=== PATIENT | male | born 1940 | race African-American/Black ===

== ENCOUNTER 2021-05-23 18:48 | Emergency (ER) | payer MEDICARE ==
[2018-09-20 11:00] VITALS: BP 157/74
[~2021-05-23 18:48] MED LIST: AMLO-187 PO; AMOX1TAB10 PO; ASCO500T3 PO; ASPI-630 PO; BENA20TA4 PO; DOCU50CA11 PO; DULA0.75 SQ; DULA1.5P SQ; GABA300C18 PO; HYDR-2761 PO; HYDR-3164 PO; HYDR12.575 PO; HYDR12.58 PO; INSU100C4 SQ; INSU100I13 SQ; INSU100V6 SQ; LISI20TA18 PO; METF10007 PO; POLY17PO29 PO; SILV400C TP; SITA100T PO; ZINC220C7 PO
== END 2021-05-23 22:20 | disposition left against medical advice (07) ==
LOC: ER 18:48
DX: R22.42 Localized swelling, mass and lump, left lower limb (principal); Z53.21 Procedure and treatment not carried out due to patient leaving prior to being seen by health care provider

== ENCOUNTER 2021-06-29 19:53 | Inpatient (IN) | payer MEDICARE ==
[~2021-06-29] VITALS: Ht 162.6 cm; Wt 56.5 kg
--- NOTE | 2021-06-29 20:11 | NUR ---
The patient, ESPERANZA MARINELLI, 80 y/o, M admitted by KESHA TAYLOR MD, was given written information regarding hospital policies, unit procedures and contact persons. Valuables were checked and left with him.
[2021-06-29 20:43] VITALS: BP 173/74
[2021-06-29] MEDS ORDERED: IV NORMAL SALINE 1000ML BAG 1,000 ML IV SCH (20:45)
[2021-06-29] MEDS ORDERED: VANCOMYCIN 1 GM in IV NORMAL SALINE 250ML 250 ML IV SCH (20:45)
[2021-06-29] MEDS ORDERED: INSULIN GLARGINE SYRINGE. SQ SCH (21:00)
[2021-06-29] MEDS ORDERED: VANCOMYCIN 1.25 GM in IV NORMAL SALINE 250ML 250 ML IV ONE (22:00)
[2021-06-29] MEDS: silver sulfADIAZINE 1% CREAM 25GM TUBE. TP SCH (22:00)
[2021-06-29] MEDS: INSULIN LISPRO 300 UNITS/3 ML VIAL. SQ SCH (22:07)
--- NOTE | 2021-06-29 22:07 | PDOC ---
Provider Note Date of Service: DATE: 06/29/21 TIME: 22:06 Provider Note Pt seen .H&P dictated.#[id number]. Justifications for Admission Other Justification KESHA TAYLOR MD Jun 29, 2021 22:07
[2021-06-29] MEDS: HEPARIN for SUB-Q USE 5,000 UNIT/ML VIAL. SQ SCH (22:08)
[2021-06-29] MEDS: HYDROcodone/APAP 5/325MG 1 TAB TABLET PO PRN (22:08)
[2021-06-29] MEDS: GABAPENTIN 300 MG CAPSULE. PO SCH (22:08)
[2021-06-29 22:52] LABS: BASO % 0 % (0-3); EOS % 0 % (0-3); LYMPH % 17 % (24-48); MEAN CORPUSCULAR HEMOGLOBIN 26 pg (25-35); MEAN CORPUSCULAR HGB CONC 32 g/dL (31-37); MEAN CORPUSCULAR VOLUME 82 fL (79-100); MONO # 0.6 x10^3/uL (0.0-1.1); MONO % 10 % (0-9); NEUT # 4.4 x10^3/uL (1.8-7.7); NEUT % 73 % (31-73); PLATELET COUNT 210 x10^3/uL (140-400); RED BLOOD COUNT 3.44 x10^6/uL (4.30-5.70); RED CELL DISTRIBUTION WIDTH 14.9 % (11.5-14.5)
[2021-06-29 23:00] VITALS: BP 158/67
[2021-06-29 23:10] LABS: ALBUMIN 2.4 g/dL (3.4-5.0); ALBUMIN/GLOBULIN RATIO 0.4 (1.0-1.7); CREATININE 1.6 mg/dL (0.7-1.3); GFR 50.7; POTASSIUM 4.3 mmol/L (3.5-5.1); TOTAL BILIRUBIN 0.4 mg/dL (0.2-1.0); TOTAL PROTEIN 7.8 g/dL (6.4-8.2)
[2021-06-29] MEDS: PIPERACILLIN/TAZOBACTAM 2.25 GM in IV NORMAL SALINE 50ML 50 ML IV SCH (23:16)
--- NOTE | 2021-06-29 23:23 | RAD ---
Exam: Chest one view INDICATION: Shortness of breath TECHNIQUE: Frontal view of the chest Comparisons: 09/18/2018 FINDINGS: The cardiomediastinal silhouette and pulmonary vessels are within normal limits. The lung and pleural spaces are clear. IMPRESSION: No acute cardiopulmonary process. Electronically signed by: Ernie Francis MD (06/29/2021 11:20 PM) [facility]
[2021-06-30] MEDS ORDERED: PIPERACILLIN/TAZOBACTAM 3.375 GM in IV NORMAL SALINE 50ML 50 ML IV SCH
--- NOTE | 2021-06-30 00:45 | RAD ---
EXAM: LEFT TIBIA/FIBULA 2 VIEWS. HISTORY: Infection, concern for osteomyelitis. COMPARISON: None. FINDINGS: Small soft tissue ulcers are suspected along the anterior lopez. There is no cortical erosio n suggestive of acute osteomyelitis. No fractures are identified. The joint spaces and alignment of the knee and ankle are grossly maintai noelle. Atherosclerotic calcifications are noted. IMPRESSION: 1. Soft tissue ulcer along the anterior lopez. No evidence of acute osteomyelitis by radiographs. Electronically signed by: Max Aguilar MD (06/30/2021 12:43 AM) [facility]
[2021-06-30] MEDS: VANCOMYCIN PER PHARMACY MC PRN ×2 (00:47→16:25)
--- NOTE | 2021-06-30 00:48 | NUR ---
Pharmacy Vancomycin Dosing Note S:Consulted to monitor and dose vancomycin started 06/29/21. O:ESPERANZA MARINELLI is a 80 year old M with Cellulitis . Height: 5 feet, 4 inches Weight: 51.2 kg [place] Body Weight: 59.20 Adjusted Body Weight: 56.00 Dosing Weight: Actual Other Antibiotics: ZOSYN 2.25 GM Q6H LABS: Last BUN: 30 Last Creatinine: 1.6 Creatinine Clearance: 27 mL/min Last WBC: 6 Last Procalcitonin: Tmax (past 24 hours): Microbiology: I/O: Drug Levels: Last level: on at Last dose given 06/29/21 at 2200 Vancomycin Dosing: Loading Dose: 1250 mg x1 Dosing Weight: Actual Target Trough: 10-20 A: Based on: WT AND CRCL P: 1. Begin Vancomycin 750 mg IV q24h 2. Follow up Trough level on 07/01/21 at 2130 3. Pharmacy will continue to monitor, follow and adjust therapy as needed. FIONA ANDERSON RPH, 06/30/21 0048 Signed: 06/30/21 at 47 by FIONA ANDERSON RPH PHA
[2021-06-30 03:25] VITALS: BP 153/72
[2021-06-30] MEDS: PIPERACILLIN/TAZOBACTAM 2.25 GM in IV NORMAL SALINE 50ML 50 ML IV SCH ×3 (04:51→18:46)
[2021-06-30 05:35] LABS: BILIRUBIN,URINE NEGATIVE (NEG); CLARITY,URINE CLEAR; COLOR,URINE YELLOW; NITRITE,URINE NEGATIVE (NEG); PH,URINE 5.5 (<5.0-8.0); PROTEIN,URINE NEGATIVE (NEG-TRACE)
[2021-06-30 05:54] LABS: BACTERIA,URINE 0 /HPF (0-FEW); WBC,URINE OCC /HPF (0-4)
[2021-06-30 05:55] LABS: AMORPHOUS SEDIMENT,UR PRESENT /HPF
--- NOTE | 2021-06-30 06:27 | EKG ---
[facility] [address] [place] [address] Test Date: 2021-06-30 Test Time: 00:17:15 Pat Name: ESPERANZA MARINELLI Department: Room: 2 Gender: M Program Aide Group Work: CALIN : 1940 Requested By: KESHA TAYLOR Order Number: [id number] Reading MD: Measurements Intervals [place] Rate: 84 P: 52 HI: 124 QRS: -39 QRSD: 104 T: 42 QT: 370 QTc: 440 Interpretive Statements SINUS RHYTHM COMPLEX(ES) WITH ABERRANT INTRAVENTRICULAR CONDUCTION ATRIAL PREMATURE COMPLEX(ES) ABNORMAL LEFT AXIS DEVIATION LEFT ANTERIOR FASCICULAR BLOCK ABNORMAL ECG RI6.02 Compared to ECG 09/18/2018 16:11:04 T-wave abnormality no longer present
[2021-06-30 07:00] VITALS: BP 174/84
--- NOTE | 2021-06-30 07:16 | HP ---
ADMIT DATE: 06/29/2021 REASON FOR ADMISSION TO THE HOSPITAL: Left leg infected ulcer with cellulitis, peripheral vascular disease and left foot ischemia. HISTORY OF PRESENT ILLNESS: The patient is a 80-year-old male patient who has a history of brittle diabetes, insulin-dependent, noncompliant, blood sugar goes up and down. The patient was in the hospital 2 to 3 weeks ago at [facility] for diabetic ketoacidosis, was treated with insulin drip. He also has an ulcer or a scab in the left leg, which became infected and developed ulceration. The patient was seen by cardiovascular at [place]. The patient underwent angioplasty of the left leg at and the patient is being followed at the wound care center. The patient has a wound care nurse to come and see him. He has seen wound care center at on Sunday and he has dressings changed every 3 days. He saw me today in the office and there is a foul smelling drainage from the wound. Also, his foot is more dusky color with more pain as well as discoloration and with a history of vascular disease and infected ulcer, the patient was admitted to the hospital for further investigation and treatment. PAST MEDICAL HISTORY: As mentioned, the patient has history of insulin-dependent diabetes, brittle, also noncompliant, history of hypertension, hyperlipidemia, peripheral vascular disease. 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 This was in the past. SOCIAL HISTORY: Smokes 1 pack, still smokes. Denies alcohol. Denies any street drugs. FAMILY HISTORY: Positive for diabetes, heart disease. ALLERGIES: No known allergies. MEDICATIONS: From home, hydrocodone for pain, insulin 10 units, Humalog 3 times daily, Lantus 20 units at bedtime, metformin 1000 twice a day, Januvia 100 mg daily, aspirin 81 mg daily, gabapentin 300 mg 3 times daily, hydrochlorothiazide 12.5, lisinopril 20 mg twice a day. REVIEW OF SYSTEMS: The patient has been not feeling well for the last 2 days, more irritable, not as usual. PHYSICAL EXAMINATION: VITAL SIGNS: Temperature 100.3, pulse 93, respirations 20, blood pressure 173/74, 99 on room air. HEENT: Head is atraumatic. Pupils equal. Oral cavity, no congestion. NECK: Supple. Thyroid not enlarged. JVD not elevated. CHEST: Symmetrical. CARDIOVASCULAR: S1, S2. LUNGS: Clear to auscultation. ABDOMEN: Soft. No mass palpable. : No [place]. RECTUM: Deferred. EXTREMITIES: The patient has a scar of right leg bypass surgery, couple of toes removed in the right foot, no ulcerations. Left foot anterior lopez, this is a large ulcer 5 cm with some white necrotic debris at the base of the ulcer and patient has a nonpalpable dorsalis and posterior tibial and dorsal aspect of the foot is dusky and some eschar at the ankle area, which was not present last week and the patient has a second toe chronic discoloration on the left foot. The patient has significant diabetic neuropathy. LABORATORY DATA: Pending. FINAL IMPRESSION: 1. Infected left leg lower ulcer with necrosis with surrounding inflammation, acute infection, possible to have rule out underlying osteomyelitis. 2. Severe peripheral vascular disease. The patient recently underwent angioplasty of the left lower leg at [facility]. 3. Dusky left ankle and foot secondary to vascular disease. 4. Insulin-dependent diabetes. 5. Noncompliance. 6. Uncontrolled diabetes. A1c was 15. 7. Peripheral vascular disease. 8. Neuropathy. PLAN: At this time, was admitted to the hospital. Wound cultures, start on broad spectrum antibiotic, vancomycin and Zosyn. ID is consulted. Will also have a vascular consult and arterial Doppler and x-ray of the left tibia and fibular, rule out osteo. Further recommendations to follow. We will also consult wound care team and heparin for DVT prophylaxis. Prognosis is guarded secondary to multiple comorbid conditions. TIAGO/AVR/AMI DR: TIAGO/jamarcus TID: [id number] [facility]
[2021-06-30] MEDS: INSULIN LISPRO 300 UNITS/3 ML VIAL. SQ SCH ×7 (07:30→21:00)
[2021-06-30 07:40] LABS: BASO # 0.1 x10^3/uL (0.0-0.2); BASO % 1 % (0-3); EOS # 0.1 x10^3/uL (0.0-0.7); EOS % 1 % (0-3); HEMATOCRIT 28.9 % (39.0-53.0); HEMOGLOBIN 9.3 g/dL (13.0-17.5); LYMPH # 1.6 x10^3/uL (1.0-4.8); LYMPH % 23 % (24-48); MEAN CORPUSCULAR HEMOGLOBIN 26 pg (25-35); MEAN CORPUSCULAR HGB CONC 32 g/dL (31-37); MEAN CORPUSCULAR VOLUME 81 fL (79-100); MONO % 15 % (0-9); NEUT # 4.2 x10^3/uL (1.8-7.7); NEUT % 61 % (31-73); PLATELET COUNT 237 x10^3/uL (140-400); RED BLOOD COUNT 3.59 x10^6/uL (4.30-5.70); RED CELL DISTRIBUTION WIDTH 14.5 % (11.5-14.5); WHITE BLOOD COUNT 6.9 x10^3/uL (4.0-11.0)
[2021-06-30 07:49] LABS: CALCIUM 8.9 mg/dL (8.5-10.1); CREATININE 1.5 mg/dL (0.7-1.3); GFR 54.6; POTASSIUM 3.6 mmol/L (3.5-5.1)
[2021-06-30 07:50] LABS: CHOLESTEROL/HDL RATIO 2.8
--- NOTE | 2021-06-30 07:57 | PDOC ---
PROGRESS NOTES Date of Service: DATE: 06/30/21 TIME: 07:57 Subjective Subjective feels better today Objective Objective Vital Signs Date Time Temp Pulse Resp B/P (MAP) Pulse Ox O2 Delivery O2 Flow Rate FiO2 06/30/21 03:25 98.9 77 18 153/72 (99) 96 Room Air 98.9 Physical Exam Abdomen: Soft Heart: Regular rate, Normal S1, Normal S2 Extremities: No clubbing General: Alert, Cooperative HEENT: Atraumatic Lungs: Clear to auscultation MUSCULOSKELETAL: No deformity, No swelling, Abnormal exam of left, Other Neck: No JVD Neuro: Normal speech Psych/Mental Status: Mental status NL Skin: Other (left leg ulcer anterior to lopez 5 cm stage 3-4,POA) Assessment Assessment Assessment Left lower extremity abscess Left lower extremity cellulitis Left lower extremity non healing chronic wound Peripheral vascular disease with history of angioplasty Diabetes mellitus with peripheral neuropathy CKD Tobacco dependence History of noncompliance History of previous toe amputation Plan: Debridement tomorrow? Plan: arterial doppler results noted vascular consult appreciated iv antibiotics x ray -ve for osteo sedrate 120 high . cr 1.5 plastic consult ID consult appreciated. Continue Zosyn Change vancomycin to daptomycin Vascular consulted, will need I&D Continue local wound care as directed Monitor labs and cultures Continue supportive care Comment Review of Relevant I have reviewed the following items jorge (where applicable) has been applied. Labs Laboratory Tests Test 06/29/21 20:30 06/29/21 22:30 06/29/21 23:50 06/30/21 05:24 Glucose (Fingerstick) 337 mg/dL (70-99) White Blood Count 6.0 x10^3/uL (4.0-11.0) Red Blood Count 3.44 x10^6/uL (4.30-5.70) Hemoglobin 9.0 g/dL (13.0-17.5) Hematocrit 28.0 % (39.0-53.0) Mean Corpuscular Volume 82 fL (79-100) Mean Corpuscular Hemoglobin 26 pg (25-35) Mean Corpuscular Hemoglobin Concent 32 g/dL (31-37) Red Cell Distribution Width 14.9 % (11.5-14.5) Platelet Count 210 x10^3/uL (140-400) Neutrophils (%) (Auto) 73 % (31-73) Lymphocytes (%) (Auto) 17 % (24-48) Monocytes (%) (Auto) 10 % (0-9) Eosinophils (%) (Auto) 0 % (0-3) Basophils (%) (Auto) 0 % (0-3) Neutrophils # (Auto) 4.4 x10^3/uL (1.8-7.7) Lymphocytes # (Auto) 1.0 x10^3/uL (1.0-4.8) Monocytes # (Auto) 0.6 x10^3/uL (0.0-1.1) Eosinophils # (Auto) 0.0 x10^3/uL (0.0-0.7) Basophils # (Auto) 0.0 x10^3/uL (0.0-0.2) Sodium Level 135 mmol/L (136-145) Potassium Level 4.3 mmol/L (3.5-5.1) Chloride Level 99 mmol/L (98-107) Carbon Dioxide Level 26 mmol/L (21-32) Anion Gap 10 (6-14) Blood Urea Nitrogen 30 mg/dL (8-26) Creatinine 1.6 mg/dL (0.7-1.3) Estimated GFR (Cockcroft-Gault) 50.7 BUN/Creatinine Ratio 19 (6-20) Glucose Level 331 mg/dL (70-99) Calcium Level 9.0 mg/dL (8.5-10.1) Total Bilirubin 0.4 mg/dL (0.2-1.0) Aspartate Amino Transf (AST/SGOT) 14 U/L (15-37) Alanine Aminotransferase (ALT/SGPT) 14 U/L (16-63) Alkaline Phosphatase 67 U/L (46-116) Total Protein 7.8 g/dL (6.4-8.2) Albumin 2.4 g/dL (3.4-5.0) Albumin/Globulin Ratio 0.4 (1.0-1.7) SARS-CoV-2 Antigen (Rapid) Negative (NEGATIVE) Urine Collection Type U cath Urine Color Yellow Urine Clarity Clear Urine pH 5.5 (<5.0-8.0) Urine Specific [place] 1.015 (1.000-1.030) Urine Protein Negative mg/dL (NEG-TRACE) Urine Glucose (UA) 500 mg/dL (NEG) Urine Ketones (Stick) Negative mg/dL (NEG) Urine Blood Small (NEG) Urine Nitrite Negative (NEG) Urine Bilirubin Negative (NEG) Urine Urobilinogen Dipstick 1.0 mg/dL (0.2 mg/dL) Urine Leukocyte Esterase Negative (NEG) Urine RBC 3-5 /HPF (0-2) Urine WBC Occ /HPF (0-4) Urine Amorphous Sediment Present /HPF Urine Bacteria 0 /HPF (0-FEW) Test 06/30/21 06:10 06/30/21 07:28 White Blood Count 6.9 x10^3/uL (4.0-11.0) Red Blood Count 3.59 x10^6/uL (4.30-5.70) Hemoglobin 9.3 g/dL (13.0-17.5) Hematocrit 28.9 % (39.0-53.0) Mean Corpuscular Volume 81 fL (79-100) Mean Corpuscular Hemoglobin 26 pg (25-35) Mean Corpuscular Hemoglobin Concent 32 g/dL (31-37) Red Cell Distribution Width 14.5 % (11.5-14.5) Platelet Count 237 x10^3/uL (140-400) Neutrophils (%) (Auto) 61 % (31-73) Lymphocytes (%) (Auto) 23 % (24-48) Monocytes (%) (Auto) 15 % (0-9) Eosinophils (%) (Auto) 1 % (0-3) Basophils (%) (Auto) 1 % (0-3) Neutrophils # (Auto) 4.2 x10^3/uL (1.8-7.7) Lymphocytes # (Auto) 1.6 x10^3/uL (1.0-4.8) Monocytes # (Auto) 1.0 x10^3/uL (0.0-1.1) Eosinophils # (Auto) 0.1 x10^3/uL (0.0-0.7) Basophils # (Auto) 0.1 x10^3/uL (0.0-0.2) Sodium Level 141 mmol/L (136-145) Potassium Level 3.6 mmol/L (3.5-5.1) Chloride Level 104 mmol/L (98-107) Carbon Dioxide Level 30 mmol/L (21-32) Anion Gap 7 (6-14) Blood Urea Nitrogen 25 mg/dL (8-26) Creatinine 1.5 mg/dL (0.7-1.3) Estimated GFR (Cockcroft-Gault) 54.6 Glucose Level 62 mg/dL (70-99) Calcium Level 8.9 mg/dL (8.5-10.1) Triglycerides Level 49 mg/dL (0-150) Cholesterol Level 124 mg/dL (0-200) LDL Cholesterol, Calculated 70 mg/dL (0-100) VLDL Cholesterol, Calculated 10 mg/dL (0-40) Non-HDL Cholesterol Calculated 80 mg/dL (0-129) HDL Cholesterol 44 mg/dL (40-60) Cholesterol/HDL Ratio 2.8 Glucose (Fingerstick) 73 mg/dL (70-99) Medications Current Medications Acetaminophen/ Hydrocodone Bitart (Lortab 5/325) 1 tab PRN Q6HRS PRN PO MODERATE PAIN 4-6 Last administered on 06/29/21at 22:08; Start 06/29/21 at 20:45 Aspirin (Aspirin Chewable) 81 mg BID PO ; Start 06/30/21 at 09:00 Dextrose (Dextrose 50%-Water Syringe) 12.5 gm PRN Q15MIN PRN IV SEE COMMENTS; Start 06/29/21 at 20:45 Gabapentin (Neurontin) 300 mg BID PO Last administered on 06/29/21at 22:08; Start 06/29/21 at 22:00 Heparin Sodium (Porcine) (Heparin Sodium) 5,000 unit BID SQ Last administered on 06/29/21at 22:08; Start 06/29/21 at 21:00 Hydrochlorothiazide (Microzide) 12.5 mg DAILY PO ; Start 06/30/21 at 09:00 Insulin Glargine (Lantus Syringe) 10 unit QHS SQ ; Start 06/30/21 at 21:00 Insulin Glargine (Lantus Syringe) 20 unit QHS SQ Last administered on 06/29/21at 22:04; Start 06/29/21 at 21:00; Stop 06/29/21 at 22:27; Status DC Insulin Human Lispro (HumaLOG) 0-7 UNITS QIDACHS SQ Last administered on 06/29/21at 22:07; Start 06/29/21 at 21:00 Insulin Human Lispro (HumaLOG) 6 units TIDAC SQ ; Start 06/30/21 at 07:30 Lisinopril (Prinivil) 20 mg BID PO ; Start 06/30/21 at 09:00 Piperacillin Sod/ Tazobactam Sod 2.25 gm/Sodium Chloride 50 ml @ 100 mls/hr Q6HRS IV Last administered on 06/30/21at 04:51; Start 06/30/21 at 00:00 Piperacillin Sod/ Tazobactam Sod 3.375 gm/Sodium Chloride 50 ml @ 100 mls/hr Q6HRS IV ; Start 06/30/21 at 00:00; Status UNV Silver Sulfadiazine (Silvadene) 1 eugene BID TP Last administered on 06/29/21at 22:00; Start 06/29/21 at 21:00 Sodium Chloride 1,000 ml @ 75 mls/hr [id number] IV Last administered on 06/29/21at 21:59; Start 06/29/21 at 20:45 Vancomycin HCl (Vanco Per Pharmacy) 1 each PRN DAILY PRN MC SEE COMMENTS Last administered on 06/30/21at 00:47; Start 06/29/21 at 20:45 Vancomycin HCl (Vancomycin Trough Level) 1 each 1X ONCE MC ; Start 07/01/21 at 21:30; Stop 07/01/21 at 21:31 Vancomycin HCl 1.25 gm/Sodium Chloride 250 ml @ 166.667 mls/hr 1X ONCE IV Last administered on 06/29/21at 21:59; Start 06/29/21 at 22:00; Stop 06/29/21 at 23:29; Status DC Vancomycin HCl 750 mg/Sodium Chloride 250 ml @ 250 mls/hr Q24H IV ; Start 06/30/21 at 22:00 Vancomycin HCl 1 gm/Sodium Chloride 250 ml @ 250 mls/hr 1X IV ; Start 06/29/21 at 20:45; Status UNV Vitals/I & O Vital Sign - Last 24 Hours 06/29/21 06/29/21 06/29/21 06/29/21 20:12 20:43 22:08 22:38 Temp 100.3 100.3 Pulse 93 Resp 20 18 16 B/P (MAP) 173/74 (107) Pulse Ox 99 99 99 O2 Delivery Room Air Room Air Room Air Room Air 06/29/21 06/30/21 23:00 03:25 Temp 99.9 98.9 99.9 98.9 Pulse 75 77 Resp 20 18 B/P (MAP) 158/67 (97) 153/72 (99) Pulse Ox 97 96 O2 Delivery Room Air Room Air Justifications for Admission Other Justification KESHA TAYLOR MD Jun 30, 2021 07:57
[2021-06-30] MEDS: POTASSIUM CL 20MEQ D5-0.9%NACL 1,000 ML IV SCH ×2 (08:00→22:30)
--- NOTE | 2021-06-30 08:29 | RAD ---
EXAM: Left lower extremity venous Doppler sonogram. HISTORY: Cellulitis. Pain and swelling. TECHNIQUE: Metz scale and color Doppler sonographic evaluation of the left lower extremity veins with spectral waveform analysis was performed. FINDINGS: There is normal color flow, normal compressibility and there are normal spectral waveforms in the common femoral, superficial femoral, popliteal, posterior tibial and greater saphenous veins. IMPRESSION: No Doppler evidence of lower extremity deep venous thrombosis. Electronically signed by: Kristina Palmer MD (06/30/2021 8:26 AM) [facility]
[2021-06-30] MEDS: hydroCHLOROthiazide 12.5 MG CAPSULE PO SCH (08:30)
[2021-06-30] MEDS: GABAPENTIN 300 MG CAPSULE. PO SCH ×2 (08:30→22:25)
[2021-06-30] MEDS: LISINOPRIL 20 MG TABLET PO SCH ×2 (08:30→22:26)
[2021-06-30] MEDS: ASPIRIN CHEWABLE 81 MG TABLET. PO SCH ×2 (08:30→21:00)
[2021-06-30] MEDS: silver sulfADIAZINE 1% CREAM 25GM TUBE. TP SCH ×2 (08:31→21:00)
--- NOTE | 2021-06-30 08:31 | RAD ---
EXAM: Left lower extremity arterial Doppler sonogram. HISTORY: Cellulitis. Pain. Peripheral vascular disease. TECHNIQUE: Metz scale and color Doppler sonographic imaging of the lower extremity arteries with spec tral waveform analysis was performed. COMPARISON: None. FINDINGS: There are abnormal monophasic waveforms involving the proximal and distal posterior tibial artery, anterior tibial artery and dorsalis pedis artery, consistent with hemodynamically significant proximal stenosis. There is a borderline elevated peak systolic velocity within the left proximal po sterior tibial artery, measuring 150 cm/s. There is an elevated peak systolic velocity within the dis victoriano left posterior tibial artery measuring 235 cm/s. There are normal triphasic waveforms and peak systolic velocities within the left common femoral, marichuy p femoral, superficial femoral, and popliteal arteries. No arterial occlusion is seen. IMPRESSION: 1. Monophasic waveforms distal to the popliteal artery, favoring hemodynamically significant proximal stenosis. 2. Elevated peak systolic velocity within the distal posterior tibial artery and borderline elevated peak systolic velocity within the proximal posterior tibial artery, consistent with hemodynamically s ignificant stenosis. 3. Nonvisualization of the peroneal artery. There is no evidence of occlusion involving the remainder of the lower extremity arteries. Electronically signed by: Kristina Palmer MD (06/30/2021 8:28 AM) [facility]
[2021-06-30] MEDS: HEPARIN for SUB-Q USE 5,000 UNIT/ML VIAL. SQ SCH ×2 (09:00→21:00)
[2021-06-30 10:51] VITALS: BP 150/71
--- NOTE | 2021-06-30 11:09 | PDOC2 ---
IM Consult Reason for consult LLE infected Ulcer, antibiotic management Referring physician DR TAYLOR Date of Admission DATE: 06/30/21 TIME: 10:57 Chief Complaint Chief Complaint This 80-year-old gentleman with history of insulin-dependent diabetes mellitus poorly controlled, hypertension, hyperlipidemia , Peripheral vascular disease, previous toe amputations was following up with wound care for Nonhealing left lower extremity wound. Patient had developed swelling, foul- smelling drainage. Patient was started on IV Vanco and Zosyn ID consultation has been requested for antibiotic management Patient denies any history of trauma. Has undergone angioplasty at [facility] Says has been following up regularly with wound care team. Here CBC is pending. Imaging as below. Past Medical History Cardiovascular: HTN, Hyperlipidemia, Other Pulmonary: No pertinent hx CENTRAL NERVOUS SYSTEM: Other GI: GI bleed, Peptic Ulcer disease Heme/Onc: Other Hepatobiliary: No pertinent hx Psych: No pertinent hx Musculoskeletal: Osteoarthritis, Other Rheumatologic: No pertinent hx Infectious disease: No pertinent hx Renal/: No pertinent hx Endocrine: Diabetes Past Surgical History Past Surgical History: Other Past Family History Family History: Diabetes Review of Symptoms Review of Symptoms General ROS: positive for nonhealing ulcer over the left lower extremity with drainage Patient is a poor historian but denies any other complaints Medications Current Medications Acetaminophen/ Hydrocodone Bitart (Lortab 5/325) 1 tab PRN Q6HRS PRN PO MODERATE PAIN 4-6 Last administered on 06/29/21at 22:08; Start 06/29/21 at 20:45 Aspirin (Aspirin Chewable) 81 mg BID PO Last administered on 06/30/21at 08:30; Start 06/30/21 at 09:00 Dextrose (Dextrose 50%-Water Syringe) 12.5 gm PRN Q15MIN PRN IV SEE COMMENTS; Start 06/29/21 at 20:45 Gabapentin (Neurontin) 300 mg BID PO Last administered on 06/30/21at 08:30; Start 06/29/21 at 22:00 Heparin Sodium (Porcine) (Heparin Sodium) 5,000 unit BID SQ Last administered on 06/29/21at 22:08; Start 06/29/21 at 21:00 Hydrochlorothiazide (Microzide) 12.5 mg DAILY PO Last administered on 06/30/21at 08:30; Start 06/30/21 at 09:00 Insulin Glargine (Lantus Syringe) 10 unit QHS SQ ; Start 06/30/21 at 21:00 Insulin Glargine (Lantus Syringe) 20 unit QHS SQ Last administered on 06/29/21at 22:04; Start 06/29/21 at 21:00; Stop 06/29/21 at 22:27; Status DC Insulin Human Lispro (HumaLOG) 0-7 UNITS QIDACHS SQ Last administered on 06/29/21at 22:07; Start 06/29/21 at 21:00 Insulin Human Lispro (HumaLOG) 6 units TIDAC SQ ; Start 06/30/21 at 07:30 Lisinopril (Prinivil) 20 mg BID PO Last administered on 06/30/21at 08:30; Start 06/30/21 at 09:00 Piperacillin Sod/ Tazobactam Sod 2.25 gm/Sodium Chloride 50 ml @ 100 mls/hr Q6HRS IV Last administered on 06/30/21at 04:51; Start 06/30/21 at 00:00 Piperacillin Sod/ Tazobactam Sod 3.375 gm/Sodium Chloride 50 ml @ 100 mls/hr Q6HRS IV ; Start 06/30/21 at 00:00; Status UNV Potassium Chloride/Dextrose/ Sod Cl 1,000 ml @ 75 mls/hr [id number] IV Last administered on 06/30/21at 08:00; Start 06/30/21 at 08:00 Silver Sulfadiazine (Silvadene) 1 eugene BID TP Last administered on 06/30/21at 08:31; Start 06/29/21 at 21:00 Sodium Chloride 1,000 ml @ 75 mls/hr [id number] IV Last administered on 06/29/21at 21:59; Start 06/29/21 at 20:45; Stop 06/30/21 at 07:57; Status DC Vancomycin HCl (Vanco Per Pharmacy) 1 each PRN DAILY PRN MC SEE COMMENTS Last administered on 06/30/21at 00:47; Start 06/29/21 at 20:45 Vancomycin HCl (Vancomycin Trough Level) 1 each 1X ONCE MC ; Start 07/01/21 at 21:30; Stop 07/01/21 at 21:31 Vancomycin HCl 1.25 gm/Sodium Chloride 250 ml @ 166.667 mls/hr 1X ONCE IV Last administered on 06/29/21at 21:59; Start 06/29/21 at 22:00; Stop 06/29/21 at 23:29; Status DC Vancomycin HCl 750 mg/Sodium Chloride 250 ml @ 250 mls/hr Q24H IV ; Start 06/30/21 at 22:00 Vancomycin HCl 1 gm/Sodium Chloride 250 ml @ 250 mls/hr 1X IV ; Start 06/29/21 at 20:45; Status UNV Allergy Allergies Coded Allergies Type Severity Reaction Last Updated Verified No Known Drug Allergies 05/31/16 No Physical Exam Physical Exam GENERAL: Reviewed but arousable male, lying in bed comfortably, in no acute distress. HEENT: Normocephalic, atraumatic. Anicteric. NECK: Supple. No JVD. LUNGS: Clear bilaterally. No wheezing. HEART: S1, S2. No gallops or murmurs. ABDOMEN: Soft, nontender, nondistended. No rebound or guarding. EXTREMITIES: Left lower extremity large wound with purulence surrounding erythema, warmth Has had toe amputations in the past MUSCULOSKELETAL: No joint swelling. No decrease in range of motion. CENTRAL NERVOUS SYSTEM: Alert, oriented x 3, grossly nonfocal. PSYCHIATRIC: Cooperative, calm. Labs Laboratory Tests Test 06/29/21 20:30 06/29/21 22:30 06/29/21 23:50 06/30/21 05:24 Glucose (Fingerstick) 337 mg/dL (70-99) White Blood Count 6.0 x10^3/uL (4.0-11.0) Red Blood Count 3.44 x10^6/uL (4.30-5.70) Hemoglobin 9.0 g/dL (13.0-17.5) Hematocrit 28.0 % (39.0-53.0) Mean Corpuscular Volume 82 fL (79-100) Mean Corpuscular Hemoglobin 26 pg (25-35) Mean Corpuscular Hemoglobin Concent 32 g/dL (31-37) Red Cell Distribution Width 14.9 % (11.5-14.5) Platelet Count 210 x10^3/uL (140-400) Neutrophils (%) (Auto) 73 % (31-73) Lymphocytes (%) (Auto) 17 % (24-48) Monocytes (%) (Auto) 10 % (0-9) Eosinophils (%) (Auto) 0 % (0-3) Basophils (%) (Auto) 0 % (0-3) Neutrophils # (Auto) 4.4 x10^3/uL (1.8-7.7) Lymphocytes # (Auto) 1.0 x10^3/uL (1.0-4.8) Monocytes # (Auto) 0.6 x10^3/uL (0.0-1.1) Eosinophils # (Auto) 0.0 x10^3/uL (0.0-0.7) Basophils # (Auto) 0.0 x10^3/uL (0.0-0.2) Sodium Level 135 mmol/L (136-145) Potassium Level 4.3 mmol/L (3.5-5.1) Chloride Level 99 mmol/L (98-107) Carbon Dioxide Level 26 mmol/L (21-32) Anion Gap 10 (6-14) Blood Urea Nitrogen 30 mg/dL (8-26) Creatinine 1.6 mg/dL (0.7-1.3) Estimated GFR (Cockcroft-Gault) 50.7 BUN/Creatinine Ratio 19 (6-20) Glucose Level 331 mg/dL (70-99) Calcium Level 9.0 mg/dL (8.5-10.1) Total Bilirubin 0.4 mg/dL (0.2-1.0) Aspartate Amino Transf (AST/SGOT) 14 U/L (15-37) Alanine Aminotransferase (ALT/SGPT) 14 U/L (16-63) Alkaline Phosphatase 67 U/L (46-116) Total Protein 7.8 g/dL (6.4-8.2) Albumin 2.4 g/dL (3.4-5.0) Albumin/Globulin Ratio 0.4 (1.0-1.7) SARS-CoV-2 RNA (ERIC) Negative (Negative) SARS-CoV-2 Antigen (Rapid) Negative (NEGATIVE) Urine Collection Type U cath Urine Color Yellow Urine Clarity Clear Urine pH 5.5 (<5.0-8.0) Urine Specific [place] 1.015 (1.000-1.030) Urine Protein Negative mg/dL (NEG-TRACE) Urine Glucose (UA) 500 mg/dL (NEG) Urine Ketones (Stick) Negative mg/dL (NEG) Urine Blood Small (NEG) Urine Nitrite Negative (NEG) Urine Bilirubin Negative (NEG) Urine Urobilinogen Dipstick 1.0 mg/dL (0.2 mg/dL) Urine Leukocyte Esterase Negative (NEG) Urine RBC 3-5 /HPF (0-2) Urine WBC Occ /HPF (0-4) Urine Amorphous Sediment Present /HPF Urine Bacteria 0 /HPF (0-FEW) Test 06/30/21 06:10 06/30/21 07:28 White Blood Count 6.9 x10^3/uL (4.0-11.0) Red Blood Count 3.59 x10^6/uL (4.30-5.70) Hemoglobin 9.3 g/dL (13.0-17.5) Hematocrit 28.9 % (39.0-53.0) Mean Corpuscular Volume 81 fL (79-100) Mean Corpuscular Hemoglobin 26 pg (25-35) Mean Corpuscular Hemoglobin Concent 32 g/dL (31-37) Red Cell Distribution Width 14.5 % (11.5-14.5) Platelet Count 237 x10^3/uL (140-400) Neutrophils (%) (Auto) 61 % (31-73) Lymphocytes (%) (Auto) 23 % (24-48) Monocytes (%) (Auto) 15 % (0-9) Eosinophils (%) (Auto) 1 % (0-3) Basophils (%) (Auto) 1 % (0-3) Neutrophils # (Auto) 4.2 x10^3/uL (1.8-7.7) Lymphocytes # (Auto) 1.6 x10^3/uL (1.0-4.8) Monocytes # (Auto) 1.0 x10^3/uL (0.0-1.1) Eosinophils # (Auto) 0.1 x10^3/uL (0.0-0.7) Basophils # (Auto) 0.1 x10^3/uL (0.0-0.2) Erythrocyte Sedimentation Rate 127 (0-15) Sodium Level 141 mmol/L (136-145) Potassium Level 3.6 mmol/L (3.5-5.1) Chloride Level 104 mmol/L (98-107) Carbon Dioxide Level 30 mmol/L (21-32) Anion Gap 7 (6-14) Blood Urea Nitrogen 25 mg/dL (8-26) Creatinine 1.5 mg/dL (0.7-1.3) Estimated GFR (Cockcroft-Gault) 54.6 Glucose Level 62 mg/dL (70-99) Calcium Level 8.9 mg/dL (8.5-10.1) Triglycerides Level 49 mg/dL (0-150) Cholesterol Level 124 mg/dL (0-200) LDL Cholesterol, Calculated 70 mg/dL (0-100) VLDL Cholesterol, Calculated 10 mg/dL (0-40) Non-HDL Cholesterol Calculated 80 mg/dL (0-129) HDL Cholesterol 44 mg/dL (40-60) Cholesterol/HDL Ratio 2.8 Thyroid Stimulating Hormone (TSH) 0.677 uIU/mL (0.358-3.74) Glucose (Fingerstick) 73 mg/dL (70-99) Laboratory Tests Test 06/29/21 20:30 06/29/21 22:30 06/29/21 23:50 06/30/21 05:24 Glucose (Fingerstick) 337 mg/dL (70-99) White Blood Count 6.0 x10^3/uL (4.0-11.0) Red Blood Count 3.44 x10^6/uL (4.30-5.70) Hemoglobin 9.0 g/dL (13.0-17.5) Hematocrit 28.0 % (39.0-53.0) Mean Corpuscular Volume 82 fL (79-100) Mean Corpuscular Hemoglobin 26 pg (25-35) Mean Corpuscular Hemoglobin Concent 32 g/dL (31-37) Red Cell Distribution Width 14.9 % (11.5-14.5) Platelet Count 210 x10^3/uL (140-400) Neutrophils (%) (Auto) 73 % (31-73) Lymphocytes (%) (Auto) 17 % (24-48) Monocytes (%) (Auto) 10 % (0-9) Eosinophils (%) (Auto) 0 % (0-3) Basophils (%) (Auto) 0 % (0-3) Neutrophils # (Auto) 4.4 x10^3/uL (1.8-7.7) Lymphocytes # (Auto) 1.0 x10^3/uL (1.0-4.8) Monocytes # (Auto) 0.6 x10^3/uL (0.0-1.1) Eosinophils # (Auto) 0.0 x10^3/uL (0.0-0.7) Basophils # (Auto) 0.0 x10^3/uL (0.0-0.2) Sodium Level 135 mmol/L (136-145) Potassium Level 4.3 mmol/L (3.5-5.1) Chloride Level 99 mmol/L (98-107) Carbon Dioxide Level 26 mmol/L (21-32) Anion Gap 10 (6-14) Blood Urea Nitrogen 30 mg/dL (8-26) Creatinine 1.6 mg/dL (0.7-1.3) Estimated GFR (Cockcroft-Gault) 50.7 BUN/Creatinine Ratio 19 (6-20) Glucose Level 331 mg/dL (70-99) Calcium Level 9.0 mg/dL (8.5-10.1) Total Bilirubin 0.4 mg/dL (0.2-1.0) Aspartate Amino Transf (AST/SGOT) 14 U/L (15-37) Alanine Aminotransferase (ALT/SGPT) 14 U/L (16-63) Alkaline Phosphatase 67 U/L (46-116) Total Protein 7.8 g/dL (6.4-8.2) Albumin 2.4 g/dL (3.4-5.0) Albumin/Globulin Ratio 0.4 (1.0-1.7) SARS-CoV-2 RNA (ERIC) Negative (Negative) SARS-CoV-2 Antigen (Rapid) Negative (NEGATIVE) Urine Collection Type U cath Urine Color Yellow Urine Clarity Clear Urine pH 5.5 (<5.0-8.0) Urine Specific [place] 1.015 (1.000-1.030) Urine Protein Negative mg/dL (NEG-TRACE) Urine Glucose (UA) 500 mg/dL (NEG) Urine Ketones (Stick) Negative mg/dL (NEG) Urine Blood Small (NEG) Urine Nitrite Negative (NEG) Urine Bilirubin Negative (NEG) Urine Urobilinogen Dipstick 1.0 mg/dL (0.2 mg/dL) Urine Leukocyte Esterase Negative (NEG) Urine RBC 3-5 /HPF (0-2) Urine WBC Occ /HPF (0-4) Urine Amorphous Sediment Present /HPF Urine Bacteria 0 /HPF (0-FEW) Test 06/30/21 06:10 06/30/21 07:28 White Blood Count 6.9 x10^3/uL (4.0-11.0) Red Blood Count 3.59 x10^6/uL (4.30-5.70) Hemoglobin 9.3 g/dL (13.0-17.5) Hematocrit 28.9 % (39.0-53.0) Mean Corpuscular Volume 81 fL (79-100) Mean Corpuscular Hemoglobin 26 pg (25-35) Mean Corpuscular Hemoglobin Concent 32 g/dL (31-37) Red Cell Distribution Width 14.5 % (11.5-14.5) Platelet Count 237 x10^3/uL (140-400) Neutrophils (%) (Auto) 61 % (31-73) Lymphocytes (%) (Auto) 23 % (24-48) Monocytes (%) (Auto) 15 % (0-9) Eosinophils (%) (Auto) 1 % (0-3) Basophils (%) (Auto) 1 % (0-3) Neutrophils # (Auto) 4.2 x10^3/uL (1.8-7.7) Lymphocytes # (Auto) 1.6 x10^3/uL (1.0-4.8) Monocytes # (Auto) 1.0 x10^3/uL (0.0-1.1) Eosinophils # (Auto) 0.1 x10^3/uL (0.0-0.7) Basophils # (Auto) 0.1 x10^3/uL (0.0-0.2) Erythrocyte Sedimentation Rate 127 (0-15) Sodium Level 141 mmol/L (136-145) Potassium Level 3.6 mmol/L (3.5-5.1) Chloride Level 104 mmol/L (98-107) Carbon Dioxide Level 30 mmol/L (21-32) Anion Gap 7 (6-14) Blood Urea Nitrogen 25 mg/dL (8-26) Creatinine 1.5 mg/dL (0.7-1.3) Estimated GFR (Cockcroft-Gault) 54.6 Glucose Level 62 mg/dL (70-99) Calcium Level 8.9 mg/dL (8.5-10.1) Triglycerides Level 49 mg/dL (0-150) Cholesterol Level 124 mg/dL (0-200) LDL Cholesterol, Calculated 70 mg/dL (0-100) VLDL Cholesterol, Calculated 10 mg/dL (0-40) Non-HDL Cholesterol Calculated 80 mg/dL (0-129) HDL Cholesterol 44 mg/dL (40-60) Cholesterol/HDL Ratio 2.8 Thyroid Stimulating Hormone (TSH) 0.677 uIU/mL (0.358-3.74) Glucose (Fingerstick) 73 mg/dL (70-99) PATIENT: ESPERANZA MARINELLI WACCOUNT: [id number] : 1940 LOCATION: [facility] AGE: 80 SEX: M EXAM STATUS: ADM IN ORD. PHYSICIAN: KESHA TAYLOR MD REASON: New admit, possible surgery not ready 10:05 RN will call when ready PROCEDURE: CHEST AP ONLY Exam: Chest one view INDICATION: Shortness of breath TECHNIQUE: Frontal view of the chest Comparisons: 09/18/2018 FINDINGS: The cardiomediastinal silhouette and pulmonary vessels are within normal limits. The lung and pleural spaces are clear. IMPRESSION: No acute cardiopulmonary process. REASON: r/o Osteomylitis 2 view x-ray PROCEDURE: TIBIA FIBULA LEFT EXAM: LEFT TIBIA/FIBULA 2 VIEWS. HISTORY: Infection, concern for osteomyelitis. COMPARISON: None. FINDINGS: Small soft tissue ulcers are suspected along the anterior lopez. There is no cortical erosion suggestive of acute osteomyelitis. No fractures are identified. The joint spaces and alignment of the knee and ankle are grossly maintained. Atherosclerotic calcifications are noted. IMPRESSION: 1. Soft tissue ulcer along the anterior lopez. No evidence of acute osteomyelitis by radiographs. REASON: LLE Celluitis/lower leg wound PROCEDURE: DUPLEX LOWER EXT ARTERIAL LEFT EXAM: Left lower extremity arterial Doppler sonogram. HISTORY: Cellulitis. Pain. Peripheral vascular disease. TECHNIQUE: Metz scale and color Doppler sonographic imaging of the lower extremity arteries with spectral waveform analysis was performed. COMPARISON: None. FINDINGS: There are abnormal monophasic waveforms involving the proximal and distal posterior tibial artery, anterior tibial artery and dorsalis pedis artery, consistent with hemodynamically significant proximal stenosis. There is a borderline elevated peak systolic velocity within the left proximal posterior tibial artery, measuring 150 cm/s. There is an elevated peak systolic velocity within the distal left posterior tibial artery measuring 235 cm/s. There are normal triphasic waveforms and peak systolic velocities within the left common femoral, deep femoral, superficial femoral, and popliteal arteries. No arterial occlusion is seen. IMPRESSION: 1. Monophasic waveforms distal to the popliteal artery, favoring hemodynamically significant proximal stenosis. 2. Elevated peak systolic velocity within the distal posterior tibial artery and borderline elevated peak systolic velocity within the proximal posterior tibial artery, consistent with hemodynamically significant stenosis. 3. Nonvisualization of the peroneal artery. There is no evidence of occlusion involving the remainder of the lower extremity arteries. REASON: LT LEG CELLULITIS PROCEDURE: VENOUS LOWER EXTREMITY LEFT EXAM: Left lower extremity venous Doppler sonogram. HISTORY: Cellulitis. Pain and swelling. TECHNIQUE: Metz scale and color Doppler sonographic evaluation of the left lower extremity veins with spectral waveform analysis was performed. FINDINGS: There is normal color flow, normal compressibility and there are normal spectral waveforms in the common femoral, superficial femoral, popliteal, posterior tibial and greater saphenous veins. IMPRESSION: No Doppler evidence of lower extremity deep venous thrombosis. Electronically signed by: Kristina Palmer MD (06/30/2021 8:26 AM) [facility] Vitals Vital Signs Date Time Temp Pulse Resp B/P (MAP) Pulse Ox O2 Delivery O2 Flow Rate FiO2 06/30/21 10:51 98.2 67 16 150/71 (97) 98 Room Air 98.2 Assessment Assessment Left lower extremity abscess Left lower extremity cellulitis Left lower extremity non healing chronic wound Peripheral vascular disease with history of angioplasty Diabetes mellitus with peripheral neuropathy CKD Tobacco dependence History of noncompliance History of previous toe amputation Plan Plan Continue Zosyn Change vancomycin to daptomycin Vascular consulted, will need I&D Continue local wound care as directed Monitor labs and cultures Continue supportive care Thank you Dr. Taylor for consulting infectious disease participate in this patient's care. We will follow along with you. Discussed with nursing staff OMAR CRUZ MD Jun 30, 2021 11:09
--- NOTE | 2021-06-30 11:18 | NUR ---
SW following. Discussed with RN, pt from home, room air, NPO, rapid COVID-19 negative. ID, wound care following. IV abx. RN advised no SW needs at this time. SW will continue to follow.
[2021-06-30] MEDS: LACTOBACILLUS RHAMNOSUS GG 1 CAPSULE. PO SCH ×2 (12:00→22:25)
--- NOTE | 2021-06-30 12:38 | NUR ---
Nursing: Held Heparin per Dr. Gallardo and Dr. Henson in case Vascular wants to do any procedures.
--- NOTE | 2021-06-30 14:07 | PDOC2 ---
CONSULT Date of Service Date of Service DATE: 06/30/21 TIME: 13:54 Reason for Consult Reason for Consult: Peripheral arterial disease, nonhealing left leg wound Referring Physician Referring Physician: Dr. John Identification/Chief Complaint Chief Complaint Nonhealing wound left leg Source Source: Chart review, Patient History of Present Illness Reason for Visit: This is a pleasant 80-year-old male with history of uncontrolled diabetes was seen by Dr. John yesterday for nonhealing wound left lower extremity. He was subsequently admitted to the hospital The patient while hospitalized at [facility] about a month ago for diabetes ketoacidosis and was noted to have a scab on his left lopez. On 06/02/2021 an angiogram with posterior tibial atherectomy was performed. Patient was then followed in the wound care center. Last appointment on 06/23/2021 images reviewed and wound had some fatty tissue present but minimal necrotic tissue. The wound now has fatty necrosis throughout and undermines medial the length of the wound. He has dry scaly skin. He presented with fever. The patient reports that he is able to ambulate. He states that he has history of recent right lower extremity bypass as well as right fifth toe amputation. 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) Family History Family History: Diabetes Social History ALCOHOL: none Drugs: None Lives: with Family Current Medications Current Medications Current Medications Insulin Glargine (Lantus Syringe) 20 unit QHS SQ Last administered on 06/29/21at 22:04; Start 06/29/21 at 21:00; Stop 06/29/21 at 22:27; Status DC Insulin Human Lispro (HumaLOG) 0-7 UNITS QIDACHS SQ Last administered on 06/29/21at 22:07; Start 06/29/21 at 21:00 Dextrose (Dextrose 50%-Water Syringe) 12.5 gm PRN Q15MIN PRN IV SEE COMMENTS; Start 06/29/21 at 20:45 Vancomycin HCl (Vanco Per Pharmacy) 1 each PRN DAILY PRN MC SEE COMMENTS Last administered on 06/30/21at 00:47; Start 06/29/21 at 20:45 Vancomycin HCl 1 gm/Sodium Chloride 250 ml @ 250 mls/hr 1X IV ; Start 06/29/21 at 20:45; Status UNV Sodium Chloride 1,000 ml @ 75 mls/hr [id number] IV Last administered on 06/29/21at 21:59; Start 06/29/21 at 20:45; Stop 06/30/21 at 07:57; Status DC Acetaminophen/ Hydrocodone Bitart (Lortab 5/325) 1 tab PRN Q6HRS PRN PO MODERATE PAIN 4-6 Last administered on 06/29/21at 22:08; Start 06/29/21 at 20:45 Silver Sulfadiazine (Silvadene) 1 eugene BID TP Last administered on 06/30/21at 08:31; Start 06/29/21 at 21:00 Insulin Human Lispro (HumaLOG) 6 units TIDAC SQ ; Start 06/30/21 at 07:30 Heparin Sodium (Porcine) (Heparin Sodium) 5,000 unit BID SQ Last administered on 06/29/21at 22:08; Start 06/29/21 at 21:00 Piperacillin Sod/ Tazobactam Sod 3.375 gm/Sodium Chloride 50 ml @ 100 mls/hr Q6HRS IV ; Start 06/30/21 at 00:00; Status UNV Aspirin (Aspirin Chewable) 81 mg BID PO Last administered on 06/30/21at 08:30; Start 06/30/21 at 09:00 Gabapentin (Neurontin) 300 mg BID PO Last administered on 06/30/21at 08:30; S tart 06/29/21 at 22:00 Lisinopril (Prinivil) 20 mg BID PO Last administered on 06/30/21at 08:30; Start 06/30/21 at 09:00 Hydrochlorothiazide (Microzide) 12.5 mg DAILY PO Last administered on 06/30/21at 08:30; Start 06/30/21 at 09:00 Vancomycin HCl 1.25 gm/Sodium Chloride 250 ml @ 166.667 mls/hr 1X ONCE IV Last administered on 06/29/21at 21:59; Start 06/29/21 at 22:00; Stop 06/29/21 at 23:29; Status DC Piperacillin Sod/ Tazobactam Sod 2.25 gm/Sodium Chloride 50 ml @ 100 mls/hr Q6HRS IV Last administered on 06/30/21at 12:25; Start 06/30/21 at 00:00 Insulin Glargine (Lantus Syringe) 10 unit QHS SQ ; Start 06/30/21 at 21:00 Vancomycin HCl 750 mg/Sodium Chloride 250 ml @ 250 mls/hr Q24H IV ; Start 06/30/21 at 22:00 Vancomycin HCl (Vancomycin Trough Level) 1 each 1X ONCE MC ; Start 07/01/21 at 21:30; Stop 07/01/21 at 21:31 Potassium Chloride/Dextrose/ Sod Cl 1,000 ml @ 75 mls/hr [id number] IV Last administered on 06/30/21at 08:00; Start 06/30/21 at 08:00 Lactobacillus Rhamnosus (Culturelle) 1 cap BID PO ; Start 06/30/21 at 12:00 Active Scripts Active Humalog (Insulin Lispro) 100 Unit/1 Ml Vial 10 Unit SQ TIDAC 30 Days Lisinopril 20 Mg Tablet 1 Tab PO BID Hydrocodone-Apap 5-325 (Hydrocodone Bit/Acetaminophen) 1 Each Tablet 1 Tab PO PRN Q4HRS PRN Reported Lantus Solostar (Insulin Glargine,Hum.rec.anlog) 100 Unit/1 Ml Insuln.pen 20 Unit SQ QHS Hydrochlorothiazide Tablet (Hydrochlorothiazide) 12.5 Mg Tablet 1 Tab PO TID Trulicity (Dulaglutide) 1.5 Mg/0.5 Ml Pen.injctr 1.5 Mg SQ Januvia (Sitagliptin Phosphate) 100 Mg Tablet 1 Tab PO TID Gabapentin (Gabapentin) 300 Mg Capsule 300 Mg PO TID Metformin Hcl 1,000 Mg Tablet 1 Tab PO BIDAC Trulicity (Dulaglutide) 0.75 Mg/0.5 Ml Pen.injctr 0.75 Mg SQ WEEKLY Aspirin 81 Mg Tab.chew 81 Mg PO BID Allergies Allergies: Coded Allergies: No Known Drug Allergies (Unverified , 05/31/16) ROS Review of System Constitutional: Positive for fevers Eyes: Denies any visual disturbances HENT: Denies nasal congestion or sore throat Respiratory: Denies cough or shortness of breath Cardiovascular: Denies any palpitations or chest pain GI: Denies abdominal pain, nausea, vomiting, bloody stools or diarrhea : Denies dysuria or hematuria Musculoskeletal: As per HPI Integument: As per HPI Neurologic: No gross deficits Endocrine: Diabetes Physical Exam Physical Exam General: Alert and oriented X3 HEENT: Atraumatic, Pupils equal, round. Mucous membranes moist. Cardiac: Heart rate regular. Lungs: CTA, non-labored respirations. Abdomen: Soft, nontender, nondistended, no palpable masses. Extremities: 2+ palpable femoral pulses. Palpable right lower extremity graft pulse. 2+ palpable left popliteal pulse. Biphasic dorsalis pedis and posterior tibial artery by handheld Doppler. Musculoskeletal: Gait steady. Moving all extremities. Skin: Left lopez with dry scaly skin, wound with necrotic base and undermining. Patient's leg is very thin and minimal coverage of tissue over bone. Mild erythema. No swelling. Neurological: Motor and sensation intact. Psychiatry: No depression or anxiety Vitals VITALS Vital Signs Date Time Temp Pulse Resp B/P (MAP) Pulse Ox O2 Delivery O2 Flow Rate FiO2 06/30/21 10:51 98.2 67 16 150/71 (97) 98 Room Air 98.2 Labs Labs Laboratory Tests Test 06/29/21 20:30 06/29/21 22:30 06/29/21 23:50 06/30/21 05:24 Glucose (Fingerstick) 337 mg/dL (70-99) White Blood Count 6.0 x10^3/uL (4.0-11.0) Red Blood Count 3.44 x10^6/uL (4.30-5.70) Hemoglobin 9.0 g/dL (13.0-17.5) Hematocrit 28.0 % (39.0-53.0) Mean Corpuscular Volume 82 fL (79-100) Mean Corpuscular Hemoglobin 26 pg (25-35) Mean Corpuscular Hemoglobin Concent 32 g/dL (31-37) Red Cell Distribution Width 14.9 % (11.5-14.5) Platelet Count 210 x10^3/uL (140-400) Neutrophils (%) (Auto) 73 % (31-73) Lymphocytes (%) (Auto) 17 % (24-48) Monocytes (%) (Auto) 10 % (0-9) Eosinophils (%) (Auto) 0 % (0-3) Basophils (%) (Auto) 0 % (0-3) Neutrophils # (Auto) 4.4 x10^3/uL (1.8-7.7) Lymphocytes # (Auto) 1.0 x10^3/uL (1.0-4.8) Monocytes # (Auto) 0.6 x10^3/uL (0.0-1.1) Eosinophils # (Auto) 0.0 x10^3/uL (0.0-0.7) Basophils # (Auto) 0.0 x10^3/uL (0.0-0.2) Sodium Level 135 mmol/L (136-145) Potassium Level 4.3 mmol/L (3.5-5.1) Chloride Level 99 mmol/L (98-107) Carbon Dioxide Level 26 mmol/L (21-32) Anion Gap 10 (6-14) Blood Urea Nitrogen 30 mg/dL (8-26) Creatinine 1.6 mg/dL (0.7-1.3) Estimated GFR (Cockcroft-Gault) 50.7 BUN/Creatinine Ratio 19 (6-20) Glucose Level 331 mg/dL (70-99) Calcium Level 9.0 mg/dL (8.5-10.1) Total Bilirubin 0.4 mg/dL (0.2-1.0) Aspartate Amino Transf (AST/SGOT) 14 U/L (15-37) Alanine Aminotransferase (ALT/SGPT) 14 U/L (16-63) Alkaline Phosphatase 67 U/L (46-116) Total Protein 7.8 g/dL (6.4-8.2) Albumin 2.4 g/dL (3.4-5.0) Albumin/Globulin Ratio 0.4 (1.0-1.7) SARS-CoV-2 RNA (ERIC) Negative (Negative) SARS-CoV-2 Antigen (Rapid) Negative (NEGATIVE) Urine Collection Type U cath Urine Color Yellow Urine Clarity Clear Urine pH 5.5 (<5.0-8.0) Urine Specific Anderson 1.015 (1.000-1.030) Urine Protein Negative mg/dL (NEG-TRACE) Urine Glucose (UA) 500 mg/dL (NEG) Urine Ketones (Stick) Negative mg/dL (NEG) Urine Blood Small (NEG) Urine Nitrite Negative (NEG) Urine Bilirubin Negative (NEG) Urine Urobilinogen Dipstick 1.0 mg/dL (0.2 mg/dL) Urine Leukocyte Esterase Negative (NEG) Urine RBC 3-5 /HPF (0-2) Urine WBC Occ /HPF (0-4) Urine Amorphous Sediment Present /HPF Urine Bacteria 0 /HPF (0-FEW) Test 06/30/21 06:10 06/30/21 07:28 06/30/21 11:33 White Blood Count 6.9 x10^3/uL (4.0-11.0) Red Blood Count 3.59 x10^6/uL (4.30-5.70) Hemoglobin 9.3 g/dL (13.0-17.5) Hematocrit 28.9 % (39.0-53.0) Mean Corpuscular Volume 81 fL (79-100) Mean Corpuscular Hemoglobin 26 pg (25-35) Mean Corpuscular Hemoglobin Concent 32 g/dL (31-37) Red Cell Distribution Width 14.5 % (11.5-14.5) Platelet Count 237 x10^3/uL (140-400) Neutrophils (%) (Auto) 61 % (31-73) Lymphocytes (%) (Auto) 23 % (24-48) Monocytes (%) (Auto) 15 % (0-9) Eosinophils (%) (Auto) 1 % (0-3) Basophils (%) (Auto) 1 % (0-3) Neutrophils # (Auto) 4.2 x10^3/uL (1.8-7.7) Lymphocytes # (Auto) 1.6 x10^3/uL (1.0-4.8) Monocytes # (Auto) 1.0 x10^3/uL (0.0-1.1) Eosinophils # (Auto) 0.1 x10^3/uL (0.0-0.7) Basophils # (Auto) 0.1 x10^3/uL (0.0-0.2) Erythrocyte Sedimentation Rate 127 (0-15) Sodium Level 141 mmol/L (136-145) Potassium Level 3.6 mmol/L (3.5-5.1) Chloride Level 104 mmol/L (98-107) Carbon Dioxide Level 30 mmol/L (21-32) Anion Gap 7 (6-14) Blood Urea Nitrogen 25 mg/dL (8-26) Creatinine 1.5 mg/dL (0.7-1.3) Estimated GFR (Cockcroft-Gault) 54.6 Glucose Level 62 mg/dL (70-99) Calcium Level 8.9 mg/dL (8.5-10.1) Triglycerides Level 49 mg/dL (0-150) Cholesterol Level 124 mg/dL (0-200) LDL Cholesterol, Calculated 70 mg/dL (0-100) VLDL Cholesterol, Calculated 10 mg/dL (0-40) Non-HDL Cholesterol Calculated 80 mg/dL (0-129) HDL Cholesterol 44 mg/dL (40-60) Cholesterol/HDL Ratio 2.8 Thyroid Stimulating Hormone (TSH) 0.677 uIU/mL (0.358-3.74) Glucose (Fingerstick) 73 mg/dL (70-99) 105 mg/dL (70-99) Laboratory Tests Test 06/29/21 20:30 06/29/21 22:30 06/29/21 23:50 06/30/21 05:24 Glucose (Fingerstick) 337 mg/dL (70-99) White Blood Count 6.0 x10^3/uL (4.0-11.0) Red Blood Count 3.44 x10^6/uL (4.30-5.70) Hemoglobin 9.0 g/dL (13.0-17.5) Hematocrit 28.0 % (39.0-53.0) Mean Corpuscular Volume 82 fL (79-100) Mean Corpuscular Hemoglobin 26 pg (25-35) Mean Corpuscular Hemoglobin Concent 32 g/dL (31-37) Red Cell Distribution Width 14.9 % (11.5-14.5) Platelet Count 210 x10^3/uL (140-400) Neutrophils (%) (Auto) 73 % (31-73) Lymphocytes (%) (Auto) 17 % (24-48) Monocytes (%) (Auto) 10 % (0-9) Eosinophils (%) (Auto) 0 % (0-3) Basophils (%) (Auto) 0 % (0-3) Neutrophils # (Auto) 4.4 x10^3/uL (1.8-7.7) Lymphocytes # (Auto) 1.0 x10^3/uL (1.0-4.8) Monocytes # (Auto) 0.6 x10^3/uL (0.0-1.1) Eosinophils # (Auto) 0.0 x10^3/uL (0.0-0.7) Basophils # (Auto) 0.0 x10^3/uL (0.0-0.2) Sodium Level 135 mmol/L (136-145) Potassium Level 4.3 mmol/L (3.5-5.1) Chloride Level 99 mmol/L (98-107) Carbon Dioxide Level 26 mmol/L (21-32) Anion Gap 10 (6-14) Blood Urea Nitrogen 30 mg/dL (8-26) Creatinine 1.6 mg/dL (0.7-1.3) Estimated GFR (Cockcroft-Gault) 50.7 BUN/Creatinine Ratio 19 (6-20) Glucose Level 331 mg/dL (70-99) Calcium Level 9.0 mg/dL (8.5-10.1) Total Bilirubin 0.4 mg/dL (0.2-1.0) Aspartate Amino Transf (AST/SGOT) 14 U/L (15-37) Alanine Aminotransferase (ALT/SGPT) 14 U/L (16-63) Alkaline Phosphatase 67 U/L (46-116) Total Protein 7.8 g/dL (6.4-8.2) Albumin 2.4 g/dL (3.4-5.0) Albumin/Globulin Ratio 0.4 (1.0-1.7) SARS-CoV-2 RNA (ERIC) Negative (Negative) SARS-CoV-2 Antigen (Rapid) Negative (NEGATIVE) Urine Collection Type U cath Urine Color Yellow Urine Clarity Clear Urine pH 5.5 (<5.0-8.0) Urine Specific Anderson 1.015 (1.000-1.030) Urine Protein Negative mg/dL (NEG-TRACE) Urine Glucose (UA) 500 mg/dL (NEG) Urine Ketones (Stick) Negative mg/dL (NEG) Urine Blood Small (NEG) Urine Nitrite Negative (NEG) Urine Bilirubin Negative (NEG) Urine Urobilinogen Dipstick 1.0 mg/dL (0.2 mg/dL) Urine Leukocyte Esterase Negative (NEG) Urine RBC 3-5 /HPF (0-2) Urine WBC Occ /HPF (0-4) Urine Amorphous Sediment Present /HPF Urine Bacteria 0 /HPF (0-FEW) Test 06/30/21 06:10 06/30/21 07:28 06/30/21 11:33 White Blood Count 6.9 x10^3/uL (4.0-11.0) Red Blood Count 3.59 x10^6/uL (4.30-5.70) Hemoglobin 9.3 g/dL (13.0-17.5) Hematocrit 28.9 % (39.0-53.0) Mean Corpuscular Volume 81 fL (79-100) Mean Corpuscular Hemoglobin 26 pg (25-35) Mean Corpuscular Hemoglobin Concent 32 g/dL (31-37) Red Cell Distribution Width 14.5 % (11.5-14.5) Platelet Count 237 x10^3/uL (140-400) Neutrophils (%) (Auto) 61 % (31-73) Lymphocytes (%) (Auto) 23 % (24-48) Monocytes (%) (Auto) 15 % (0-9) Eosinophils (%) (Auto) 1 % (0-3) Basophils (%) (Auto) 1 % (0-3) Neutrophils # (Auto) 4.2 x10^3/uL (1.8-7.7) Lymphocytes # (Auto) 1.6 x10^3/uL (1.0-4.8) Monocytes # (Auto) 1.0 x10^3/uL (0.0-1.1) Eosinophils # (Auto) 0.1 x10^3/uL (0.0-0.7) Basophils # (Auto) 0.1 x10^3/uL (0.0-0.2) Erythrocyte Sedimentation Rate 127 (0-15) Sodium Level 141 mmol/L (136-145) Potassium Level 3.6 mmol/L (3.5-5.1) Chloride Level 104 mmol/L (98-107) Carbon Dioxide Level 30 mmol/L (21-32) Anion Gap 7 (6-14) Blood Urea Nitrogen 25 mg/dL (8-26) Creatinine 1.5 mg/dL (0.7-1.3) Estimated GFR (Cockcroft-Gault) 54.6 Glucose Level 62 mg/dL (70-99) Calcium Level 8.9 mg/dL (8.5-10.1) Triglycerides Level 49 mg/dL (0-150) Cholesterol Level 124 mg/dL (0-200) LDL Cholesterol, Calculated 70 mg/dL (0-100) VLDL Cholesterol, Calculated 10 mg/dL (0-40) Non-HDL Cholesterol Calculated 80 mg/dL (0-129) HDL Cholesterol 44 mg/dL (40-60) Cholesterol/HDL Ratio 2.8 Thyroid Stimulating Hormone (TSH) 0.677 uIU/mL (0.358-3.74) Glucose (Fingerstick) 73 mg/dL (70-99) 105 mg/dL (70-99) Assessment/Plan Assessment/Plan This is a 80-year-old male with a history of diabetes and peripheral arterial disease who presented with nonhealing wound left lopez. Patient was seen and examined with Dr. Rosas's. Evaluation of patient's lower extremity arterial circulation by handheld Doppler patient has biphasic flow and adequate circulation to heal his lopez wound. We recommend debridement of the wound, in addition he may need skin grafting due to minimal tissue overlying the bone. Recommend consultation with plastics, Dr. Parker to evaluate the patient. Patient may benefit from debridement with skin grafting at that time due to the lack of tissue that overlies his bone. Would appreciate the input of Plastic Surgery as this is their area of expertise. Recommend the patient continue his aspirin and Plavix due to recent atherectomy. Continue local wound care. Attestation: 06/30/2021 Seen and examined with [employer]. Agree with above documentation. Patient has excellent blood flow with biphasic and triphasic doppler signals. Recommond Dr Bauer team perform debridement with possible future skin graft to address wound. No further vascular intervention currently required. Should have adequate blood flow to heel. Discussed with patient and all questions answered. Marlo Watts DO, ALISON REESE APRN Jun 30, 2021 14:07 MARLO WATTS DO Jun 30, 2021 15:27
[2021-06-30] MEDS: HYDROcodone/APAP 5/325MG 1 TAB TABLET PO PRN ×2 (14:16→22:28)
[2021-06-30 15:00] VITALS: BP 145/82
--- NOTE | 2021-06-30 15:00 | NUR ---
Late Entry: This note was from recollections of the wound care assessment done on 06/30/21 by this RN and CARMELA Thompson whom saw this patient for wound consult. The nursing note was not entered on the day it was performed. Patient was seen by wound care for venous ulcer/cellulitis to the left lower leg and left proximal lower leg and a DFU to the left ankle. The left lower leg wound is sloughy, necrotic, and has a significant amount of undermining during this assessment and patient was not sensitive to much feeling when cleansing and measuring this wound. This is an unusual finding for this type and location of wound. With the amount of undermining it is possible that this wound is necrotic in places not visualized and patient may benefit from a surgical debridement. Wound care redressed the wound upon this assessment on 06/30/21 with medi-honey and xeroform, ABD pads, and kerlilx. wound care knew vascular had been consulted and would continue the recommendations following their consultation, which took place the following day, as wound care discussed POC again further with vascular.
[2021-06-30 19:00] VITALS: BP 101/57
[2021-06-30] MEDS: INSULIN GLARGINE SYRINGE. SQ SCH (21:00)
[2021-06-30] MEDS ORDERED: VANCOMYCIN 750 MG in IV NORMAL SALINE 250ML 250 ML IV SCH (22:00)
[2021-06-30 22:42] VITALS: BP 123/72
[2021-07-01] MEDS: PIPERACILLIN/TAZOBACTAM 2.25 GM in IV NORMAL SALINE 50ML 50 ML IV SCH ×4 (00:38→17:31)
--- NOTE | 2021-07-01 03:48 | NUR ---
Kate Schuster rn from previous shift, called to notify me that Dr Parker wanted patient's vascular and wound images and notes from [facility] faxed here, to evaluate their notes, at this point and time, will have to have today's nurse obtain the info,
[2021-07-01 07:00] VITALS: BP 106/57
[2021-07-01] MEDS: INSULIN LISPRO 300 UNITS/3 ML VIAL. SQ SCH ×7 (07:30→21:00)
[2021-07-01 07:37] LABS: BASO % 1 % (0-3); EOS % 1 % (0-3); HEMATOCRIT 26.3 % (39.0-53.0); HEMOGLOBIN 8.6 g/dL (13.0-17.5); LYMPH # 1.1 x10^3/uL (1.0-4.8); LYMPH % 21 % (24-48); MEAN CORPUSCULAR HEMOGLOBIN 27 pg (25-35); MEAN CORPUSCULAR HGB CONC 33 g/dL (31-37); MEAN CORPUSCULAR VOLUME 81 fL (79-100); MONO # 0.6 x10^3/uL (0.0-1.1); MONO % 12 % (0-9); NEUT # 3.2 x10^3/uL (1.8-7.7); NEUT % 65 % (31-73); PLATELET COUNT 194 x10^3/uL (140-400); RED BLOOD COUNT 3.25 x10^6/uL (4.30-5.70); RED CELL DISTRIBUTION WIDTH 14.6 % (11.5-14.5); WHITE BLOOD COUNT 4.9 x10^3/uL (4.0-11.0)
[2021-07-01 07:57] LABS: CALCIUM 8.3 mg/dL (8.5-10.1); CREATININE 1.3 mg/dL (0.7-1.3); GFR 64.4
--- NOTE | 2021-07-01 08:57 | PDOC ---
Infectious Disease Note Subjective: Subjective Patient without complaints Denies fever, chills, nausea, vomiting, diarrhea Says is "thirsty" Vital Signs: Vital Signs Vital Signs Date Time Temp Pulse Resp B/P (MAP) Pulse Ox O2 Delivery O2 Flow Rate FiO2 07/01/21 07:00 99.5 80 17 106/57 (73) 98 Room Air 99.5 Physical Exam: PHYSICAL EXAM General: Alert and oriented X3 HEENT: Atraumatic, Pupils equal, round. Mucous membranes moist. Cardiac: Heart rate regular. Lungs: CTA, non-labored respirations. Abdomen: Soft, nontender, nondistended, no palpable masses. Extremities: 2+ palpable femoral pulses. Palpable right lower extremity graft pulse. 2+ palpable left popliteal pulse. Biphasic dorsalis pedis and posterior tibial artery by handheld Doppler. Musculoskeletal: Gait steady. Moving all extremities. Skin: Left lopez with dry scaly skin, wound with necrotic base and undermining. Patient's leg is very thin and minimal coverage of tissue over bone. Mild erythema. No swelling. Neurological: Motor and sensation intact. Psychiatry: No depression or anxiety Medications: Inpatient Meds: Medications reviewed. Labs: Lab Laboratory Tests Test 06/30/21 11:33 06/30/21 16:28 07/01/21 05:55 07/01/21 07:43 Glucose (Fingerstick) 105 mg/dL (70-99) 151 mg/dL (70-99) 257 mg/dL (70-99) White Blood Count 4.9 x10^3/uL (4.0-11.0) Red Blood Count 3.25 x10^6/uL (4.30-5.70) Hemoglobin 8.6 g/dL (13.0-17.5) Hematocrit 26.3 % (39.0-53.0) Mean Corpuscular Volume 81 fL (79-100) Mean Corpuscular Hemoglobin 27 pg (25-35) Mean Corpuscular Hemoglobin Concent 33 g/dL (31-37) Red Cell Distribution Width 14.6 % (11.5-14.5) Platelet Count 194 x10^3/uL (140-400) Neutrophils (%) (Auto) 65 % (31-73) Lymphocytes (%) (Auto) 21 % (24-48) Monocytes (%) (Auto) 12 % (0-9) Eosinophils (%) (Auto) 1 % (0-3) Basophils (%) (Auto) 1 % (0-3) Neutrophils # (Auto) 3.2 x10^3/uL (1.8-7.7) Lymphocytes # (Auto) 1.1 x10^3/uL (1.0-4.8) Monocytes # (Auto) 0.6 x10^3/uL (0.0-1.1) Eosinophils # (Auto) 0.0 x10^3/uL (0.0-0.7) Basophils # (Auto) 0.0 x10^3/uL (0.0-0.2) Sodium Level 137 mmol/L (136-145) Potassium Level 4.0 mmol/L (3.5-5.1) Chloride Level 103 mmol/L (98-107) Carbon Dioxide Level 28 mmol/L (21-32) Anion Gap 6 (6-14) Blood Urea Nitrogen 14 mg/dL (8-26) Creatinine 1.3 mg/dL (0.7-1.3) Estimated GFR (Cockcroft-Gault) 64.4 Glucose Level 261 mg/dL (70-99) Calcium Level 8.3 mg/dL (8.5-10.1) Objective: Assessment: Left lower extremity abscess Left lower extremity cellulitis Left lower extremity non healing chronic wound Peripheral vascular disease with history of angioplasty Diabetes mellitus with peripheral neuropathy CKD Tobacco dependence History of noncompliance History of previous toe amputation Plan: Plan of Care Continue Zosyn, daptomycin Vascular input noted Plastic surgery consulted for possible I&D and flap in future Continue local wound care as directed Monitor labs and cultures Continue supportive care Discussed with nursing staff OMAR CRUZ MD Jul 01, 2021 08:57
[2021-07-01] MEDS: silver sulfADIAZINE 1% CREAM 25GM TUBE. TP SCH ×2 (09:00→21:00)
[2021-07-01] MEDS: HEPARIN for SUB-Q USE 5,000 UNIT/ML VIAL. SQ SCH ×2 (09:00→21:00)
--- NOTE | 2021-07-01 09:47 | NUR ---
Non administered patients Heparin and Silver sulfadiazine TP due to patient having possible debridement today, per Dr. Parker.
[2021-07-01] MEDS: LACTOBACILLUS RHAMNOSUS GG 1 CAPSULE. PO SCH ×2 (10:28→22:47)
[2021-07-01] MEDS: HYDROcodone/APAP 5/325MG 1 TAB TABLET PO PRN ×2 (10:28→22:47)
[2021-07-01] MEDS: ASPIRIN CHEWABLE 81 MG TABLET. PO SCH ×2 (10:29→21:00)
[2021-07-01] MEDS: GABAPENTIN 300 MG CAPSULE. PO SCH ×2 (10:29→22:47)
[2021-07-01] MEDS: hydroCHLOROthiazide 12.5 MG CAPSULE PO SCH (10:29)
[2021-07-01] MEDS: LISINOPRIL 20 MG TABLET PO SCH ×2 (10:29→22:47)
[2021-07-01] MEDS: CLOPIDOGREL BISULFATE 75 MG TABLET PO SCH (10:29)
[2021-07-01] MEDS: POTASSIUM CL 20MEQ D5-0.9%NACL 1,000 ML IV SCH (10:40)
[2021-07-01 11:00] VITALS: BP 127/68
--- NOTE | 2021-07-01 11:08 | NUR ---
SW following. Discussed with RN, pt from home, room air, NPO, COVID-19 negative. Plastics consulted. RN advised no SW needs at this time. SW will continue to follow.
--- NOTE | 2021-07-01 11:59 | PDOC ---
PROGRESS NOTES Date of Service: DATE: 07/01/21 TIME: 11:57 Subjective Subjective feels stronger today Objective Objective Vital Signs Date Time Temp Pulse Resp B/P (MAP) Pulse Ox O2 Delivery O2 Flow Rate FiO2 07/01/21 11:00 97.7 64 18 127/68 (87) 98 Room Air 97.7 Intake and Output 07/01/21 07:00 Intake Total 1300 ml Output Total 1000 ml Balance 300 ml Intake Oral 0 ml IV Total 1300 ml Output Urine Total 1000 ml Physical Exam Abdomen: Soft Heart: Regular rate, Normal S1, Normal S2 Extremities: No clubbing General: Alert, Cooperative HEENT: Atraumatic Lungs: Clear to auscultation MUSCULOSKELETAL: No deformity, No swelling, Abnormal exam of left, Other Neck: No JVD Neuro: Normal speech Psych/Mental Status: Mental status NL Skin: Other (left leg ulcer anterior to lopez 5 cm stage 3-4,POA) Assessment Assessment Assessment Left lower extremity abscess Left lower extremity cellulitis Left lower extremity non healing chronic wound Peripheral vascular disease with history of angioplasty Diabetes mellitus with peripheral neuropathy CKD Tobacco dependence History of noncompliance History of previous toe amputation Plan: Debridement today by Plastic? Plan: arterial doppler results adequate blood flow asper vascular vascular consult appreciated iv antibiotics x ray -ve for osteo sedrate 120 high . cr 1.3 ,improved with fluids plastic consult ID consult appreciated.c/s pending Comment Review of Relevant I have reviewed the following items jorge (where applicable) has been applied. Labs Laboratory Tests Test 06/30/21 16:28 07/01/21 05:55 07/01/21 07:43 Glucose (Fingerstick) 151 mg/dL (70-99) 257 mg/dL (70-99) White Blood Count 4.9 x10^3/uL (4.0-11.0) Red Blood Count 3.25 x10^6/uL (4.30-5.70) Hemoglobin 8.6 g/dL (13.0-17.5) Hematocrit 26.3 % (39.0-53.0) Mean Corpuscular Volume 81 fL (79-100) Mean Corpuscular Hemoglobin 27 pg (25-35) Mean Corpuscular Hemoglobin Concent 33 g/dL (31-37) Red Cell Distribution Width 14.6 % (11.5-14.5) Platelet Count 194 x10^3/uL (140-400) Neutrophils (%) (Auto) 65 % (31-73) Lymphocytes (%) (Auto) 21 % (24-48) Monocytes (%) (Auto) 12 % (0-9) Eosinophils (%) (Auto) 1 % (0-3) Basophils (%) (Auto) 1 % (0-3) Neutrophils # (Auto) 3.2 x10^3/uL (1.8-7.7) Lymphocytes # (Auto) 1.1 x10^3/uL (1.0-4.8) Monocytes # (Auto) 0.6 x10^3/uL (0.0-1.1) Eosinophils # (Auto) 0.0 x10^3/uL (0.0-0.7) Basophils # (Auto) 0.0 x10^3/uL (0.0-0.2) Sodium Level 137 mmol/L (136-145) Potassium Level 4.0 mmol/L (3.5-5.1) Chloride Level 103 mmol/L (98-107) Carbon Dioxide Level 28 mmol/L (21-32) Anion Gap 6 (6-14) Blood Urea Nitrogen 14 mg/dL (8-26) Creatinine 1.3 mg/dL (0.7-1.3) Estimated GFR (Cockcroft-Gault) 64.4 Glucose Level 261 mg/dL (70-99) Calcium Level 8.3 mg/dL (8.5-10.1) Microbiology 06/30/21 Gram Stain - Final, Resulted 06/30/21 Aerobic Culture - Preliminary, Resulted 06/29/21 Blood Culture - Preliminary, Resulted NO GROWTH AFTER 1 DAY Medications Current Medications Clopidogrel Bisulfate (Plavix) 75 mg DAILYWBKFT PO Last administered on 07/01/21at 10:29; Start 07/01/21 at 08:00 Insulin Glargine (Lantus Syringe) 10 unit QHS SQ Last administered on 06/30/21at 21:00; Start 06/30/21 at 21:00 Lactobacillus Rhamnosus (Culturelle) 1 cap BID PO Last administered on 07/01/21at 10:28; Start 06/30/21 at 12:00 Vancomycin HCl (Vancomycin Trough Level) 1 each 1X ONCE MC ; Start 07/01/21 at 21:30; Stop 07/01/21 at 21:31 Vancomycin HCl 750 mg/Sodium Chloride 250 ml @ 250 mls/hr Q24H IV Last administered on 06/30/21at 22:25; Start 06/30/21 at 22:00 Vitals/I & O Vital Sign - Last 24 Hours 06/30/21 06/30/21 06/30/21 06/30/21 15:00 19:00 21:00 22:26 Temp 98.3 99.7 98.3 99.7 Pulse 69 67 67 Resp 17 18 B/P (MAP) 145/82 (103) 101/57 (72) 101/57 Pulse Ox 98 96 O2 Delivery Room Air Room Air Room Air 06/30/21 06/30/21 07/01/21 07/01/21 22:28 22:42 03:00 07:00 Temp 99.7 99.5 99.7 99.5 Pulse 68 80 Resp 18 17 B/P (MAP) 123/72 (89) 106/57 (73) Pulse Ox 98 98 O2 Delivery Room Air Room Air Room Air Room Air 07/01/21 07/01/21 07/01/21 10:28 10:29 11:00 Temp 97.7 97.7 Pulse 80 64 Resp 18 B/P (MAP) 106/57 127/68 (87) Pulse Ox 98 O2 Delivery Room Air Room Air Intake and Output 06/30/21 06/30/21 07/01/21 15:00 23:00 07:00 Intake Total 1250 ml 50 ml Output Total 550 ml 450 ml Balance -550 ml 1250 ml -400 ml Justifications for Admission Other Justification Nutrition Consultation Dietary Evaluation: Recommendations by RD: Dietary education by RD, Increase Calorie Intake, P rotein supplementation Comments: mech soft, ADA/Cardiac DBL meats , no jones strawberry Glucerna tid debora bid REC mvi and vit c per wound protocal Expected Outcomes/Goals: to meet >75% est val needs Malnutrition Findings: Body Fat Depletion (Non Severe: Mod to Severe Weight Status: Underweight KESHA TAYLOR MD Jul 01, 2021 11:59
[2021-07-01] MEDS: VANCOMYCIN PER PHARMACY MC PRN (13:55)
--- NOTE | 2021-07-01 14:45 | NUR ---
Wound Care: Pt seen by wound care for initial consult yesterday, 06/30/21. Original plan to await further orders from vascular. Vascular placed consult to plastics for input, although there are currently no existing notes, assessments, or orders from plastics to that effect. Court KOHLER communicated that she had received a verbal order from Dr. Parker to place veraflo NPWT to L lower leg wound, which has since been added to orders. Sophy Todd with vascular requesting for Dr. Chow to assess the wound after he is done in surgery today. Veraflo will not be placed today. Will reassess treatment plan on Sunday07/04/21.
[2021-07-01 15:00] VITALS: BP 141/57
--- NOTE | 2021-07-01 15:47 | PDOC2 ---
CONSULT Date of Consult Date of Consult DATE: 07/01/21 TIME: 10:30 AM Reason for Consult Reason for Consult: Left lower extremity wound Referring Physician Referring Physician: Dr. Rosas Identification/Chief Complaint Chief Complaint left lower extremity wound, peripheral vascular disease, poorly controlled diabetes Source Source: Chart review History of Present Illness Reason for Visit: The patient is a pleasant 80-year-old male with bilateral lower extremity peripheral vascular disease, uncontrolled DM 2 with peripheral neuropathy, hypertension, and a left lower extremity wound. Per chart review patient was noted to have an eschar over the site of the current wound last week while admitted at for diabetic ketoacidosis. There is also recent history of left lower extremity angioplasty at on June 02, 2021 and he is being followed at the wound care center of . His dressings are reportedly changed every 3 days there. His history also includes a recent right lower extremity bypass with right fifth toe amputation as well. He is reportedly ambulatory. The patient presented to the hospital on the evening of June 29, 2021 with worsening of his left lower extremity wound from its previous eschar covering to a wound with necrotic tissue. When the patient visited Dr. Stafford in his office on June 29, 2021 the patient's left lower extremity was noted to have increased pain and there was more dusky discoloration of his foot. Vascular surgery evaluated the patient and stated that the wound had thin covering and therefore placed a consult for debridement and potential wound coverage to plastics. The patient was started on vancomycin and Zosyn for antibiotic coverage. This has been changed to daptomycin and Zosyn. The patient is an active smoker. The patient was febrile, 100.3 F, at Dr. Stafford office on the day of admission and has been afebrile since admission and antibiotics. His wound care is documented as silver sulfadiazine. I requested the patient's records from since they have been primarily managing the patient's vascular disease as well as his left lower extremity wound. As of this morning those records were not available at [facility] for review. 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) Family History Family History: Diabetes Social History ALCOHOL: none Drugs: None Lives: with Family Current Medications Current Medications Current Medications Insulin Glargine (Lantus Syringe) 20 unit QHS SQ Last administered on 06/29/21at 22:04; Start 06/29/21 at 21:00; Stop 06/29/21 at 22:27; Status DC Insulin Human Lispro (HumaLOG) 0-7 UNITS QIDACHS SQ Last administered on 07/01/21at 09:46; Start 06/29/21 at 21:00 Dextrose (Dextrose 50%-Water Syringe) 12.5 gm PRN Q15MIN PRN IV SEE COMMENTS; Start 06/29/21 at 20:45 Vancomycin HCl (Vanco Per Pharmacy) 1 each PRN DAILY PRN MC SEE COMMENTS Last administered on 07/01/21at 13:55; Start 06/29/21 at 20:45 Vancomycin HCl 1 gm/Sodium Chloride 250 ml @ 250 mls/hr 1X IV ; Start 06/29/21 at 20:45; Status UNV Sodium Chloride 1,000 ml @ 75 mls/hr [id number] IV Last administered on 06/29/21at 21:59; Start 06/29/21 at 20:45; Stop 06/30/21 at 07:57; Status DC Acetaminophen/ Hydrocodone Bitart (Lortab 5/325) 1 tab PRN Q6HRS PRN PO MODERATE PAIN 4-6 Last administered on 07/01/21at 10:28; Start 06/29/21 at 20:45 Silver Sulfadiazine (Silvadene) 1 eugene BID TP Last administered on 06/30/21at 08:31; Start 06/29/21 at 21:00 Insulin Human Lispro (HumaLOG) 6 units TIDAC SQ Last administered on 07/01/21at 12:36; Start 06/30/21 at 07:30 Heparin Sodium (Porcine) (Heparin Sodium) 5,000 unit BID SQ Last administered on 06/29/21at 22:08; Start 06/29/21 at 21:00 Piperacillin Sod/ Tazobactam Sod 3.375 gm/Sodium Chloride 50 ml @ 100 mls/hr Q6HRS IV ; Start 06/30/21 at 00:00; Status UNV Aspirin (Aspirin Chewable) 81 mg BID PO Last administered on 07/01/21 10:29; Start 06/30/21 at 09:00 Gabapentin (Neurontin) 300 mg BID PO Last administered on 07/01/21 10:29; Start 06/29/21 at 22:00 Lisinopril (Prinivil) 20 mg BID PO Last administered on 07/01/21at 10:29; Start 06/30/21 at 09:00 Hydrochlorothiazide (Microzide) 12.5 mg DAILY PO Last administered on 07/01/21at 10:29; Start 06/30/21 at 09:00 Vancomycin HCl 1.25 gm/Sodium Chloride 250 ml @ 166.667 mls/hr 1X ONCE IV Last administered on 06/29/21at 21:59; Start 06/29/21 at 22:00; Stop 06/29/21 at 23:29; Status DC Piperacillin Sod/ Tazobactam Sod 2.25 gm/Sodium Chloride 50 ml @ 100 mls/hr Q6HRS IV Last administered on 07/01/21at 12:31; Start 06/30/21 at 00:00 Insulin Glargine (Lantus Syringe) 10 unit QHS SQ Last administered on 06/30/21at 21:00; Start 06/30/21 at 21:00 Vancomycin HCl 750 mg/Sodium Chloride 250 ml @ 250 mls/hr Q24H IV Last administered on 06/30/21at 22:25; Start 06/30/21 at 22:00 Vancomycin HCl (Vancomycin Trough Level) 1 each 1X ONCE MC ; Start 07/01/21 at 21:30; Stop 07/01/21 at 21:31 Potassium Chloride/Dextrose/ Sod Cl 1,000 ml @ 75 mls/hr [id number] IV Last administered on 06/30/21at 22:30; Start 06/30/21 at 08:00; Stop 07/01/21 at 12:38; Status DC Lactobacillus Rhamnosus (Culturelle) 1 cap BID PO Last administered on 07/01/21at 10:28; Start 06/30/21 at 12:00 Clopidogrel Bisulfate (Plavix) 75 mg [id number] PO Last administered on 07/01/21at 10:29; Start 07/01/21 at 08:00 Active Scripts Active Humalog (Insulin Lispro) 100 Unit/1 Ml Vial 10 Unit SQ TIDAC 30 Days Lisinopril 20 Mg Tablet 1 Tab PO BID Hydrocodone-Apap 5-325 (Hydrocodone Bit/Acetaminophen) 1 Each Tablet 1 Tab PO PRN Q4HRS PRN Reported Lantus Solostar (Insulin Glargine,Hum.rec.anlog) 100 Unit/1 Ml Insuln.pen 20 Unit SQ QHS Hydrochlorothiazide Tablet (Hydrochlorothiazide) 12.5 Mg Tablet 1 Tab PO TID Trulicity (Dulaglutide) 1.5 Mg/0.5 Ml Pen.injctr 1.5 Mg SQ Januvia (Sitagliptin Phosphate) 100 Mg Tablet 1 Tab PO TID Gabapentin (Gabapentin) 300 Mg Capsule 300 Mg PO TID Metformin Hcl 1,000 Mg Tablet 1 Tab PO BIDAC Trulicity (Dulaglutide) 0.75 Mg/0.5 Ml Pen.injctr 0.75 Mg SQ WEEKLY Aspirin 81 Mg Tab.chew 81 Mg PO BID Allergies Allergies: Coded Allergies: No Known Drug Allergies (Unverified , 05/31/16) Physical Exam General: Alert, Cooperative Lungs: Normal air movement Extremities: Other (eft lower leg, superior distal third anteriorly has an approximately 3.5cm x 4.5 cm wound with a necrotic base and 1.5 cm of undermining medially. There is red granulation tissue along the 12:00 to 9:00 periphery of the wound. At the central base of the wound there is an approximately 7 mm tenting of the tissues. This was unroofed with scissors and forceps revealing anterior tibialis tendon and 2 cc of purulence. The wound was irrigated with saline. The remainder of the fascia is intact and there is no exposed bone.) Skin: Other (Above and below the central wound are subcentimeter wounds extending into the subcutaneous tissue. Dry, scaly skin. Hyperpigmentation. Warm foot.) Vitals VITALS Vital Signs Date Time Temp Pulse Resp B/P (MAP) Pulse Ox O2 Delivery O2 Flow Rate FiO2 07/01/21 12:30 Room Air 07/01/21 11:00 97.7 64 18 127/68 (87) 98 97.7 Labs Labs Laboratory Tests Test 06/29/21 20:30 06/29/21 22:30 06/29/21 23:50 06/30/21 05:24 Glucose (Fingerstick) 337 mg/dL (70-99) White Blood Count 6.0 x10^3/uL (4.0-11.0) Red Blood Count 3.44 x10^6/uL (4.30-5.70) Hemoglobin 9.0 g/dL (13.0-17.5) Hematocrit 28.0 % (39.0-53.0) Mean Corpuscular Volume 82 fL (79-100) Mean Corpuscular Hemoglobin 26 pg (25-35) Mean Corpuscular Hemoglobin Concent 32 g/dL (31-37) Red Cell Distribution Width 14.9 % (11.5-14.5) Platelet Count 210 x10^3/uL (140-400) Neutrophils (%) (Auto) 73 % (31-73) Lymphocytes (%) (Auto) 17 % (24-48) Monocytes (%) (Auto) 10 % (0-9) Eosinophils (%) (Auto) 0 % (0-3) Basophils (%) (Auto) 0 % (0-3) Neutrophils # (Auto) 4.4 x10^3/uL (1.8-7.7) Lymphocytes # (Auto) 1.0 x10^3/uL (1.0-4.8) Monocytes # (Auto) 0.6 x10^3/uL (0.0-1.1) Eosinophils # (Auto) 0.0 x10^3/uL (0.0-0.7) Basophils # (Auto) 0.0 x10^3/uL (0.0-0.2) Sodium Level 135 mmol/L (136-145) Potassium Level 4.3 mmol/L (3.5-5.1) Chloride Level 99 mmol/L (98-107) Carbon Dioxide Level 26 mmol/L (21-32) Anion Gap 10 (6-14) Blood Urea Nitrogen 30 mg/dL (8-26) Creatinine 1.6 mg/dL (0.7-1.3) Estimated GFR (Cockcroft-Gault) 50.7 BUN/Creatinine Ratio 19 (6-20) Glucose Level 331 mg/dL (70-99) Calcium Level 9.0 mg/dL (8.5-10.1) Total Bilirubin 0.4 mg/dL (0.2-1.0) Aspartate Amino Transf (AST/SGOT) 14 U/L (15-37) Alanine Aminotransferase (ALT/SGPT) 14 U/L (16-63) Alkaline Phosphatase 67 U/L (46-116) Total Protein 7.8 g/dL (6.4-8.2) Albumin 2.4 g/dL (3.4-5.0) Albumin/Globulin Ratio 0.4 (1.0-1.7) SARS-CoV-2 RNA (ERIC) Negative (Negative) SARS-CoV-2 Antigen (Rapid) Negative (NEGATIVE) Urine Collection Type U cath Urine Color Yellow Urine Clarity Clear Urine pH 5.5 (<5.0-8.0) Urine Specific [place]oven 1.015 (1.000-1.030) Urine Protein Negative mg/dL (NEG-TRACE) Urine Glucose (UA) 500 mg/dL (NEG) Urine Ketones (Stick) Negative mg/dL (NEG) Urine Blood Small (NEG) Urine Nitrite Negative (NEG) Urine Bilirubin Negative (NEG) Urine Urobilinogen Dipstick 1.0 mg/dL (0.2 mg/dL) Urine Leukocyte Esterase Negative (NEG) Urine RBC 3-5 /HPF (0-2) Urine WBC Occ /HPF (0-4) Urine Amorphous Sediment Present /HPF Urine Bacteria 0 /HPF (0-FEW) Test 06/30/21 06:10 06/30/21 07:28 06/30/21 11:33 06/30/21 16:28 White Blood Count 6.9 x10^3/uL (4.0-11.0) Red Blood Count 3.59 x10^6/uL (4.30-5.70) Hemoglobin 9.3 g/dL (13.0-17.5) Hematocrit 28.9 % (39.0-53.0) Mean Corpuscular Volume 81 fL (79-100) Mean Corpuscular Hemoglobin 26 pg (25-35) Mean Corpuscular Hemoglobin Concent 32 g/dL (31-37) Red Cell Distribution Width 14.5 % (11.5-14.5) Platelet Count 237 x10^3/uL (140-400) Neutrophils (%) (Auto) 61 % (31-73) Lymphocytes (%) (Auto) 23 % (24-48) Monocytes (%) (Auto) 15 % (0-9) Eosinophils (%) (Auto) 1 % (0-3) Basophils (%) (Auto) 1 % (0-3) Neutrophils # (Auto) 4.2 x10^3/uL (1.8-7.7) Lymphocytes # (Auto) 1.6 x10^3/uL (1.0-4.8) Monocytes # (Auto) 1.0 x10^3/uL (0.0-1.1) Eosinophils # (Auto) 0.1 x10^3/uL (0.0-0.7) Basophils # (Auto) 0.1 x10^3/uL (0.0-0.2) Erythrocyte Sedimentation Rate 127 (0-15) Sodium Level 141 mmol/L (136-145) Potassium Level 3.6 mmol/L (3.5-5.1) Chloride Level 104 mmol/L (98-107) Carbon Dioxide Level 30 mmol/L (21-32) Anion Gap 7 (6-14) Blood Urea Nitrogen 25 mg/dL (8-26) Creatinine 1.5 mg/dL (0.7-1.3) Estimated GFR (Cockcroft-Gault) 54.6 Glucose Level 62 mg/dL (70-99) Hemoglobin A1c 12.0 % (4.8-5.6) Calcium Level 8.9 mg/dL (8.5-10.1) Triglycerides Level 49 mg/dL (0-150) Cholesterol Level 124 mg/dL (0-200) LDL Cholesterol, Calculated 70 mg/dL (0-100) VLDL Cholesterol, Calculated 10 mg/dL (0-40) Non-HDL Cholesterol Calculated 80 mg/dL (0-129) HDL Cholesterol 44 mg/dL (40-60) Cholesterol/HDL Ratio 2.8 Thyroid Stimulating Hormone (TSH) 0.677 uIU/mL (0.358-3.74) Glucose (Fingerstick) 73 mg/dL (70-99) 105 mg/dL (70-99) 151 mg/dL (70-99) Test 07/01/21 05:55 07/01/21 07:43 07/01/21 12:07 White Blood Count 4.9 x10^3/uL (4.0-11.0) Red Blood Count 3.25 x10^6/uL (4.30-5.70) Hemoglobin 8.6 g/dL (13.0-17.5) Hematocrit 26.3 % (39.0-53.0) Mean Corpuscular Volume 81 fL (79-100) Mean Corpuscular Hemoglobin 27 pg (25-35) Mean Corpuscular Hemoglobin Concent 33 g/dL (31-37) Red Cell Distribution Width 14.6 % (11.5-14.5) Platelet Count 194 x10^3/uL (140-400) Neutrophils (%) (Auto) 65 % (31-73) Lymphocytes (%) (Auto) 21 % (24-48) Monocytes (%) (Auto) 12 % (0-9) Eosinophils (%) (Auto) 1 % (0-3) Basophils (%) (Auto) 1 % (0-3) Neutrophils # (Auto) 3.2 x10^3/uL (1.8-7.7) Lymphocytes # (Auto) 1.1 x10^3/uL (1.0-4.8) Monocytes # (Auto) 0.6 x10^3/uL (0.0-1.1) Eosinophils # (Auto) 0.0 x10^3/uL (0.0-0.7) Basophils # (Auto) 0.0 x10^3/uL (0.0-0.2) Sodium Level 137 mmol/L (136-145) Potassium Level 4.0 mmol/L (3.5-5.1) Chloride Level 103 mmol/L (98-107) Carbon Dioxide Level 28 mmol/L (21-32) Anion Gap 6 (6-14) Blood Urea Nitrogen 14 mg/dL (8-26) Creatinine 1.3 mg/dL (0.7-1.3) Estimated GFR (Cockcroft-Gault) 64.4 Glucose Level 261 mg/dL (70-99) Calcium Level 8.3 mg/dL (8.5-10.1) Glucose (Fingerstick) 257 mg/dL (70-99) 135 mg/dL (70-99) Laboratory Tests Test 06/30/21 16:28 07/01/21 05:55 07/01/21 07:43 07/01/21 12:07 Glucose (Fingerstick) 151 mg/dL (70-99) 257 mg/dL (70-99) 135 mg/dL (70-99) White Blood Count 4.9 x10^3/uL (4.0-11.0) Red Blood Count 3.25 x10^6/uL (4.30-5.70) Hemoglobin 8.6 g/dL (13.0-17.5) Hematocrit 26.3 % (39.0-53.0) Mean Corpuscular Volume 81 fL (79-100) Mean Corpuscular Hemoglobin 27 pg (25-35) Mean Corpuscular Hemoglobin Concent 33 g/dL (31-37) Red Cell Distribution Width 14.6 % (11.5-14.5) Platelet Count 194 x10^3/uL (140-400) Neutrophils (%) (Auto) 65 % (31-73) Lymphocytes (%) (Auto) 21 % (24-48) Monocytes (%) (Auto) 12 % (0-9) Eosinophils (%) (Auto) 1 % (0-3) Basophils (%) (Auto) 1 % (0-3) Neutrophils # (Auto) 3.2 x10^3/uL (1.8-7.7) Lymphocytes # (Auto) 1.1 x10^3/uL (1.0-4.8) Monocytes # (Auto) 0.6 x10^3/uL (0.0-1.1) Eosinophils # (Auto) 0.0 x10^3/uL (0.0-0.7) Basophils # (Auto) 0.0 x10^3/uL (0.0-0.2) Sodium Level 137 mmol/L (136-145) Potassium Level 4.0 mmol/L (3.5-5.1) Chloride Level 103 mmol/L (98-107) Carbon Dioxide Level 28 mmol/L (21-32) Anion Gap 6 (6-14) Blood Urea Nitrogen 14 mg/dL (8-26) Creatinine 1.3 mg/dL (0.7-1.3) Estimated GFR (Cockcroft-Gault) 64.4 Glucose Level 261 mg/dL (70-99) Calcium Level 8.3 mg/dL (8.5-10.1) 06/30/21 Wound cultures : GRAM STAIN Final Final GRAM POSITIVE COCCI:MANY SQUAMOUS EPI CELL:NONE SEEN PMN (WBCs):FEW Unless otherwise specified, Testing Performed by: [address] [id number] For Inquires, the Physician may contact the Microbiology department at [phone] AEROBIC CULTURE Preliminary Preliminary MIXED AEROBIC BRE INCLUDING: MODERATE [ENTEROCOCCUS FAECALIS] on 07/01/21 at 1126 MODERATE [BETA STREP GROUP B] on 07/01/21 at 1126 MODERATE [STAPHYLOCOCCUS AUREUS] on 07/01/21 at 1126 Testing Performed by: [address] [id number] For Inquires, the Physician may contact the Microbiology department at [phone] BETA STREP GROUP B ENTEROCOCCUS FAECALIS STAPHYLOCOCCUS AUREUS Unless otherwise specified, Testing Performed by: [address] [address] For Inquires, the Physician may contact the Microbiology department at [phone] Images Images Left lower extremity venous ultrasound, arterial Doppler, and x-ray were reviewed. REASON: r/o Osteomylitis 2 view x-ray PROCEDURE: TIBIA FIBULA LEFT EXAM: LEFT TIBIA/FIBULA 2 VIEWS. HISTORY: Infection, concern for osteomyelitis. COMPARISON: None. FINDINGS: Small soft tissue ulcers are suspected along the anterior lopez. There is no cortical erosion suggestive of acute osteomyelitis. No fractures are identified. The joint spaces and alignment of the knee and ankle are grossly maintained. Atherosclerotic calcifications are noted. IMPRESSION: 1. Soft tissue ulcer along the anterior lopez. No evidence of acute osteomyelitis by radiographs. REASON: LLE Celluitis/lower leg wound PROCEDURE: DUPLEX LOWER EXT ARTERIAL LEFT EXAM: Left lower extremity arterial Doppler sonogram. HISTORY: Cellulitis. Pain. Peripheral vascular disease. TECHNIQUE: Metz scale and color Doppler sonographic imaging of the lower extremity arteries with spectral waveform analysis was performed. COMPARISON: None. FINDINGS: There are abnormal monophasic waveforms involving the proximal and distal posterior tibial artery, anterior tibial artery and dorsalis pedis artery, consistent with hemodynamically significant proximal stenosis. There is a borderline elevated peak systolic velocity within the left proximal posterior tibial artery, measuring 150 cm/s. There is an elevated peak systolic velocity within the distal left posterior tibial artery measuring 235 cm/s. There are normal triphasic waveforms and peak systolic velocities within the left common femoral, deep femoral, superficial femoral, and popliteal arteries. No arterial occlusion is seen. IMPRESSION: 1. Monophasic waveforms distal to the popliteal artery, favoring hemodynamically significant proximal stenosis. 2. Elevated peak systolic velocity within the distal posterior tibial artery and borderline elevated peak systolic velocity within the proximal posterior tibial artery, consistent with hemodynamically significant stenosis. 3. Nonvisualization of the peroneal artery. There is no evidence of occlusion involving the remainder of the lower extremity arteries. REASON: LT LEG CELLULITIS PROCEDURE: VENOUS LOWER EXTREMITY LEFT EXAM: Left lower extremity venous Doppler sonogram. HISTORY: Cellulitis. Pain and swelling. TECHNIQUE: Metz scale and color Doppler sonographic evaluation of the left lower extremity veins with spectral waveform analysis was performed. FINDINGS: There is normal color flow, normal compressibility and there are n ormal spectral waveforms in the common femoral, superficial femoral, popliteal, posterior tibial and greater saphenous veins. IMPRESSION: No Doppler evidence of lower extremity deep venous thrombosis. Electronically signed by: Kristina Palmer MD (06/30/2021 8:26 AM) [facility] Assessment/Plan Assessment/Plan The patient's physician has documented rapid progression of the patient's severe peripheral vascular disease over a period of 1 week, noting progression of the wound from an eschar to a necrotic ulcer as well as new dusky discoloration of the ankle and foot with significant changes in his vascular exam despite angioplasty one month ago. A subsequent arterial Doppler during this admission further supports worsening of his peripheral vascular disease, showing significant proximal stenosis of the popliteal artery, posterior tibial artery, and peroneal artery. These findings unaddressed greatly decrease the likelihood of wound healing. In the presence of his rapid wound progression these findings also indicate that he does not have good wound healing ability and is actually in a catabolic phase. Indeed, he does have exposure of the tendon at the base of the wound and the wound could use further debridement. However, until his peripheral vascular disease is addressed he is not a candidate for reconstruction. I placed a verbal order this morning requesting a veraflo VAC with Vashe be placed on the wound at this time. Wound care refused to place the VAC and requested vascular surgery follow-up. Vascular surgery will be taking the patient to the operating room for debridement. I will sign off at this time. I am happy to provide soft tissue coverage of the wound should there be improvement of the patient's vascular status and evidence of wound healing. Please reconsult if necessary or the patient may continue his follow-up at . Thank you for involving me in the care of this patient. MD YISEL Puentes RAVEN C MD Jul 01, 2021 15:47
--- NOTE | 2021-07-01 15:56 | PDOC ---
PROGRESS NOTES Date of Service DATE: 07/01/21 TIME: 15:53 Subjective Subjective Patient seen and examined in room with Dr. Chow. Patient is resting comfortably. Patient denies any pain in left leg Objective Objective Vital Signs Date Time Temp Pulse Resp B/P (MAP) Pulse Ox O2 Delivery O2 Flow Rate FiO2 07/01/21 12:30 Room Air 07/01/21 11:00 97.7 64 18 127/68 (87) 98 97.7 Intake and Output 07/01/21 07:00 Intake Total 1300 ml Output Total 1000 ml Balance 300 ml Intake Oral 0 ml IV Total 1300 ml Output Urine Total 1000 ml Physical Exam Physical Exam Awake and alert Vital signs stable, afebrile Left lower leg wound inspected, upon manipulation purulent drainage was expressed from the wound bed. Wound bed with exposed tendon and fatty necrosis. Wound undermines medially. Plan Plan of Care 80-year-old male with peripheral arterial disease and left lower leg wound now with purulent drainage. Recommend surgical debridement. Discussed with the patient, he is in agreement and will proceed tomorrow morning. Continue local wound care and antibiotics per ID. Comment Review of Relevant I have reviewed the following items jorge (where applicable) has been applied. Labs Laboratory Tests Test 06/29/21 20:30 06/29/21 22:30 06/29/21 23:50 06/30/21 05:24 Glucose (Fingerstick) 337 mg/dL (70-99) White Blood Count 6.0 x10^3/uL (4.0-11.0) Red Blood Count 3.44 x10^6/uL (4.30-5.70) Hemoglobin 9.0 g/dL (13.0-17.5) Hematocrit 28.0 % (39.0-53.0) Mean Corpuscular Volume 82 fL (79-100) Mean Corpuscular Hemoglobin 26 pg (25-35) Mean Corpuscular Hemoglobin Concent 32 g/dL (31-37) Red Cell Distribution Width 14.9 % (11.5-14.5) Platelet Count 210 x10^3/uL (140-400) Neutrophils (%) (Auto) 73 % (31-73) Lymphocytes (%) (Auto) 17 % (24-48) Monocytes (%) (Auto) 10 % (0-9) Eosinophils (%) (Auto) 0 % (0-3) Basophils (%) (Auto) 0 % (0-3) Neutrophils # (Auto) 4.4 x10^3/uL (1.8-7.7) Lymphocytes # (Auto) 1.0 x10^3/uL (1.0-4.8) Monocytes # (Auto) 0.6 x10^3/uL (0.0-1.1) Eosinophils # (Auto) 0.0 x10^3/uL (0.0-0.7) Basophils # (Auto) 0.0 x10^3/uL (0.0-0.2) Sodium Level 135 mmol/L (136-145) Potassium Level 4.3 mmol/L (3.5-5.1) Chloride Level 99 mmol/L (98-107) Carbon Dioxide Level 26 mmol/L (21-32) Anion Gap 10 (6-14) Blood Urea Nitrogen 30 mg/dL (8-26) Creatinine 1.6 mg/dL (0.7-1.3) Estimated GFR (Cockcroft-Gault) 50.7 BUN/Creatinine Ratio 19 (6-20) Glucose Level 331 mg/dL (70-99) Calcium Level 9.0 mg/dL (8.5-10.1) Total Bilirubin 0.4 mg/dL (0.2-1.0) Aspartate Amino Transf (AST/SGOT) 14 U/L (15-37) Alanine Aminotransferase (ALT/SGPT) 14 U/L (16-63) Alkaline Phosphatase 67 U/L (46-116) Total Protein 7.8 g/dL (6.4-8.2) Albumin 2.4 g/dL (3.4-5.0) Albumin/Globulin Ratio 0.4 (1.0-1.7) SARS-CoV-2 RNA (ERIC) Negative (Negative) SARS-CoV-2 Antigen (Rapid) Negative (NEGATIVE) Urine Collection Type U cath Urine Color Yellow Urine Clarity Clear Urine pH 5.5 (<5.0-8.0) Urine Specific [place] 1.015 (1.000-1.030) Urine Protein Negative mg/dL (NEG-TRACE) Urine Glucose (UA) 500 mg/dL (NEG) Urine Ketones (Stick) Negative mg/dL (NEG) Urine Blood Small (NEG) Urine Nitrite Negative (NEG) Urine Bilirubin Negative (NEG) Urine Urobilinogen Dipstick 1.0 mg/dL (0.2 mg/dL) Urine Leukocyte Esterase Negative (NEG) Urine RBC 3-5 /HPF (0-2) Urine WBC Occ /HPF (0-4) Urine Amorphous Sediment Present /HPF Urine Bacteria 0 /HPF (0-FEW) Test 06/30/21 06:10 06/30/21 07:28 06/30/21 11:33 06/30/21 16:28 White Blood Count 6.9 x10^3/uL (4.0-11.0) Red Blood Count 3.59 x10^6/uL (4.30-5.70) Hemoglobin 9.3 g/dL (13.0-17.5) Hematocrit 28.9 % (39.0-53.0) Mean Corpuscular Volume 81 fL (79-100) Mean Corpuscular Hemoglobin 26 pg (25-35) Mean Corpuscular Hemoglobin Concent 32 g/dL (31-37) Red Cell Distribution Width 14.5 % (11.5-14.5) Platelet Count 237 x10^3/uL (140-400) Neutrophils (%) (Auto) 61 % (31-73) Lymphocytes (%) (Auto) 23 % (24-48) Monocytes (%) (Auto) 15 % (0-9) Eosinophils (%) (Auto) 1 % (0-3) Basophils (%) (Auto) 1 % (0-3) Neutrophils # (Auto) 4.2 x10^3/uL (1.8-7.7) Lymphocytes # (Auto) 1.6 x10^3/uL (1.0-4.8) Monocytes # (Auto) 1.0 x10^3/uL (0.0-1.1) Eosinophils # (Auto) 0.1 x10^3/uL (0.0-0.7) Basophils # (Auto) 0.1 x10^3/uL (0.0-0.2) Erythrocyte Sedimentation Rate 127 (0-15) Sodium Level 141 mmol/L (136-145) Potassium Level 3.6 mmol/L (3.5-5.1) Chloride Level 104 mmol/L (98-107) Carbon Dioxide Level 30 mmol/L (21-32) Anion Gap 7 (6-14) Blood Urea Nitrogen 25 mg/dL (8-26) Creatinine 1.5 mg/dL (0.7-1.3) Estimated GFR (Cockcroft-Gault) 54.6 Glucose Level 62 mg/dL (70-99) Hemoglobin A1c 12.0 % (4.8-5.6) Calcium Level 8.9 mg/dL (8.5-10.1) Triglycerides Level 49 mg/dL (0-150) Cholesterol Level 124 mg/dL (0-200) LDL Cholesterol, Calculated 70 mg/dL (0-100) VLDL Cholesterol, Calculated 10 mg/dL (0-40) Non-HDL Cholesterol Calculated 80 mg/dL (0-129) HDL Cholesterol 44 mg/dL (40-60) Cholesterol/HDL Ratio 2.8 Thyroid Stimulating Hormone (TSH) 0.677 uIU/mL (0.358-3.74) Glucose (Fingerstick) 73 mg/dL (70-99) 105 mg/dL (70-99) 151 mg/dL (70-99) Test 07/01/21 05:55 07/01/21 07:43 07/01/21 12:07 White Blood Count 4.9 x10^3/uL (4.0-11.0) Red Blood Count 3.25 x10^6/uL (4.30-5.70) Hemoglobin 8.6 g/dL (13.0-17.5) Hematocrit 26.3 % (39.0-53.0) Mean Corpuscular Volume 81 fL (79-100) Mean Corpuscular Hemoglobin 27 pg (25-35) Mean Corpuscular Hemoglobin Concent 33 g/dL (31-37) Red Cell Distribution Width 14.6 % (11.5-14.5) Platelet Count 194 x10^3/uL (140-400) Neutrophils (%) (Auto) 65 % (31-73) Lymphocytes (%) (Auto) 21 % (24-48) Monocytes (%) (Auto) 12 % (0-9) Eosinophils (%) (Auto) 1 % (0-3) Basophils (%) (Auto) 1 % (0-3) Neutrophils # (Auto) 3.2 x10^3/uL (1.8-7.7) Lymphocytes # (Auto) 1.1 x10^3/uL (1.0-4.8) Monocytes # (Auto) 0.6 x10^3/uL (0.0-1.1) Eosinophils # (Auto) 0.0 x10^3/uL (0.0-0.7) Basophils # (Auto) 0.0 x10^3/uL (0.0-0.2) Sodium Level 137 mmol/L (136-145) Potassium Level 4.0 mmol/L (3.5-5.1) Chloride Level 103 mmol/L (98-107) Carbon Dioxide Level 28 mmol/L (21-32) Anion Gap 6 (6-14) Blood Urea Nitrogen 14 mg/dL (8-26) Creatinine 1.3 mg/dL (0.7-1.3) Estimated GFR (Cockcroft-Gault) 64.4 Glucose Level 261 mg/dL (70-99) Calcium Level 8.3 mg/dL (8.5-10.1) Glucose (Fingerstick) 257 mg/dL (70-99) 135 mg/dL (70-99) Laboratory Tests Test 06/30/21 16:28 07/01/21 05:55 07/01/21 07:43 07/01/21 12:07 Glucose (Fingerstick) 151 mg/dL (70-99) 257 mg/dL (70-99) 135 mg/dL (70-99) White Blood Count 4.9 x10^3/uL (4.0-11.0) Red Blood Count 3.25 x10^6/uL (4.30-5.70) Hemoglobin 8.6 g/dL (13.0-17.5) Hematocrit 26.3 % (39.0-53.0) Mean Corpuscular Volume 81 fL (79-100) Mean Corpuscular Hemoglobin 27 pg (25-35) Mean Corpuscular Hemoglobin Concent 33 g/dL (31-37) Red Cell Distribution Width 14.6 % (11.5-14.5) Platelet Count 194 x10^3/uL (140-400) Neutrophils (%) (Auto) 65 % (31-73) Lymphocytes (%) (Auto) 21 % (24-48) Monocytes (%) (Auto) 12 % (0-9) Eosinophils (%) (Auto) 1 % (0-3) Basophils (%) (Auto) 1 % (0-3) Neutrophils # (Auto) 3.2 x10^3/uL (1.8-7.7) Lymphocytes # (Auto) 1.1 x10^3/uL (1.0-4.8) Monocytes # (Auto) 0.6 x10^3/uL (0.0-1.1) Eosinophils # (Auto) 0.0 x10^3/uL (0.0-0.7) Basophils # (Auto) 0.0 x10^3/uL (0.0-0.2) Sodium Level 137 mmol/L (136-145) Potassium Level 4.0 mmol/L (3.5-5.1) Chloride Level 103 mmol/L (98-107) Carbon Dioxide Level 28 mmol/L (21-32) Anion Gap 6 (6-14) Blood Urea Nitrogen 14 mg/dL (8-26) Creatinine 1.3 mg/dL (0.7-1.3) Estimated GFR (Cockcroft-Gault) 64.4 Glucose Level 261 mg/dL (70-99) Calcium Level 8.3 mg/dL (8.5-10.1) Microbiology 06/30/21 Gram Stain - Final, Resulted 06/30/21 Aerobic Culture - Preliminary, Resulted 06/29/21 Blood Culture - Preliminary, Resulted NO GROWTH AFTER 1 DAY Medications Current Medications Insulin Glargine (Lantus Syringe) 20 unit QHS SQ Last administered on 06/29/21at 22:04; Start 06/29/21 at 21:00; Stop 06/29/21 at 22:27; Status DC Insulin Human Lispro (HumaLOG) 0-7 UNITS QIDACHS SQ Last administered on 07/01/21at 09:46; Start 06/29/21 at 21:00 Dextrose (Dextrose 50%-Water Syringe) 12.5 gm PRN Q15MIN PRN IV SEE COMMENTS; Start 06/29/21 at 20:45 Vancomycin HCl (Vanco Per Pharmacy) 1 each PRN DAILY PRN MC SEE COMMENTS Last administered on 07/01/21at 13:55; Start 06/29/21 at 20:45 Vancomycin HCl 1 gm/Sodium Chloride 250 ml @ 250 mls/hr 1X IV ; Start 06/29/21 at 20:45; Status UNV Sodium Chloride 1,000 ml @ 75 mls/hr [id number] IV Last administered on 06/29/21at 21:59; Start 06/29/21 at 20:45; Stop 06/30/21 at 07:57; Status DC Acetaminophen/ Hydrocodone Bitart (Lortab 5/325) 1 tab PRN Q6HRS PRN PO MODERATE PAIN 4-6 Last administered on 07/01/21at 10:28; Start 06/29/21 at 20:45 Silver Sulfadiazine (Silvadene) 1 eugene BID TP Last administered on 06/30/21at 08:31; Start 06/29/21 at 21:00 Insulin Human Lispro (HumaLOG) 6 units TIDAC SQ Last administered on 07/01/21at 12:36; Start 06/30/21 at 07:30 Heparin Sodium (Porcine) (Heparin Sodium) 5,000 unit BID SQ Last administered on 06/29/21at 22:08; Start 06/29/21 at 21:00 Piperacillin Sod/ Tazobactam Sod 3.375 gm/Sodium Chloride 50 ml @ 100 mls/hr Q6HRS IV ; Start 06/30/21 at 00:00; Status UNV Aspirin (Aspirin Chewable) 81 mg BID PO Last administered on 07/01/21at 10:29; Start 06/30/21 at 09:00 Gabapentin (Neurontin) 300 mg BID PO Last administered on 07/01/21at 10:29; Start 06/29/21 at 22:00 Lisinopril (Prinivil) 20 mg BID PO Last administered on 07/01/21at 10:29; Start 06/30/21 at 09:00 Hydrochlorothiazide (Microzide) 12.5 mg DAILY PO Last administered on 07/01/21at 10:29; Start 06/30/21 at 09:00 Vancomycin HCl 1.25 gm/Sodium Chloride 250 ml @ 166.667 mls/hr 1X ONCE IV Last administered on 06/29/21at 21:59; Start 06/29/21 at 22:00; Stop 06/29/21 at 23:29; Status DC Piperacillin Sod/ Tazobactam Sod 2.25 gm/Sodium Chloride 50 ml @ 100 mls/hr Q6HRS IV Last administered on 07/01/21at 12:31; Start 06/30/21 at 00:00 Insulin Glargine (Lantus Syringe) 10 unit QHS SQ Last administered on 06/30/21at 21:00; Start 06/30/21 at 21:00 Vancomycin HCl 750 mg/Sodium Chloride 250 ml @ 250 mls/hr Q24H IV Last administered on 06/30/21at 22:25; Start 06/30/21 at 22:00 Vancomycin HCl (Vancomycin Trough Level) 1 each 1X ONCE MC ; Start 07/01/21 at 21:30; Stop 07/01/21 at 21:31 Potassium Chloride/Dextrose/ Sod Cl 1,000 ml @ 75 mls/hr [id number] IV Last administered on 06/30/21at 22:30; Start 06/30/21 at 08:00; Stop 07/01/21 at 12:38; Status DC Lactobacillus Rhamnosus (Culturelle) 1 cap BID PO Last administered on 07/01/21at 10:28; Start 06/30/21 at 12:00 Clopidogrel Bisulfate (Plavix) 75 mg [id number] PO Last administered on 07/01/21at 10:29; Start 07/01/21 at 08:00 Active Scripts Active Humalog (Insulin Lispro) 100 Unit/1 Ml Vial 10 Unit SQ TIDAC 30 Days Lisinopril 20 Mg Tablet 1 Tab PO BID Hydrocodone-Apap 5-325 (Hydrocodone Bit/Acetaminophen) 1 Each Tablet 1 Tab PO PRN Q4HRS PRN Reported Lantus Solostar (Insulin Glargine,Hum.rec.anlog) 100 Unit/1 Ml Insuln.pen 20 Unit SQ QHS Hydrochlorothiazide Tablet (Hydrochlorothiazide) 12.5 Mg Tablet 1 Tab PO TID Trulicity (Dulaglutide) 1.5 Mg/0.5 Ml Pen.injctr 1.5 Mg SQ Januvia (Sitagliptin Phosphate) 100 Mg Tablet 1 Tab PO TID Gabapentin (Gabapentin) 300 Mg Capsule 300 Mg PO TID Metformin Hcl 1,000 Mg Tablet 1 Tab PO BIDAC Trulicity (Dulaglutide) 0.75 Mg/0.5 Ml Pen.injctr 0.75 Mg SQ WEEKLY Aspirin 81 Mg Tab.chew 81 Mg PO BID Vitals/I & O Vital Sign - Last 24 Hours 9/23/21 9/23/21 9/23/21 9/23/21 19:00 21:00 22:26 22:28 Temp 99.7 99.7 Pulse 67 67 Resp 18 B/P (MAP) 101/57 (72) 101/57 Pulse Ox 96 O2 Delivery Room Air Room Air Room Air 06/30/21 07/01/21 07/01/21 07/01/21 22:42 03:00 07:00 10:28 Temp 99.7 99.5 99.7 99.5 Pulse 68 80 Resp 18 17 B/P (MAP) 123/72 (89) 106/57 (73) Pulse Ox 98 98 O2 Delivery Room Air Room Air Room Air Room Air 07/01/21 07/01/21 07/01/21 10:29 11:00 12:30 Temp 97.7 97.7 Pulse 80 64 Resp 18 B/P (MAP) 106/57 127/68 (87) Pulse Ox 98 O2 Delivery Room Air Room Air Intake and Output 06/30/21 06/30/21 07/01/21 15:00 23:00 07:00 Intake Total 1250 ml 50 ml Output Total 550 ml 450 ml Balance -550 ml 1250 ml -400 ml Justifications for Admission Other Justification ALISON STODDARD APRN Jul 01, 2021 15:56
[2021-07-01 19:00] VITALS: BP 120/63
[2021-07-01 22:45] LABS: VANC TR 7.6 mcg/mL (10.0-20.0)
[2021-07-01] MEDS: INSULIN GLARGINE SYRINGE. SQ SCH (22:51)
[2021-07-01 23:01] VITALS: BP 132/77
[2021-07-02] VITALS (7 sets, daily range): BP systolic 91–158; BP diastolic 55–76
[2021-07-02] MEDS: PIPERACILLIN/TAZOBACTAM 2.25 GM in IV NORMAL SALINE 50ML 50 ML IV SCH ×3 (00:20→12:36)
[2021-07-02] MEDS ORDERED: VANCOMYCIN 750 MG in IV NORMAL SALINE 250ML 250 ML IV SCH (01:00)
[2021-07-02] MEDS: VANCOMYCIN PER PHARMACY MC PRN (02:55)
--- NOTE | 2021-07-02 02:55 | NUR ---
Pharmacy Vancomycin Dosing Note S:Consulted to monitor and dose vancomycin started 06/29/21. O:ESPERANZA MARINELLI is a 80 year old M with Cellulitis . Height: 5 feet, 4 inches Weight: 52.0 kg [place] Body Weight: 59.20 Adjusted Body Weight: 56.32 Dosing Weight: Actual Other Antibiotics: ZOSYN 2.25 GM Q6H LABS: Last BUN: 25 Last Creatinine: 1.3 Creatinine Clearance: 34 mL/min Last WBC: 4.9 Last Procalcitonin: Tmax (past 24 hours): 99.7 Microbiology: WOUND: MIXED AEROBIC BRE INCLUDING: MODERATE on 07/01/21 at 1126 MODERATE on 07/01/21 at 1126 MODERATE I/O: 1300/1000 Drug Levels: Last Trough level: 7.6 on 07/01/21 at 2130 Last dose given 06/29/21 at 2200 Vancomycin Dosing: Loading Dose: 1250 mg x1 Dosing Weight: Actual Target Trough: 10-20 A: Based on: TROUGH P: 1. Begin Vancomycin 750 mg IV q18h 2. Follow up Trough level on 07/03/21 at 1330 3. Pharmacy will continue to monitor, follow and adjust therapy as needed. FIONA ANDERSON RPH, [id number]/02/[id number] Signed: 07/02/21 at 255 by FIONA ANDERSON RPH PHA
[2021-07-02] MEDS ORDERED: PROCHLORPERAZINE 10 MG/2 ML VIAL. IVP PRN (06:00)
[2021-07-02] MEDS ORDERED: IV RINGERS,LACTATED 1000ML 1,000 ML IV SCH (06:00)
[2021-07-02] MEDS ORDERED: MORPHINE SULFATE 2 MG/ML INJ. IVP PRN (06:00)
[2021-07-02] MEDS ORDERED: HYDROmorphone 2 MG/ML VIAL IVP PRN (06:00)
[2021-07-02] MEDS ORDERED: fentaNYL PF VIAL 100 MCG/2 ML VIAL IVP PRN ×2 (06:00)
[2021-07-02] MEDS ORDERED: LIDOCAINE 2% PF 5 ML VIAL. ONE (07:24)
[2021-07-02] MEDS ORDERED: PROPOFOL 10 MG/ML (20ML) VIAL. IV ONE (07:24)
[2021-07-02] MEDS: INSULIN LISPRO 300 UNITS/3 ML VIAL. SQ SCH ×7 (07:30→21:00)
[2021-07-02] MEDS: DEXTROSE 50% 25 GM / 50ML DISP.SYRIN. IV PRN (07:37)
--- NOTE | 2021-07-02 08:00 | PDOC ---
Provider Note Date of Service: DATE: 07/02/21 TIME: 07:59 Provider Note He was awake and alert this morning. He had severe hypoglycemia with a blood sugar of 37 this morning for which she was given D50. He is awake and alert now. He had low-grade fever at 101 overnight. Plan left leg debridement for purulent drainage from proximal area of undermining and left pretibial wound. I discussed risks and benefits with him. He acknowledged and requested to proceed. We will possibly place wound VAC after debridement today. Justifications for Admission Other Justification CLEMENT BAUTISTA MD Jul 02, 2021 08:00
[2021-07-02] MEDS ORDERED: ePHEDrine PF IN SALINE 50 MG/10 ML SYRINGE. IV ONE (08:09)
[2021-07-02] MEDS ORDERED: SEVOFLURANE 31 TO 60 MINUTES. IH ONE (08:09)
--- NOTE | 2021-07-02 08:49 | PDOC ---
BRIEF OPERATIVE NOTE Date: Jul 02, 2021 Pre-Op Diagnosis Left lower leg ulcer with undermining and abscess Peripheral arterial disease Diabetes Hypertension Peripheral neuropathy Post-Op Diagnosis Same Procedure Performed Excisional debridement of left lower leg wound including skin and subcutaneous tissue (10 cm x 3.5 cm x 0.5 cm depth) Wound VAC placement on left lower leg wound Surgeon Claudine Anesthesia Type: General Blood Loss 2 mL Specimens Obtained Culture of purulent drainage from left lower leg wound Findings He had a left lower leg pretibial wound that had significant proximal undermining. This was opened along the course of the undermining measuring 10 cm x 3.5 cm x 0.5 cm depth following excisional debridement. Wound VAC placed over this wound due to failure of other local wound care treatment. Complications None CLEMENT BAUTISTA MD Jul 02, 2021 08:49
[2021-07-02] MEDS: HEPARIN for SUB-Q USE 5,000 UNIT/ML VIAL. SQ SCH ×2 (09:00→21:00)
[2021-07-02] MEDS: silver sulfADIAZINE 1% CREAM 25GM TUBE. TP SCH ×2 (09:00→20:58)
[2021-07-02] MEDS ORDERED: fentaNYL PF VIAL 100 MCG/2 ML VIAL ONE (09:10)
[2021-07-02] MEDS: IV NORMAL SALINE 1000ML BAG 1,000 ML IV SCH (09:15)
--- NOTE | 2021-07-02 10:27 | OP ---
DATE OF SURGERY: 07/02/2021 PREOPERATIVE DIAGNOSES: 1. Left lower leg wound with undermining and abscess. 2. Diabetes. 3. Peripheral arterial disease, status post percutaneous intervention. 4. Hypertension. 5. Malnutrition. POSTOPERATIVE DIAGNOSES: 1. Left lower leg wound with undermining and abscess. 2. Diabetes. 3. Peripheral arterial disease, status post percutaneous intervention. 4. Hypertension. 5. Malnutrition. PROCEDURES: 1. Excisional debridement of left leg wound including skin and subcutaneous tissue. 2. Wound VAC placement to the left leg. SURGEON: Beau Chow MD. ANESTHESIA: General. INDICATIONS: The patient is a 80-year-old male with diabetes and peripheral neuropathy, who presents with nonhealing left pretibial lower leg wound. He has had previous percutaneous intervention. He has some undermining proximally with purulent drainage. He was taken to the operating room for elective debridement and drainage of abscess. FINDINGS: There was severe undermining proximal to the area of ulceration. This was opened along its course. There was necrotic subcutaneous tissue that was excised. Following excision, the wound measured 10 cm x 3.5 cm x 0.5 cm depth. There was good bleeding at the skin edges. Wound VAC was placed due to failure of other local dressing changes. He had a smaller 1 cm superficial ulcer proximal as well as some areas of skin breakdown distal to the area of deep ulceration. These were covered with Aquacel Ag at the completion of the case. DESCRIPTION OF OPERATION: The patient was taken to the operating room and placed supine on the operating table. He underwent general anesthetic. His left lower extremity was prepped and draped in normal sterile fashion. There was purulent drainage from the proximal area of undermining to the ulcer. This area of undermining was completely opened. The surrounding necrotic skin edges were excised with a scalpel and forceps. There was nonviable subcutaneous tissue that was sharply excised with forceps and scissors. All nonviable tissue was excised down to reasonable tissue. This wound was then copiously irrigated with 3 liters of saline irrigation. All undermining was opened. Electrocautery was used for hemostasis. The wound extended down to exposed flexor tendon next to the tibia. There was a smaller 1 cm superficial ulcer just lateral to the area of proximal skin opening. There was also skin breakdown distal and over the dorsal ankle. This area was not debrided. Wound VAC was placed using Silver GranuFoam in the base of the wound over the large wound. Please note that protective clear drape was placed over the adjacent skin to prevent skin injury and Aquacel Ag was placed over the superficial, proximal and distal lesions. The wound VAC was placed to 125 mmHg continuous suction. The patient tolerated the procedure well and there were no complications. ESTIMATED BLOOD LOSS: 5 mL. SPECIMEN: Culture of purulent drainage. LYNNE/TASIA/MARTY DR: Dexter TID: [id number] CC: KESHA TAYLOR MD
[2021-07-02] MEDS: ASPIRIN CHEWABLE 81 MG TABLET. PO SCH ×2 (10:37→20:57)
[2021-07-02] MEDS: hydroCHLOROthiazide 12.5 MG CAPSULE PO SCH (10:37)
[2021-07-02] MEDS: LACTOBACILLUS RHAMNOSUS GG 1 CAPSULE. PO SCH ×2 (10:37→20:57)
[2021-07-02] MEDS: GABAPENTIN 300 MG CAPSULE. PO SCH ×2 (10:37→20:57)
[2021-07-02] MEDS: CLOPIDOGREL BISULFATE 75 MG TABLET PO SCH (10:37)
[2021-07-02] MEDS: LISINOPRIL 20 MG TABLET PO SCH ×2 (10:38→20:57)
--- NOTE | 2021-07-02 10:39 | PDOC ---
PROGRESS NOTES Date of Service: DATE: 07/02/21 TIME: 10:37 Subjective Subjective fever yesterday,pt had surgery today Objective Objective Vital Signs Date Time Temp Pulse Resp B/P (MAP) Pulse Ox O2 Delivery O2 Flow Rate FiO2 07/02/21 09:21 68 11 156/71 100 Room Air 07/02/21 09:06 13 07/02/21 08:49 97.6 97.6 Intake and Output 07/02/21 07:00 Intake Total 640 ml Output Total 0 ml Balance 640 ml Intake Oral 540 ml IV Total 100 ml Output Urine Total 0 ml # Voids 1 Physical Exam Abdomen: Soft Heart: Regular rate, Normal S1, Normal S2 Extremities: Other (eft lower leg, superior distal third anteriorly has an approximately 3.5cm x 4.5 cm wound with a necrotic base and 1.5 cm of undermining medially. There is red granulation tissue along the 12:00 to 9:00 periphery of the wound. At the central base of the wound there is an approximately 7 mm tenting of the tissues. This was unroofed with scissors and forceps revealing anterior tibialis tendon and 2 cc of purulence. The wound was irrigated with saline. The remainder of the fascia is intact and there is no exposed bone.) General: Alert, Cooperative HEENT: Atraumatic Lungs: Normal air movement MUSCULOSKELETAL: No deformity, No swelling, Abnormal exam of left, Other Neck: No JVD Neuro: Normal speech Psych/Mental Status: Mental status NL Skin: Other (s/p debridement ,wound vac present now) Assessment Assessment Assessment Left lower extremity abscess Left lower extremity cellulitis Left lower extremity non healing chronic wound Peripheral vascular disease with history of angioplasty Diabetes mellitus with peripheral neuropathy CKD Tobacco dependence History of noncompliance History of previous toe amputation Plan: Debridement done today by Vascular Plan: arterial doppler results adequate blood flow as per vascular vascular consult appreciated iv antibiotics x ray -ve for osteo sedrate 120 high . cr 1.3 ,improved with fluids plastic consult ID consult appreciated.c/s pending vanco+zosyn, labs stable low blood sugars last night Comment Review of Relevant I have reviewed the following items jorge (where applicable) has been applied. Labs Laboratory Tests Test 07/01/21 12:07 07/01/21 17:05 07/01/21 21:00 07/01/21 21:50 Glucose (Fingerstick) 135 mg/dL (70-99) 104 mg/dL (70-99) 87 mg/dL (70-99) Vancomycin Level Trough 7.6 mcg/mL (10.0-20.0) Vancomycin Last Dose Date Vancomycin Last Dose Time 2199 Test 07/02/21 07:26 07/02/21 08:59 Glucose (Fingerstick) 37 mg/dL (70-99) 142 mg/dL (70-99) Microbiology 06/30/21 Gram Stain - Final, Resulted 06/30/21 Aerobic Culture - Preliminary, Resulted 06/29/21 Blood Culture - Preliminary, Resulted NO GROWTH AFTER 2 DAYS Medications Current Medications Ephedrine Sulfate (ePHEDrine PF IN SALINE SYRINGE) 50 mg STK-MED ONCE IV ; Start 07/02/21 at 08:09; Stop 07/02/21 at 08:09; Status DC Fentanyl Citrate (Fentanyl 2ml Vial) 25 mcg PRN Q5MIN PRN IVP MILD PAIN 1-3; Start 07/02/21 at 06:00; Stop 07/03/21 at 05:59 Fentanyl Citrate (Fentanyl 2ml Vial) 50 mcg PRN Q5MIN PRN IVP MODERATE PAIN 4-6 Last administered on 07/02/21at 09:15; Start 07/02/21 at 06:00; Stop 07/03/21 at 05:59 Fentanyl Citrate (Fentanyl 2ml Vial) 100 mcg STK-MED ONCE .ROUTE ; Start 07/02/21 at 09:10; Stop 07/02/21 at 09:10; Status DC Hydromorphone HCl (Dilaudid) 0.5 mg PRN Q10MIN PRN IVP SEVERE PAIN 7-10, 2nd CHOICE; Start 07/02/21 at 06:00; Stop 07/03/21 at 05:59 Lidocaine HCl (Lidocaine Pf 2% Vial) 5 ml STK-MED ONCE .ROUTE ; Start 07/02/21 at 07:24; Stop 07/02/21 at 07:25; Status DC Morphine Sulfate (Morphine Sulfate) 1 mg PRN Q10MIN PRN IVP SEVERE PAIN 7-10; Start 07/02/21 at 06:00; Stop 07/03/21 at 05:59 Prochlorperazine Edisylate (Compazine) 5 mg PACU PRN PRN IVP NAUSEA, MRX1; Start 07/02/21 at 06:00; Stop 07/03/21 at 05:59 Propofol (Diprivan) 200 mg STK-MED ONCE IV ; Start 07/02/21 at 07:24; Stop 07/02/21 at 07:25; Status DC Ringer's Solution 1,000 ml @ 30 mls/hr Q24H IV ; Start 07/02/21 at 06:00; Stop 07/02/21 at 17:59 Sevoflurane (Ultane) 30 ml STK-MED ONCE IH ; Start 07/02/21 at 08:09; Stop 07/02/21 at 08:09; Status DC Sodium Chloride 1,000 ml @ 30 mls/hr Q24H IV Last administered on 07/02/21at 09:15; Start 07/02/21 at 09:15 Vancomycin HCl (Vancomycin Trough Level) 1 each 1X ONCE MC Last administered on 07/01/21at 21:30; Start 07/01/21 at 21:30; Stop 07/01/21 at 21:31; Status DC Vancomycin HCl (Vancomycin Trough Level) 1 each 1X ONCE MC ; Start 07/03/21 at 13:30; Stop 07/03/21 at 13:31 Vancomycin HCl 750 mg/Sodium Chloride 250 ml @ 250 mls/hr Q18H IV Last administered on 07/02/21at 01:51; Start 07/02/21 at 01:00 Vitals/I & O Vital Sign - Last 24 Hours 07/01/21 07/01/21 07/01/21 07/01/21 11:00 12:30 15:00 19:00 Temp 97.7 97.3 98.6 97.7 97.3 98.6 Pulse 64 63 66 Resp 18 18 18 B/P (MAP) 127/68 (87) 141/57 (85) 120/63 (82) Pulse Ox 98 95 98 O2 Delivery Room Air Room Air Room Air Room Air 07/01/21 07/01/21 07/01/21 07/02/21 20:00 22:47 23:01 03:20 Temp 101.1 100.1 101.1 100.1 Pulse 66 69 63 Resp 18 18 B/P (MAP) 120/63 132/77 (95) 124/55 (78) Pulse Ox 97 97 O2 Delivery Room Air Room Air Room Air 07/02/21 07/02/21 07/02/21 07/02/21 07:00 08:49 08:49 09:06 Temp 97.3 97.6 97.3 97.6 Pulse 64 82 76 Resp 16 B/P (MAP) 158/59 (92) 171/80 151/72 Pulse Ox 100 100 100 O2 Delivery Room Air Mask Room Air Simple Mask O2 Flow Rate 13 13 13 07/02/21 09:21 Pulse 68 Resp 11 B/P (MAP) 156/71 Pulse Ox 100 O2 Delivery Room Air Intake and Output 07/01/21 07/01/21 07/02/21 15:00 23:00 07:00 Intake Total 350 ml 240 ml 50 ml Output Total 0 ml Balance 350 ml 240 ml 50 ml Justifications for Admission Other Justification Nutrition Consultation Dietary Evaluation: Recommendations by RD: Dietary education by RD, Increase Calorie Intake, Protein supplementation Comments: mech soft, ADA/Cardiac DBL meats , no jones strawberry Glucerna tid debora bid REC mvi and vit c per wound protocal Expected Outcomes/Goals: to meet >75% est val needs Malnutrition Findings: Body Fat Depletion (Non Severe: Mod to Severe Weight Status: Underweight KESHA TAYLOR MD Jul 02, 2021 10:39
--- NOTE | 2021-07-02 11:24 | PDOC ---
Infectious Disease Note Subjective: Subjective Patient without complaints Denies fever, chills, nausea, vomiting, diarrhea Postop pain is under control Vital Signs: Vital Signs Vital Signs Date Time Temp Pulse Resp B/P (MAP) Pulse Ox O2 Delivery O2 Flow Rate FiO2 07/02/21 10:39 Room Air 07/02/21 10:38 70 146/74 07/02/21 09:21 11 100 07/02/21 09:06 13 07/02/21 08:49 97.6 97.6 Physical Exam: PHYSICAL EXAM GENERAL: AXOX3 male lying in bed comfortably, in no acute distress. HEENT: Normocephalic, atraumatic. Anicteric. NECK: Supple. No JVD. LUNGS: Clear bilaterally. No wheezing. HEART: S1, S2. No gallops or murmurs. ABDOMEN: Soft, nontender, nondistended. No rebound or guarding. EXTREMITIES: Left lower extremity large wound with purulence surrounding erythema, warmth Has had toe amputations in the past MUSCULOSKELETAL: No joint swelling. No decrease in range of motion. CENTRAL NERVOUS SYSTEM: Alert, oriented x 3, grossly nonfocal. PSYCHIATRIC: Cooperative, calm. Medications: Inpatient Meds: Medications reviewed. Labs: Lab Laboratory Tests Test 07/01/21 12:07 07/01/21 17:05 07/01/21 21:00 07/01/21 21:50 Glucose (Fingerstick) 135 mg/dL (70-99) 104 mg/dL (70-99) 87 mg/dL (70-99) Vancomycin Level Trough 7.6 mcg/mL (10.0-20.0) Vancomycin Last Dose Date Vancomycin Last Dose Time 2199 Test 07/02/21 07:26 07/02/21 08:59 07/02/21 10:48 Glucose (Fingerstick) 37 mg/dL (70-99) 142 mg/dL (70-99) 124 mg/dL (70-99) Objective: Assessment: Left lower extremity abscess Sept 24 S/P Excisional debridement of left leg wound including skin and subcutaneous tissue and Wound VAC placement to the left leg. Left lower extremity cellulitis Left lower extremity non healing chronic wound Peripheral vascular disease with history of angioplasty Diabetes mellitus with peripheral neuropathy CHERYLE on CKD Tobacco dependence History of noncompliance History of previous toe amputation Plan: Plan of Care Continue Zosyn, daptomycin Continue local wound care as directed Monitor labs and cultures Continue supportive care OMAR CRUZ MD Jul 02, 2021 11:24
[2021-07-02] MEDS: HYDROcodone/APAP 5/325MG 1 TAB TABLET PO PRN (13:11)
[2021-07-02] MEDS: DAPTOmycin (GENERIC) IVPB 330 MG in IV NORMAL SALINE 50ML 50 ML IV SCH (13:11)
[2021-07-02] MEDS: PIPERACILLIN/TAZOBACTAM 3.375 GM in IV NORMAL SALINE 50ML 50 ML IV SCH ×2 (17:52→23:58)
[2021-07-02] MEDS: INSULIN GLARGINE SYRINGE. SQ SCH (21:08)
[2021-07-03 03:01] VITALS: BP 165/75
[2021-07-03] MEDS: PIPERACILLIN/TAZOBACTAM 3.375 GM in IV NORMAL SALINE 50ML 50 ML IV SCH ×3 (06:12→17:25)
[2021-07-03 07:00] VITALS: BP 183/84
[2021-07-03] MEDS: DEXTROSE 50% 25 GM / 50ML DISP.SYRIN. IV PRN ×2 (07:20→07:25)
[2021-07-03] MEDS: INSULIN LISPRO 300 UNITS/3 ML VIAL. SQ SCH ×5 (07:30→16:30)
[2021-07-03] MEDS: silver sulfADIAZINE 1% CREAM 25GM TUBE. TP SCH ×2 (07:53→19:53)
[2021-07-03] MEDS: ASPIRIN CHEWABLE 81 MG TABLET. PO SCH ×2 (09:22→20:46)
--- NOTE | 2021-07-03 09:22 | PDOC ---
IM PROGRESS NOTES- Subjective Subjective No complaints of pain or dyspnea. Objective Vitals/I&O Vital Signs Date Time Temp Pulse Resp B/P (MAP) Pulse Ox O2 Delivery O2 Flow Rate FiO2 07/03/21 07:00 97.7 67 18 183/84 (117) 98 Room Air 97.7 07/02/21 09:06 13 I & O 07/02/21 07/02/21 07/03/21 15:00 23:00 07:00 Intake Total 1100 ml 200 ml 100 ml Output Total 405 ml 200 ml Balance 695 ml 200 ml -100 ml Physical Exam Physical Exam General Appearance - alert and in no distress Chest - decreased breath sounds at bases Heart - S1 and S2 normal Abdomen - soft, non tender Neurological - alert and oriented Musculoskeletal - generalized weakness Extremities -left leg wound with dressing and wound VAC. Labs Laboratory Tests Test 07/02/21 10:48 07/02/21 15:35 07/02/21 21:03 07/03/21 05:25 Glucose (Fingerstick) 124 mg/dL (70-99) H 148 mg/dL (70-99) H 138 mg/dL (70-99) H Creatine Kinase 95 U/L (39-308) Test 07/03/21 07:16 07/03/21 07:41 07/03/21 08:05 07/03/21 09:08 Glucose (Fingerstick) 43 mg/dL (70-99) *L 83 mg/dL (70-99) 138 mg/dL (70-99) H 218 mg/dL (70-99) H Meds Current Medications Medications (Trade) Dose Ordered Sig/Jennifer Route PRN Reason Start Time Stop Time Status Last Admin Dose Admin Daptomycin 330 mg/ Sodium Chloride 50 ml @ 100 mls/hr Q24H IV 07/02/21 13:00 07/02/21 13:11 Piperacillin Sod/ Tazobactam Sod 3.375 gm/Sodium Chloride 50 ml @ 100 mls/hr Q6HRS IV 07/02/21 18:00 07/03/21 06:12 Assessment Assessment Assessment Left lower extremity abscess Left lower extremity cellulitis Left lower extremity non healing chronic wound Peripheral vascular disease with history of angioplasty Diabetes mellitus with peripheral neuropathy CKD Tobacco dependence History of noncompliance History of previous toe amputation Plan: Debridement done today by Vascular Plan: arterial doppler results adequate blood flow . vascular consult appreciated Left leg wound and abscess status post debridement. Continue wound care and wound VAC. Continue IV daptomycin and Zosyn. ID consult. Hypoglycemia. Blood sugar was 138 last night 43 this morning and after he had IV D50 half amp blood sugar went up to 83. Discontinue Lantus and decrease sliding scale insulin to twice daily. Accelerated hypertension. Add amlodipine and IV hydralazine as needed. Plan Plan Continue Zosyn Change vancomycin to daptomycin Vascular consulted, will need I&D Continue local wound care as directed Monitor labs and cultures Continue supportive care Thank you Dr. John for consulting infectious disease participate in this patient's care. We will follow along with you. Discussed with nursing staff Justifications for Admission Other Justification Nutrition Consultation Dietary Evaluation: Recommendations by RD: Dietary education by RD, Increase Calorie Intake, Protein supplementation Comments: mech soft, ADA/Cardiac DBL meats , no jones strawberry Glucerna tid debora bid REC mvi and vit c per wound protocal Expected Outcomes/Goals: to meet >75% est val needs Malnutrition Findings: Body Fat Depletion (Non Severe: Mod to Severe Weight Status: Underweight BAN SHEIKH MD Jul 03, 2021 09:22
[2021-07-03] MEDS: LACTOBACILLUS RHAMNOSUS GG 1 CAPSULE. PO SCH ×2 (09:23→20:46)
[2021-07-03] MEDS: hydroCHLOROthiazide 12.5 MG CAPSULE PO SCH (09:23)
[2021-07-03] MEDS: CLOPIDOGREL BISULFATE 75 MG TABLET PO SCH (09:23)
[2021-07-03] MEDS: GABAPENTIN 300 MG CAPSULE. PO SCH ×2 (09:23→20:48)
[2021-07-03] MEDS: LISINOPRIL 20 MG TABLET PO SCH ×2 (09:23→20:49)
--- NOTE | 2021-07-03 09:26 | PDOC ---
PROGRESS NOTES Date of Service DATE: 07/03/21 TIME: 09:24 Subjective Subjective He is without new complaints. Denies any significant leg pain at this time. Anxious to get out of the hospital. Objective Objective Vital Signs Date Time Temp Pulse Resp B/P (MAP) Pulse Ox O2 Delivery O2 Flow Rate FiO2 07/03/21 07:00 97.7 67 18 183/84 (117) 98 Room Air 97.7 07/02/21 09:06 13 Intake and Output 07/03/21 07:00 Intake Total 1400 ml Output Total 605 ml Balance 795 ml Intake Oral 300 ml IV Total 1100 ml Output Urine Total 600 ml Estimated Blood Loss 5 ml # Voids 2 Physical Exam Abdomen: Soft, No tenderness Heart: Regular rate Extremities: Other (Wound VAC in place on the left lower leg with Aquacel Ag to the more superficial wounds proximal and distal to the deep wound.) General: Alert, Oriented X3 Assessment Assessment 1. Left lower leg wound with adjacent abscess status post incision and drainage with debridement and wound VAC placement 2. Peripheral arterial disease status post previous percutaneous intervention 3. Hypertension Plan Plan of Care He has multiple organs growing from the left leg abscess wound. Would continue broad-spectrum IV antibiotics. Continue local wound care with wound VAC. Next wound VAC changes tomorrow. Comment Review of Relevant I have reviewed the following items jorge (where applicable) has been applied. Labs Laboratory Tests Test 07/01/21 12:07 07/01/21 17:05 07/01/21 21:00 07/01/21 21:50 Glucose (Fingerstick) 135 mg/dL (70-99) 104 mg/dL (70-99) 87 mg/dL (70-99) Vancomycin Level Trough 7.6 mcg/mL (10.0-20.0) Vancomycin Last Dose Date Vancomycin Last Dose Time 2199 Test 07/02/21 07:26 07/02/21 08:59 07/02/21 10:48 07/02/21 15:35 Glucose (Fingerstick) 37 mg/dL (70-99) 142 mg/dL (70-99) 124 mg/dL (70-99) 148 mg/dL (70-99) Test 07/02/21 21:03 07/03/21 05:25 07/03/21 07:16 07/03/21 07:41 Glucose (Fingerstick) 138 mg/dL (70-99) 43 mg/dL (70-99) 83 mg/dL (70-99) Creatine Kinase 95 U/L (39-308) Test 07/03/21 08:05 07/03/21 09:08 Glucose (Fingerstick) 138 mg/dL (70-99) 218 mg/dL (70-99) Laboratory Tests Test 07/02/21 10:48 07/02/21 15:35 07/02/21 21:03 07/03/21 05:25 Glucose (Fingerstick) 124 mg/dL (70-99) 148 mg/dL (70-99) 138 mg/dL (70-99) Creatine Kinase 95 U/L (39-308) Test 07/03/21 07:16 07/03/21 07:41 07/03/21 08:05 07/03/21 09:08 Glucose (Fingerstick) 43 mg/dL (70-99) 83 mg/dL (70-99) 138 mg/dL (70-99) 218 mg/dL (70-99) Microbiology 06/30/21 Gram Stain - Final, Complete 06/30/21 Aerobic Culture - Final, Complete 06/30/21 Antimicrobic Susceptibility - Final, Complete 06/29/21 Blood Culture - Preliminary, Resulted NO GROWTH AFTER 3 DAYS Medications Current Medications Insulin Glargine (Lantus Syringe) 20 unit QHS SQ Last administered on 06/29/21at 22:04; Start 06/29/21 at 21:00; Stop 06/29/21 at 22:27; Status DC Insulin Human Lispro (HumaLOG) 0-7 UNITS QIDACHS SQ Last administered on 06/09 01/26at 09:46; Start 06/29/21 at 21:00 Dextrose (Dextrose 50%-Water Syringe) 12.5 gm PRN Q15MIN PRN IV SEE COMMENTS Last administered on 07/03/21at 07:25; Start 06/29/21 at 20:45 Vancomycin HCl (Vanco Per Pharmacy) 1 each PRN DAILY PRN MC SEE COMMENTS Last administered on 07/02/21at 02:55; Start 06/29/21 at 20:45; Stop 07/02/21 at 10:59; Status DC Vancomycin HCl 1 gm/Sodium Chloride 250 ml @ 250 mls/hr 1X IV ; Start 06/29/21 at 20:45; Status UNV Sodium Chloride 1,000 ml @ 75 mls/hr [id number] IV Last administered on 06/29/21at 21:59; Start 06/29/21 at 20:45; Stop 06/30/21 at 07:57; Status DC Acetaminophen/ Hydrocodone Bitart (Lortab 5/325) 1 tab PRN Q6HRS PRN PO MODERATE PAIN 4-6 Last administered on 07/02/21at 13:11; Start 06/29/21 at 20:45 Silver Sulfadiazine (Silvadene) 1 eugene BID TP Last administered on 06/30/21 08:31; Start 06/29/21 at 21:00 Insulin Human Lispro (HumaLOG) 6 units TIDAC SQ Last administered on 07/02/21 17:57; Start 06/30/21 at 07:30 Heparin Sodium (Porcine) (Heparin Sodium) 5,000 unit BID SQ Last administered on 07/02/21at 21:00; Start 06/29/21 at 21:00 Piperacillin Sod/ Tazobactam Sod 3.375 gm/Sodium Chloride 50 ml @ 100 mls/hr Q6HRS IV ; Start 06/30/21 at 00:00; Status UNV Aspirin (Aspirin Chewable) 81 mg BID PO Last administered on 07/02/21at 20:57; Start 06/30/21 at 09:00 Gabapentin (Neurontin) 300 mg BID PO Last administered on 07/02/21at 20:57; Start 06/29/21 at 22:00 Lisinopril (Prinivil) 20 mg BID PO Last administered on 07/02/21at 10:38; Start 06/30/21 at 09:00 Hydrochlorothiazide (Microzide) 12.5 mg DAILY PO Last administered on 07/02/21 10:37; Start 06/30/21 at 09:00 Vancomycin HCl 1.25 gm/Sodium Chloride 250 ml @ 166.667 mls/hr 1X ONCE IV Last administered on 06/29/21at 21:59; Start 06/29/21 at 22:00; Stop 06/29/21 at 23:29; Status DC Piperacillin Sod/ Tazobactam Sod 2.25 gm/Sodium Chloride 50 ml @ 100 mls/hr Q6HRS IV Last administered on 07/02/21at 12:36; Start 06/30/21 at 00:00; Stop 07/02/21 at 16:27; Status DC Insulin Glargine (Lantus Syringe) 10 unit QHS SQ Last administered on 07/02/21at 21:08; Start 06/30/21 at 21:00 Vancomycin HCl 750 mg/Sodium Chloride 250 ml @ 250 mls/hr Q24H IV Last administered on 06/30/21at 22:25; Start 06/30/21 at 22:00; Stop 07/02/21 at 00:17; Status DC Vancomycin HCl (Vancomycin Trough Level) 1 each 1X ONCE MC Last administered on 07/01/21at 21:30; Start 07/01/21 at 21:30; Stop 07/01/21 at 21:31; Status DC Potassium Chloride/Dextrose/ Sod Cl 1,000 ml @ 75 mls/hr [id number] IV Last administered on 06/30/21at 22:30; Start 06/30/21 at 08:00; Stop 07/01/21 at 12:38; Status DC Lactobacillus Rhamnosus (Culturelle) 1 cap BID PO Last administered on 07/02/21at 20:57; Start 06/30/21 at 12:00 Clopidogrel Bisulfate (Plavix) 75 mg [id number] PO Last administered on 07/02/21at 10:37; Start 07/01/21 at 08:00 Fentanyl Citrate (Fentanyl 2ml Vial) 25 mcg PRN Q5MIN PRN IVP MILD PAIN 1-3; Start 07/02/21 at 06:00; Stop 07/03/21 at 05:59; Status DC Fentanyl Citrate (Fentanyl 2ml Vial) 50 mcg PRN Q5MIN PRN IVP MODERATE PAIN 4-6 Last administered on 07/02/21at 09:15; Start 07/02/21 at 06:00; Stop 07/03/21 at 05:59; Status DC Morphine Sulfate (Morphine Sulfate) 1 mg PRN Q10MIN PRN IVP SEVERE PAIN 7-10; Start 07/02/21 at 06:00; Stop 07/03/21 at 05:59; Status DC Ringer's Solution 1,000 ml @ 30 mls/hr Q24H IV ; Start 07/02/21 at 06:00; Stop 07/02/21 at 17:59; Status DC Hydromorphone HCl (Dilaudid) 0.5 mg PRN Q10MIN PRN IVP SEVERE PAIN 7-10, 2nd CHOICE; Start 07/02/21 at 06:00; Stop 07/03/21 at 05:59; Status DC Prochlorperazine Edisylate (Compazine) 5 mg PACU PRN PRN IVP NAUSEA, MRX1; Start 07/02/21 at 06:00; Stop 07/03/21 at 05:59; Status DC Vancomycin HCl 750 mg/Sodium Chloride 250 ml @ 250 mls/hr Q18H IV Last administered on 07/02/21at 01:51; Start 07/02/21 at 01:00; Stop 07/02/21 at 10:59; Status DC Vancomycin HCl (Vancomycin Trough Level) 1 each 1X ONCE MC ; Start 07/03/21 at 13:30; Stop 07/03/21 at 13:31; Status Cancel Propofol (Diprivan) 200 mg STK-MED ONCE IV ; Start 07/02/21 at 07:24; Stop 07/02/21 at 07:25; Status DC Lidocaine HCl (Lidocaine Pf 2% Vial) 5 ml STK-MED ONCE .ROUTE ; Start 07/02/21 at 07:24; Stop 07/02/21 at 07:25; Status DC Sevoflurane (Ultane) 30 ml STK-MED ONCE IH ; Start 07/02/21 at 08:09; Stop 07/02/21 at 08:09; Status DC Ephedrine Sulfate (ePHEDrine PF IN SALINE SYRINGE) 50 mg STK-MED ONCE IV ; Start 07/02/21 at 08:09; Stop 07/02/21 at 08:09; Status DC Fentanyl Citrate (Fentanyl 2ml Vial) 100 mcg STK-MED ONCE .ROUTE ; Start 07/02/21 at 09:10; Stop 07/02/21 at 09:10; Status DC Sodium Chloride 1,000 ml @ 30 mls/hr Q24H IV Last administered on 07/02/21at 09:15; Start 07/02/21 at 09:15 Daptomycin 330 mg/ Sodium Chloride 50 ml @ 100 mls/hr Q24H IV Last administered on 07/02/21at 13:11; Start 07/02/21 at 13:00 Piperacillin Sod/ Tazobactam Sod 3.375 gm/Sodium Chloride 50 ml @ 100 mls/hr Q6HRS IV Last administered on 07/03/21at 06:12; Start 07/02/21 at 18:00 Amlodipine Besylate (Norvasc) 5 mg DAILY PO ; Start 07/03/21 at 09:30; Status UNV Hydralazine HCl (Apresoline Inj) 10 mg PRN Q4HRS PRN IVP ELEVATED BP, SEE COMMENTS; Start 07/03/21 at 09:30; Status UNV Active Scripts Active Humalog (Insulin Lispro) 100 Unit/1 Ml Vial 10 Unit SQ TIDAC 30 Days Lisinopril 20 Mg Tablet 1 Tab PO BID Hydrocodone-Apap 5-325 (Hydrocodone Bit/Acetaminophen) 1 Each Tablet 1 Tab PO PRN Q4HRS PRN Reported Lantus Solostar (Insulin Glargine,Hum.rec.anlog) 100 Unit/1 Ml Insuln.pen 20 Unit SQ QHS Hydrochlorothiazide Tablet (Hydrochlorothiazide) 12.5 Mg Tablet 1 Tab PO TID Trulicity (Dulaglutide) 1.5 Mg/0.5 Ml Pen.injctr 1.5 Mg SQ Januvia (Sitagliptin Phosphate) 100 Mg Tablet 1 Tab PO TID Gabapentin (Gabapentin) 300 Mg Capsule 300 Mg PO TID Metformin Hcl 1,000 Mg Tablet 1 Tab PO BIDAC Trulicity (Dulaglutide) 0.75 Mg/0.5 Ml Pen.injctr 0.75 Mg SQ WEEKLY Aspirin 81 Mg Tab.chew 81 Mg PO BID Vitals/I & O Vital Sign - Last 24 Hours 07/02/21 07/02/21 07/02/21 07/02/21 10:38 10:39 11:00 13:11 Temp 97.7 97.7 Pulse 70 70 Resp 20 B/P (MAP) 146/74 146/74 (98) Pulse Ox 94 O2 Delivery Room Air Room Air Room Air 07/02/21 07/02/21 07/02/21 07/02/21 14:09 15:00 15:50 19:00 Temp 97.7 99.4 98.6 97.7 99.4 98.6 Pulse 78 65 57 Resp 20 16 20 B/P (MAP) 146/76 (99) 100/67 (78) 91/61 (71) Pulse Ox 95 97 O2 Delivery Room Air Room Air Room Air 07/02/21 07/02/21 07/02/21 07/03/21 20:20 20:57 23:01 03:01 Temp 98.6 98.8 98.6 98.8 Pulse 57 64 63 Resp 18 18 B/P (MAP) 91/61 154/67 (96) 165/75 (105) Pulse Ox 97 96 O2 Delivery Room Air Room Air Room Air 07/03/21 07:00 Temp 97.7 97.7 Pulse 67 Resp 18 B/P (MAP) 183/84 (117) Pulse Ox 98 O2 Delivery Room Air Intake and Output 07/02/21 07/02/21 07/03/21 15:00 23:00 07:00 Intake Total 1100 ml 200 ml 100 ml Output Total 405 ml 200 ml Balance 695 ml 200 ml -100 ml Justifications for Admission Other Justification CLEMENT BAUTISTA MD Jul 03, 2021 09:26
[2021-07-03] MEDS: HEPARIN for SUB-Q USE 5,000 UNIT/ML VIAL. SQ SCH ×2 (09:28→20:48)
[2021-07-03] MEDS: IV NORMAL SALINE 1000ML BAG 1,000 ML IV SCH (09:29)
[2021-07-03] MEDS ORDERED: hydrALAZINE 20 MG/ML VIAL. IVP PRN (09:30)
--- NOTE | 2021-07-03 10:14 | PDOC ---
Infectious Disease Note Subjective: Subjective Patient without complaints Denies fever, chills, nausea, vomiting, diarrhea Postop pain is under control Vital Signs: Vital Signs Vital Signs Date Time Temp Pulse Resp B/P (MAP) Pulse Ox O2 Delivery O2 Flow Rate FiO2 07/03/21 09:23 67 183/84 07/03/21 07:00 97.7 18 98 Room Air 97.7 07/02/21 09:06 13 Physical Exam: PHYSICAL EXAM GENERAL: AXOX3 male lying in bed comfortably, in no acute distress. HEENT: Normocephalic, atraumatic. Anicteric. NECK: Supple. No JVD. LUNGS: Clear bilaterally. No wheezing. HEART: S1, S2. No gallops or murmurs. ABDOMEN: Soft, nontender, nondistended. No rebound or guarding. EXTREMITIES: Left leg wound in place, dry MUSCULOSKELETAL: No joint swelling. No decrease in range of motion. CENTRAL NERVOUS SYSTEM: Alert, oriented x 3, grossly nonfocal. PSYCHIATRIC: Cooperative, calm. Medications: Inpatient Meds: Medications reviewed. Labs: Lab Laboratory Tests Test 07/02/21 10:48 07/02/21 15:35 07/02/21 21:03 07/03/21 05:25 Glucose (Fingerstick) 124 mg/dL (70-99) 148 mg/dL (70-99) 138 mg/dL (70-99) Creatine Kinase 95 U/L (39-308) Test 07/03/21 07:16 07/03/21 07:41 07/03/21 08:05 07/03/21 09:08 Glucose (Fingerstick) 43 mg/dL (70-99) 83 mg/dL (70-99) 138 mg/dL (70-99) 218 mg/dL (70-99) Micro RUN DATE: 07/03/21 [facility] *LIVE* PAGE 1 RUN TIME: 844 Specimen Inquiry PATIENT: ESPERANZA MARINELLI ACCT: [id number] LOC: [address] [place] [address] U: [id number] AGE/SX: 80/M ROOM: [facility] RE06/29/[address]: KESHA TAYLOR MD : 1940 BED: 1 DIS: STATUS: ADM IN TLOC: ---- -------- SPEC #: [id number] CONNIE: 06/30/21 STATUS: COMP REQ #: [id number] RECD: 06/30/[address]: KESHA TAYLOR MD SOURCE: LEG ENTR: 06/30/[address]: CHARLIE LEVI MD SPDESC: KYLER SMITH MD ORDERED: AEROBIC CULT ASHOK COMMENTS: Has specimen been collected/obtained? Y Procedure Result GRAM STAIN Final Final GRAM POSITIVE COCCI:MANY SQUAMOUS EPI CELL:NONE SEEN PMN (WBCs):FEW Unless otherwise specified, Testing Performed by: [address] [id number] For Inquires, the Physician may contact the Microbiology department at [phone] AEROBIC CULTURE Final Final MIXED AEROBIC BRE INCLUDING: MODERATE [ENTEROCOCCUS FAECALIS] on 07/01/21 at 1126 MODERATE [STREPTOCOCCUS AGALACTIAE GRP B] on 06/11/21 at 1126 MODERATE [STAPHYLOCOCCUS AUREUS] on 07/01/21 at 1126 Testing Performed by: [address] [id number] For Inquires, the Physician may contact the Microbiology department at [phone] ENTEROCOCCUS FAECALIS STREPTOCOCCUS AGALACTIAE GRP B STAPHYLOCOCCUS AUREUS ANTIMICROBIAL SUSCEPTIBILITY Final Comment POS LYNN TYPE 38 STAPHYLOCOCCUS AUREUS ANTIBIOTIC RESULT INTERPRETATION AZITHROMYCIN >4 R CLINDAMYCIN <=0.25 R* CEFOXITIN SCREEN <=4 NEG CIPROFLOXACIN >2 R CEFTAROLINE <=0.5 S DAPTOMYCIN 1 S -- RUN DATE: 07/03/21 [facility] *LIVE* PAGE 2 RUN TIME: 8991 Specimen Inquiry SPEC: [id number] PATIENT: ESPERANZA MARINELLI [id number] (Continued) Procedure Result CONTINUED ON NEXT PAGE RUN DATE: 07/03/21 [facility] *LIVE* PAGE 3 RUN TIME: 0845 Specimen Inquiry --- --------- SPEC: [id number] PATIENT: ESPERANZA MARINELLI [id number] (Continued) Procedure Result ANTIMICROBIAL SUSCEPTIBILITY Final (continued) ERYTHROMYCIN >4 R GENTAMICIN <=4 S INDUCIBLE CLINDAMYCIN >4/0.5 POS LINEZOLID 2 S LEVOFLOXACIN <=1 S OXACILLIN 0.5 S PENICILLIN >2 Girma RIFAMPIN <=1 S TRIMETHOPRIM/SULFAMETHOXAZOLE <=0.5/9.5 S TETRACYCLINE <=4 S VANCOMYCIN 1 S Unless otherwise specified, Testing Performed by: [address] [address] For Inquires, the Physician may contact the Microbiology department at [phone] Objective: Assessment: Left lower extremity abscess Sept 24 S/P Excisional debridement of left leg wound including skin and subcutaneous tissue and Wound VAC placement to the left leg. Left lower extremity cellulitis Left lower extremity non healing chronic wound Peripheral vascular disease with history of angioplasty Diabetes mellitus with peripheral neuropathy CHERYLE on CKD Tobacco dependence History of noncompliance History of previous toe amputation Plan: Plan of Care Continue Zosyn, daptomycin Continue local wound care as directed Monitor labs and cultures Continue supportive care OMAR CRUZ MD Jul 03, 2021 10:14
[2021-07-03 11:00] VITALS: BP 172/74
[2021-07-03] MEDS: DAPTOmycin (GENERIC) IVPB 330 MG in IV NORMAL SALINE 50ML 50 ML IV SCH (14:44)
[2021-07-03 15:00] VITALS: BP 171/64
--- NOTE | 2021-07-03 15:17 | NUR ---
PT screen complete After reviewing medical chart and speaking with JOSE F Maldonado, pt. would benefit from PT/OT services to improve functional mobility. Please issue PT/OT evaluation and Rx orders if you agree. Thank you
[2021-07-03] MEDS: HYDROcodone/APAP 5/325MG 1 TAB TABLET PO PRN (17:29)
[2021-07-03 19:00] VITALS: BP 149/81
[2021-07-03 23:01] VITALS: BP 147/82
[2021-07-04] MEDS: PIPERACILLIN/TAZOBACTAM 3.375 GM in IV NORMAL SALINE 50ML 50 ML IV SCH ×4 (00:09→18:21)
[2021-07-04] MEDS: HYDROcodone/APAP 5/325MG 1 TAB TABLET PO PRN ×3 (00:12→15:54)
[2021-07-04 03:01] VITALS: BP 176/79
[2021-07-04 07:00] VITALS: BP 134/68
[2021-07-04 07:20] LABS: BASO % 1 % (0-3); EOS # 0.1 x10^3/uL (0.0-0.7); EOS % 1 % (0-3); HEMATOCRIT 27.8 % (39.0-53.0); LYMPH % 24 % (24-48); MEAN CORPUSCULAR HEMOGLOBIN 26 pg (25-35); MEAN CORPUSCULAR HGB CONC 33 g/dL (31-37); MEAN CORPUSCULAR VOLUME 79 fL (79-100); MONO # 0.5 x10^3/uL (0.0-1.1); MONO % 11 % (0-9); NEUT # 2.7 x10^3/uL (1.8-7.7); NEUT % 63 % (31-73); PLATELET COUNT 273 x10^3/uL (140-400); RED CELL DISTRIBUTION WIDTH 14.6 % (11.5-14.5); WHITE BLOOD COUNT 4.4 x10^3/uL (4.0-11.0)
[2021-07-04 07:24] LABS: CALCIUM 8.6 mg/dL (8.5-10.1); CREATININE 1.2 mg/dL (0.7-1.3); GFR 70.7; POTASSIUM 4.6 mmol/L (3.5-5.1)
[2021-07-04] MEDS: silver sulfADIAZINE 1% CREAM 25GM TUBE. TP SCH ×2 (07:28→21:00)
--- NOTE | 2021-07-04 08:07 | PDOC ---
Infectious Disease Note Subjective: Subjective Patient without complaints Denies fever, chills, nausea, vomiting, diarrhea Postop pain is under control Vital Signs: Vital Signs Vital Signs Date Time Temp Pulse Resp B/P (MAP) Pulse Ox O2 Delivery O2 Flow Rate FiO2 07/04/21 03:01 97.6 78 18 176/79 (111) 98 Room Air 97.6 Physical Exam: PHYSICAL EXAM GENERAL: AXOX3 male lying in bed comfortably, in no acute distress. HEENT: Normocephalic, atraumatic. Anicteric. NECK: Supple. No JVD. LUNGS: Clear bilaterally. No wheezing. HEART: S1, S2. No gallops or murmurs. ABDOMEN: Soft, nontender, nondistended. No rebound or guarding. EXTREMITIES: Left leg wound in place, dry taken down, wounds have clean base with tendon exposure No gross purulence or surrounding erythema noted MUSCULOSKELETAL: No joint swelling. No decrease in range of motion. CENTRAL NERVOUS SYSTEM: Alert, oriented x 3, grossly nonfocal. PSYCHIATRIC: Cooperative, calm. Medications: Inpatient Meds: Medications reviewed. Labs: Lab Laboratory Tests Test 07/03/21 09:08 07/03/21 11:39 07/03/21 16:48 07/03/21 20:37 Glucose (Fingerstick) 218 mg/dL (70-99) 274 mg/dL (70-99) 108 mg/dL (70-99) 232 mg/dL (70-99) Test 07/04/21 06:20 White Blood Count 4.4 x10^3/uL (4.0-11.0) Red Blood Count 3.50 x10^6/uL (4.30-5.70) Hemoglobin 9.0 g/dL (13.0-17.5) Hematocrit 27.8 % (39.0-53.0) Mean Corpuscular Volume 79 fL (79-100) Mean Corpuscular Hemoglobin 26 pg (25-35) Mean Corpuscular Hemoglobin Concent 33 g/dL (31-37) Red Cell Distribution Width 14.6 % (11.5-14.5) Platelet Count 273 x10^3/uL (140-400) Neutrophils (%) (Auto) 63 % (31-73) Lymphocytes (%) (Auto) 24 % (24-48) Monocytes (%) (Auto) 11 % (0-9) Eosinophils (%) (Auto) 1 % (0-3) Basophils (%) (Auto) 1 % (0-3) Neutrophils # (Auto) 2.7 x10^3/uL (1.8-7.7) Lymphocytes # (Auto) 1.0 x10^3/uL (1.0-4.8) Monocytes # (Auto) 0.5 x10^3/uL (0.0-1.1) Eosinophils # (Auto) 0.1 x10^3/uL (0.0-0.7) Basophils # (Auto) 0.0 x10^3/uL (0.0-0.2) Sodium Level 134 mmol/L (136-145) Potassium Level 4.6 mmol/L (3.5-5.1) Chloride Level 100 mmol/L (98-107) Carbon Dioxide Level 28 mmol/L (21-32) Anion Gap 6 (6-14) Blood Urea Nitrogen 11 mg/dL (8-26) Creatinine 1.2 mg/dL (0.7-1.3) Estimated GFR (Cockcroft-Gault) 70.7 Glucose Level 252 mg/dL (70-99) Calcium Level 8.6 mg/dL (8.5-10.1) Micro RUN DATE: 07/03/21 [facility] LAB *LIVE* PAGE 1 RUN TIME: 0845 Specimen Inquiry ----- ------- PATIENT: ESPERANZA MARINELLI ACCT: [id number] LOC: [address] [place] [address] U: [id number] AGE/SX: 80/M ROOM: 552 RE06/29/[address]: KESHA TAYLOR MD : 1940 BED: 1 DIS: STATUS: ADM IN TLOC: SPEC #: [id number] CONNIE: 06/30/21 STATUS: COMP REQ #: [id number] RECD: 06/30/[address]: KESHA TAYLOR MD SOURCE: LEG ENTR: 06/30/[address]: CHARLIE LEVI MD SPDESC: WOUND KYLER CRUZ MD ORDERED: AEROBIC CULT GS COMMENTS: Has specimen been collected/obtained? Y Procedure Result GRAM STAIN Final Final GRAM POSITIVE COCCI:MANY SQUAMOUS EPI CELL:NONE SEEN PMN (WBCs):FEW Unless otherwise specified, Testing Performed by: [address] [address] For Inquires, the Physician may contact the Microbiology department at [phone] AEROBIC CULTURE Final Final MIXED AEROBIC BRE INCLUDING: MODERATE [ENTEROCOCCUS FAECALIS] on 07/01/21 at 1126 MODERATE [STREPTOCOCCUS AGALACTIAE GRP B] on 06/11/21 at 1126 MODERATE [STAPHYLOCOCCUS AUREUS] on 07/01/21 at 1126 Testing Performed by: [address] [address] For Inquires, the Physician may contact the Microbiology department at [phone] ENTEROCOCCUS FAECALIS STREPTOCOCCUS AGALACTIAE GRP B STAPHYLOCOCCUS AUREUS ANTIMICROBIAL SUSCEPTIBILITY Final Comment POS LYNN TYPE 38 STAPHYLOCOCCUS AUREUS ANTIBIOTIC RESULT INTERPRETATION AZITHROMYCIN >4 R CLINDAMYCIN <=0.25 R* CEFOXITIN SCREEN <=4 NEG CIPROFLOXACIN >2 R CEFTAROLINE <=0.5 S DAPTOMYCIN 1 S RUN DATE: 07/03/21 [facility] *LIVE* PAGE 2 RUN TIME: 0845 Specimen Inquiry SPEC: [id number] PATIENT: ESPERANZA MARINELLI [id number] (Continued) ---- -------- Procedure Result CONTINUED ON NEXT PAGE RUN DATE: 07/03/21 [facility] *LIVE* PAGE 3 RUN TIME: 0845 Specimen Inquiry SPEC: [id number] PATIENT: ESPERANZA MARINELLI Landen [id number] (Continued) Procedure Result ANTIMICROBIAL SUSCEPTIBILITY Final (continued) ERYTHROMYCIN >4 R GENTAMICIN <=4 S INDUCIBLE CLINDAMYCIN >4/0.5 POS LINEZOLID 2 S LEVOFLOXACIN <=1 S OXACILLIN 0.5 S PENICILLIN >2 Girma RIFAMPIN <=1 S TRIMETHOPRIM/SULFAMETHOXAZOLE <=0.5/9.5 S TETRACYCLINE <=4 S VANCOMYCIN 1 S Unless otherwise specified, Testing Performed by: [address] [address] For Inquires, the Physician may contact the Microbiology department at [phone] Objective: Assessment: Left lower extremity abscess Sept 24 S/P Excisional debridement of left leg wound including skin and subcutaneous tissue and Wound VAC placement to the left leg. Left lower extremity cellulitis improving Peripheral vascular disease with history of angioplasty Diabetes mellitus with peripheral neuropathy CHERYLE on CKD Tobacco dependence History of noncompliance History of previous toe amputation Plan: Plan of Care Intraoperative cultures pending Continue Zosyn, daptomycin PICC line Continue local wound care as directed Monitor labs and cultures Continue supportive care Hopefully will get intraoperative results for discharge plan tomorrow Discussed with RN, discussed with OMAR Dickey MD Jul 04, 2021 08:07
--- NOTE | 2021-07-04 09:01 | PDOC ---
Provider Note Date of Service: DATE: 07/04/21 TIME: 08:56 Provider Note Provider Note Vascular S: Patient resting in bed, seen with Dr. Chow. Complains of mild pain with vac removal. O: Awake and alert VSS, afebrile Left leg vac removed, wound bed clean, exposed tendon, area of eschar distal and proximal to larger wound, no periwound erythema and swelling. A/P: PAD, left leg necrotic wound POD #2 Left leg wound debridement with wound vac Start veraflo wound vac today. May bear weight to use bathroom or sit in chair Abx per ID SS for discharge planning Justicifation of Admission Dx: Justifications for Admission: Justification of Admission Dx: Yes ALISON STODDARD BACKWINDER Jul 04, 2021 09:01
--- NOTE | 2021-07-04 09:05 | PDOC ---
PROGRESS NOTES Date of Service: DATE: 07/04/21 TIME: 09:01 Subjective Subjective feeling better , sugars fluctating Objective Objective Vital Signs Date Time Temp Pulse Resp B/P (MAP) Pulse Ox O2 Delivery O2 Flow Rate FiO2 07/04/21 07:00 97.4 63 20 134/68 (90) 98 Room Air 97.4 Intake and Output 07/04/21 07:00 Intake Total 1230 ml Output Total 802 ml Balance 428 ml Intake Oral 780 ml IV Total 450 ml Output Urine Total 802 ml # Voids 3 Physical Exam Abdomen: Soft, No tenderness Heart: Regular rate Extremities: Other (Wound VAC in place on the left lower leg with Aquacel Ag to the more superficial wounds proximal and distal to the deep wound.) General: Alert, Oriented X3 HEENT: Atraumatic Lungs: Normal air movement MUSCULOSKELETAL: No deformity, No swelling, Abnormal exam of left, Other Neck: No JVD Neuro: Normal speech Psych/Mental Status: Mental status NL Skin: Other (s/p debridement ,wound vac present now) Assessment Assessment Assessment Left lower extremity abscess Left lower extremity cellulitis Left lower extremity non healing chronic wound Peripheral vascular disease with history of angioplasty Diabetes mellitus with peripheral neuropathy CKD Tobacco dependence History of noncompliance History of previous toe amputation Plan: s/p Debridement . looked at wound with vascular discussed with vascular and ID Needs PICC line+2 weeks of iv antibiotics blood sugars brittle, high A1C. Needs SNU later this week. labs noted good c/s pending Comment Review of Relevant I have reviewed the following items jorge (where applicable) has been applied. Labs Laboratory Tests Test 07/03/21 09:08 07/03/21 11:39 07/03/21 16:48 07/03/21 20:37 Glucose (Fingerstick) 218 mg/dL (70-99) 274 mg/dL (70-99) 108 mg/dL (70-99) 232 mg/dL (70-99) Test 07/04/21 06:20 07/04/21 07:09 White Blood Count 4.4 x10^3/uL (4.0-11.0) Red Blood Count 3.50 x10^6/uL (4.30-5.70) Hemoglobin 9.0 g/dL (13.0-17.5) Hematocrit 27.8 % (39.0-53.0) Mean Corpuscular Volume 79 fL (79-100) Mean Corpuscular Hemoglobin 26 pg (25-35) Mean Corpuscular Hemoglobin Concent 33 g/dL (31-37) Red Cell Distribution Width 14.6 % (11.5-14.5) Platelet Count 273 x10^3/uL (140-400) Neutrophils (%) (Auto) 63 % (31-73) Lymphocytes (%) (Auto) 24 % (24-48) Monocytes (%) (Auto) 11 % (0-9) Eosinophils (%) (Auto) 1 % (0-3) Basophils (%) (Auto) 1 % (0-3) Neutrophils # (Auto) 2.7 x10^3/uL (1.8-7.7) Lymphocytes # (Auto) 1.0 x10^3/uL (1.0-4.8) Monocytes # (Auto) 0.5 x10^3/uL (0.0-1.1) Eosinophils # (Auto) 0.1 x10^3/uL (0.0-0.7) Basophils # (Auto) 0.0 x10^3/uL (0.0-0.2) Sodium Level 134 mmol/L (136-145) Potassium Level 4.6 mmol/L (3.5-5.1) Chloride Level 100 mmol/L (98-107) Carbon Dioxide Level 28 mmol/L (21-32) Anion Gap 6 (6-14) Blood Urea Nitrogen 11 mg/dL (8-26) Creatinine 1.2 mg/dL (0.7-1.3) Estimated GFR (Cockcroft-Gault) 70.7 Glucose Level 252 mg/dL (70-99) Calcium Level 8.6 mg/dL (8.5-10.1) Glucose (Fingerstick) 238 mg/dL (70-99) Microbiology 07/02/21 Gram Stain - Final, Resulted 07/02/21 Aerobic and Anaerobic Culture, Resulted Pending 06/29/21 Blood Culture - Preliminary, Resulted NO GROWTH AFTER 4 DAYS Medications Current Medications Amlodipine Besylate (Norvasc) 5 mg DAILY PO Last administered on 07/03/21at 12:24; Start 07/03/21 at 09:30 Hydralazine HCl (Apresoline Inj) 10 mg PRN Q4HRS PRN IVP ELEVATED BP, SEE COMMENTS; Start 07/03/21 at 09:30 Insulin Human Lispro (HumaLOG) 0-7 UNITS BIDAC SQ Last administered on 07/03/21at 13:30; Start 07/03/21 at 16:30 Vancomycin HCl (Vancomycin Trough Level) 1 each 1X ONCE MC ; Start 07/03/21 at 13:30; Stop 07/03/21 at 13:31; Status Cancel Vitals/I & O Vital Sign - Last 24 Hours 07/03/21 07/03/21 07/03/21 07/03/21 09:23 11:00 12:24 15:00 Temp 98.1 98.5 98.1 98.5 Pulse 67 73 73 70 Resp 17 17 B/P (MAP) 183/84 172/74 (106) 172/74 171/64 (99) Pulse Ox 98 100 O2 Delivery Room Air Room Air 07/03/21 07/03/21 07/03/21 07/03/21 17:29 18:30 19:00 20:04 Temp 98.3 98.3 Pulse 75 Resp 18 B/P (MAP) 149/81 (103) Pulse Ox 100 O2 Delivery Room Air Room Air Room Air Room Air 07/03/21 07/03/21 07/04/21 07/04/21 20:49 23:01 00:12 03:01 Temp 99.2 97.6 99.2 97.6 Pulse 75 69 78 Resp 20 16 18 B/P (MAP) 149/81 147/82 (103) 176/79 (111) Pulse Ox 98 98 O2 Delivery Room Air Room Air Room Air 07/04/21 07:00 Temp 97.4 97.4 Pulse 63 Resp 20 B/P (MAP) 134/68 (90) Pulse Ox 98 O2 Delivery Room Air Intake and Output 07/03/21 07/03/21 07/04/21 15:00 23:00 07:00 Intake Total 890 ml 240 ml 100 ml Output Total 350 ml 452 ml Balance 540 ml 240 ml -352 ml Justifications for Admission Other Justification Nutrition Consultation Dietary Evaluation: Recommendations by RD: Dietary education by RD, Increase Calorie Intake, Protein supplementation Comments: mech soft, ADA/Cardiac DBL meats , no jones strawberry Glucerna tid debora bid REC mvi and vit c per wound protocal Expected Outcomes/Goals: to meet >75% est val needs Malnutrition Findings: Body Fat Depletion (Non Severe: Mod to Severe Weight Status: Underweight KESHA TAYLOR MD Jul 04, 2021 09:05
[2021-07-04] MEDS: LISINOPRIL 20 MG TABLET PO SCH ×2 (09:18→21:14)
[2021-07-04] MEDS: LACTOBACILLUS RHAMNOSUS GG 1 CAPSULE. PO SCH ×2 (09:18→21:14)
[2021-07-04] MEDS: ASPIRIN CHEWABLE 81 MG TABLET. PO SCH ×2 (09:18→21:14)
[2021-07-04] MEDS: GABAPENTIN 300 MG CAPSULE. PO SCH ×2 (09:18→21:14)
[2021-07-04] MEDS: hydroCHLOROthiazide 12.5 MG CAPSULE PO SCH (09:18)
[2021-07-04] MEDS: CLOPIDOGREL BISULFATE 75 MG TABLET PO SCH (09:19)
[2021-07-04] MEDS: HEPARIN for SUB-Q USE 5,000 UNIT/ML VIAL. SQ SCH ×2 (09:30→21:21)
[2021-07-04] MEDS: INSULIN LISPRO 300 UNITS/3 ML VIAL. SQ SCH ×5 (09:34→18:24)
[2021-07-04 11:00] VITALS: BP 118/54
--- NOTE | 2021-07-04 11:02 | NUR ---
SW following. Discussed with RN, pt from home, room air, ada diet, COVID-19 negative. Pt getting PICC line tomorrow and possible debridement on Sunday. No SW needs at this time. SW will continue to follow.
[2021-07-04] MEDS: DAPTOmycin (GENERIC) IVPB 330 MG in IV NORMAL SALINE 50ML 50 ML IV SCH (13:20)
[2021-07-04 15:00] VITALS: BP 112/61
[2021-07-04] MEDS: IV NORMAL SALINE 1000ML BAG 1,000 ML IV SCH (15:54)
--- NOTE | 2021-07-04 17:32 | NUR ---
Wound/Ostomy Care Wound Type/Assessment: Wound care follow up for vac dressing change. Cleansed, pictured and measured wound, and reapplied veraflo wound vac. Treatment Recommendations/Plan: Veraflo black foam, 125 mmHg, 10 ml NS for 5 min every 3 hours. Education provided: WC POC, PU prevention Offloading surface/device: float legs on pillow Recommended Referrals/Tests: na Discharge Recommendations for dressings: recommend to leave with [facility]
[2021-07-04 19:00] VITALS: BP 101/55
[2021-07-04] MEDS: INSULIN GLARGINE SYRINGE. SQ SCH (21:20)
[2021-07-04 23:00] VITALS: BP 112/58
[2021-07-05] MEDS: PIPERACILLIN/TAZOBACTAM 3.375 GM in IV NORMAL SALINE 50ML 50 ML IV SCH ×4 (00:02→17:44)
[2021-07-05 02:44] VITALS: BP 120/76
[2021-07-05 07:00] VITALS: BP 144/72
[2021-07-05] MEDS: INSULIN LISPRO 300 UNITS/3 ML VIAL. SQ SCH ×5 (08:17→17:47)
[2021-07-05] MEDS: silver sulfADIAZINE 1% CREAM 25GM TUBE. TP SCH ×2 (09:00→20:49)
--- NOTE | 2021-07-05 09:03 | PDOC ---
PROGRESS NOTES Date of Service: DATE: 07/05/21 TIME: 09:00 Subjective Subjective denies any problems Objective Objective Vital Signs Date Time Temp Pulse Resp B/P (MAP) Pulse Ox O2 Delivery O2 Flow Rate FiO2 07/05/21 07:00 98.1 78 19 144/72 (96) 98 Room Air 98.1 07/05/21 02:44 13.0 Intake and Output 07/05/21 07:00 Intake Total 1100 ml Output Total 1050 ml Balance 50 ml Intake Oral 1100 ml Output Urine Total 1050 ml # Voids 1 Physical Exam Abdomen: Soft, No tenderness Heart: Regular rate Extremities: Other (Wound VAC in place on the left lower leg with Aquacel Ag to the more superficial wounds proximal and distal to the deep wound.) General: Alert, Oriented X3 HEENT: Atraumatic Lungs: Normal air movement MUSCULOSKELETAL: No deformity, No swelling, Abnormal exam of left, Other Neck: No JVD Neuro: Normal speech Psych/Mental Status: Mental status NL Skin: Other (s/p debridement ,wound vac present now) Assessment Assessment Assessment Left lower extremity abscess Left lower extremity cellulitis Left lower extremity non healing chronic wound Peripheral vascular disease with history of angioplasty Diabetes mellitus with peripheral neuropathy CKD Tobacco dependence History of noncompliance History of previous toe amputation Plan: Picc line today s/p Debridement 07/02 . looked at wound with vascular discussed with vascular and ID Needs PICC line+2 weeks of iv antibiotics blood sugars brittle, high A1C. Needs SNU later this week. labs noted good intra operative c/s pending dapto+zosyn Comment Review of Relevant I have reviewed the following items jorge (where applicable) has been applied. Labs Laboratory Tests Test 07/04/21 12:03 07/04/21 17:40 07/04/21 19:48 07/05/21 07:52 Glucose (Fingerstick) 122 mg/dL (70-99) 175 mg/dL (70-99) 290 mg/dL (70-99) 263 mg/dL (70-99) Microbiology 07/02/21 Gram Stain - Final, Resulted 07/02/21 Aerobic and Anaerobic Culture - Preliminary, Resulted 06/29/21 Blood Culture - Final, Complete NO GROWTH AFTER 5 DAYS Medications Current Medications Insulin Glargine (Lantus Syringe) 6 unit QHS SQ Last administered on 9/27/21at 21:20; Start 07/04/21 at 21:00 Vitals/I & O Vital Sign - Last 24 Hours 07/04/21 07/04/21 07/04/21 07/04/21 09:11 09:18 09:35 10:30 Pulse 63 63 B/P (MAP) 134/68 134/68 O2 Delivery Room Air Room Air 07/04/21 07/04/21 07/04/21 07/04/21 11:00 15:00 15:54 17:00 Temp 98.7 97.9 98.7 97.9 Pulse 69 67 Resp 16 18 B/P (MAP) 118/54 (75) 112/61 (78) Pulse Ox 100 98 O2 Delivery Room Air Room Air Room Air Room Air 07/04/21 07/04/21 07/04/21 07/04/21 19:00 20:00 21:14 23:00 Temp 98.1 98.1 98.1 98.1 Pulse 75 80 80 Resp 18 18 B/P (MAP) 101/55 (70) 122/56 112/58 (76) Pulse Ox 97 97 O2 Delivery Room Air Room Air Room Air O2 Flow Rate 13.0 07/05/21 07/05/21 02:44 07:00 Temp 98.8 98.1 98.8 98.1 Pulse 77 78 Resp 18 19 B/P (MAP) 120/76 (91) 144/72 (96) Pulse Ox 97 98 O2 Delivery Room Air Room Air O2 Flow Rate 13.0 Intake and Output 07/04/21 07/04/21 07/05/21 15:00 23:00 07:00 Intake Total 560 ml 420 ml 120 ml Output Total 300 ml 750 ml Balance 260 ml 420 ml -630 ml Justifications for Admission Other Justification Nutrition Consultation Dietary Evaluation: Recommendations by RD: Dietary education by RD, Increase Calorie Intake, Protein supplementation Comments: mech soft, ADA/Cardiac DBL meats , no jones strawberry Glucerna tid debora bid REC mvi and vit c per wound protocal Expected Outcomes/Goals: to meet >75% est val needs Malnutrition Findings: Body Fat Depletion (Non Severe: Mod to Severe Weight Status: Underweight KESHA TAYLOR MD Jul 05, 2021 09:02
--- NOTE | 2021-07-05 09:47 | PDOC ---
Infectious Disease Note Subjective: Subjective Patient without complaints Denies fever, chills, nausea, vomiting, diarrhea Postop pain is under control Vital Signs: Vital Signs Vital Signs Date Time Temp Pulse Resp B/P (MAP) Pulse Ox O2 Delivery O2 Flow Rate FiO2 07/05/21 07:00 98.1 78 19 144/72 (96) 98 Room Air 98.1 07/05/21 02:44 13.0 Physical Exam: PHYSICAL EXAM GENERAL: AXOX3 male lying in bed comfortably, in no acute distress. HEENT: Normocephalic, atraumatic. Anicteric. NECK: Supple. No JVD. LUNGS: Clear bilaterally. No wheezing. HEART: S1, S2. No gallops or murmurs. ABDOMEN: Soft, nontender, nondistended. No rebound or guarding. EXTREMITIES: Left leg wound in place, dry taken down, wounds have clean base with tendon exposure No gross purulence or surrounding erythema noted MUSCULOSKELETAL: No joint swelling. No decrease in range of motion. CENTRAL NERVOUS SYSTEM: Alert, oriented x 3, grossly nonfocal. PSYCHIATRIC: Cooperative, calm. Medications: Inpatient Meds: Medications reviewed. Labs: Lab Laboratory Tests Test 07/04/21 12:03 07/04/21 17:40 07/04/21 19:48 07/05/21 07:52 Glucose (Fingerstick) 122 mg/dL (70-99) 175 mg/dL (70-99) 290 mg/dL (70-99) 263 mg/dL (70-99) Micro RUN DATE: 07/03/21 [facility] *LIVE* PAGE 1 RUN TIME: 844 Specimen Inquiry PATIENT: ESPERANZA MARINELLI ACCT: [id number] LOC: [address] [place] [address] U : [id number] AGE/SX: 80/M ROOM: [facility] RE06/29/[address]: KESHA TAYLOR MD : 1940 BED: 1 DIS: STATUS: ADM IN TLOC: SPEC #: [id number] CONNIE: 06/30/21 STATUS: COMP REQ #: [id number] RECD: 06/30/[address]: KESHA TAYLOR MD SOURCE: LEG ENTR: 06/30/[address]: CHARLIE LEVI MD SPDESC: WOUND KYLER CRUZ MD ORDERED: AEROBIC CULT GS COMMENTS: Has specimen been collected/obtained? Y Procedure Result GRAM STAIN Final Final GRAM POSITIVE COCCI:MANY SQUAMOUS EPI CELL:NONE SEEN PMN (WBCs):FEW Unless otherwise specified, Testing Performed by: [address] [address] For Inquires, the Physician may contact the Microbiology department at [phone] AEROBIC CULTURE Final Final MIXED AEROBIC BRE INCLUDING: MODERATE [ENTEROCOCCUS FAECALIS] on 07/01/21 at 1126 MODERATE [STREPTOCOCCUS AGALACTIAE GRP B] on 06/11/21 at 1126 MODERATE [STAPHYLOCOCCUS AUREUS] on 07/01/21 at 1126 Testing Performed by: [address] [address] For Inquires, the Physician may contact the Microbiology department at [phone] ENTEROCOCCUS FAECALIS STREPTOCOCCUS AGALACTIAE GRP B STAPHYLOCOCCUS AUREUS ANTIMICROBIAL SUSCEPTIBILITY Final Comment POS LYNN TYPE 38 STAPHYLOCOCCUS AUREUS ANTIBIOTIC RESULT INTERPRETATION AZITHROMYCIN >4 R CLINDAMYCIN <=0.25 R* CEFOXITIN SCREEN <=4 NEG CIPROFLOXACIN >2 R CEFTAROLINE <=0.5 S DAPTOMYCIN 1 S RUN DATE: 07/03/21 [facility] *LIVE* PAGE 2 RUN TIME: 0845 Specimen Inquiry SPEC: [id number] PATIENT: ESPERANZA MARINELLI [id number] (Continued) Procedure Result CONTINUED ON NEXT PAGE RUN DATE: 07/03/21 [facility] *LIVE* PAGE 3 RUN TIME: 0845 Specimen Inquiry SPEC: [id number] PATIENT: ESPERANZA MARINELLI Landen [id number] (Continued) Procedure Result ANTIMICROBIAL SUSCEPTIBILITY Final (continued) ERYTHROMYCIN >4 R GENTAMICIN <=4 S INDUCIBLE CLINDAMYCIN >4/0.5 POS LINEZOLID 2 S LEVOFLOXACIN <=1 S OXACILLIN 0.5 S PENICILLIN >2 Girma RIFAMPIN <=1 S TRIMETHOPRIM/SULFAMETHOXAZOLE <=0.5/9.5 S TETRACYCLINE <=4 S VANCOMYCIN 1 S Unless otherwise specified, Testing Performed by: [address] [address] For Inquires, the Physician may contact the Microbiology department at [phone] Objective: Assessment: Left lower extremity abscess Sept 24 S/P Excisional debridement of left leg wound including skin and subcutaneous tissue and Wound VAC placement to the left leg. 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 Sunday labs CBC/BUN/creatinine/CPK/ESR/CRP. Fax results to [phone] Follow-up ID clinic July 21 at 2 PM phone [phone] Wound/VAC care per vascular Continue local wound care as directed Continue supportive care Discussed with RN, OMAR CRUZ MD Jul 05, 2021 09:47
--- NOTE | 2021-07-05 09:57 | NUR ---
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
--- NOTE | 2021-07-05 10:02 | NUR ---
Procedure: Following complete explanation of the PICC procedure including the indications, risks, and potential complications, informed consent was obtained. The possibility for infection was discussed along with signs, symptoms, and prevention. All the questions were answered.yes Written and verbal patient education was provided. yes Hand hygiene performed. yes Standardized central line checklist was utilized. yes The patient was placed in the supine position, the arm was prepped with chlorhexidine and patient draped with maximum sterile barrier. 1.5 mL 1% lidocaine was infiltrated into the skin to provide local anesthesia. A thorough assessment of left upper extremity completed. Using real-time ultrasound guidance and standardized micro puncture set, the Brachial vein was punctured and a peel away sheath was placed using the modified Seldinger technique. A tip location device was used to ensure adequate catheter placement. The catheter was secured using a securement device and an antimicrobial patch was applied directly on the insertion site followed by a transparent dressing. All ports withdraw blood and flush without resistance. Patient tolerated the procedure without apparent complication(s). single Lumen Power PICC placement successful and uncomplicated. Placement verified by EKG tip confirmation system and/or chest x-ray. Tip located in the CAJ Complications:none Addendum: 07/05/21 at 1004 by LOLA JOHNSON RN Amended: Links added.
[2021-07-05 11:00] VITALS: BP 131/76
[2021-07-05] MEDS: LACTOBACILLUS RHAMNOSUS GG 1 CAPSULE. PO SCH ×2 (11:31→20:39)
[2021-07-05] MEDS: LISINOPRIL 20 MG TABLET PO SCH ×2 (11:31→20:39)
[2021-07-05] MEDS: CLOPIDOGREL BISULFATE 75 MG TABLET PO SCH (11:31)
[2021-07-05] MEDS: ASPIRIN CHEWABLE 81 MG TABLET. PO SCH ×2 (11:31→20:39)
[2021-07-05] MEDS: hydroCHLOROthiazide 12.5 MG CAPSULE PO SCH (11:31)
[2021-07-05] MEDS: GABAPENTIN 300 MG CAPSULE. PO SCH ×2 (11:31→20:39)
[2021-07-05] MEDS: IV NORMAL SALINE 1000ML BAG 1,000 ML IV SCH (11:34)
[2021-07-05] MEDS: HEPARIN for SUB-Q USE 5,000 UNIT/ML VIAL. SQ SCH ×2 (11:37→20:47)
--- NOTE | 2021-07-05 13:17 | PDOC ---
Provider Note Date of Service: DATE: 07/05/21 TIME: 13:12 Provider Note Provider Note Vascular S: Patient resting in bed, no complaints, states he is discharging tomorrow. O: Awake and alert VSS, afebrile Left leg veraflo wound vac in place. Foot warm, pink. Palpable popliteal pulse. Biphasic flow PT by handheld doppler. A/P: PAD, left leg necrotic wound Patient has excellent blood flow with biphasic doppler via PT artery. Should have adequate blood flow to heal. POD #3 Left leg wound debridement with wound vac Continue veraflo wound vac. Transition to traditional wound vac upon discharge. May bear weight to use bathroom or sit in chair Abx per ID SS for discharge planning Follow up in our [facility] office in 2 weeks. Justicifation of Admission Dx: Justifications for Admission: Justification of Admission Dx: Yes ALISON STODDARD SCRAP BALLER Jul 05, 2021 13:17
[2021-07-05] MEDS: DAPTOmycin (GENERIC) IVPB 330 MG in IV NORMAL SALINE 50ML 50 ML IV SCH (13:40)
[2021-07-05 15:00] VITALS: BP 122/75
[2021-07-05 19:18] VITALS: BP 108/66
[2021-07-05] MEDS: INSULIN GLARGINE SYRINGE. SQ SCH (20:46)
[2021-07-06] MEDS: PIPERACILLIN/TAZOBACTAM 3.375 GM in IV NORMAL SALINE 50ML 50 ML IV SCH ×5 (00:21→23:31)
[2021-07-06 06:44] LABS: CREATININE 1.2 mg/dL (0.7-1.3); GFR 70.7
[2021-07-06 06:47] LABS: BASO % 1 % (0-3); EOS % 1 % (0-3); HEMATOCRIT 26.5 % (39.0-53.0); HEMOGLOBIN 8.6 g/dL (13.0-17.5); LYMPH # 1.3 x10^3/uL (1.0-4.8); LYMPH % 25 % (24-48); MEAN CORPUSCULAR HEMOGLOBIN 26 pg (25-35); MEAN CORPUSCULAR HGB CONC 33 g/dL (31-37); MEAN CORPUSCULAR VOLUME 79 fL (79-100); MONO # 0.8 x10^3/uL (0.0-1.1); MONO % 15 % (0-9); NEUT # 3.1 x10^3/uL (1.8-7.7); NEUT % 60 % (31-73); PLATELET COUNT 308 x10^3/uL (140-400); RED BLOOD COUNT 3.34 x10^6/uL (4.30-5.70); WHITE BLOOD COUNT 5.2 x10^3/uL (4.0-11.0)
[2021-07-06 07:00] VITALS: BP 156/63
--- NOTE | 2021-07-06 07:06 | PDOC ---
Infectious Disease Note Subjective: Subjective Patient without complaints Denies fever, chills, nausea, vomiting, diarrhea Postop pain is under control Vital Signs: Vital Signs Vital Signs Date Time Temp Pulse Resp B/P (MAP) Pulse Ox O2 Delivery O2 Flow Rate FiO2 07/06/21 03:00 76 Room Air 07/05/21 20:39 108/66 07/05/21 19:18 98.3 18 96 98.3 Physical Exam: PHYSICAL EXAM GENERAL: AXOX3 male lying in bed comfortably, in no acute distress. HEENT: Normocephalic, atraumatic. Anicteric. NECK: Supple. No JVD. LUNGS: Clear bilaterally. No wheezing. HEART: S1, S2. No gallops or murmurs. ABDOMEN: Soft, nontender, nondistended. No rebound or guarding. EXTREMITIES: Left leg wound in place, dry taken down, deep wounds have clean base with tendon exposure No gross purulence or surrounding erythema noted,mild necrotic dorsal wound no purulent drainage MUSCULOSKELETAL: No joint swelling. No decrease in range of motion. CENTRAL NERVOUS SYSTEM: Alert, oriented x 3, grossly nonfocal. PSYCHIATRIC: Cooperative, calm. Medications: Inpatient Meds: Medications reviewed. Labs: Lab Laboratory Tests Test 07/05/21 07:52 07/05/21 11:53 07/05/21 17:35 07/05/21 20:38 Glucose (Fingerstick) 263 mg/dL (70-99) 153 mg/dL (70-99) 272 mg/dL (70-99) 313 mg/dL (70-99) Test 07/06/21 06:15 White Blood Count 5.2 x10^3/uL (4.0-11.0) Red Blood Count 3.34 x10^6/uL (4.30-5.70) Hemoglobin 8.6 g/dL (13.0-17.5) Hematocrit 26.5 % (39.0-53.0) Mean Corpuscular Volume 79 fL (79-100) Mean Corpuscular Hemoglobin 26 pg (25-35) Mean Corpuscular Hemoglobin Concent 33 g/dL (31-37) Red Cell Distribution Width 15.0 % (11.5-14.5) Platelet Count 308 x10^3/uL (140-400) Neutrophils (%) (Auto) 60 % (31-73) Lymphocytes (%) (Auto) 25 % (24-48) Monocytes (%) (Auto) 15 % (0-9) Eosinophils (%) (Auto) 1 % (0-3) Basophils (%) (Auto) 1 % (0-3) Neutrophils # (Auto) 3.1 x10^3/uL (1.8-7.7) Lymphocytes # (Auto) 1.3 x10^3/uL (1.0-4.8) Monocytes # (Auto) 0.8 x10^3/uL (0.0-1.1) Eosinophils # (Auto) 0.0 x10^3/uL (0.0-0.7) Basophils # (Auto) 0.0 x10^3/uL (0.0-0.2) Sodium Level 133 mmol/L (136-145) Potassium Level 4.0 mmol/L (3.5-5.1) Chloride Level 100 mmol/L (98-107) Carbon Dioxide Level 27 mmol/L (21-32) Anion Gap 6 (6-14) Blood Urea Nitrogen 14 mg/dL (8-26) Creatinine 1.2 mg/dL (0.7-1.3) Estimated GFR (Cockcroft-Gault) 70.7 Glucose Level 268 mg/dL (70-99) Calcium Level 9.0 mg/dL (8.5-10.1) Micro RUN DATE: 07/06/21 [facility] *LIVE* PAGE 1 RUN TIME: 0850 Specimen Inquiry PATIENT: ESPERANZA MARINELLI ACCT: [id number] LOC: [address] [place] [address] U: [id number] AGE/SX: 80/M ROOM: 552 RE06/29/[address]: KESHA TAYLOR MD : 1940 BED: 1 DIS: STATUS: ADM IN TLOC: SPEC #: [id number] CONNIE: 07/02/21 STATUS: RES REQ #: [id number] RECD: 07/03/[address]: KESHA TAYLOR MD SOURCE: ABSCESS ENTR: 07/03/21 [facility] DR: CHARLIE LEVI MD SPDESC: KYLER CRUZ MD, RAVEN C MD ORDERED: ZI/JOBY/ASHOK COMMENTS: LEFT LEG ULCER/ABSCESS SWAB Procedure Result GRAM STAIN Final Final GRAM POSITIVE COCCI:RARE SQUAMOUS EPI CELL:RARE PMN (WBCs):FEW Unless otherwise specified, Testing Performed by: [facility] [address] [place] [address] For Inquires, the Physician may contact the Microbiology department at [phone] ANAEROBIC-AEROBIC CULTURE Preliminary Preliminary MIXED AEROBIC BRE INCLUDING; FEW [STAPHYLOCOCCUS AUREUS] on 07/04/21 at 0901 FEW [ENTEROCOCCUS FAECALIS] on 07/04/21 at 1038 FEW [BETA STREP GROUP B] on 07/04/21 at 1038 RARE [EFE TROPICALIS] on 07/05/21 at 1000 STAPHYLOCOCCUS AUREUS ENTEROCOCCUS FAECALIS EFE TROPICALIS BETA STREP GROUP B ANTIMICROBIAL SUSCEPTIBILITY Preliminary Comment Comment POS LYNN TYPE 38 STAPHYLOCOCCUS AUREUS ANTIBIOTIC RESULT INTERPRETATION AZITHROMYCIN >4 R CLINDAMYCIN <=0.25 R* CEFOXITIN SCREEN <=4 NEG CIPROFLOXACIN >2 R CEFTAROLINE <=0.5 S DAPTOMYCIN 1 S ERYTHROMYCIN >4 R GENTAMICIN <=4 S RUN DATE: 07/06/21 [facility] *LIVE* PAGE 2 RUN TIME: 0850 Specimen Inquiry SPEC: [id number] PATIENT: ESPERANZA MARINELLI [id number] (Continued) Procedure Result CONTINUED ON NEXT PAGE -- RUN DATE: 07/06/21 [facility] *LIVE* PAGE 3 RUN TIME: 0850 Specimen Inquiry SPEC: [id number] PATIENT: ESPERANZA MARINELLI Landen [id number] (Continued) Procedure Result ANTIMICROBIAL SUSCEPTIBILITY Preliminary (continued) INDUCIBLE CLINDAMYCIN >4/0.5 POS LINEZOLID 2 S LEVOFLOXACIN <=1 S OXACILLIN 0.5 S PENICILLIN >2 Girma RIFAMPIN <=1 S TRIMETHOPRIM/SULFAMETHOXAZOLE <=0.5/9.5 S TETRACYCLINE <=4 S VANCOMYCIN 1 S Streptomycin Synergy Screen S Gentamicin Synergy Screen S POS LYNN TYPE 38 ENTEROCOCCUS FAECALIS ANTIBIOTIC RESULT INTERPRETATION AMPICILLIN <=2 S DAPTOMYCIN 1 S LINEZOLID 2 S PENICILLIN 2 S VANCOMYCIN 1 S Unless otherwise specified, Testing Performed by: [address] [address] For Inquires, the Physician may contact the Microbiology department at [phone] Objective: Assessment: Left lower extremity abscess Sept 24 S/P Excisional debridement of left leg wound including skin and subcutaneous tissue and Wound VAC placement to the left leg. Polymicrobial Left lower extremity cellulitis improved Peripheral vascular disease with history of angioplasty Diabetes mellitus with peripheral neuropathy CHERYLE on CKD Tobacco dependence History of noncompliance History of previous toe amputation Plan: Plan of Care Continue daptomycin and Zosyn Start micafungin Cannot use fluconazole due to ddI with clopidogrel per discussion with pharmacy PICC online services manager f/u ID Clinic as scheduled Discussed with RNNANCY ARUNDHATI S MD Jul 06, 2021 07:06
[2021-07-06] MEDS: INSULIN LISPRO 300 UNITS/3 ML VIAL. SQ SCH ×5 (08:36→17:52)
[2021-07-06] MEDS: silver sulfADIAZINE 1% CREAM 25GM TUBE. TP SCH ×2 (09:00→21:48)
[2021-07-06] MEDS: HEPARIN for SUB-Q USE 5,000 UNIT/ML VIAL. SQ SCH ×2 (09:00→21:47)
[2021-07-06] MEDS ORDERED: MICAFUNGIN 100 MG in IV DEXTROSE 5% 100ML 100 ML IV SCH (09:00)
[2021-07-06] MEDS: IV NORMAL SALINE 1000ML BAG 1,000 ML IV SCH (09:15)
[2021-07-06] MEDS ORDERED: PIPE3.377 IV (09:34)
[2021-07-06] MEDS ORDERED: INSU100V35 SQ (09:34)
[2021-07-06] MEDS ORDERED: INSU100V8 SQ (09:34)
[2021-07-06] MEDS ORDERED: AMLO-186 PO (09:34)
[2021-07-06] MEDS ORDERED: DAPT350V IV (09:34)
[2021-07-06] MEDS ORDERED: MICA100V3 IV (09:34)
[2021-07-06] MEDS ORDERED: CLOP75TA PO (09:34)
[2021-07-06] MEDS ORDERED: HYDR-2761 PO (09:34)
--- NOTE | 2021-07-06 09:37 | SNU/HH DC ---
DISCHARGE ORDERS DISCHARGE INFORMATION: DISCHARGE DATE: Jul 06, 2021 CONDITION ON DISCHARGE: Stable CODE STATUS: Code Status: Full [facility]: SNF STAY <30 DAYS: Yes HOSPICE: HOSPICE: No HOSPICE EVAL & TREAT: No LTAC: ADMIT TO LTAC: No POST DISCHARGE ORDERS: ACTIVITY ORDERS: Activity as tolerated WEIGHT BEARING STATUS: Full weight bearing DIET AFTER DISCHARGE: ADA WOUND/INCISION CARE: Other, see below CHECKS AFTER DISCHARGE: CHECKS AFTER DISCHARGE: Check blood press - daily, Check blood sugar, ac/hs, Check your Temp as needed FOLLOW-UP: PHYSICIAN FOLLOW-UP: vascular in 2 weeks ,ID in 2 weeks LAB ORDERS FOR FOLLOW-UP: cbc, cmp ,cpk weekly Additional Instructions: wound vac TREATMENT/EQUIPMENT ORDERS: INFUSION EQUIPMENT NEEDED: PICC Line Physical Therapy For: Evalulation/Treatment DISCHARGE MEDICATIONS: Home Meds Active Scripts Amlodipine Besylate (AMLODIPINE BESYLATE) 5 Mg Tablet, 5 MG PO DAILY for htn for 90 Days, #90 TAB Prov:KESHA TAYLOR MD 07/06/21 Clopidogrel Bisulfate (CLOPIDOGREL) 75 Mg Tablet, 75 MG PO DAILYWBKFT for pvd for 90 Days, #90 TAB Prov:KESHA TAYLOR MD 07/06/21 Hydrocodone Bit/Acetaminophen (HYDROCODONE-APAP 5-325 ) 1 Tab Tablet, 1 TAB PO PRN Q6HRS PRN for MODERATE PAIN 4-6 for 7 Days, TAB Prov:KESHA TAYLOR MD 07/06/21 Insulin Glargine,Hum.rec.anlog (LANTUS) 100 Unit/1 Ml Vial, 6 UNIT SQ QHS for dm for 30 Days, EACH Prov:KESHA TAYLOR MD 07/06/21 Insulin Lispro (Admelog) 100 Unit/1 Ml Vial, 6 UNITS SQ TIDAC for dm for 30 Days, EACH Prov:KESHA TAYLOR MD 07/06/21 Micafungin Sodium (MYCAMINE) 100 Mg Vial, 100 MG IV DAILY for infection for 14 Days, #14 EACH Prov:KESHA TAYLOR MD 07/06/21 Daptomycin (Daptomycin) 350 Mg Vial, 350 MG IV DAILY for abscess for 14 Days, #14 EACH Prov:KESHA TAYLOR MD 07/06/21 Mvrqmplwzzkx-Jcmy-Fnfnbxjn,Iso (ZOSYN 3.375 GM PRE MIX-BAG) 3.375 Gm/50 Ml Froz.piggy, 3.375 GM IV Q6HRS for abscess for 14 Days, EACH Prov:KESHA TAYLOR MD 07/06/21 Lisinopril (LISINOPRIL) 20 Mg Tablet, 1 TAB PO BID, #60 TAB 5 Refills Prov:TUNDE CAMARA MD 04/17/16 Hydrocodone Bit/Acetaminophen (HYDROCODONE-APAP 5-325 ) 1 Each Tablet, 1 TAB PO PRN Q4HRS PRN for MODERATE - SEVERE PAIN, #30 TAB 0 Refills Prov:TUNDE CAMARA MD 04/17/16 Reported Medications Hydrochlorothiazide (HYDROCHLOROTHIAZIDE TABLET) 12.5 Mg Tablet, 1 TAB PO TID, # 90 TAB 3 Refills 06/01/16 Dulaglutide (Trulicity) 1.5 Mg/0.5 Ml Pen.injctr, 1.5 MG SQ 06/01/16 Sitagliptin Phosphate (JANUVIA) 100 Mg Tablet, 1 TAB PO TID, #90 TAB 3 Refills 06/01/16 Gabapentin (GABAPENTIN ) 300 Mg Capsule, 300 MG PO TID, CAP 04/12/16 Metformin Hcl (METFORMIN HCL) 1,000 Mg Tablet, 1 TAB PO BIDAC, #60 TAB 5 Refills 04/12/16 Aspirin (ASPIRIN) 81 Mg Tab.chew, 81 MG PO BID, TAB.CHEW 03/20/16 Discontinued Reported Medications Insulin Glargine,Hum.rec.anlog (LANTUS SOLOSTAR) 100 Unit/1 Ml Insuln.pen, 20 UNIT SQ QHS for blood sugar, #15 ML 5 Refills 09/18/18 Dulaglutide (Trulicity) 0.75 Mg/0.5 Ml Pen.injctr, 0.75 MG SQ WEEKLY 04/12/16 Discontinued Scripts Insulin Lispro (HUMALOG) 100 Unit/1 Ml Vial, 10 UNIT SQ TIDAC for diabetes for 30 Days, VIAL Prov:KESHA TAYLOR MD 09/19/18 KESHA TAYLOR MD Jul 06, 2021 09:37
--- NOTE | 2021-07-06 09:38 | PDOC ---
Provider Note Date of Service: DATE: 07/06/21 TIME: 09:35 Provider Note Provider Note Vascular S: Patient resting in bed, no complaints. O: Awake and alert VSS, afebrile Left leg with small amount of granulation tissue and fibrin slough, minimal coverage over bone, slight improvement from Sunday. Small eschar with some fatty necrosis distal to wound, without purulence. Foot warm, pink. Palpable popliteal pulse. Biphasic flow PT by handheld doppler. A/P: PAD, left leg necrotic wound Patient has excellent blood flow with biphasic doppler via PT artery. Should have adequate blood flow to heal. POD #4 Left leg wound debridement with wound vac Can transition to traditional wound vac upon discharge. May bear weight to use bathroom or sit in chair Abx per ID SS for discharge planning Follow up in our [facility] office in 2 weeks. Justicifation of Admission Dx: Justifications for Admission: Justification of Admission Dx: Yes ALISON STODDARD APRN Jul 06, 2021 09:38
--- NOTE | 2021-07-06 09:39 | PDOC ---
PROGRESS NOTES Date of Service: DATE: 07/06/21 TIME: 09:37 Subjective Subjective ready to go to SNU Objective Objective Vital Signs Date Time Temp Pulse Resp B/P (MAP) Pulse Ox O2 Delivery O2 Flow Rate FiO2 07/06/21 07:00 97.9 70 16 156/63 (94) 97 Room Air 97.9 Intake and Output 07/06/21 07:00 Intake Total 360 ml Output Total 600 ml Balance -240 ml Intake Oral 360 ml Output Urine Total 600 ml # Voids 2 Physical Exam Abdomen: Soft, No tenderness Heart: Regular rate Extremities: Other (Wound VAC in place on the left lower leg with Aquacel Ag to the more superficial wounds proximal and distal to the deep wound.) General: Alert, Oriented X3 HEENT: Atraumatic Lungs: Normal air movement MUSCULOSKELETAL: No deformity, No swelling, Abnormal exam of left, Other Neck: No JVD Neuro: Normal speech Psych/Mental Status: Mental status NL Skin: Other (s/p debridement ,wound vac present now) Assessment Assessment Assessment Left lower extremity abscess Left lower extremity cellulitis Left lower extremity non healing chronic wound Peripheral vascular disease with history of angioplasty Diabetes mellitus with peripheral neuropathy CKD Tobacco dependence History of noncompliance History of previous toe amputation Plan: d/c to SNU Picc line 07/05/21 s/p Debridement 07/02 . looked at wound with vascular discussed with vascular and ID Needs PICC line+2 weeks of iv antibiotics blood sugars brittle, high A1C. Needs SNU later this week. labs noted good intra operative c/s noted dapto+zosyn+micafungin for 2 weeks Comment Review of Relevant I have reviewed the following items jorge (where applicable) has been applied. Labs Laboratory Tests Test 07/05/21 11:53 07/05/21 17:35 07/05/21 20:38 07/06/21 06:15 Glucose (Fingerstick) 153 mg/dL (70-99) 272 mg/dL (70-99) 313 mg/dL (70-99) White Blood Count 5.2 x10^3/uL (4.0-11.0) Red Blood Count 3.34 x10^6/uL (4.30-5.70) Hemoglobin 8.6 g/dL (13.0-17.5) Hematocrit 26.5 % (39.0-53.0) Mean Corpuscular Volume 79 fL (79-100) Mean Corpuscular Hemoglobin 26 pg (25-35) Mean Corpuscular Hemoglobin Concent 33 g/dL (31-37) Red Cell Distribution Width 15.0 % (11.5-14.5) Platelet Count 308 x10^3/uL (140-400) Neutrophils (%) (Auto) 60 % (31-73) Lymphocytes (%) (Auto) 25 % (24-48) Monocytes (%) (Auto) 15 % (0-9) Eosinophils (%) (Auto) 1 % (0-3) Basophils (%) (Auto) 1 % (0-3) Neutrophils # (Auto) 3.1 x10^3/uL (1.8-7.7) Lymphocytes # (Auto) 1.3 x10^3/uL (1.0-4.8) Monocytes # (Auto) 0.8 x10^3/uL (0.0-1.1) Eosinophils # (Auto) 0.0 x10^3/uL (0.0-0.7) Basophils # (Auto) 0.0 x10^3/uL (0.0-0.2) Sodium Level 133 mmol/L (136-145) Potassium Level 4.0 mmol/L (3.5-5.1) Chloride Level 100 mmol/L (98-107) Carbon Dioxide Level 27 mmol/L (21-32) Anion Gap 6 (6-14) Blood Urea Nitrogen 14 mg/dL (8-26) Creatinine 1.2 mg/dL (0.7-1.3) Estimated GFR (Cockcroft-Gault) 70.7 Glucose Level 268 mg/dL (70-99) Calcium Level 9.0 mg/dL (8.5-10.1) Microbiology 07/02/21 Gram Stain - Final, Resulted 07/02/21 Aerobic and Anaerobic Culture - Preliminary, Resulted 07/02/21 Antimicrobic Susceptibility - Preliminary, Resulted 06/29/21 Blood Culture - Final, Complete NO GROWTH AFTER 5 DAYS Medications Current Medications Micafungin Sodium 100 mg/Dextrose 100 ml @ 100 mls/hr Q24H IV ; Start 07/06/21 at 09:00; Stop 07/06/21 at 08:57; Status DC Micafungin Sodium 100 mg/Dextrose 100 ml @ 100 mls/hr Q24H IV ; Start 07/06/21 at 09:00 Vitals/I & O Vital Sign - Last 24 Hours 07/05/21 07/05/21 07/05/21 07/05/21 11:00 11:31 11:32 15:00 Temp 98.6 98.2 98.6 98.2 Pulse 69 78 78 71 Resp 18 19 B/P (MAP) 131/76 (94) 144/72 144/72 122/75 (91) Pulse Ox 99 99 O2 Delivery Room Air Room Air 07/05/21 07/05/21 07/05/21 07/05/21 19:18 20:00 20:39 23:00 Temp 98.3 98.3 Pulse 72 72 Resp 18 B/P (MAP) 108/66 (80) 108/66 Pulse Ox 96 O2 Delivery Room Air Room Air Room Air 07/06/21 07/06/21 03:00 07:00 Temp 97.9 97.9 Pulse 76 70 Resp 16 B/P (MAP) 156/63 (94) Pulse Ox 97 O2 Delivery Room Air Room Air Intake and Output 07/05/21 07/05/21 07/06/21 15:00 23:00 07:00 Intake Total 240 ml 120 ml Output Total 300 ml 300 ml Balance -60 ml 120 ml -300 ml Justifications for Admission Other Justification Nutrition Consultation Dietary Evaluation: Recommendations by RD: Dietary education by RD, Increase Calorie Intake, Protein supplementation Comments: mech soft, ADA/Cardiac DBL meats , no jones strawberry Glucerna tid debora bid REC mvi and vit c per wound protocal Expected Outcomes/Goals: to meet >75% est val needs Malnutrition Findings: Body Fat Depletion (Non Severe: Mod to Severe Weight Status: Underweight KESHA TAYLOR MD Jul 06, 2021 09:38
[2021-07-06] MEDS: LACTOBACILLUS RHAMNOSUS GG 1 CAPSULE. PO SCH ×2 (10:23→21:32)
[2021-07-06] MEDS: CLOPIDOGREL BISULFATE 75 MG TABLET PO SCH (10:23)
[2021-07-06] MEDS: ASPIRIN CHEWABLE 81 MG TABLET. PO SCH ×2 (10:24→21:32)
[2021-07-06] MEDS: hydroCHLOROthiazide 12.5 MG CAPSULE PO SCH (10:24)
[2021-07-06] MEDS: LISINOPRIL 20 MG TABLET PO SCH ×2 (10:24→21:33)
[2021-07-06] MEDS: GABAPENTIN 300 MG CAPSULE. PO SCH ×2 (10:24→21:32)
[2021-07-06] MEDS: MICAFUNGIN 100 MG in IV DEXTROSE 5% 100ML 100 ML IV SCH (10:25)
[2021-07-06 11:00] VITALS: BP 118/55
--- NOTE | 2021-07-06 12:22 | NUR ---
SW following. Discussed with RN, FROYLAN met with pt to discuss SNF. Pt agreeable and would like to go where he went before but couldn't remember the name. SW looked in previous admissions, pt was at [facility] in 2016. FROYLAN phoned and faxed referral. [facility] needs to henderson out the abx. Awaiting acceptance decision and insurance auth. Discharge orders faxed. FROYLAN will continue to follow. Addendum: 07/06/21 at 1403 by DESTINY GALEANO [facility] cannot afford pt's IV abx with all pt has going on. FROYLAN spoke with Dr. Henson - she is going to review pt's chart and determine if there is another abx pt can be switched to. [facility] and RN notified.
[2021-07-06] MEDS: DAPTOmycin (GENERIC) IVPB 330 MG in IV NORMAL SALINE 50ML 50 ML IV SCH (14:05)
[2021-07-06 15:00] VITALS: BP 119/62
--- NOTE | 2021-07-06 15:04 | NUR ---
Wound/Ostomy Care Wound Type/Assessment: Wound care follow up for vac dressing change. Pt declined pain meds prior to procedure d/t side effects, pt okay with proceeding. Cleansed, pictured and measured wound, and reapplied veraflo wound vac. Left lower leg wound appears much improved over the last 2 days with Veraflo. Wound bed has a significant amount of red granulation tissue along the edges and wound base, bone still palpable, tendon and muscle exposed, overall, the wound is improved since debridement. Treatment Recommendations/Plan: Veraflo black foam, -125 mmHg, 10 ml NS for 5 min every 2 hours. Hydrocolloid to slough and eschar covered satelite wounds. Education provided: WC POC, PU prevention Offloading surface/device: float legs on pillow Recommended Referrals/Tests: na Discharge Recommendations for dressings: recommend to leave with [facility], preferrably Veraflo for a few more days, if possible. Will talk with DINO Ray re: transferring pt to [facility] with Veraflo in place until Sunday.
[2021-07-06 19:00] VITALS: BP 146/57
[2021-07-06] MEDS: INSULIN GLARGINE SYRINGE. SQ SCH (21:47)
[2021-07-07 03:00] VITALS: BP 147/82
[2021-07-07] MEDS: PIPERACILLIN/TAZOBACTAM 3.375 GM in IV NORMAL SALINE 50ML 50 ML IV SCH ×3 (05:17→17:36)
[2021-07-07 07:00] VITALS: BP 165/87
[2021-07-07] MEDS: LISINOPRIL 20 MG TABLET PO SCH ×2 (08:46→22:23)
[2021-07-07] MEDS: GABAPENTIN 300 MG CAPSULE. PO SCH ×2 (08:47→22:22)
[2021-07-07] MEDS: CLOPIDOGREL BISULFATE 75 MG TABLET PO SCH (08:47)
[2021-07-07] MEDS: ASPIRIN CHEWABLE 81 MG TABLET. PO SCH ×2 (08:47→22:22)
[2021-07-07] MEDS: LACTOBACILLUS RHAMNOSUS GG 1 CAPSULE. PO SCH ×2 (08:47→22:22)
[2021-07-07] MEDS: hydroCHLOROthiazide 12.5 MG CAPSULE PO SCH (08:47)
[2021-07-07] MEDS: HEPARIN for SUB-Q USE 5,000 UNIT/ML VIAL. SQ SCH ×2 (08:54→22:30)
[2021-07-07] MEDS: INSULIN LISPRO 300 UNITS/3 ML VIAL. SQ SCH ×6 (08:57→22:29)
[2021-07-07] MEDS: IV NORMAL SALINE 1000ML BAG 1,000 ML IV SCH (08:59)
[2021-07-07] MEDS: silver sulfADIAZINE 1% CREAM 25GM TUBE. TP SCH (09:00)
--- NOTE | 2021-07-07 09:27 | PDOC ---
PROGRESS NOTES Date of Service: DATE: 07/07/21 TIME: 09:27 Subjective Subjective doing well Objective Objective Vital Signs Date Time Temp Pulse Resp B/P (MAP) Pulse Ox O2 Delivery O2 Flow Rate FiO2 07/07/21 08:47 72 165/87 07/07/21 07:00 98.0 18 99 Room Air 98.0 07/06/21 19:00 13.0 Intake and Output 07/07/21 07:00 Output Total 500 ml Balance -500 ml Output Urine Total 500 ml # Voids 5 Physical Exam Abdomen: Soft, No tenderness Heart: Regular rate Extremities: Other (Wound VAC in place on the left lower leg with Aquacel Ag to the more superficial wounds proximal and distal to the deep wound.) General: Alert, Oriented X3 HEENT: Atraumatic Lungs: Normal air movement MUSCULOSKELETAL: No deformity, No swelling, Abnormal exam of left, Other Neck: No JVD Neuro: Normal speech Psych/Mental Status: Mental status NL Skin: Other (s/p debridement ,wound vac present now) Assessment Assessment Assessment Left lower extremity abscess Left lower extremity cellulitis Left lower extremity non healing chronic wound Peripheral vascular disease with history of angioplasty Diabetes mellitus with peripheral neuropathy CKD Tobacco dependence History of noncompliance History of previous toe amputation Plan: due to cardiac interaction with medications will place account assistant d/c to LTAC due to needing account assistant Picc line 07/05/21 s/p Debridement 07/02 . looked at wound with vascular discussed with vascular and ID Needs PICC line+2 weeks of iv antibiotics blood sugars brittle, high A1C. Needs SNU later this week. labs noted good intra operative c/s noted dapto+zosyn+micafungin for 2 weeks Comment Review of Relevant I have reviewed the following items jorge (where applicable) has been applied. Labs Laboratory Tests Test 07/06/21 11:21 07/06/21 16:39 07/06/21 20:34 07/07/21 06:57 Glucose (Fingerstick) 191 mg/dL (70-99) 190 mg/dL (70-99) 276 mg/dL (70-99) 317 mg/dL (70-99) Microbiology 07/02/21 Gram Stain - Final, Resulted 07/02/21 Aerobic and Anaerobic Culture - Preliminary, Resulted 07/02/21 Antimicrobic Susceptibility - Preliminary, Resulted 06/29/21 Blood Culture - Final, Complete NO GROWTH AFTER 5 DAYS Vitals/I & O Vital Sign - Last 24 Hours 07/06/21 07/06/21 07/06/21 07/06/21 10:23 10:24 11:00 15:00 Temp 97.5 97.8 97.5 97.8 Pulse 70 70 62 74 Resp 18 18 B/P (MAP) 156/63 156/63 118/55 (76) 119/62 (81) Pulse Ox 98 100 O2 Delivery Room Air Room Air 07/06/21 07/06/21 07/06/21 07/06/21 19:00 21:30 21:33 23:00 Temp 99.1 99.1 Pulse 76 76 Resp 18 B/P (MAP) 146/57 (86) 146/57 Pulse Ox 96 O2 Delivery Room Air Room Air Room Air O2 Flow Rate 13.0 07/07/21 07/07/21 07/07/21 07/07/21 03:00 07:00 08:46 08:47 Temp 99.1 98.0 99.1 98.0 Pulse 85 72 72 72 Resp 18 18 B/P (MAP) 147/82 (103) 165/87 (113) 165/87 165/87 Pulse Ox 96 99 O2 Delivery Room Air Room Air Intake and Output 07/06/21 07/06/21 07/07/21 15:00 23:00 07:00 Output Total 250 ml 250 ml Balance -250 ml -250 ml Justifications for Admission Other Justification Nutrition Consultation Dietary Evaluation: Recommendations by RD: Dietary education by RD, Increase Calorie Intake, Protein supplementation Comments: mech soft, ADA/Cardiac DBL meats , no jones strawberry Glucerna tid debora bid REC mvi and vit c per wound protocal Expected Outcomes/Goals: to meet >75% est val needs Malnutrition Findings: Body Fat Depletion (Non Severe: Mod to Severe Weight Status: Underweight KESHA TAYLOR MD Jul 07, 2021 09:27
[2021-07-07] MEDS: MICAFUNGIN 100 MG in IV DEXTROSE 5% 100ML 100 ML IV SCH (09:53)
[2021-07-07 10:32] VITALS: BP 121/66
--- NOTE | 2021-07-07 11:26 | PDOC ---
Infectious Disease Note Subjective: Subjective Patient without complaints Vital Signs: Vital Signs Vital Signs Date Time Temp Pulse Resp B/P (MAP) Pulse Ox O2 Delivery O2 Flow Rate FiO2 07/07/21 10:32 97.5 61 18 121/66 (84) 100 Room Air 97.5 07/06/21 19:00 13.0 Physical Exam: PHYSICAL EXAM GENERAL: AXOX3 male lying in bed comfortably, in no acute distress. HEENT: Normocephalic, atraumatic. Anicteric. NECK: Supple. No JVD. LUNGS: Clear bilaterally. No wheezing. HEART: S1, S2. No gallops or murmurs. ABDOMEN: Soft, nontender, nondistended. No rebound or guarding. EXTREMITIES: Left leg wound in place, dry taken down, deep wounds have clean base with tendon exposure No gross purulence or surrounding erythema noted,mild necrotic dorsal wound no purulent drainage MUSCULOSKELETAL: No joint swelling. No decrease in range of motion. CENTRAL NERVOUS SYSTEM: Alert, oriented x 3, grossly nonfocal. PSYCHIATRIC: Cooperative, calm. Medications: Inpatient Meds: Medications reviewed. Labs: Lab Laboratory Tests Test 07/06/21 16:39 07/06/21 20:34 07/07/21 06:57 07/07/21 11:06 Glucose (Fingerstick) 190 mg/dL (70-99) 276 mg/dL (70-99) 317 mg/dL (70-99) 155 mg/dL (70-99) Micro RUN DATE: 07/06/21 [facility] *LIVE* PAGE 1 RUN TIME: 0850 Specimen Inquiry PATIENT: ESPERANZA MARINELLI ACCT: [id number] LOC: [address] [place] [address] U: [id number] AGE/SX: 80/M ROOM: [facility] RE06/29/[address]: KESHA TAYLOR MD : 1940 BED: 1 DIS: STATUS: ADM IN TLOC: ------- ----- SPEC #: [id number] CONNIE: 07/02/21 STATUS: RES REQ #: [id number] RECD: 07/03/[address]: KESHA TAYLOR MD SOURCE: ABSCESS ENTR: 07/03/[address]: CHARLIE LEVI MD SPDESC: KYLER CRUZ MD, RAVEN C MD ORDERED: ANAER/AEROB/GS COMMENTS: LEFT LEG ULCER/ABSCESS SWAB Procedure Result --------- --- GRAM STAIN Final Final GRAM POSITIVE COCCI:RARE SQUAMOUS EPI CELL:RARE PMN (WBCs):FEW Unless otherwise specified, Testing Performed by: [facility] [address] [place] [address] For Inquires, the Physician may contact the Microbiology department at [phone] ANAEROBIC-AEROBIC CULTURE Preliminary Preliminary MIXED AEROBIC BRE INCLUDING; FEW [STAPHYLOCOCCUS AUREUS] on 07/04/21 at 0901 FEW [ENTEROCOCCUS FAECALIS] on 07/04/21 at 1038 FEW [BETA STREP GROUP B] on 07/04/21 at 1038 RARE [EFE TROPICALIS] on 07/05/21 at 1000 STAPHYLOCOCCUS AUREUS ENTEROCOCCUS FAECALIS EFE TROPICALIS BETA STREP GROUP B ANTIMICROBIAL SUSCEPTIBILITY Preliminary Comment Comment POS LYNN TYPE 38 STAPHYLOCOCCUS AUREUS ANTIBIOTIC RESULT INTERPRETATION AZITHROMYCIN >4 R CLINDAMYCIN <=0.25 R* CEFOXITIN SCREEN <=4 NEG CIPROFLOXACIN >2 R CEFTAROLINE <=0.5 S DAPTOMYCIN 1 S ERYTHROMYCIN >4 R GENTAMICIN <=4 S RUN DATE: 07/06/21 [facility] *LIVE* PAGE 2 RUN TIME: 0850 Specimen Inquiry SPEC: [id number] PATIENT: ESPERANZA MARINELLI Landen [id number] (Continued) Procedure Result CONTINUED ON NEXT PAGE RUN DATE: 07/06/21 [facility] *LIVE* PAGE 3 RUN TIME: 0850 Specimen Inquiry SPEC: [id number] PATIENT: ESPERANZA MARINELLI [id number] (Continued) --- --------- Procedure Result ANTIMICROBIAL SUSCEPTIBILITY Preliminary (continued) INDUCIBLE CLINDAMYCIN >4/0.5 POS LINEZOLID 2 S LEVOFLOXACIN <=1 S OXACILLIN 0.5 S PENICILLIN >2 Girma RIFAMPIN <=1 S TRIMETHOPRIM/SULFAMETHOXAZOLE <=0.5/9.5 S TETRACYCLINE <=4 S VANCOMYCIN 1 S Streptomycin Synergy Screen S Gentamicin Synergy Screen S POS LYNN TYPE 38 ENTEROCOCCUS FAECALIS ANTIBIOTIC RESULT INTERPRETATION AMPICILLIN <=2 S DAPTOMYCIN 1 S LINEZOLID 2 S PENICILLIN 2 S VANCOMYCIN 1 S Unless otherwise specified, Testing Performed by: [address] [address] For Inquires, the Physician may contact the Microbiology department at [phone] Objective: Assessment: Left lower extremity abscess Sept 24 S/P Excisional debridement of left leg wound including skin and subcutaneous tissue and Wound VAC placement to the left leg. 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 Taylor Discussed with RN, OMAR CRUZ MD Jul 07, 2021 11:26
--- NOTE | 2021-07-07 13:13 | NUR ---
SW following. Discussed with RN, pt now has a third IV abx added. Dr. John requested SW fax referral to [facility]. SW phoned and faxed. It will be difficult to find a SNF for pt due to pt's expensive medical needs. SW will continue to follow.
--- NOTE | 2021-07-07 14:27 | PDOC ---
Provider Note Date of Service: DATE: 07/07/21 TIME: 14:27 Provider Note Provider Note Vascular S: Patient sitting in chair, no complaints, awaiting discharge. O: Awake and alert VSS, afebrile Left leg veraflo wound vac in place. Foot warm, pink. Palpable popliteal pulse. Biphasic flow PT by handheld doppler. A/P: PAD, left leg necrotic wound Patient has excellent blood flow with biphasic doppler via PT artery. Should have adequate blood flow to heal. POD #6 Left leg wound debridement with wound vac Continue veraflo wound vac. Transition to traditional wound vac upon discharge. May bear weight to use bathroom or sit in chair Abx per ID SS for discharge planning Follow up in our [facility] office in 2 weeks. Justicifation of Admission Dx: Justifications for Admission: Justification of Admission Dx: Yes ALISON STODDARD APRN Jul 07, 2021 14:27
[2021-07-07 15:00] VITALS: BP 120/65
[2021-07-07] MEDS: DAPTOmycin (GENERIC) IVPB 330 MG in IV NORMAL SALINE 50ML 50 ML IV SCH (15:10)
[2021-07-07 19:00] VITALS: BP 129/71
[2021-07-07] MEDS: INSULIN GLARGINE SYRINGE. SQ SCH (22:30)
[2021-07-07 23:00] VITALS: BP 133/71
[2021-07-08] MEDS: PIPERACILLIN/TAZOBACTAM 3.375 GM in IV NORMAL SALINE 50ML 50 ML IV SCH ×5 (00:17→23:23)
[2021-07-08] MEDS: silver sulfADIAZINE 1% CREAM 25GM TUBE. TP SCH ×3 (00:18→21:00)
[2021-07-08 03:00] VITALS: BP 144/83
[2021-07-08 07:00] VITALS: BP 137/83
--- NOTE | 2021-07-08 08:13 | PDOC ---
Infectious Disease Note Subjective: Subjective Patient without complaints Vital Signs: Vital Signs Vital Signs Date Time Temp Pulse Resp B/P (MAP) Pulse Ox O2 Delivery O2 Flow Rate FiO2 07/08/21 07:00 97.8 18 137/83 (101) 99 97.8 07/08/21 03:00 76 07/07/21 20:30 Room Air 07/07/21 08:09 13.0 Physical Exam: PHYSICAL EXAM GENERAL: AXOX3 male lying in bed comfortably, in no acute distress. HEENT: Normocephalic, atraumatic. Anicteric. NECK: Supple. No JVD. LUNGS: Clear bilaterally. No wheezing. HEART: S1, S2. No gallops or murmurs. ABDOMEN: Soft, nontender, nondistended. No rebound or guarding. EXTREMITIES: Left leg wound in place, dry taken down, deep wounds have clean base with tendon exposure No gross purulence or surrounding erythema noted,mild necrotic dorsal wound no purulent drainage MUSCULOSKELETAL: No joint swelling. No decrease in range of motion. CENTRAL NERVOUS SYSTEM: Alert, oriented x 3, grossly nonfocal. PSYCHIATRIC: Cooperative, calm. Medications: Inpatient Meds: Medications reviewed. Labs: Lab Laboratory Tests Test 07/07/21 11:06 07/07/21 16:11 07/07/21 21:29 07/08/21 07:42 Glucose (Fingerstick) 155 mg/dL (70-99) 169 mg/dL (70-99) 331 mg/dL (70-99) 225 mg/dL (70-99) Micro RUN DATE: 07/06/21 [facility] *LIVE* PAGE 1 RUN TIME: 0850 Specimen Inquiry PATIENT: ESPERANZA MARINELLI ACCT: [id number] LOC: [address] [place] [address] U: [id number] AGE/SX: 80/M ROOM: [facility] RE06/29/[address]: KESHA TAYLOR MD : 1940 BED: 1 DIS: STATUS: ADM IN TLOC: SPEC #: [id number] CONNIE: 07/02/21 STATUS: RES REQ #: [id number] RECD: 07/03/[address]: KESHA TAYLOR MD SOURCE: ABSCESS ENTR: 07/03/[address]: CHARLIE LEVI MD SPDESC: KYLER CRUZ MD, RAVEN C MD ORDERED: ANAER/AEROB/GS COMMENTS: LEFT LEG ULCER/ABSCESS SWAB Procedure Result GRAM STAIN Final Final GRAM POSITIVE COCCI:RARE SQUAMOUS EPI CELL:RARE PMN (WBCs):FEW Unless otherwise specified, Testing Performed by: [facility] [address] [place] [address] For Inquires, the Physician may contact the Microbiology department at [phone] ANAEROBIC-AEROBIC CULTURE Preliminary Preliminary MIXED AEROBIC BRE INCLUDING; FEW [STAPHYLOCOCCUS AUREUS] on 07/04/21 at 0901 FEW [ENTEROCOCCUS FAECALIS] on 07/04/21 at 1038 FEW [BETA STREP GROUP B] on 07/04/21 at 1038 RARE [EFE TROPICALIS] on 07/05/21 at 1000 STAPHYLOCOCCUS AUREUS ENTEROCOCCUS FAECALIS EFE TROPICALIS BETA STREP GROUP B ANTIMICROBIAL SUSCEPTIBILITY Preliminary Comment Comment POS LYNN TYPE 38 STAPHYLOCOCCUS AUREUS ANTIBIOTIC RESULT INTERPRETATION AZITHROMYCIN >4 R CLINDAMYCIN <=0.25 R* CEFOXITIN SCREEN <=4 NEG CIPROFLOXACIN >2 R CEFTAROLINE <=0.5 S DAPTOMYCIN 1 S ERYTHROMYCIN >4 R GENTAMICIN <=4 S RUN DATE: 07/06/21 [facility] *LIVE* PAGE 2 RUN TIME: 0850 Specimen Inquiry SPEC: [id number] PATIENT: ESPERANZA MARINELLI Landen [id number] (Continued) Procedure Result CONTINUED ON NEXT PAGE RUN DATE: 07/06/21 [facility] *LIVE* PAGE 3 RUN TIME: 0850 Specimen Inquiry SPEC: [id number] PATIENT: ESPERANZA MARINELLI Landen [id number] (Continued) Procedure Result ANTIMICROBIAL SUSCEPTIBILITY Preliminary (continued) INDUCIBLE CLINDAMYCIN >4/0.5 POS LINEZOLID 2 S LEVOFLOXACIN <=1 S OXACILLIN 0.5 S PENICILLIN >2 Girma RIFAMPIN <=1 S TRIMETHOPRIM/SULFAMETHOXAZOLE <=0.5/9.5 S TETRACYCLINE <=4 S VANCOMYCIN 1 S Streptomycin Synergy Screen S Gentamicin Synergy Screen S POS LYNN TYPE 38 ENTEROCOCCUS FAECALIS ANTIBIOTIC RESULT INTERPRETATION AMPICILLIN <=2 S DAPTOMYCIN 1 S LINEZOLID 2 S PENICILLIN 2 S VANCOMYCIN 1 S Unless otherwise specified, Testing Performed by: [address] [address] For Inquires, the Physician may contact the Microbiology department at [phone] Objective: Assessment: Left lower extremity abscess Sept 24 S/P Excisional debridement of left leg wound including skin and subcutaneous tissue and Wound VAC placement to the left leg. Polymicrobial organisms Left lower extremity cellulitis improved Peripheral vascular disease with history of angioplasty Diabetes mellitus with peripheral neuropathy CHERYLE on CKD Tobacco dependence History of noncompliance History of previous toe amputation Plan: Plan of Care Continue daptomycin andMicafungin and Zosyn Transition to invanz, dapto and micafungin for discharge, first dose of Invanz here before discharge Cannot use fluconazole due to ddI with clopidogrel per discussion with pharmacy Prescription in chart PICC pot reliner Wound care as directed Case management assisting with discharge antibiotics Discussed with Dr. Taylor as placement is an issue per case management Discussed with RN, OMAR CRUZ MD Jul 08, 2021 08:13
[2021-07-08] MEDS: IV NORMAL SALINE 1000ML BAG 1,000 ML IV SCH (09:15)
--- NOTE | 2021-07-08 09:19 | PDOC ---
PROGRESS NOTES Date of Service: DATE: 07/08/21 TIME: 09:17 Subjective Subjective feels ok Objective Objective Vital Signs Date Time Temp Pulse Resp B/P (MAP) Pulse Ox O2 Delivery O2 Flow Rate FiO2 07/08/21 07:00 97.8 18 137/83 (101) 99 97.8 07/08/21 03:00 76 07/07/21 20:30 Room Air 07/07/21 08:09 13.0 Intake and Output 07/08/21 07:00 Intake Total 960 ml Output Total 200 ml Balance 760 ml Intake Oral 960 ml Output Urine Total 200 ml # Voids 6 Physical Exam Abdomen: Soft, No tenderness Heart: Regular rate Extremities: Other (Wound VAC in place on the left lower leg with Aquacel Ag to the more superficial wounds proximal and distal to the deep wound.) General: Alert, Oriented X3 HEENT: Atraumatic Lungs: Normal air movement MUSCULOSKELETAL: No deformity, No swelling, Abnormal exam of left, Other Neck: No JVD Neuro: Normal speech Psych/Mental Status: Mental status NL Skin: Other (s/p debridement ,wound vac present now) COMMENT wound vac Assessment Assessment Assessment Left lower extremity abscess Left lower extremity cellulitis Left lower extremity non healing chronic wound Peripheral vascular disease with history of angioplasty Diabetes mellitus with peripheral neuropathy CKD Tobacco dependence History of noncompliance History of previous toe amputation Plan: No new problems waiting for bed to open up at LTAC. due to cardiac interaction with medications will place youth nutritional monitor d/c to LTAC due to needing youth nutritional monitor Picc line 07/05/21 s/p Debridement 07/02 . looked at wound with vascular discussed with vascular and ID Needs PICC line+2 weeks of iv antibiotics blood sugars brittle, high A1C. Needs SNU later this week. labs noted good intra operative c/s noted dapto+zosyn+micafungin for 2 weeks Comment Review of Relevant I have reviewed the following items jorge (where applicable) has been applied. Labs Laboratory Tests Test 07/07/21 11:06 07/07/21 16:11 07/07/21 21:29 07/08/21 07:42 Glucose (Fingerstick) 155 mg/dL (70-99) 169 mg/dL (70-99) 331 mg/dL (70-99) 225 mg/dL (70-99) Microbiology 07/02/21 Gram Stain - Final, Resulted 07/02/21 Aerobic and Anaerobic Culture - Preliminary, Resulted 07/02/21 Antimicrobic Susceptibility - Preliminary, Resulted 06/29/21 Blood Culture - Final, Complete NO GROWTH AFTER 5 DAYS Medications Current Medications Insulin Human Lispro (HumaLOG) 0-7 UNITS QHS SQ Last administered on 07/07/21at 22:29; Start 07/07/21 at 22:15 Vitals/I & O Vital Sign - Last 24 Hours 07/07/21 07/07/21 07/07/21 07/07/21 10:32 15:00 19:00 20:30 Temp 97.5 98.1 98.2 97.5 98.1 98.2 Pulse 61 74 75 Resp 18 24 18 B/P (MAP) 121/66 (84) 120/65 (83) 129/71 (90) Pulse Ox 100 100 98 O2 Delivery Room Air Room Air Room Air 07/07/21 07/07/21 07/08/21 07/08/21 22:23 23:00 03:00 07:00 Temp 98.6 98.2 97.8 98.6 98.2 97.8 Pulse 74 75 76 Resp 18 18 18 B/P (MAP) 120/65 133/71 (91) 144/83 (103) 137/83 (101) Pulse Ox 98 99 99 Intake and Output 07/07/21 07/07/21 07/08/21 15:00 23:00 07:00 Intake Total 720 ml 240 ml Output Total 200 ml Balance 720 ml 240 ml -200 ml Justifications for Admission Other Justification Nutrition Consultation Dietary Evaluation: Recommendations by RD: Dietary education by RD, Increase Calorie Intake, Protein supplementation Comments: mech soft, ADA/Cardiac DBL meats , no jones strawberry Glucerna tid debora bid REC mvi and vit c per wound protocal Expected Outcomes/Goals: to meet >75% est val needs Malnutrition Findings: Body Fat Depletion (Non Severe: Mod to Severe Weight Status: Underweight KESHA TAYLOR MD Jul 08, 2021 09:19
[2021-07-08] MEDS: ASPIRIN CHEWABLE 81 MG TABLET. PO SCH ×2 (09:34→22:24)
[2021-07-08] MEDS: GABAPENTIN 300 MG CAPSULE. PO SCH ×2 (09:34→22:24)
[2021-07-08] MEDS: hydroCHLOROthiazide 12.5 MG CAPSULE PO SCH (09:34)
[2021-07-08] MEDS: LACTOBACILLUS RHAMNOSUS GG 1 CAPSULE. PO SCH ×2 (09:35→22:24)
[2021-07-08] MEDS: LISINOPRIL 20 MG TABLET PO SCH ×2 (09:35→22:25)
[2021-07-08] MEDS: CLOPIDOGREL BISULFATE 75 MG TABLET PO SCH (09:35)
[2021-07-08] MEDS: INSULIN LISPRO 300 UNITS/3 ML VIAL. SQ SCH ×6 (09:46→22:30)
[2021-07-08] MEDS: HEPARIN for SUB-Q USE 5,000 UNIT/ML VIAL. SQ SCH ×2 (09:48→22:29)
[2021-07-08] MEDS: MICAFUNGIN 100 MG in IV DEXTROSE 5% 100ML 100 ML IV SCH (10:32)
[2021-07-08 11:00] VITALS: BP 123/70
[2021-07-08] MEDS: DAPTOmycin (GENERIC) IVPB 330 MG in IV NORMAL SALINE 50ML 50 ML IV SCH (13:11)
--- NOTE | 2021-07-08 13:15 | NUR ---
SW following. Discussed with RN, [facility] awaiting REV codes to determine if pt qualifies for LTAC. SW will continue to follow.
[2021-07-08 15:00] VITALS: BP 136/78
--- NOTE | 2021-07-08 15:36 | NUR ---
ound/Ostomy Care Wound Type/Assessment: Wound care follow up for vac dressing change. Cleansed, pictured and measured wound, and reapplied veraflo wound vac. Left lower leg wound appears much improved over the last 2 days with Veraflo. Wound bed has some amount of red granulation tissue along the edges and wound base, bone still palpable, tendon and muscle exposed, overall, the wound is improved since debridement. Treatment Recommendations/Plan: Veraflo black foam, -125 mmHg, 10 ml NS for 5 min every 2 hours. Hydrocolloid to slough and eschar covered satellite wounds. Wound vac applied. Education provided: WC POC, PU prevention Offloading surface/device: float legs on pillow Recommended Referrals/Tests: na Discharge Recommendations for dressings: recommend to leave with [facility], preferrably Veraflo for a few more days, if possible. Patient is still waiting for the next available bed an PP, Wound care will follow up on Sunday07/11/21. bed lowered and call light in reach.
[2021-07-08 19:00] VITALS: BP 162/69
[2021-07-08] MEDS: INSULIN GLARGINE SYRINGE. SQ SCH (22:30)
--- NOTE | 2021-07-08 22:36 | NUR ---
Non administered 2100 Silvadene d/t wound is covered with wound vac, no order as to where else to apply cream.
[2021-07-09 01:15] VITALS: BP 138/72
[2021-07-09] MEDS: PIPERACILLIN/TAZOBACTAM 3.375 GM in IV NORMAL SALINE 50ML 50 ML IV SCH ×3 (05:16→17:23)
[2021-07-09 07:00] VITALS: BP 139/54
--- NOTE | 2021-07-09 08:55 | PDOC ---
Infectious Disease Note Subjective: Subjective Patient without complaints Vital Signs: Vital Signs Vital Signs Date Time Temp Pulse Resp B/P (MAP) Pulse Ox O2 Delivery O2 Flow Rate FiO2 07/09/21 03:00 07/09/21 01:15 98.5 64 18 96 Room Air 98.5 Physical Exam: PHYSICAL EXAM GENERAL: AXOX3 male lying in bed comfortably, in no acute distress. HEENT: Normocephalic, atraumatic. Anicteric. NECK: Supple. No JVD. LUNGS: Clear bilaterally. No wheezing. HEART: S1, S2. No gallops or murmurs. ABDOMEN: Soft, nontender, nondistended. No rebound or guarding. EXTREMITIES: Left leg wound in place, dry taken down, deep wounds have clean base with tendon exposure No gross purulence or surrounding erythema noted,mild necrotic dorsal wound no purulent drainage MUSCULOSKELETAL: No joint swelling. No decrease in range of motion. CENTRAL NERVOUS SYSTEM: Alert, oriented x 3, grossly nonfocal. PSYCHIATRIC: Cooperative, calm. PICC line clean Medications: Inpatient Meds: Medications reviewed. Labs: Lab Laboratory Tests Test 07/08/21 11:46 07/08/21 16:46 07/08/21 21:45 07/09/21 07:34 Glucose (Fingerstick) 89 mg/dL (70-99) 208 mg/dL (70-99) 295 mg/dL (70-99) 263 mg/dL (70-99) Micro RUN DATE: 07/06/21 [facility] *LIVE* PAGE 1 RUN TIME: 0850 Specimen Inquiry PATIENT: ESPERANZA MARINELLI ACCT: [id number] LOC: [address] [place] [address] U: [id number] AGE/SX: 80/M ROOM: 2 RE06/29/[address]: KESHA TAYLOR MD : 1940 BED: 1 DIS: STATUS: ADM IN TLOC: -------- ---- SPEC #: [id number] CONNIE: 07/02/21 STATUS: RES REQ #: [id number] RECD: 07/03/[address]: KESHA TAYLOR MD SOURCE: ABSCESS ENTR: 07/03/[address]: CHARLIE LEVI MD SPDESC: KYLER CRUZ MD, RAVEN C MD ORDERED: ANAER/AEROB/ASHOK COMMENTS: LEFT LEG ULCER/ABSCESS SWAB Procedure Result -- GRAM STAIN Final Final GRAM POSITIVE COCCI:RARE SQUAMOUS EPI CELL:RARE PMN (WBCs):FEW Unless otherwise specified, Testing Performed by: [facility] [address] [place] [address] For Inquires, the Physician may contact the Microbiology department at [phone] ANAEROBIC-AEROBIC CULTURE Preliminary Preliminary MIXED AEROBIC BRE INCLUDING; FEW [STAPHYLOCOCCUS AUREUS] on 07/04/21 at 0901 FEW [ENTEROCOCCUS FAECALIS] on 07/04/21 at 1038 FEW [BETA STREP GROUP B] on 07/04/21 at 1038 RARE [EFE TROPICALIS] on 07/05/21 at 1000 STAPHYLOCOCCUS AUREUS ENTEROCOCCUS FAECALIS EFE TROPICALIS BETA STREP GROUP B ANTIMICROBIAL SUSCEPTIBILITY Preliminary Comment Comment POS LYNN TYPE 38 STAPHYLOCOCCUS AUREUS ANTIBIOTIC RESULT INTERPRETATION AZITHROMYCIN >4 R CLINDAMYCIN <=0.25 R* CEFOXITIN SCREEN <=4 NEG CIPROFLOXACIN >2 R CEFTAROLINE <=0.5 S DAPTOMYCIN 1 S ERYTHROMYCIN >4 R GENTAMICIN <=4 S RUN DATE: 07/06/21 [facility] *LIVE* PAGE 2 RUN TIME: 0850 Specimen Inquiry SPEC: [id number] PATIENT: MARINELLI,ESPERANZA Landen [id number] (Continued) Procedure Result CONTINUED ON NEXT PAGE RUN DATE: 07/06/21 [facility] *LIVE* PAGE 3 RUN TIME: 0850 Specimen Inquiry SPEC: [id number] PATIENT: ESPERANZA MARINELLI Landen [id number] (Continued) ---- -------- Procedure Result ANTIMICROBIAL SUSCEPTIBILITY Preliminary (continued) INDUCIBLE CLINDAMYCIN >4/0.5 POS LINEZOLID 2 S LEVOFLOXACIN <=1 S OXACILLIN 0.5 S PENICILLIN >2 Girma RIFAMPIN <=1 S TRIMETHOPRIM/SULFAMETHOXAZOLE <=0.5/9.5 S TETRACYCLINE <=4 S VANCOMYCIN 1 S Streptomycin Synergy Screen S Gentamicin Synergy Screen S POS LYNN TYPE 38 ENTEROCOCCUS FAECALIS ANTIBIOTIC RESULT INTERPRETATION AMPICILLIN <=2 S DAPTOMYCIN 1 S LINEZOLID 2 S PENICILLIN 2 S VANCOMYCIN 1 S Unless otherwise specified, Testing Performed by: [address] [address] For Inquires, the Physician may contact the Microbiology department at [phone] Objective: Assessment: Left lower extremity abscess Sept 24 S/P Excisional debridement of left leg wound including skin and subcutaneous tissue and Wound VAC placement to the left leg. Polymicrobial organisms Left lower extremity cellulitis improved Peripheral vascular disease with history of angioplasty Diabetes mellitus with peripheral neuropathy CHERYLE on CKD Tobacco dependence History of noncompliance History of previous toe amputation Plan: Plan of Care Continue daptomycin andMicafungin and Zosyn Transition to IV antibiotics on discharge invanz, dapto and micafungin for discharge, first dose of Invanz here before discharge OR Ceftaroline and micafungin Cannot use fluconazole due to ddI with clopidogrel per discussion with pharmacy Prescription in chart PICC online content coordinator Wound care as directed Case management assisting with discharge antibiotics Discussed with Dr. Taylor about antibiotic management as placement is an issue per case management Discussed with RN, OMAR CRUZ MD Jul 09, 2021 08:55
[2021-07-09] MEDS: GABAPENTIN 300 MG CAPSULE. PO SCH ×2 (09:15→21:54)
[2021-07-09] MEDS: ASPIRIN CHEWABLE 81 MG TABLET. PO SCH ×2 (09:15→21:54)
[2021-07-09] MEDS: LACTOBACILLUS RHAMNOSUS GG 1 CAPSULE. PO SCH ×2 (09:15→21:54)
[2021-07-09] MEDS: hydroCHLOROthiazide 12.5 MG CAPSULE PO SCH (09:16)
[2021-07-09] MEDS: CLOPIDOGREL BISULFATE 75 MG TABLET PO SCH (09:16)
[2021-07-09] MEDS: LISINOPRIL 20 MG TABLET PO SCH ×2 (09:17→21:00)
[2021-07-09] MEDS: MICAFUNGIN 100 MG in IV DEXTROSE 5% 100ML 100 ML IV SCH (09:18)
[2021-07-09] MEDS: silver sulfADIAZINE 1% CREAM 25GM TUBE. TP SCH ×2 (09:19→21:00)
[2021-07-09] MEDS: IV NORMAL SALINE 1000ML BAG 1,000 ML IV SCH (09:24)
[2021-07-09] MEDS: HEPARIN for SUB-Q USE 5,000 UNIT/ML VIAL. SQ SCH ×2 (09:36→21:57)
[2021-07-09] MEDS: INSULIN LISPRO 300 UNITS/3 ML VIAL. SQ SCH ×6 (09:38→21:00)
--- NOTE | 2021-07-09 10:14 | PDOC ---
IM PROGRESS NOTES- Subjective Subjective No complaints of pain or dyspnea. Has increased frequency of urination and some incontinence. Objective Vitals/I&O Vital Signs Date Time Temp Pulse Resp B/P (MAP) Pulse Ox O2 Delivery O2 Flow Rate FiO2 07/09/21 09:17 71 139/51 07/09/21 07:00 98.4 18 99 98.4 07/09/21 01:15 Room Air I & O 07/08/21 07/08/21 07/09/21 15:00 23:00 07:00 Intake Total 800 ml 300 ml Output Total 600 ml Balance 800 ml 300 ml -600 ml Physical Exam Physical Exam General Appearance - alert and in no distress Chest - decreased breath sounds at bases Heart - S1 and S2 normal Abdomen - soft, non tender Neurological - alert and oriented Musculoskeletal - generalized weakness Extremities - no edema, left leg wound, wound VAC in place Labs Laboratory Tests Test 07/08/21 11:46 07/08/21 16:46 07/08/21 21:45 07/09/21 07:34 Glucose (Fingerstick) 89 mg/dL (70-99) 208 mg/dL (70-99) H 295 mg/dL (70-99) H 263 mg/dL (70-99) H Assessment Assessment Assessment Left lower extremity abscess Left lower extremity cellulitis Left lower extremity non healing chronic wound Peripheral vascular disease with history of angioplasty Diabetes mellitus with peripheral neuropathy CKD Tobacco dependence History of noncompliance History of previous toe amputation Plan: Needs cardiac monitoring. Picc line 07/05/21 s/p Debridement 07/02 . Continue wound VAC Needs PICC line+2 weeks of iv antibiotics Diabetes not controlled. Increase Lantus and Humalog. High blood sugar may be also causing increased frequency of micturition. Order Flomax. Continue daptomycin and Micafungin and Zosyn for 2 weeks. Transition to invanz, dapto and micafungin for discharge, first dose of Invanz here before discharge Plan Plan Continue Zosyn Change vancomycin to daptomycin Vascular consulted, will need I&D Continue local wound care as directed Monitor labs and cultures Continue supportive care Thank you Dr. John for consulting infectious disease participate in this patient's care. We will follow along with you. Discussed with nursing staff Justifications for Admission Other Justification Nutrition Consultation Dietary Evaluation: Recommendations by RD: Dietary education by RD, Increase Calorie Intake, Protein supplementation Comments: mech soft, ADA/Cardiac DBL meats , no jones strawberry Glucerna tid debora bid REC mvi and vit c per wound protocal Expected Outcomes/Goals: to meet >75% est nutrition needs- goal ongoing Malnutrition Findings: Body Fat Depletion (Non Severe: Mod to Severe Weight Status: Underweight BAN SHEIKH MD Jul 09, 2021 10:14
[2021-07-09 10:50] VITALS: BP 182/81
[2021-07-09] MEDS: TAMSULOSIN 0.4 MG CAP.ER.24H. PO SCH (12:57)
[2021-07-09] MEDS: DAPTOmycin (GENERIC) IVPB 330 MG in IV NORMAL SALINE 50ML 50 ML IV SCH (13:40)
[2021-07-09] MEDS: FLUTICASONE 50MCG/NASAL SPRAY 16GM BOTTLE. NS SCH (13:40)
[2021-07-09 15:00] VITALS: BP 123/55
[2021-07-09 19:00] VITALS: BP 101/59
[2021-07-09] MEDS: INSULIN GLARGINE SYRINGE. SQ SCH (21:58)
[2021-07-09 23:34] VITALS: BP 160/62
[2021-07-10] MEDS: PIPERACILLIN/TAZOBACTAM 3.375 GM in IV NORMAL SALINE 50ML 50 ML IV SCH ×4 (00:26→17:38)
[2021-07-10 03:45] VITALS: BP 150/65
[2021-07-10 06:06] LABS: BASO % 1 % (0-3); EOS # 0.1 x10^3/uL (0.0-0.7); EOS % 1 % (0-3); HEMOGLOBIN 8.7 g/dL (13.0-17.5); LYMPH # 1.5 x10^3/uL (1.0-4.8); LYMPH % 39 % (24-48); MEAN CORPUSCULAR HEMOGLOBIN 26 pg (25-35); MEAN CORPUSCULAR HGB CONC 32 g/dL (31-37); MEAN CORPUSCULAR VOLUME 79 fL (79-100); MONO # 0.4 x10^3/uL (0.0-1.1); MONO % 10 % (0-9); NEUT # 1.8 x10^3/uL (1.8-7.7); NEUT % 49 % (31-73); PLATELET COUNT 335 x10^3/uL (140-400); RED BLOOD COUNT 3.41 x10^6/uL (4.30-5.70); WHITE BLOOD COUNT 3.8 x10^3/uL (4.0-11.0)
[2021-07-10 06:22] LABS: ALBUMIN/GLOBULIN RATIO 0.4 (1.0-1.7); CALCIUM 9.3 mg/dL (8.5-10.1); CREATININE 1.4 mg/dL (0.7-1.3); GFR 59.2; TOTAL BILIRUBIN 0.1 mg/dL (0.2-1.0); TOTAL PROTEIN 7.6 g/dL (6.4-8.2)
[2021-07-10 07:00] VITALS: BP 153/76
[2021-07-10] MEDS: silver sulfADIAZINE 1% CREAM 25GM TUBE. TP SCH ×2 (09:00→21:00)
[2021-07-10] MEDS: IV NORMAL SALINE 1000ML BAG 1,000 ML IV SCH (09:15)
--- NOTE | 2021-07-10 09:27 | PDOC ---
Infectious Disease Note Subjective: Subjective Patient resting quietly Vital Signs: Vital Signs Vital Signs Date Time Temp Pulse Resp B/P (MAP) Pulse Ox O2 Delivery O2 Flow Rate FiO2 07/10/21 07:00 97.9 75 16 153/76 (101) 100 97.9 07/10/21 03:45 Room Air Physical Exam: PHYSICAL EXAM GENERAL: AXOX3 male lying in bed comfortably, in no acute distress. HEENT: Normocephalic, atraumatic. Anicteric. NECK: Supple. No JVD. LUNGS: Clear bilaterally. No wheezing. HEART: S1, S2. No gallops or murmurs. ABDOMEN: Soft, nontender, nondistended. No rebound or guarding. EXTREMITIES: Left leg wound in place, dry taken down, deep wounds have clean base with tendon exposure No gross purulence or surrounding erythema noted,mild necrotic dorsal wound no purulent drainage MUSCULOSKELETAL: No joint swelling. No decrease in range of motion. CENTRAL NERVOUS SYSTEM: Alert, oriented x 3, grossly nonfocal. PSYCHIATRIC: Cooperative, calm. PICC line clean Medications: Inpatient Meds: Medications reviewed. Labs: Lab Laboratory Tests Test 07/09/21 11:25 07/09/21 16:43 07/09/21 19:25 07/10/21 05:45 Glucose (Fingerstick) 188 mg/dL (70-99) 185 mg/dL (70-99) 166 mg/dL (70-99) White Blood Count 3.8 x10^3/uL (4.0-11.0) Red Blood Count 3.41 x10^6/uL (4.30-5.70) Hemoglobin 8.7 g/dL (13.0-17.5) Hematocrit 27.0 % (39.0-53.0) Mean Corpuscular Volume 79 fL (79-100) Mean Corpuscular Hemoglobin 26 pg (25-35) Mean Corpuscular Hemoglobin Concent 32 g/dL (31-37) Red Cell Distribution Width 15.0 % (11.5-14.5) Platelet Count 335 x10^3/uL (140-400) Neutrophils (%) (Auto) 49 % (31-73) Lymphocytes (%) (Auto) 39 % (24-48) Monocytes (%) (Auto) 10 % (0-9) Eosinophils (%) (Auto) 1 % (0-3) Basophils (%) (Auto) 1 % (0-3) Neutrophils # (Auto) 1.8 x10^3/uL (1.8-7.7) Lymphocytes # (Auto) 1.5 x10^3/uL (1.0-4.8) Monocytes # (Auto) 0.4 x10^3/uL (0.0-1.1) Eosinophils # (Auto) 0.1 x10^3/uL (0.0-0.7) Basophils # (Auto) 0.0 x10^3/uL (0.0-0.2) Sodium Level 136 mmol/L (136-145) Potassium Level 4.0 mmol/L (3.5-5.1) Chloride Level 102 mmol/L (98-107) Carbon Dioxide Level 25 mmol/L (21-32) Anion Gap 9 (6-14) Blood Urea Nitrogen 16 mg/dL (8-26) Creatinine 1.4 mg/dL (0.7-1.3) Estimated GFR (Cockcroft-Gault) 59.2 BUN/Creatinine Ratio 11 (6-20) Glucose Level 154 mg/dL (70-99) Calcium Level 9.3 mg/dL (8.5-10.1) Total Bilirubin 0.1 mg/dL (0.2-1.0) Aspartate Amino Transf (AST/SGOT) 17 U/L (15-37) Alanine Aminotransferase (ALT/SGPT) 16 U/L (16-63) Alkaline Phosphatase 59 U/L (46-116) Total Protein 7.6 g/dL (6.4-8.2) Albumin 2.0 g/dL (3.4-5.0) Albumin/Globulin Ratio 0.4 (1.0-1.7) Micro RUN DATE: 07/06/21 [facility] LAB *LIVE* PAGE 1 RUN TIME: 0850 Specimen Inquiry PATIENT: ESPERANZA MARINELLI ACCT: [id number] LOC: [address] [place] [address] U: [id number] AGE/SX: 80/M ROOM: [facility] RE06/29/[address]: KESHA TAYLOR MD : 1940 BED: 1 DIS: STATUS: ADM IN TLOC: SPEC #: [id number] CONNIE: 07/02/21 STATUS: RES REQ #: [id number] RECD: 07/03/[address]: KESHA TAYLOR MD SOURCE: ABSCESS ENTR: 07/03/[address]: CHARLIE LEVI MD SPDESC: KYLER CRUZ MD, RAVEN C MD ORDERED: ANAER/JOBY/ASHOK COMMENTS: LEFT LEG ULCER/ABSCESS SWAB Procedure Result GRAM STAIN Final Final GRAM POSITIVE COCCI:RARE SQUAMOUS EPI CELL:RARE PMN (WBCs):FEW Unless otherwise specified, Testing Performed by: [facility] [address] [place] [address] For Inquires, the Physician may contact the Microbiology department at [phone] ANAEROBIC-AEROBIC CULTURE Preliminary Preliminary MIXED AEROBIC BRE INCLUDING; FEW [STAPHYLOCOCCUS AUREUS] on 07/04/21 at 0901 FEW [ENTEROCOCCUS FAECALIS] on 07/04/21 at 1038 FEW [BETA STREP GROUP B] on 07/04/21 at 1038 RARE [EFE TROPICALIS] on 07/05/21 at 1000 STAPHYLOCOCCUS AUREUS ENTEROCOCCUS FAECALIS EFE TROPICALIS BETA STREP GROUP B ANTIMICROBIAL SUSCEPTIBILITY Preliminary Comment Comment POS LYNN TYPE 38 STAPHYLOCOCCUS AUREUS ANTIBIOTIC RESULT INTERPRETATION AZITHROMYCIN >4 R CLINDAMYCIN <=0.25 R* CEFOXITIN SCREEN <=4 NEG CIPROFLOXACIN >2 R CEFTAROLINE <=0.5 S DAPTOMYCIN 1 S ERYTHROMYCIN >4 R GENTAMICIN <=4 S ----- ------- RUN DATE: 07/06/21 [facility] *LIVE* PAGE 2 RUN TIME: 0850 Specimen Inquiry SPEC: [id number] PATIENT: MARINELLIESPERANZA Schuster [id number] (Continued) Procedure Result CONTINUED ON NEXT PAGE RUN DATE: 07/06/21 [facility] *LIVE* PAGE 3 RUN TIME: 0850 Specimen Inquiry ------ ------ SPEC: [id number] PATIENT: ESPERANZA MARINELLI [id number] (Continued) Procedure Result ANTIMICROBIAL SUSCEPTIBILITY Preliminary (continued) INDUCIBLE CLINDAMYCIN >4/0.5 POS LINEZOLID 2 S LEVOFLOXACIN <=1 S OXACILLIN 0.5 S PENICILLIN >2 Girma RIFAMPIN <=1 S TRIMETHOPRIM/SULFAMETHOXAZOLE <=0.5/9.5 S TETRACYCLINE <=4 S VANCOMYCIN 1 S Streptomycin Synergy Screen S Gentamicin Synergy Screen S POS LYNN TYPE 38 ENTEROCOCCUS FAECALIS ANTIBIOTIC RESULT INTERPRETATION AMPICILLIN <=2 S DAPTOMYCIN 1 S LINEZOLID 2 S PENICILLIN 2 S VANCOMYCIN 1 S Unless otherwise specified, Testing Performed by: [address] [address] For Inquires, the Physician may contact the Microbiology department at [phone] Objective: Assessment: Left lower extremity abscess Sept 24 S/P Excisional debridement of left leg wound including skin and subcutaneous tissue and Wound VAC placement to the left leg. Polymicrobial organisms Left lower extremity cellulitis improved Peripheral vascular disease with history of angioplasty Diabetes mellitus with peripheral neuropathy CHERYLE on CKD Tobacco dependence History of noncompliance History of previous toe amputation Plan: Plan of Care Continue daptomycin andMicafungin and Zosyn Transition to IV antibiotics on discharge invanz, dapto and micafungin for discharge, first dose of Invanz here before d ischarge OR Ceftaroline and micafungin Cannot use fluconazole due to ddI with clopidogrel per discussion with pharmacy Prescription in chart PICC online marketing coordinator Wound care as directed Case management assisting with discharge antibiotics Discussed with Dr. Taylor about antibiotic management as placement is an issue per case management Discussed with RN, OMAR CRUZ MD Jul 10, 2021 09:27
[2021-07-10] MEDS: GABAPENTIN 300 MG CAPSULE. PO SCH ×2 (09:40→21:44)
[2021-07-10] MEDS: CLOPIDOGREL BISULFATE 75 MG TABLET PO SCH (09:40)
[2021-07-10] MEDS: TAMSULOSIN 0.4 MG CAP.ER.24H. PO SCH (09:40)
[2021-07-10] MEDS: LACTOBACILLUS RHAMNOSUS GG 1 CAPSULE. PO SCH ×2 (09:40→21:44)
[2021-07-10] MEDS: LISINOPRIL 20 MG TABLET PO SCH ×2 (09:41→21:44)
[2021-07-10] MEDS: hydroCHLOROthiazide 12.5 MG CAPSULE PO SCH (09:41)
[2021-07-10] MEDS: ASPIRIN CHEWABLE 81 MG TABLET. PO SCH ×2 (09:41→21:44)
[2021-07-10] MEDS: FLUTICASONE 50MCG/NASAL SPRAY 16GM BOTTLE. NS SCH (09:42)
[2021-07-10] MEDS: MICAFUNGIN 100 MG in IV DEXTROSE 5% 100ML 100 ML IV SCH (09:50)
[2021-07-10] MEDS: HEPARIN for SUB-Q USE 5,000 UNIT/ML VIAL. SQ SCH ×2 (09:51→21:40)
[2021-07-10] MEDS: INSULIN LISPRO 300 UNITS/3 ML VIAL. SQ SCH ×6 (09:52→21:00)
[2021-07-10 11:00] VITALS: BP 114/65
--- NOTE | 2021-07-10 11:46 | PDOC ---
PROGRESS NOTES Date of Service: DATE: 07/10/21 TIME: 11:44 Subjective Subjective feels good ,no problems Objective Objective Vital Signs Date Time Temp Pulse Resp B/P (MAP) Pulse Ox O2 Delivery O2 Flow Rate FiO2 07/10/21 09:41 75 153/76 07/10/21 07:00 97.9 16 100 97.9 07/10/21 03:45 Room Air Intake and Output 07/10/21 07:00 Intake Total 310 ml Output Total 300 ml Balance 10 ml Intake Oral 210 ml IV Total 100 ml Output Urine Total 300 ml # Voids 1 Physical Exam Abdomen: Soft, No tenderness Heart: Regular rate Extremities: Other (Wound VAC in place on the left lower leg with Aquacel Ag to the more superficial wounds proximal and distal to the deep wound.) General: Alert, Oriented X3 HEENT: Atraumatic Lungs: Normal air movement MUSCULOSKELETAL: No deformity, No swelling, Abnormal exam of left, Other Neck: No JVD Neuro: Normal speech Psych/Mental Status: Mental status NL Skin: Other (s/p debridement ,wound vac present now) COMMENT wound vac Assessment Assessment Assessment Left lower extremity abscess Left lower extremity cellulitis Left lower extremity non healing chronic wound Peripheral vascular disease with history of angioplasty Diabetes mellitus with peripheral neuropathy CKD Tobacco dependence History of noncompliance History of previous toe amputation Plan: LTAC screen. labs noted cr 1.4 Needs cardiac monitoring. Picc line 07/05/21 s/p Debridement 07/02 . Continue wound VAC Needs PICC line+2 weeks of iv antibiotics Diabetes not controlled. Increase Lantus and Humalog. High blood sugar may be also causing increased frequency of micturition. Order Flomax. Transition to invanz, dapto and micafungin for discharge, Comment Review of Relevant I have reviewed the following items jorge (where applicable) has been applied. Labs Laboratory Tests Test 07/09/21 16:43 07/09/21 19:25 07/10/21 05:45 Glucose (Fingerstick) 185 mg/dL (70-99) 166 mg/dL (70-99) White Blood Count 3.8 x10^3/uL (4.0-11.0) Red Blood Count 3.41 x10^6/uL (4.30-5.70) Hemoglobin 8.7 g/dL (13.0-17.5) Hematocrit 27.0 % (39.0-53.0) Mean Corpuscular Volume 79 fL (79-100) Mean Corpuscular Hemoglobin 26 pg (25-35) Mean Corpuscular Hemoglobin Concent 32 g/dL (31-37) Red Cell Distribution Width 15.0 % (11.5-14.5) Platelet Count 335 x10^3/uL (140-400) Neutrophils (%) (Auto) 49 % (31-73) Lymphocytes (%) (Auto) 39 % (24-48) Monocytes (%) (Auto) 10 % (0-9) Eosinophils (%) (Auto) 1 % (0-3) Basophils (%) (Auto) 1 % (0-3) Neutrophils # (Auto) 1.8 x10^3/uL (1.8-7.7) Lymphocytes # (Auto) 1.5 x10^3/uL (1.0-4.8) Monocytes # (Auto) 0.4 x10^3/uL (0.0-1.1) Eosinophils # (Auto) 0.1 x10^3/uL (0.0-0.7) Basophils # (Auto) 0.0 x10^3/uL (0.0-0.2) Sodium Level 136 mmol/L (136-145) Potassium Level 4.0 mmol/L (3.5-5.1) Chloride Level 102 mmol/L (98-107) Carbon Dioxide Level 25 mmol/L (21-32) Anion Gap 9 (6-14) Blood Urea Nitrogen 16 mg/dL (8-26) Creatinine 1.4 mg/dL (0.7-1.3) Estimated GFR (Cockcroft-Gault) 59.2 BUN/Creatinine Ratio 11 (6-20) Glucose Level 154 mg/dL (70-99) Calcium Level 9.3 mg/dL (8.5-10.1) Total Bilirubin 0.1 mg/dL (0.2-1.0) Aspartate Amino Transf (AST/SGOT) 17 U/L (15-37) Alanine Aminotransferase (ALT/SGPT) 16 U/L (16-63) Alkaline Phosphatase 59 U/L (46-116) Total Protein 7.6 g/dL (6.4-8.2) Albumin 2.0 g/dL (3.4-5.0) Albumin/Globulin Ratio 0.4 (1.0-1.7) Microbiology 07/02/21 Gram Stain - Final, Complete 07/02/21 Aerobic and Anaerobic Culture - Final, Complete 07/02/21 Antimicrobic Susceptibility - Final, Complete 06/29/21 Blood Culture - Final, Complete NO GROWTH AFTER 5 DAYS Medications Current Medications Fluticasone Propionate (Flonase) 2 spray DAILY NS Last administered on 07/10/21at 09:42; Start 07/09/21 at 14:00 Insulin Glargine (Lantus Syringe) 10 unit QHS SQ Last administered on 07/09/21at 21:58; Start 07/09/21 at 21:00 Tamsulosin HCl (Flomax) 0.4 mg DAILY PO Last administered on 07/10/21at 09:40; Start 07/09/21 at 12:00 Vitals/I & O Vital Sign - Last 24 Hours 07/09/21 07/09/21 07/09/21 07/09/21 15:00 19:00 20:22 23:34 Temp 98.1 98.5 97.7 98.1 98.5 97.7 Pulse 66 70 78 Resp 16 18 16 B/P (MAP) 123/55 (77) 101/59 (73) 160/62 (94) Pulse Ox 99 100 98 O2 Delivery Room Air Room Air Room Air 07/10/21 07/10/21 07/10/21 07/10/21 03:45 07:00 09:40 09:41 Temp 97.9 97.9 97.9 97.9 Pulse 64 75 75 75 Resp 16 16 B/P (MAP) 150/65 (93) 153/76 (101) 153/76 153/76 Pulse Ox 96 100 O2 Delivery Room Air Intake and Output0 07/09/21 07/09/21 07/10/21 15:00 23:00 07:00 Intake Total 60 ml 250 ml Output Total 300 ml Balance -240 ml 250 ml Justifications for Admission Other Justification Nutrition Consultation Dietary Evaluation: Recommendations by RD: Dietary education by RD, Increase Calorie Intake, Protein supplementation Comments: mech soft, ADA/Cardiac DBL meats , no jones strawberry Glucerna tid debora bid REC mvi and vit c per wound protocal Expected Outcomes/Goals: to meet >75% est nutrition needs- goal ongoing Malnutrition Findings: Body Fat Depletion (Non Severe: Mod to Severe Weight Status: Underweight KESHA TAYLOR MD Jul 10, 2021 11:46
[2021-07-10] MEDS: DAPTOmycin (GENERIC) IVPB 330 MG in IV NORMAL SALINE 50ML 50 ML IV SCH (13:53)
[2021-07-10 15:00] VITALS: BP 103/67
[2021-07-10 19:00] VITALS: BP 141/57
[2021-07-10] MEDS: INSULIN GLARGINE SYRINGE. SQ SCH (21:41)
[2021-07-10 22:48] VITALS: BP 138/59
[2021-07-11] MEDS: PIPERACILLIN/TAZOBACTAM 3.375 GM in IV NORMAL SALINE 50ML 50 ML IV SCH ×4 (00:07→17:28)
[2021-07-11 02:48] VITALS: BP 114/77
[2021-07-11 07:00] VITALS: BP 131/65
--- NOTE | 2021-07-11 09:16 | PDOC ---
PROGRESS NOTES Date of Service: DATE: 07/11/21 TIME: 09:13 Subjective Subjective c/o lt shoulder pain ,old clavicular injury. Objective Objective Vital Signs Date Time Temp Pulse Resp B/P (MAP) Pulse Ox O2 Delivery O2 Flow Rate FiO2 07/11/21 07:00 99.0 71 18 131/65 (87) 100 Room Air 99.0 Intake and Output 07/11/21 07:00 Intake Total 100 ml Output Total 300 ml Balance -200 ml IV Total 100 ml Output Urine Total 300 ml Physical Exam Abdomen: Soft, No tenderness Heart: Regular rate Extremities: Other (Wound VAC in place on the left lower leg with Aquacel Ag to the more superficial wounds proximal and distal to the deep wound.) General: Alert, Oriented X3 HEENT: Atraumatic Lungs: Normal air movement MUSCULOSKELETAL: No deformity, No swelling, Abnormal exam of left, Other (lt shoulder joint tenderness AC joint) Neck: No JVD Neuro: Normal speech Psych/Mental Status: Mental status NL Skin: Other (s/p debridement ,wound vac present now) COMMENT wound vac Assessment Assessment Assessment Left lower extremity abscess Left lower extremity cellulitis Left lower extremity non healing chronic wound Peripheral vascular disease with history of angioplasty Diabetes mellitus with peripheral neuropathy CKD Tobacco dependence History of noncompliance History of previous toe amputation Plan: Xray left shoulder. spoke with piter boss. LTAC screen,needing heart monitored . labs noted cr 1.4 Needs cardiac monitoring. Picc line 07/05/21 s/p Debridement 07/02 . Continue wound VAC Needs PICC line+2 weeks of iv antibiotics Diabetes not controlled. Increase Lantus and Humalog. High blood sugar may be also causing increased frequency of micturition. Order Flomax. On zosyn, dapto and micafungin for discharge, Comment Review of Relevant I have reviewed the following items jorge (where applicable) has been applied. Labs Laboratory Tests Test 07/10/21 12:26 07/10/21 17:05 07/10/21 19:05 Glucose (Fingerstick) 190 mg/dL (70-99) 177 mg/dL (70-99) 165 mg/dL (70-99) Microbiology 07/02/21 Gram Stain - Final, Complete 07/02/21 Aerobic and Anaerobic Culture - Final, Complete 07/02/21 Antimicrobic Susceptibility - Final, Complete 06/29/21 Blood Culture - Final, Complete NO GROWTH AFTER 5 DAYS Vitals/I & O Vital Sign - Last 24 Hours 07/10/21 07/10/21 07/10/21 07/10/21 09:40 09:41 11:00 15:00 Temp 98.4 98.6 98.4 98.6 Pulse 75 75 73 69 Resp 18 18 B/P (MAP) 153/76 153/76 114/65 (81) 103/67 (79) Pulse Ox 94 97 07/10/21 07/10/21 07/10/21 07/10/21 19:00 20:05 21:44 22:48 Temp 97.9 97.8 97.9 97.8 Pulse 76 76 77 Resp 18 18 B/P (MAP) 141/57 (85) 141/57 138/59 (85) Pulse Ox 100 100 O2 Delivery Room Air Room Air Room Air 07/11/21 07/11/21 02:48 07:00 Temp 97.8 99.0 97.8 99.0 Pulse 83 71 Resp 17 18 B/P (MAP) 114/77 (89) 131/65 (87) Pulse Ox 99 100 O2 Delivery Room Air Room Air Intake and Output 07/10/21 07/10/21 07/11/21 15:00 23:00 07:00 Intake Total 100 ml Output Total 300 ml Balance -200 ml Justifications for Admission Other Justification Nutrition Consultation Dietary Evaluation: Recommendations by RD: Dietary education by RD, Increase Calorie Intake, Protein supplementation Comments: mech soft, ADA/Cardiac DBL meats , no jones strawberry Glucerna tid debora bid REC mvi and vit c per wound protocal Expected Outcomes/Goals: to meet >75% est nutrition needs- goal ongoing Malnutrition Findings: Body Fat Depletion (Non Severe: Mod to Severe Weight Status: Underweight KESHA TAYLOR MD Jul 11, 2021 09:16
[2021-07-11] MEDS: hydroCHLOROthiazide 12.5 MG CAPSULE PO SCH (10:07)
[2021-07-11] MEDS: CLOPIDOGREL BISULFATE 75 MG TABLET PO SCH (10:07)
[2021-07-11] MEDS: LISINOPRIL 20 MG TABLET PO SCH ×2 (10:07→22:12)
[2021-07-11] MEDS: GABAPENTIN 300 MG CAPSULE. PO SCH ×2 (10:07→22:12)
[2021-07-11] MEDS: LACTOBACILLUS RHAMNOSUS GG 1 CAPSULE. PO SCH ×2 (10:07→22:11)
[2021-07-11] MEDS: ASPIRIN CHEWABLE 81 MG TABLET. PO SCH ×2 (10:08→22:11)
[2021-07-11] MEDS: FLUTICASONE 50MCG/NASAL SPRAY 16GM BOTTLE. NS SCH (10:08)
[2021-07-11] MEDS: silver sulfADIAZINE 1% CREAM 25GM TUBE. TP SCH ×3 (10:11→22:11)
[2021-07-11] MEDS: MICAFUNGIN 100 MG in IV DEXTROSE 5% 100ML 100 ML IV SCH (10:14)
[2021-07-11] MEDS: INSULIN LISPRO 300 UNITS/3 ML VIAL. SQ SCH ×6 (10:17→21:00)
[2021-07-11] MEDS: HEPARIN for SUB-Q USE 5,000 UNIT/ML VIAL. SQ SCH ×2 (10:17→22:15)
[2021-07-11] MEDS: TAMSULOSIN 0.4 MG CAP.ER.24H. PO SCH (10:23)
[2021-07-11] MEDS: IV NORMAL SALINE 1000ML BAG 1,000 ML IV SCH (10:23)
--- NOTE | 2021-07-11 10:32 | PDOC ---
Infectious Disease Note Subjective: Subjective Patient without complaints Anxious for discharge today Vital Signs: Vital Signs Vital Signs Date Time Temp Pulse Resp B/P (MAP) Pulse Ox O2 Delivery O2 Flow Rate FiO2 07/11/21 10:07 71 131/65 07/11/21 07:00 99.0 18 100 Room Air 99.0 Physical Exam: PHYSICAL EXAM GENERAL: AXOX3 male lying in bed comfortably, in no acute distress. HEENT: Normocephalic, atraumatic. Anicteric. NECK: Supple. No JVD. LUNGS: Clear bilaterally. No wheezing. HEART: S1, S2. No gallops or murmurs. ABDOMEN: Soft, nontender, nondistended. No rebound or guarding. EXTREMITIES: Left leg wound /VAC in place MUSCULOSKELETAL: No joint swelling. No decrease in range of motion. CENTRAL NERVOUS SYSTEM: Alert, oriented x 3, grossly nonfocal. PSYCHIATRIC: Cooperative, calm. PICC line clean Medications: Inpatient Meds: Medications reviewed. Labs: Lab Laboratory Tests Test 07/10/21 12:26 07/10/21 17:05 07/10/21 19:05 Glucose (Fingerstick) 190 mg/dL (70-99) 177 mg/dL (70-99) 165 mg/dL (70-99) Micro RUN DATE: 07/06/21 [facility] *LIVE* PAGE 1 RUN TIME: 0850 Specimen Inquiry PATIENT: MARINELLI,ESPERANZA W ACCT: [id number] LOC: [address] [place] [address] U: [id number] AGE/SX: 80/M ROOM: 2 RE06/29/[address]: KESHA TAYLOR MD : 1940 BED: 1 DIS: STATUS: ADM IN TLOC: SPEC #: [id number] CONNIE: 07/02/21 STATUS: RES REQ #: [id number] RECD: 07/03/[address]: KESHA TAYLOR MD SOURCE: ABSCESS ENTR: 07/03/[address]: CHARLIE LEVI MD SPDESC: KYLER CRUZ MD, RAVEN C MD ORDERED: ANAER/AEROB/GS COMMENTS: LEFT LEG ULCER/ABSCESS SWAB Procedure Result GRAM STAIN Final Final GRAM POSITIVE COCCI:RARE SQUAMOUS EPI CELL:RARE PMN (WBCs):FEW Unless otherwise specified, Testing Performed by: [address] [address] For Inquires, the Physician may contact the Microbiology department at [phone] ANAEROBIC-AEROBIC CULTURE Preliminary Preliminary MIXED AEROBIC BRE INCLUDING; FEW [STAPHYLOCOCCUS AUREUS] on 07/04/21 at 0901 FEW [ENTEROCOCCUS FAECALIS] on 07/04/21 at 1038 FEW [BETA STREP GROUP B] on 07/04/21 at 1038 RARE [EFE TROPICALIS] on 07/05/21 at 1000 STAPHYLOCOCCUS AUREUS ENTEROCOCCUS FAECALIS EFE TROPICALIS BETA STREP GROUP B ANTIMICROBIAL SUSCEPTIBILITY Preliminary Comment Comment POS LYNN TYPE 38 STAPHYLOCOCCUS AUREUS ANTIBIOTIC RESULT INTERPRETATION AZITHROMYCIN >4 R CLINDAMYCIN <=0.25 R* CEFOXITIN SCREEN <=4 NEG CIPROFLOXACIN >2 R CEFTAROLINE <=0.5 S DAPTOMYCIN 1 S ERYTHROMYCIN >4 R GENTAMICIN <=4 S RUN DATE: 07/06/21 [facility] *LIVE* PAGE 2 RUN TIME: 0850 Specimen Inquiry SPEC: [id number] PATIENT: MARINELLIESPERANZA RAO Landen [id number] (Continued) Procedure Result CONTINUED ON NEXT PAGE RUN DATE: 07/06/21 [facility] *LIVE* PAGE 3 RUN TIME: 0850 Specimen Inquiry SPEC: [id number] PATIENT: ESPERANZA MARINELLI Landen [id number] (Continued) Procedure Result ANTIMICROBIAL SUSCEPTIBILITY Preliminary (continued) INDUCIBLE CLINDAMYCIN >4/0.5 POS LINEZOLID 2 S LEVOFLOXACIN <=1 S OXACILLIN 0.5 S PENICILLIN >2 Girma RIFAMPIN <=1 S TRIMETHOPRIM/SULFAMETHOXAZOLE <=0.5/9.5 S TETRACYCLINE <=4 S VANCOMYCIN 1 S Streptomycin Synergy Screen S Gentamicin Synergy Screen S POS LYNN TYPE 38 ENTEROCOCCUS FAECALIS ANTIBIOTIC RESULT INTERPRETATION AMPICILLIN <=2 S DAPTOMYCIN 1 S LINEZOLID 2 S PENICILLIN 2 S VANCOMYCIN 1 S Unless otherwise specified, Testing Performed by: [address] [address] For Inquires, the Physician may contact the Microbiology department at [phone] Objective: Assessment: Left lower extremity abscess Sept 24 S/P Excisional debridement of left leg wound including skin and subcutaneous tissue and Wound VAC placement to the left leg. Polymicrobial organisms Left lower extremity cellulitis improved Peripheral vascular disease with history of angioplasty Diabetes mellitus with peripheral neuropathy CHERYLE on CKD Tobacco dependence History of noncompliance History of previous toe amputation Plan: Plan of Care Continue daptomycin andMicafungin and Zosyn Transition to IV antibiotics on discharge invanz, dapto and micafungin for discharge, first dose of Invanz here before discharge OR Ceftaroline and micafungin Cannot use fluconazole due to ddI with clopidogrel per discussion with pharmacy Prescription in chart PICC line installer trolley Wound care as directed Case management assisting with discharge antibiotics Discussed with Dr. Taylor about antibiotic management as placement is an issue per case management Discussed with RN, OMAR CRUZ MD Jul 11, 2021 10:32
--- NOTE | 2021-07-11 10:35 | RAD ---
EXAM: Left shoulder, 3 views. HISTORY: Pain. COMPARISON: 09/18/2018 FINDINGS: 3 views of the left shoulder obtained. There is chronic deformity of the left humeral head and neck due to a healed fracture. There is mild glenohumeral and acromioclavicular joint spurring. T here is no acute fracture, dislocation or subluxation. There is a left PICC terminating within the ivey perior vena cava. There is a healed second rib fracture. There are degenerative changes involving the cervical spine. IMPRESSION: 1. Healed proximal humeral fracture and suspected healed second rib fracture. 2. Mild glenohumeral and acromioclavicular joint osteoarthritis. Electronically signed by: Kristina Palmer MD (07/11/2021 10:33 AM) [id number]
[2021-07-11 11:00] VITALS: BP 132/69
--- NOTE | 2021-07-11 12:04 | PDOC ---
Provider Note Date of Service: DATE: 07/11/21 TIME: 11:59 Provider Note Provider Note Vascular S: Patient sitting in chair, no complaints. O: Awake and alert VSS, afebrile Left leg veraflo wound vac removed. wound base borders with good granulation tissue, tendon exposed with slough and slough covering majority of central wound bed. There is purulent drainage extracted from distal tendon sheath. He has a few smaller wounds anterior lopez, anterior ankle with slough. Foot warm, pink. Palpable PT and DP pulses. A/P: s/p Left leg wound debridement with wound vac Pt will need to have further debridement, purulent drainage coming from distal tendon sheath. Will work on scheduling. No activity restrictions, discussed with PT. Cont Abx per ID SS for discharge planning Justicifation of Admission Dx: Justifications for Admission: Justification of Admission Dx: Yes ALEKSEY NORTH Jul 11, 2021 12:04
[2021-07-11] MEDS: DAPTOmycin (GENERIC) IVPB 330 MG in IV NORMAL SALINE 50ML 50 ML IV SCH (13:56)
[2021-07-11 15:00] VITALS: BP 103/53
--- NOTE | 2021-07-11 16:08 | NUR ---
Wound Care: I spoke with Radha from [facility] whom stated not to place the wound vac on this patient today, as he would be going to the OR again due to purulent drainage that has formed along the tendon sheath. There is a wet to dry dressing that is clean and dry.This dressing should be change daily if patient does not go to the OR tomorrow as planned. Wound care will follow up on 07/13/21.
[2021-07-11 19:41] VITALS: BP 118/61
[2021-07-11] MEDS: INSULIN GLARGINE SYRINGE. SQ SCH (22:16)
[2021-07-11 23:18] VITALS: BP 130/75
[2021-07-12] VITALS (11 sets, daily range): BP systolic 58–138; BP diastolic 36–71
[2021-07-12] MEDS: PIPERACILLIN/TAZOBACTAM 3.375 GM in IV NORMAL SALINE 50ML 50 ML IV SCH ×5 (00:14→22:58)
[2021-07-12] MEDS ORDERED: PROCHLORPERAZINE 10 MG/2 ML VIAL. IVP PRN (06:00)
[2021-07-12] MEDS ORDERED: HYDROmorphone 2 MG/ML VIAL IVP PRN (06:00)
[2021-07-12] MEDS ORDERED: fentaNYL PF VIAL 100 MCG/2 ML VIAL IVP PRN ×2 (06:00)
[2021-07-12] MEDS ORDERED: IV RINGERS,LACTATED 1000ML 1,000 ML IV SCH (06:00)
[2021-07-12 06:33] LABS: BASO # 0.1 x10^3/uL (0.0-0.2); BASO % 1 % (0-3); EOS % 1 % (0-3); HEMATOCRIT 25.2 % (39.0-53.0); HEMOGLOBIN 8.1 g/dL (13.0-17.5); LYMPH # 1.4 x10^3/uL (1.0-4.8); LYMPH % 37 % (24-48); MEAN CORPUSCULAR HEMOGLOBIN 26 pg (25-35); MEAN CORPUSCULAR HGB CONC 32 g/dL (31-37); MEAN CORPUSCULAR VOLUME 80 fL (79-100); MONO # 0.4 x10^3/uL (0.0-1.1); MONO % 11 % (0-9); NEUT # 1.8 x10^3/uL (1.8-7.7); NEUT % 49 % (31-73); PLATELET COUNT 296 x10^3/uL (140-400); RED BLOOD COUNT 3.17 x10^6/uL (4.30-5.70); RED CELL DISTRIBUTION WIDTH 15.5 % (11.5-14.5); WHITE BLOOD COUNT 3.7 x10^3/uL (4.0-11.0)
[2021-07-12] MEDS ORDERED: PROPOFOL 10 MG/ML (20ML) VIAL. IV ONE (06:56)
[2021-07-12] MEDS ORDERED: LIDOCAINE 2% PF 5 ML VIAL. ONE (06:56)
[2021-07-12] MEDS ORDERED: ONDANSETRON PF 4 MG/2 ML VIAL. ONE (06:56)
[2021-07-12] MEDS ORDERED: fentaNYL PF VIAL 100 MCG/2 ML VIAL ONE (06:57)
[2021-07-12 06:58] LABS: ALBUMIN/GLOBULIN RATIO 0.4 (1.0-1.7); CALCIUM 8.8 mg/dL (8.5-10.1); CREATININE 1.4 mg/dL (0.7-1.3); GFR 59.2; POTASSIUM 4.1 mmol/L (3.5-5.1); TOTAL BILIRUBIN 0.2 mg/dL (0.2-1.0); TOTAL PROTEIN 7.1 g/dL (6.4-8.2)
[2021-07-12] MEDS ORDERED: LIDOCAINE 1% Multi-Dose 20 ML VIAL. ONE (07:00)
[2021-07-12] MEDS: INSULIN LISPRO 100 UNIT/ML 3ML VIAL for OP,RR ONLY. SQ PRN ×2 (07:11→08:38)
[2021-07-12] MEDS: INSULIN LISPRO 300 UNITS/3 ML VIAL. SQ SCH ×6 (07:30→22:50)
--- NOTE | 2021-07-12 08:05 | PDOC ---
BRIEF OPERATIVE NOTE Date: Jul 12, 2021 Pre-Op Diagnosis Left leg necrotic wound Post-Op Diagnosis Same Procedure Performed Debridment left leg to tendon 16x3x0.5cm Vac placement Surgeon Rahul Watts DO, FACS Anesthesia Type: General Blood Loss 30mL Specimens Obtained Wound culture Complications None RAHUL WATTS DO Jul 12, 2021 08:05
[2021-07-12] MEDS ORDERED: MORPHINE SULFATE 2 MG/ML INJ. ONE (08:22)
[2021-07-12] MEDS: MORPHINE SULFATE 2 MG/ML INJ. IVP PRN ×2 (08:24→08:37)
--- NOTE | 2021-07-12 08:27 | PDOC ---
Infectious Disease Note Subjective: Subjective Patient without complaints Underwent surgery this morning Postop pain is under control Denies any fever, chills, nausea, vomiting, diarrhea, abdominal pain Vital Signs: Vital Signs Vital Signs Date Time Temp Pulse Resp B/P (MAP) Pulse Ox O2 Delivery O2 Flow Rate FiO2 07/12/21 08:18 70 16 135/73 100 Simple Mask 8 07/12/21 08:02 97.3 97.3 Physical Exam: PHYSICAL EXAM GENERAL: AXOX3 male lying in bed comfortably, in no acute distress. HEENT: Normocephalic, atraumatic. Anicteric. NECK: Supple. No JVD. LUNGS: Clear bilaterally. No wheezing. HEART: S1, S2. No gallops or murmurs. ABDOMEN: Soft, nontender, nondistended. No rebound or guarding. EXTREMITIES: Left leg wound /VAC in place MUSCULOSKELETAL: No joint swelling. No decrease in range of motion. CENTRAL NERVOUS SYSTEM: Alert, oriented x 3, grossly nonfocal. PSYCHIATRIC: Cooperative, calm. PICC line clean Medications: Inpatient Meds: Medications reviewed. Labs: Lab Laboratory Tests Test 07/11/21 11:23 07/11/21 16:47 07/11/21 20:26 07/12/21 06:15 Glucose (Fingerstick) 230 mg/dL (70-99) 180 mg/dL (70-99) 249 mg/dL (70-99) White Blood Count 3.7 x10^3/uL (4.0-11.0) Red Blood Count 3.17 x10^6/uL (4.30-5.70) Hemoglobin 8.1 g/dL (13.0-17.5) Hematocrit 25.2 % (39.0-53.0) Mean Corpuscular Volume 80 fL (79-100) Mean Corpuscular Hemoglobin 26 pg (25-35) Mean Corpuscular Hemoglobin Concent 32 g/dL (31-37) Red Cell Distribution Width 15.5 % (11.5-14.5) Platelet Count 296 x10^3/uL (140-400) Neutrophils (%) (Auto) 49 % (31-73) Lymphocytes (%) (Auto) 37 % (24-48) Monocytes (%) (Auto) 11 % (0-9) Eosinophils (%) (Auto) 1 % (0-3) Basophils (%) (Auto) 1 % (0-3) Neutrophils # (Auto) 1.8 x10^3/uL (1.8-7.7) Lymphocytes # (Auto) 1.4 x10^3/uL (1.0-4.8) Monocytes # (Auto) 0.4 x10^3/uL (0.0-1.1) Eosinophils # (Auto) 0.0 x10^3/uL (0.0-0.7) Basophils # (Auto) 0.1 x10^3/uL (0.0-0.2) Sodium Level 134 mmol/L (136-145) Potassium Level 4.1 mmol/L (3.5-5.1) Chloride Level 102 mmol/L (98-107) Carbon Dioxide Level 26 mmol/L (21-32) Anion Gap 6 (6-14) Blood Urea Nitrogen 19 mg/dL (8-26) Creatinine 1.4 mg/dL (0.7-1.3) Estimated GFR (Cockcroft-Gault) 59.2 BUN/Creatinine Ratio 14 (6-20) Glucose Level 271 mg/dL (70-99) Calcium Level 8.8 mg/dL (8.5-10.1) Total Bilirubin 0.2 mg/dL (0.2-1.0) Aspartate Amino Transf (AST/SGOT) 13 U/L (15-37) Alanine Aminotransferase (ALT/SGPT) 13 U/L (16-63) Alkaline Phosphatase 55 U/L (46-116) Creatine Kinase 39 U/L (39-308) Total Protein 7.1 g/dL (6.4-8.2) Albumin 2.0 g/dL (3.4-5.0) Albumin/Globulin Ratio 0.4 (1.0-1.7) Test 07/12/21 06:51 07/12/21 08:14 Glucose (Fingerstick) 266 mg/dL (70-99) 225 mg/dL (70-99) Micro RUN DATE: 07/06/21 [facility] *LIVE* PAGE 1 RUN TIME: 0850 Specimen Inquiry PATIENT: ESPERANZA MARINELLI ACCT: [id number] LOC: [address] [place] [address] U: [id number] AGE/SX: 80/M ROOM: [facility] RE06/29/[address]: KESHA TAYLOR MD : 1940 BED: 1 DIS: STATUS: ADM IN TLOC: SPEC #: [id number] CONNIE: 07/02/21 STATUS: RES REQ #: [id number] RECD: 07/03/[address]: KESHA TAYLOR MD SOURCE: ABSCESS ENTR: 07/03/[address] [facility] DR: CHARLIE LEVI MD SPDESC: KYLER CRUZ MD, RAVEN C MD ORDERED: ANAER/AEROB/ASHOK COMMENTS: LEFT LEG ULCER/ABSCESS SWAB Procedure Result GRAM STAIN Final Final GRAM POSITIVE COCCI:RARE SQUAMOUS EPI CELL:RARE PMN (WBCs):FEW Unless otherwise specified, Testing Performed by: [facility] [address] [place] [address] For Inquires, the Physician may contact the Microbiology department at [phone] ANAEROBIC-AEROBIC CULTURE Preliminary Preliminary MIXED AEROBIC BRE INCLUDING; FEW [STAPHYLOCOCCUS AUREUS] on 07/04/21 at 0901 FEW [ENTEROCOCCUS FAECALIS] on 07/04/21 at 1038 FEW [BETA STREP GROUP B] on 07/04/21 at 1038 RARE [EFE TROPICALIS] on 07/05/21 at 1000 STAPHYLOCOCCUS AUREUS ENTEROCOCCUS FAECALIS EFE TROPICALIS BETA STREP GROUP B ANTIMICROBIAL SUSCEPTIBILITY Preliminary Comment Comment POS LYNN TYPE 38 STAPHYLOCOCCUS AUREUS ANTIBIOTIC RESULT INTERPRETATION AZITHROMYCIN >4 R CLINDAMYCIN <=0.25 R* CEFOXITIN SCREEN <=4 NEG CIPROFLOXACIN >2 R CEFTAROLINE <=0.5 S DAPTOMYCIN 1 S ERYTHROMYCIN >4 R GENTAMICIN <=4 S RUN DATE: 07/06/21 [facility] *LIVE* PAGE 2 RUN TIME: 0850 Specimen Inquiry ----- ------- SPEC: [id number] PATIENT: ESPERANZA MARINELLI [id number] (Continued) Procedure Result CONTINUED ON NEXT PAGE RUN DATE: 07/06/21 [facility] *LIVE* PAGE 3 RUN TIME: 0850 Specimen Inquiry SPEC: [id number] PATIENT: ESPERANZA MARINELLI [id number] (Continued) Procedure Result ANTIMICROBIAL SUSCEPTIBILITY Preliminary (continued) INDUCIBLE CLINDAMYCIN >4/0.5 POS LINEZOLID 2 S LEVOFLOXACIN <=1 S OXACILLIN 0.5 S PENICILLIN >2 Girma RIFAMPIN <=1 S TRIMETHOPRIM/SULFAMETHOXAZOLE <=0.5/9.5 S TETRACYCLINE <=4 S VANCOMYCIN 1 S Streptomycin Synergy Screen S Gentamicin Synergy Screen S POS LYNN TYPE 38 ENTEROCOCCUS FAECALIS ANTIBIOTIC RESULT INTERPRETATION AMPICILLIN <=2 S DAPTOMYCIN 1 S LINEZOLID 2 S PENICILLIN 2 S VANCOMYCIN 1 S Unless otherwise specified, Testing Performed by: [address] [address] For Inquires, the Physician may contact the Microbiology department at [phone] Objective: Assessment: Left lower extremity abscess Sept 24 S/P Excisional debridement of left leg wound including skin and subcutaneous tissue and Wound VAC placement to the left leg. Polymicrobial organisms Left lower extremity cellulitis improved Peripheral vascular disease with history of angioplasty Diabetes mellitus with peripheral neuropathy CHERYLE on CKD Tobacco dependence History of noncompliance History of previous toe amputation 07/12 Debridment left leg to tendon for necrotic wound Vac placement Operative cultures STAPHYLOCOCCUS AUREUS ENTEROCOCCUS FAECALIS EFE TROPICALIS BETA STREP GROUP B Plan: Plan of Care Continue daptomycin Micafungin and Zosyn Per wound care as directed Monitor labs and cultures Trend WBC Discussed with RN, OMAR CRUZ MD Jul 12, 2021 08:27
--- NOTE | 2021-07-12 08:32 | OP ---
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 PROCEDURES: 1. Sharp excisional debridement to the level of the tendon for a wound area of 16 x 3 x 0.5 cm. 2. Placement of negative pressure VAC for the same wound dimensions. ANESTHESIA: General. SPECIMENS: None. WOUND CULTURE: Sent for culture from the wound area. ESTIMATED BLOOD LOSS: Minimal. COMPLICATIONS: None. PREOPERATIVE INDICATIONS: The patient is a pleasant 80-year-old male who has nonhealing of his left dorsal foot wound at the level of the ankle with exposed tendon. The patient had continued purulent drainage from this wound and we elected to take him back to the operating room for debridement. He was agreeable with this plan and understood all risks, benefits, and alternatives. OPERATIVE PROCEDURE: The patient was brought to the operating suite, placed in supine position. After establishing appropriate anesthesia, the patient's left leg was prepped and draped in sterile fashion. Next, a time-out procedure was performed. It was confirmed that the patient is on appropriate perioperative antibiotics. We confirmed that the correct operative site was marked and draped. Following this, using a #10 blade scalpel, I incised all nonviable tissue down to healthy bleeding tissue. There was tracking and undermining from the dorsal foot wound, which had a necrotic eschar up to the level of the exposed tendon at the ankle. All of this was undermined and there was no incorporated tissue at this location. I decided to excise the skin bridge between these 2 wounds and make it 1 wound. There was purulent material located in this area and I sent this for a wound culture. The wound was cleaned using a #10 blade scalpel down to healthy tissue and he had excellent bleeding through the peripheral skin and tissue. This did create more tendon exposure from the dorsal foot up to the level of the ankle. Next, hemostasis was confirmed using Bovie electrocautery. Following this, the wound was copiously irrigated. The wound dimensions, after I had completely debrided the wound, measured 16 x 3 x 0.5 cm. Next, a negative pressure VAC was placed. The patient tolerated the procedure well and was transferred to the postanesthesia care unit in stable condition. AT/OCT DR: Layla TID: [id number]
[2021-07-12] MEDS: silver sulfADIAZINE 1% CREAM 25GM TUBE. TP SCH ×2 (09:00→22:51)
[2021-07-12] MEDS: FLUTICASONE 50MCG/NASAL SPRAY 16GM BOTTLE. NS SCH (09:00)
--- NOTE | 2021-07-12 09:20 | PDOC ---
PROGRESS NOTES Date of Service: DATE: 07/12/21 TIME: 09:18 Subjective Subjective return from surgery Objective Objective Vital Signs Date Time Temp Pulse Resp B/P (MAP) Pulse Ox O2 Delivery O2 Flow Rate FiO2 07/12/21 08:49 97.3 70 122/63 100 Room Air 97.3 07/12/21 08:37 8.0 07/12/21 08:24 16 Intake and Output 07/12/21 07:00 Intake Total 990 ml Output Total 1000 ml Balance -10 ml Intake Oral 440 ml IV Total 550 ml Output Urine Total 1000 ml Physical Exam Abdomen: Soft, No tenderness Heart: Regular rate Extremities: Other (Wound VAC in place on the left lower leg with Aquacel Ag to the more superficial wounds proximal and distal to the deep wound.) General: Alert, Oriented X3 HEENT: Atraumatic Lungs: Normal air movement MUSCULOSKELETAL: No deformity, No swelling, Abnormal exam of left, Other (lt shoulder joint tenderness AC joint) Neck: No JVD Neuro: Normal speech Psych/Mental Status: Mental status NL Skin: Other (s/p debridement ,wound vac present now) COMMENT wound vac Assessment Assessment Assessment Left lower extremity abscess Left lower extremity cellulitis Left lower extremity non healing chronic wound Peripheral vascular disease with history of angioplasty Diabetes mellitus with peripheral neuropathy CKD Tobacco dependence History of noncompliance History of previous toe amputation Plan:Debridment of wound today Xray left shoulder old healed fracture. spoke with piter boss. LTAC screen,needing heart monitored . labs noted cr 1.4 Needs cardiac monitoring. Picc line 07/05/21 s/p Debridement 07/02 . Continue wound VAC Needs PICC line+2 weeks of iv antibiotics Diabetes not controlled. Increase Lantus and Humalog. High blood sugar may be also causing increased frequency of micturition. Order Flomax. On zosyn, dapto and micafungin for discharge, Comment Review of Relevant I have reviewed the following items jorge (where applicable) has been applied. Labs Laboratory Tests Test 07/11/21 11:23 07/11/21 16:47 07/11/21 20:26 07/12/21 06:15 Glucose (Fingerstick) 230 mg/dL (70-99) 180 mg/dL (70-99) 249 mg/dL (70-99) White Blood Count 3.7 x10^3/uL (4.0-11.0) Red Blood Count 3.17 x10^6/uL (4.30-5.70) Hemoglobin 8.1 g/dL (13.0-17.5) Hematocrit 25.2 % (39.0-53.0) Mean Corpuscular Volume 80 fL (79-100) Mean Corpuscular Hemoglobin 26 pg (25-35) Mean Corpuscular Hemoglobin Concent 32 g/dL (31-37) Red Cell Distribution Width 15.5 % (11.5-14.5) Platelet Count 296 x10^3/uL (140-400) Neutrophils (%) (Auto) 49 % (31-73) Lymphocytes (%) (Auto) 37 % (24-48) Monocytes (%) (Auto) 11 % (0-9) Eosinophils (%) (Auto) 1 % (0-3) Basophils (%) (Auto) 1 % (0-3) Neutrophils # (Auto) 1.8 x10^3/uL (1.8-7.7) Lymphocytes # (Auto) 1.4 x10^3/uL (1.0-4.8) Monocytes # (Auto) 0.4 x10^3/uL (0.0-1.1) Eosinophils # (Auto) 0.0 x10^3/uL (0.0-0.7) Basophils # (Auto) 0.1 x10^3/uL (0.0-0.2) Sodium Level 134 mmol/L (136-145) Potassium Level 4.1 mmol/L (3.5-5.1) Chloride Level 102 mmol/L (98-107) Carbon Dioxide Level 26 mmol/L (21-32) Anion Gap 6 (6-14) Blood Urea Nitrogen 19 mg/dL (8-26) Creatinine 1.4 mg/dL (0.7-1.3) Estimated GFR (Cockcroft-Gault) 59.2 BUN/Creatinine Ratio 14 (6-20) Glucose Level 271 mg/dL (70-99) Calcium Level 8.8 mg/dL (8.5-10.1) Total Bilirubin 0.2 mg/dL (0.2-1.0) Aspartate Amino Transf (AST/SGOT) 13 U/L (15-37) Alanine Aminotransferase (ALT/SGPT) 13 U/L (16-63) Alkaline Phosphatase 55 U/L (46-116) Creatine Kinase 39 U/L (39-308) Total Protein 7.1 g/dL (6.4-8.2) Albumin 2.0 g/dL (3.4-5.0) Albumin/Globulin Ratio 0.4 (1.0-1.7) Test 07/12/21 06:51 07/12/21 08:14 Glucose (Fingerstick) 266 mg/dL (70-99) 225 mg/dL (70-99) Microbiology 07/02/21 Gram Stain - Final, Complete 07/02/21 Aerobic and Anaerobic Culture - Final, Complete 07/02/21 Antimicrobic Susceptibility - Final, Complete 06/29/21 Blood Culture - Final, Complete NO GROWTH AFTER 5 DAYS Medications Current Medications Fentanyl Citrate (Fentanyl 2ml Vial) 25 mcg PRN Q5MIN PRN IVP MILD PAIN 1-3; Start 07/12/21 at 06:00; Stop 07/13/21 at 05:59 Fentanyl Citrate (Fentanyl 2ml Vial) 50 mcg PRN Q5MIN PRN IVP MODERATE PAIN 4- 6; Start 07/12/21 at 06:00; Stop 07/13/21 at 05:59 Fentanyl Citrate (Fentanyl 2ml Vial) 100 mcg STK-MED ONCE .ROUTE ; Start 07/12/21 at 06:57; Stop 07/12/21 at 06:57; Status DC Hydromorphone HCl (Dilaudid) 0.5 mg PRN Q10MIN PRN IVP SEVERE PAIN 7-10, 2nd CHOICE; Start 07/12/21 at 06:00; Stop 07/13/21 at 05:59 Insulin Human Lispro (HumaLOG VIAL for OP,RR ONLY) 0-10 units PRN Q1HR PRN SQ PER PROTOCOL Last administered on 07/12/21at 08:38; Start 07/12/21 at 07:00; Stop 07/13/21 at 06:59 Lidocaine HCl (Lidocaine 1% 20ml Vial) 20 ml STK-MED ONCE .ROUTE ; Start 07/12/21 at 07:00; Stop 07/12/21 at 07:01; Status DC Lidocaine HCl (Lidocaine Pf 2% Vial) 5 ml STK-MED ONCE .ROUTE ; Start 07/12/21 at 06:56; Stop 07/12/21 at 06:56; Status DC Morphine Sulfate (Morphine Sulfate) 1 mg PRN Q10MIN PRN IVP SEVERE PAIN 7-10 Last administered on 07/12/21at 08:37; Start 07/12/21 at 06:00; Stop 07/13/21 at 05:59 Morphine Sulfate (Morphine Sulfate) 2 mg STK-MED ONCE .ROUTE ; Start 07/12/21 at 08:22; Stop 07/12/21 at 08:22; Status DC Ondansetron HCl (Zofran) 4 mg STK-MED ONCE .ROUTE ; Start 07/12/21 at 06:56; Stop 07/12/21 at 06:57; Status DC Prochlorperazine Edisylate (Compazine) 5 mg PACU PRN PRN IVP NAUSEA, MRX1; Start 07/12/21 at 06:00; Stop 07/13/21 at 05:59 Propofol (Diprivan) 200 mg STK-MED ONCE IV ; Start 07/12/21 at 06:56; Stop 07/12/21 at 06:56; Status DC Ringer's Solution 1,000 ml @ 30 mls/hr Q24H IV ; Start 07/12/21 at 06:00; Stop 07/12/21 at 17:59 Vitals/I & O Vital Sign - Last 24 Hours 07/11/21 07/11/21 07/11/21 07/11/21 10:07 10:07 11:00 15:00 Temp 98.0 97.4 98.0 97.4 Pulse 71 71 65 71 Resp 18 18 B/P (MAP) 131/65 131/65 132/69 (90) 103/53 (70) Pulse Ox 99 99 O2 Delivery Room Air Room Air 07/11/21 07/11/21 07/11/21 07/11/21 19:41 20:00 22:12 23:18 Temp 97.5 98.7 97.5 98.7 Pulse 73 73 68 Resp 20 16 B/P (MAP) 118/61 (80) 118/61 130/75 (93) Pulse Ox 99 93 O2 Delivery Room Air Room Air Room Air 07/12/21 07/12/21 07/12/21 07/12/21 03:21 07:05 08:02 08:18 Temp 98.5 97.6 97.3 98.5 97.6 97.3 Pulse 61 61 69 70 Resp 20 16 16 16 B/P (MAP) 133/62 (85) 129/60 119/65 135/73 Pulse Ox 100 100 100 100 O2 Delivery Room Air Room Air Simple Mask Simple Mask O2 Flow Rate 8 8 07/12/21 07/12/21 07/12/21 07/12/21 08:24 08:27 08:37 08:49 Temp 97.3 97.3 Pulse 70 Resp 16 B/P (MAP) 122/63 Pulse Ox 100 100 100 O2 Delivery Simple Mask Mask Simple Mask Room Air O2 Flow Rate 8.0 8 8.0 Intake and Output 07/11/21 07/11/21 07/12/21 15:00 23:00 07:00 Intake Total 240 ml 200 ml 550 ml Output Total 400 ml 600 ml Balance -160 ml 200 ml -50 ml Justifications for Admission Other Justification Nutrition Consultation Dietary Evaluation: Recommendations by RD: Dietary education by RD, Increase Calorie Intake, Protein supplementation Comments: mech soft, ADA/Cardiac DBL meats , no jones strawberry Glucerna tid debora bid REC mvi and vit c per wound protocal Expected Outcomes/Goals: to meet >75% est nutrition needs- goal ongoing Malnutrition Findings: Body Fat Depletion (Non Severe: Mod to Severe Weight Status: Underweight KESHA TAYLOR MD Jul 12, 2021 09:20
[2021-07-12] MEDS: GABAPENTIN 300 MG CAPSULE. PO SCH ×2 (10:44→22:57)
[2021-07-12] MEDS: TAMSULOSIN 0.4 MG CAP.ER.24H. PO SCH (10:44)
[2021-07-12] MEDS: ASPIRIN CHEWABLE 81 MG TABLET. PO SCH ×2 (10:44→22:55)
[2021-07-12] MEDS: CLOPIDOGREL BISULFATE 75 MG TABLET PO SCH (10:44)
[2021-07-12] MEDS: LACTOBACILLUS RHAMNOSUS GG 1 CAPSULE. PO SCH ×2 (10:44→22:56)
[2021-07-12] MEDS: hydroCHLOROthiazide 12.5 MG CAPSULE PO SCH (10:46)
[2021-07-12] MEDS: LISINOPRIL 20 MG TABLET PO SCH ×2 (10:46→22:56)
[2021-07-12] MEDS: MICAFUNGIN 100 MG in IV DEXTROSE 5% 100ML 100 ML IV SCH (10:48)
[2021-07-12] MEDS: IV NORMAL SALINE 1000ML BAG 1,000 ML IV SCH (10:49)
[2021-07-12] MEDS: HEPARIN for SUB-Q USE 5,000 UNIT/ML VIAL. SQ SCH ×2 (10:57→23:10)
--- NOTE | 2021-07-12 11:15 | NUR ---
wong morales admin as patient now has wound vac on.
--- NOTE | 2021-07-12 12:06 | NUR ---
SW following. Discussed with RN, SW confused as to why pt does not have REV codes for [facility]. SW sent email to Scarlett Gilliland who provides the REV codes to [facility]. Awaiting response. Pt had another procedure this morning. SW will continue to follow.
[2021-07-12] MEDS: HYDROcodone/APAP 5/325MG 1 TAB TABLET PO PRN (14:21)
[2021-07-12] MEDS: DAPTOmycin (GENERIC) IVPB 330 MG in IV NORMAL SALINE 50ML 50 ML IV SCH (15:15)
[2021-07-12] MEDS: INSULIN GLARGINE SYRINGE. SQ SCH (23:11)
[2021-07-13 03:00] VITALS: BP 151/79
[2021-07-13] MEDS: PIPERACILLIN/TAZOBACTAM 3.375 GM in IV NORMAL SALINE 50ML 50 ML IV SCH ×3 (06:40→17:25)
[2021-07-13 07:00] VITALS: BP 136/69
[2021-07-13] MEDS: INSULIN LISPRO 300 UNITS/3 ML VIAL. SQ SCH ×6 (07:30→22:25)
--- NOTE | 2021-07-13 08:32 | PDOC ---
Infectious Disease Note Subjective: Subjective Patient without complaints Vital Signs: Vital Signs Vital Signs Date Time Temp Pulse Resp B/P (MAP) Pulse Ox O2 Delivery O2 Flow Rate FiO2 07/13/21 03:00 98.3 68 18 151/79 (103) 98 Room Air 98.3 07/12/21 08:37 8.0 Physical Exam: PHYSICAL EXAM GENERAL: AXOX3 male lying in bed comfortably, in no acute distress. HEENT: Normocephalic, atraumatic. Anicteric. NECK: Supple. No JVD. LUNGS: Clear bilaterally. No wheezing. HEART: S1, S2. No gallops or murmurs. ABDOMEN: Soft, nontender, nondistended. No rebound or guarding. EXTREMITIES: Left leg wound /VAC in place MUSCULOSKELETAL: No joint swelling. No decrease in range of motion. CENTRAL NERVOUS SYSTEM: Alert, oriented x 3, grossly nonfocal. PSYCHIATRIC: Cooperative, calm. PICC line clean Medications: Inpatient Meds: Medications reviewed. Labs: Lab Laboratory Tests Test 07/12/21 12:12 07/12/21 16:42 07/12/21 20:45 07/13/21 07:27 Glucose (Fingerstick) 120 mg/dL (70-99) 244 mg/dL (70-99) 173 mg/dL (70-99) 126 mg/dL (70-99) Micro RUN DATE: 07/06/21 [facility] *LIVE* PAGE 1 RUN TIME: 0850 Specimen Inquiry PATIENT: ESPERANZA MARINELLI ACCT: [id number] LOC: [address] [place] [address] U: [id number] AGE/SX: 80/M ROOM: 552 RE06/29/[address]: KESHA TAYLOR MD : 1940 BED: 1 DIS: STATUS: ADM IN TLOC: SPEC #: [id number] CONNIE: 07/02/21 STATUS: RES REQ #: [id number] RECD: 07/03/[address]: KESHA TAYLOR MD SOURCE: ABSCESS ENTR: 07/03/[address]: CHARLIE LEVI MD SPDESC: KYLER CRUZ MD, RAVEN C MD ORDERED: ANAER/AEROB/GS COMMENTS: LEFT LEG ULCER/ABSCESS SWAB Procedure Result GRAM STAIN Final Final GRAM POSITIVE COCCI:RARE SQUAMOUS EPI CELL:RARE PMN (WBCs):FEW Unless otherwise specified, Testing Performed by: [place] [address] For Inquires, the Physician may contact the Microbiology department at [phone] ANAEROBIC-AEROBIC CULTURE Preliminary Preliminary MIXED AEROBIC BRE INCLUDING; FEW [STAPHYLOCOCCUS AUREUS] on 07/04/21 at 0901 FEW [ENTEROCOCCUS FAECALIS] on 07/04/21 at 1038 FEW [BETA STREP GROUP B] on 07/04/21 at 1038 RARE [EFE TROPICALIS] on 07/05/21 at 1000 STAPHYLOCOCCUS AUREUS ENTEROCOCCUS FAECALIS EFE TROPICALIS BETA STREP GROUP B ANTIMICROBIAL SUSCEPTIBILITY Preliminary Comment Comment POS LYNN TYPE 38 STAPHYLOCOCCUS AUREUS ANTIBIOTIC RESULT INTERPRETATION AZITHROMYCIN >4 R CLINDAMYCIN <=0.25 R* CEFOXITIN SCREEN <=4 NEG CIPROFLOXACIN >2 R CEFTAROLINE <=0.5 S DAPTOMYCIN 1 S ERYTHROMYCIN >4 R GENTAMICIN <=4 S RUN DATE: 07/06/21 [facility] *LIVE* PAGE 2 RUN TIME: 0850 Specimen Inquiry SPEC: [id number] PATIENT: ESPERANZA MARINELLI Landen [id number] (Continued) ------- ----- Procedure Result CONTINUED ON NEXT PAGE RUN DATE: 07/06/21 [facility] *LIVE* PAGE 3 RUN TIME: 0850 Specimen Inquiry SPEC: [id number] PATIENT: ESPERANZA MARINELLI Landen [id number] (Continued) Procedure Result ANTIMICROBIAL SUSCEPTIBILITY Preliminary (continued) INDUCIBLE CLINDAMYCIN >4/0.5 POS LINEZOLID 2 S LEVOFLOXACIN <=1 S OXACILLIN 0.5 S PENICILLIN >2 Girma RIFAMPIN <=1 S TRIMETHOPRIM/SULFAMETHOXAZOLE <=0.5/9.5 S TETRACYCLINE <=4 S VANCOMYCIN 1 S Streptomycin Synergy Screen S Gentamicin Synergy Screen S POS LYNN TYPE 38 ENTEROCOCCUS FAECALIS ANTIBIOTIC RESULT INTERPRETATION AMPICILLIN <=2 S DAPTOMYCIN 1 S LINEZOLID 2 S PENICILLIN 2 S VANCOMYCIN 1 S Unless otherwise specified, Testing Performed by: [address] [address] For Inquires, the Physician may contact the Microbiology department at [phone] Objective: Assessment: Left lower extremity abscess Sept 24 S/P Excisional debridement of left leg wound including skin and subcutaneous tissue and Wound VAC placement to the left leg. Polymicrobial organisms Left lower extremity cellulitis improved Peripheral vascular disease with history of angioplasty Diabetes mellitus with peripheral neuropathy CHERYLE on CKD Tobacco dependence History of noncompliance History of previous toe amputation 07/12 Debridment left leg to tendon for necrotic wound Vac placement Operative cultures STAPHYLOCOCCUS AUREUS ENTEROCOCCUS FAECALIS EFE TROPICALIS BETA STREP GROUP B Plan: Plan of Care Follow-up intraoperative cultures from 07/12/2021 Continue daptomycin Micafungin and Zosyn wound care as directed Monitor labs and cultures Trend WBC OMAR CRUZ MD Jul 13, 2021 08:32
[2021-07-13] MEDS: HEPARIN for SUB-Q USE 5,000 UNIT/ML VIAL. SQ SCH ×2 (09:00→22:24)
--- NOTE | 2021-07-13 09:09 | PDOC ---
PROGRESS NOTES Date of Service: DATE: 07/13/21 TIME: 09:06 Subjective Subjective want to go home Objective Objective Vital Signs Date Time Temp Pulse Resp B/P (MAP) Pulse Ox O2 Delivery O2 Flow Rate FiO2 07/13/21 07:00 98.1 57 16 136/69 (91) 100 Room Air 98.1 07/12/21 08:37 8.0 Intake and Output 07/13/21 07:00 Intake Total 700 ml Output Total 330 ml Balance 370 ml Intake Oral 650 ml IV Total 50 ml Output Urine Total 300 ml Estimated Blood Loss 30 ml # Voids 2 Physical Exam Abdomen: Soft, No tenderness Heart: Regular rate Extremities: Other (Wound VAC in place on the left lower leg with Aquacel Ag to the more superficial wounds proximal and distal to the deep wound.) General: Alert, Oriented X3 HEENT: Atraumatic Lungs: Normal air movement MUSCULOSKELETAL: No deformity, No swelling, Abnormal exam of left, Other (lt shoulder joint tenderness AC joint) Neck: No JVD Neuro: Normal speech Psych/Mental Status: Mental status NL Skin: Other (s/p debridement ,wound vac present now) COMMENT wound vac Assessment Assessment Assessment Left lower extremity abscess Left lower extremity cellulitis Left lower extremity non healing chronic wound Peripheral vascular disease with history of angioplasty Diabetes mellitus with peripheral neuropathy CKD Tobacco dependence History of noncompliance History of previous toe amputation Plan:Debridment of Tendon+wound 07/12/21 Xray left shoulder old healed fracture. spoke with piter boss. LTAC screen,needing heart monitored . labs noted cr 1.4 Needs cardiac monitoring. Picc line 07/05/21 s/p Debridement 07/02 . Continue wound VAC Needs PICC line+2 weeks of iv antibiotics Diabetes not controlled. Increase Lantus and Humalog. High blood sugar may be also causing increased frequency of micturition. Operative cultures STAPHYLOCOCCUS AUREUS ENTEROCOCCUS FAECALIS EFE TROPICALIS BETA STREP GROUP B On zosyn, dapto and micafungin for discharge, Comment Review of Relevant I have reviewed the following items jorge (where applicable) has been applied. Labs Laboratory Tests Test 07/12/21 12:12 07/12/21 16:42 07/12/21 20:45 07/13/21 07:27 Glucose (Fingerstick) 120 mg/dL (70-99) 244 mg/dL (70-99) 173 mg/dL (70-99) 126 mg/dL (70-99) Microbiology 07/12/21 Gram Stain - Final, Resulted 07/12/21 Aerobic Culture, Resulted Pending 06/29/21 Blood Culture - Final, Complete NO GROWTH AFTER 5 DAYS Vitals/I & O Vital Sign - Last 24 Hours 07/12/21 07/12/21 07/12/21 07/12/21 09:15 09:30 10:00 10:30 Pulse 74 59 60 60 B/P (MAP) 71/50 (57) 67/37 (47) 58/36 (43) 121/61 (81) 07/12/21 07/12/21 07/12/21 07/12/21 10:46 10:47 11:00 11:00 Temp 97.7 97.7 Pulse 60 60 59 59 Resp 16 B/P (MAP) 121/62 121/62 117/65 (82) 117/65 (82) Pulse Ox 100 O2 Delivery Room Air 07/12/21 07/12/21 07/12/21 07/12/21 12:00 13:00 14:00 19:00 Temp 98.1 98.1 Pulse 67 64 Resp 18 B/P (MAP) 127/63 (84) 138/71 (93) 129/53 (78) 108/63 (78) Pulse Ox 99 O2 Delivery Room Air 07/12/21 07/12/21 07/12/21 07/13/21 22:45 22:56 23:00 03:00 Temp 98.2 98.3 98.2 98.3 Pulse 64 58 68 Resp 18 18 B/P (MAP) 108/63 112/52 (72) 151/79 (103) Pulse Ox 98 98 O2 Delivery Room Air Room Air Room Air 07/13/21 07:00 Temp 98.1 98.1 Pulse 57 Resp 16 B/P (MAP) 136/69 (91) Pulse Ox 100 O2 Delivery Room Air Intake and Output 07/12/21 07/12/21 07/13/21 15:00 23:00 07:00 Intake Total 50 ml 250 ml 400 ml Output Total 30 ml 300 ml Balance 20 ml 250 ml 100 ml Justifications for Admission Other Justification Nutrition Consultation Dietary Evaluation: Recommendations by RD: Dietary education by RD, Increase Calorie Intake, Protein supplementation Comments: mech soft, ADA/Cardiac DBL meats , no jones strawberry Glucerna tid debora bid REC mvi and vit c per wound protocal Expected Outcomes/Goals: to meet >75% est nutrition needs- goal ongoing Malnutrition Findings: Body Fat Depletion (Non Severe: Mod to Severe Weight Status: Underweight KESHA TAYLOR MD Jul 13, 2021 09:09
[2021-07-13] MEDS: silver sulfADIAZINE 1% CREAM 25GM TUBE. TP SCH ×2 (09:38→22:26)
[2021-07-13] MEDS: FLUTICASONE 50MCG/NASAL SPRAY 16GM BOTTLE. NS SCH (09:38)
[2021-07-13] MEDS: LISINOPRIL 20 MG TABLET PO SCH ×2 (09:39→22:23)
[2021-07-13] MEDS: CLOPIDOGREL BISULFATE 75 MG TABLET PO SCH (09:39)
[2021-07-13] MEDS: TAMSULOSIN 0.4 MG CAP.ER.24H. PO SCH (09:39)
[2021-07-13] MEDS: LACTOBACILLUS RHAMNOSUS GG 1 CAPSULE. PO SCH ×2 (09:39→22:23)
[2021-07-13] MEDS: hydroCHLOROthiazide 12.5 MG CAPSULE PO SCH (09:40)
[2021-07-13] MEDS: ASPIRIN CHEWABLE 81 MG TABLET. PO SCH ×2 (09:40→22:23)
[2021-07-13] MEDS: GABAPENTIN 300 MG CAPSULE. PO SCH ×2 (09:40→22:23)
[2021-07-13] MEDS: MICAFUNGIN 100 MG in IV DEXTROSE 5% 100ML 100 ML IV SCH (09:41)
[2021-07-13] MEDS: HYDROcodone/APAP 5/325MG 1 TAB TABLET PO PRN (09:45)
[2021-07-13 11:00] VITALS: BP 161/78
[2021-07-13] MEDS: IV NORMAL SALINE 1000ML BAG 1,000 ML IV SCH (11:59)
[2021-07-13] MEDS: DAPTOmycin (GENERIC) IVPB 330 MG in IV NORMAL SALINE 50ML 50 ML IV SCH (14:18)
[2021-07-13 15:00] VITALS: BP 109/54
[2021-07-13 19:00] VITALS: BP 134/62
[2021-07-13] MEDS: INSULIN GLARGINE SYRINGE. SQ SCH (22:25)
[2021-07-13 23:29] VITALS: BP 132/62
[2021-07-14] VITALS (7 sets, daily range): BP systolic 97–149; BP diastolic 45–76
[2021-07-14] MEDS: PIPERACILLIN/TAZOBACTAM 3.375 GM in IV NORMAL SALINE 50ML 50 ML IV SCH ×5 (00:38→23:53)
[2021-07-14 06:04] LABS: BASO % 1 % (0-3); EOS # 0.1 x10^3/uL (0.0-0.7); EOS % 2 % (0-3); HEMATOCRIT 24.3 % (39.0-53.0); HEMOGLOBIN 7.9 g/dL (13.0-17.5); LYMPH # 1.6 x10^3/uL (1.0-4.8); LYMPH % 41 % (24-48); MEAN CORPUSCULAR HEMOGLOBIN 26 pg (25-35); MEAN CORPUSCULAR HGB CONC 33 g/dL (31-37); MEAN CORPUSCULAR VOLUME 79 fL (79-100); MONO # 0.3 x10^3/uL (0.0-1.1); MONO % 9 % (0-9); NEUT # 1.8 x10^3/uL (1.8-7.7); NEUT % 48 % (31-73); PLATELET COUNT 281 x10^3/uL (140-400); RED BLOOD COUNT 3.09 x10^6/uL (4.30-5.70); RED CELL DISTRIBUTION WIDTH 15.4 % (11.5-14.5); WHITE BLOOD COUNT 3.8 x10^3/uL (4.0-11.0)
--- NOTE | 2021-07-14 07:46 | PDOC ---
Infectious Disease Note Subjective: Subjective Patient without complaints Vital Signs: Vital Signs Vital Signs Date Time Temp Pulse Resp B/P (MAP) Pulse Ox O2 Delivery O2 Flow Rate FiO2 07/14/21 03:00 98.6 61 16 107/71 (83) 100 Room Air 98.6 07/13/21 20:00 8.0 Physical Exam: PHYSICAL EXAM GENERAL: AXOX3 male lying in bed comfortably, in no acute distress. HEENT: Normocephalic, atraumatic. Anicteric. NECK: Supple. No JVD. LUNGS: Clear bilaterally. No wheezing. HEART: S1, S2. No gallops or murmurs. ABDOMEN: Soft, nontender, nondistended. No rebound or guarding. EXTREMITIES: Left leg wound /VAC in place MUSCULOSKELETAL: No joint swelling. No decrease in range of motion. CENTRAL NERVOUS SYSTEM: Alert, oriented x 3, grossly nonfocal. PSYCHIATRIC: Cooperative, calm. PICC line clean Medications: Inpatient Meds: Medications reviewed. Labs: Lab Laboratory Tests Test 07/13/21 11:49 07/13/21 16:54 07/13/21 18:55 07/13/21 20:27 Glucose (Fingerstick) 207 mg/dL (70-99) 146 mg/dL (70-99) 212 mg/dL (70-99) 281 mg/dL (70-99) Test 07/14/21 05:52 07/14/21 07:29 White Blood Count 3.8 x10^3/uL (4.0-11.0) Red Blood Count 3.09 x10^6/uL (4.30-5.70) Hemoglobin 7.9 g/dL (13.0-17.5) Hematocrit 24.3 % (39.0-53.0) Mean Corpuscular Volume 79 fL (79-100) Mean Corpuscular Hemoglobin 26 pg (25-35) Mean Corpuscular Hemoglobin Concent 33 g/dL (31-37) Red Cell Distribution Width 15.4 % (11.5-14.5) Platelet Count 281 x10^3/uL (140-400) Neutrophils (%) (Auto) 48 % (31-73) Lymphocytes (%) (Auto) 41 % (24-48) Monocytes (%) (Auto) 9 % (0-9) Eosinophils (%) (Auto) 2 % (0-3) Basophils (%) (Auto) 1 % (0-3) Neutrophils # (Auto) 1.8 x10^3/uL (1.8-7.7) Lymphocytes # (Auto) 1.6 x10^3/uL (1.0-4.8) Monocytes # (Auto) 0.3 x10^3/uL (0.0-1.1) Eosinophils # (Auto) 0.1 x10^3/uL (0.0-0.7) Basophils # (Auto) 0.0 x10^3/uL (0.0-0.2) Glucose (Fingerstick) 173 mg/dL (70-99) Micro ----- ------- RUN DATE: 07/06/21 [facility] LAB *LIVE* PAGE 1 RUN TIME: 0850 Specimen Inquiry PATIENT: ESPERANZA MARINELLI ACCT: [id number] LOC: [address] [place] [address] U: [id number] AGE/SX: 80/M ROOM: 552 RE06/29/[address]: KESHA TAYLOR MD : 1940 BED: 1 DIS: STATUS: ADM IN TLOC: SPEC #: [id number] CONNIE: 07/02/21 STATUS: RES REQ #: [id number] RECD: 07/03/[address] [facility] [address]: KESHA TAYLOR MD SOURCE: ABSCESS ENTR: 07/03/21 [facility] DR: CHARLIE LEVI MD [facility]: KYLER CRUZ MD, RAVEN C MD ORDERED: ANAER/AEROB/GS COMMENTS: LEFT LEG ULCER/ABSCESS SWAB Procedure Result GRAM STAIN Final Final GRAM POSITIVE COCCI:RARE SQUAMOUS EPI CELL:RARE PMN (WBCs):FEW Unless otherwise specified, Testing Performed by: [address] [address] For Inquires, the Physician may contact the Microbiology department at [phone] ANAEROBIC-AEROBIC CULTURE Preliminary Preliminary MIXED AEROBIC BRE INCLUDING; FEW [STAPHYLOCOCCUS AUREUS] on 07/04/21 at 0901 FEW [ENTEROCOCCUS FAECALIS] on 07/04/21 at 1038 FEW [BETA STREP GROUP B] on 07/04/21 at 1038 RARE [EFE TROPICALIS] on 07/05/21 at 1000 STAPHYLOCOCCUS AUREUS ENTEROCOCCUS FAECALIS EFE TROPICALIS BETA STREP GROUP B ANTIMICROBIAL SUSCEPTIBILITY Preliminary Comment Comment POS LYNN TYPE 38 STAPHYLOCOCCUS AUREUS ANTIBIOTIC RESULT INTERPRETATION AZITHROMYCIN >4 R CLINDAMYCIN <=0.25 R* CEFOXITIN SCREEN <=4 NEG CIPROFLOXACIN >2 R CEFTAROLINE <=0.5 S DAPTOMYCIN 1 S ERYTHROMYCIN >4 R GENTAMICIN <=4 S RUN DATE: 07/06/21 [facility] *LIVE* PAGE 2 RUN TIME: 0850 Specimen Inquiry SPEC: [id number] PATIENT: MARINELLI,ESPERANZA W [id number] (Continued) Procedure Result CONTINUED ON NEXT PAGE RUN DATE: 07/06/21 [facility] *LIVE* PAGE 3 RUN TIME: 0850 Specimen Inquiry SPEC: [id number] PATIENT: ESPERANZA MARINELLI Landen [id number] (Continued) Procedure Result ANTIMICROBIAL SUSCEPTIBILITY Preliminary (continued) INDUCIBLE CLINDAMYCIN >4/0.5 POS LINEZOLID 2 S LEVOFLOXACIN <=1 S OXACILLIN 0.5 S PENICILLIN >2 Girma RIFAMPIN <=1 S TRIMETHOPRIM/SULFAMETHOXAZOLE <=0.5/9.5 S TETRACYCLINE <=4 S VANCOMYCIN 1 S Streptomycin Synergy Screen S Gentamicin Synergy Screen S POS LYNN TYPE 38 ENTEROCOCCUS FAECALIS ANTIBIOTIC RESULT INTERPRETATION AMPICILLIN <=2 S DAPTOMYCIN 1 S LINEZOLID 2 S PENICILLIN 2 S VANCOMYCIN 1 S Unless otherwise specified, Testing Performed by: [address] [address] For Inquires, the Physician may contact the Microbiology department at [phone] - Objective: Assessment: Left lower extremity abscess Sept 24 S/P Excisional debridement of left leg wound including skin and subcutaneous tissue and Wound VAC placement to the left leg. Polymicrobial organisms Operative cultures STAPHYLOCOCCUS AUREUS ENTEROCOCCUS FAECALIS EFE TROPICALIS BETA STREP GROUP B 07/12 Debridment left leg to tendon for necrotic wound Vac placement Cult pending Left lower extremity cellulitis improved Peripheral vascular disease with history of angioplasty Diabetes mellitus with peripheral neuropathy CHERYLE on CKD Tobacco dependence History of noncompliance History of previous toe amputation Leucopenia ? etiology Plan: Plan of Care Follow-up intraoperative cultures from 07/12/2021 Continue daptomycin Micafungin /Zosyn When ready for transfer to rehab facility will change Zosyn to Invanz first dose here Prescription in chart Social service to assist with discharge antibiotics wound care as directed Monitor labs and cultures Trend WBC OMAR CRUZ MD Jul 14, 2021 07:46
[2021-07-14 08:28] LABS: CALCIUM 8.6 mg/dL (8.5-10.1); CREATININE 1.2 mg/dL (0.7-1.3); GFR 70.7
[2021-07-14] MEDS: FLUTICASONE 50MCG/NASAL SPRAY 16GM BOTTLE. NS SCH (08:40)
[2021-07-14] MEDS: TAMSULOSIN 0.4 MG CAP.ER.24H. PO SCH (08:41)
[2021-07-14] MEDS: CLOPIDOGREL BISULFATE 75 MG TABLET PO SCH (08:41)
[2021-07-14] MEDS: MICAFUNGIN 100 MG in IV DEXTROSE 5% 100ML 100 ML IV SCH (08:42)
[2021-07-14] MEDS: LACTOBACILLUS RHAMNOSUS GG 1 CAPSULE. PO SCH ×2 (08:44→21:18)
[2021-07-14] MEDS: GABAPENTIN 300 MG CAPSULE. PO SCH ×2 (08:44→21:18)
[2021-07-14] MEDS: hydroCHLOROthiazide 12.5 MG CAPSULE PO SCH (08:44)
[2021-07-14] MEDS: ASPIRIN CHEWABLE 81 MG TABLET. PO SCH ×2 (08:44→21:18)
[2021-07-14] MEDS: LISINOPRIL 20 MG TABLET PO SCH ×2 (08:46→21:00)
[2021-07-14] MEDS: INSULIN LISPRO 300 UNITS/3 ML VIAL. SQ SCH ×6 (08:57→21:00)
[2021-07-14] MEDS: HEPARIN for SUB-Q USE 5,000 UNIT/ML VIAL. SQ SCH ×2 (08:58→21:19)
[2021-07-14] MEDS: silver sulfADIAZINE 1% CREAM 25GM TUBE. TP SCH ×2 (09:00→21:00)
--- NOTE | 2021-07-14 09:17 | PDOC ---
PROGRESS NOTES Date of Service: DATE: 07/14/21 TIME: 09:16 Subjective Subjective waiting for bed Objective Objective Vital Signs Date Time Temp Pulse Resp B/P (MAP) Pulse Ox O2 Delivery O2 Flow Rate FiO2 07/14/21 08:46 61 107/71 07/14/21 07:00 97.7 18 98 Room Air 97.7 07/13/21 20:00 8.0 Intake and Output 07/14/21 07:00 Output Total 350 ml Balance -350 ml Output Urine Total 350 ml # Voids 3 # Bowel Movements 1 Physical Exam Abdomen: Soft, No tenderness Heart: Regular rate Extremities: Other (Wound VAC in place on the left lower leg with Aquacel Ag to the more superficial wounds proximal and distal to the deep wound.) General: Alert, Oriented X3 HEENT: Atraumatic Lungs: Normal air movement MUSCULOSKELETAL: No deformity, No swelling, Abnormal exam of left, Other (lt shoulder joint tenderness AC joint) Neck: No JVD Neuro: Normal speech Psych/Mental Status: Mental status NL Skin: Other (s/p debridement ,wound vac present now) COMMENT wound vac Assessment Assessment Assessment Left lower extremity abscess Left lower extremity cellulitis Left lower extremity non healing chronic wound Peripheral vascular disease with history of angioplasty Diabetes mellitus with peripheral neuropathy CKD Tobacco dependence History of noncompliance History of previous toe amputation Plan: spoke with RN waiting for monitored [facility] at [facility] Debridment of Tendon+wound 07/12/21 Xray left shoulder old healed fracture. spoke with piter boss. LTAC screen,needing heart monitored . labs noted cr 1.4, cbc ok ,ck normal Needs cardiac monitoring. Picc line 07/05/21 s/p Debridement 07/02 . Continue wound VAC Needs PICC line+2 weeks of iv antibiotics Diabetes not controlled. Increase Lantus and Humalog. High blood sugar may be also causing increased frequency of micturition. Operative cultures STAPHYLOCOCCUS AUREUS ENTEROCOCCUS FAECALIS EFE TROPICALIS BETA STREP GROUP B On zosyn, dapto and micafungin for discharge, Comment Review of Relevant I have reviewed the following items jorge (where applicable) has been applied. Labs Laboratory Tests Test 07/13/21 11:49 07/13/21 16:54 07/13/21 18:55 07/13/21 20:27 Glucose (Fingerstick) 207 mg/dL (70-99) 146 mg/dL (70-99) 212 mg/dL (70-99) 281 mg/dL (70-99) Test 07/14/21 05:52 07/14/21 07:29 White Blood Count 3.8 x10^3/uL (4.0-11.0) Red Blood Count 3.09 x10^6/uL (4.30-5.70) Hemoglobin 7.9 g/dL (13.0-17.5) Hematocrit 24.3 % (39.0-53.0) Mean Corpuscular Volume 79 fL (79-100) Mean Corpuscular Hemoglobin 26 pg (25-35) Mean Corpuscular Hemoglobin Concent 33 g/dL (31-37) Red Cell Distribution Width 15.4 % (11.5-14.5) Platelet Count 281 x10^3/uL (140-400) Neutrophils (%) (Auto) 48 % (31-73) Lymphocytes (%) (Auto) 41 % (24-48) Monocytes (%) (Auto) 9 % (0-9) Eosinophils (%) (Auto) 2 % (0-3) Basophils (%) (Auto) 1 % (0-3) Neutrophils # (Auto) 1.8 x10^3/uL (1.8-7.7) Lymphocytes # (Auto) 1.6 x10^3/uL (1.0-4.8) Monocytes # (Auto) 0.3 x10^3/uL (0.0-1.1) Eosinophils # (Auto) 0.1 x10^3/uL (0.0-0.7) Basophils # (Auto) 0.0 x10^3/uL (0.0-0.2) Sodium Level 137 mmol/L (136-145) Potassium Level 4.0 mmol/L (3.5-5.1) Chloride Level 103 mmol/L (98-107) Carbon Dioxide Level 26 mmol/L (21-32) Anion Gap 8 (6-14) Blood Urea Nitrogen 16 mg/dL (8-26) Creatinine 1.2 mg/dL (0.7-1.3) Estimated GFR (Cockcroft-Gault) 70.7 Glucose Level 185 mg/dL (70-99) Calcium Level 8.6 mg/dL (8.5-10.1) Glucose (Fingerstick) 173 mg/dL (70-99) Microbiology 07/12/21 Gram Stain - Final, Resulted 07/12/21 Aerobic Culture, Resulted Pending 06/29/21 Blood Culture - Final, Complete NO GROWTH AFTER 5 DAYS Vitals/I & O Vital Sign - Last 24 Hours 07/13/21 07/13/21 07/13/21 07/13/21 09:39 09:44 09:45 10:15 Pulse 57 57 Resp 18 17 B/P (MAP) 136/69 136/69 O2 Delivery Room Air Room Air 07/13/21 07/13/21 07/13/21 07/13/21 11:00 15:00 19:00 20:00 Temp 98.3 97.5 98.3 98.3 97.5 98.3 Pulse 58 63 67 Resp 16 16 16 B/P (MAP) 161/78 (105) 109/54 (72) 134/62 (86) Pulse Ox 98 95 100 O2 Delivery Room Air Room Air Room Air Room Air O2 Flow Rate 8.0 07/13/21 07/13/21 07/14/21 07/14/21 22:23 23:29 03:00 07:00 Temp 98.5 98.6 97.7 98.5 98.6 97.7 Pulse 64 61 56 Resp 16 16 18 B/P (MAP) 134/62 132/62 (85) 107/71 (83) 108/75 (86) Pulse Ox 99 100 98 O2 Delivery Room Air Room Air Room Air 07/14/21 07/14/21 08:41 08:46 Pulse 61 61 B/P (MAP) 108/75 107/71 l Intake and Output 07/13/21 07/13/21 07/14/21 15:00 23:00 07:00 Output Total 350 ml Balance -350 ml Justifications for Admission Other Justification Nutrition Consultation Dietary Evaluation: Recommendations by RD: Dietary education by RD, Increase Calorie Intake, Protein supplementation Comments: mech soft, ADA/Cardiac DBL meats , no jones strawberry Glucerna tid debora bid REC mvi and vit c per wound protocal Expected Outcomes/Goals: to meet >75% est nutrition needs- goal ongoing Malnutrition Findings: Body Fat Depletion (Non Severe: Mod to Severe Weight Status: Underweight KESHA TAYLOR MD Jul 14, 2021 09:17
[2021-07-14] MEDS: IV NORMAL SALINE 1000ML BAG 1,000 ML IV SCH (12:32)
--- NOTE | 2021-07-14 14:14 | NUR ---
SW following. Discussed with RN, administration trying to work out the REV code problem. Referral faxed to [facility] to determine if pt could go there, fax machine being really slow today - awaiting acceptance. FROYLAN will continue to follow. Addendum: 07/14/21 at 1536 by DESTINY GALEANO [facility] is out of network with pt's [facility] plan. Awaiting administration to fix REV codes.
--- NOTE | 2021-07-14 15:40 | NUR ---
Wound/Ostomy Care Wound Type/Assessment: Wound care follow up for vac dressing change with Vascular Andre GARCIA, Radha Roy. Pt declined pain meds prior to procedure d/t side effects, pt okay with proceeding. Vac dressing removed, wound cleansed, pictured and measured, and reapplied Veraflo wound vac. Left lower leg wound measuring larger d/t additional surgical debridement distally. Wound bed has a significant amount of red granulation tissue along the edges and wound base, bone still palpable, more tendon exposed since surgery, but clean, smooth and appears viable, and muscle exposed, overall, the wound is improved since debridement. Treatment Recommendations/Plan: Ostomy ring to periwound, Veraflo black foam, -125 mmHg, settings decreased to 10 ml NS for 3 min dwell time every 4 hours, as Vascular is concerned with periwound maceration. Pt tolerated well, requesting pain meds at this time, informed JOSE F Scott. Education provided: WC POC, PU prevention Offloading surface/device: Rooke boot ordered for left leg, float legs on pillow. Recommended Referrals/Tests: na Discharge Recommendations for dressings: recommend to leave with [facility], preferrably Veraflo for a few more days, if possible. Will f/u on Sunday for next vac change.
--- NOTE | 2021-07-14 15:46 | PDOC ---
Provider Note Date of Service: DATE: 07/14/21 TIME: 15:41 Provider Note Provider Note Vascular S: Patient is in bed without complaints today. He has expected pain with wound VAC change. On 06/02/2021 he had an angiogram with posterior tibial atherectomy was performed at . O: Vital signs stable, afebrile Respirations nonlabored, room air Left leg wound assessed, there is some granulation tissue along the wound borders, there is tendon exposed with some slough tissue on the medial border. No drainage. A/P: PAD s/p PT atherectomy 06/02/21 Left leg wound Status post left leg debridement x2 Continue wound VAC therapy, patient is waiting for a bed at SNF. -No weight bearing restrictions - need to continue aspirin and plavix -Continue antibiotics per infectious disease -We will see patient again on Sunday if still here with the next wound VAC change. If stable to discharge prior to then, okay to discharge from our standpoint with continued wound vac therapy and follow-up at the wound care center, as well as with us. Justicifation of Admission Dx: Justifications for Admission: Justification of Admission Dx: Yes ALEKSEY NORTH Jul 14, 2021 15:46
[2021-07-14] MEDS: DAPTOmycin (GENERIC) IVPB 330 MG in IV NORMAL SALINE 50ML 50 ML IV SCH (16:13)
[2021-07-14] MEDS: HYDROcodone/APAP 5/325MG 1 TAB TABLET PO PRN (16:13)
[2021-07-14] MEDS: INSULIN GLARGINE SYRINGE. SQ SCH (21:20)
[2021-07-15 03:20] VITALS: BP 141/63
[2021-07-15] MEDS: PIPERACILLIN/TAZOBACTAM 3.375 GM in IV NORMAL SALINE 50ML 50 ML IV SCH ×3 (05:16→16:46)
[2021-07-15 07:00] VITALS: BP 139/79
[2021-07-15] MEDS: silver sulfADIAZINE 1% CREAM 25GM TUBE. TP SCH ×2 (09:00→21:00)
[2021-07-15] MEDS: ASPIRIN CHEWABLE 81 MG TABLET. PO SCH ×2 (10:05→20:59)
[2021-07-15] MEDS: hydroCHLOROthiazide 12.5 MG CAPSULE PO SCH (10:05)
[2021-07-15] MEDS: CLOPIDOGREL BISULFATE 75 MG TABLET PO SCH (10:05)
[2021-07-15] MEDS: MICAFUNGIN 100 MG in IV DEXTROSE 5% 100ML 100 ML IV SCH (10:05)
[2021-07-15] MEDS: LACTOBACILLUS RHAMNOSUS GG 1 CAPSULE. PO SCH ×2 (10:05→20:59)
[2021-07-15] MEDS: GABAPENTIN 300 MG CAPSULE. PO SCH ×2 (10:06→20:59)
[2021-07-15] MEDS: LISINOPRIL 20 MG TABLET PO SCH ×2 (10:06→20:59)
[2021-07-15] MEDS: TAMSULOSIN 0.4 MG CAP.ER.24H. PO SCH (10:06)
[2021-07-15] MEDS: HYDROcodone/APAP 5/325MG 1 TAB TABLET PO PRN (10:15)
--- NOTE | 2021-07-15 10:34 | PDOC ---
Infectious Disease Note Subjective: Subjective Patient without complaints Vital Signs: Vital Signs Vital Signs Date Time Temp Pulse Resp B/P (MAP) Pulse Ox O2 Delivery O2 Flow Rate FiO2 07/15/21 10:15 18 Room Air 07/15/21 10:07 74 139/79 07/15/21 07:00 98.0 97 98.0 Physical Exam: PHYSICAL EXAM GENERAL: AXOX3 male lying in bed comfortably, in no acute distress. HEENT: Normocephalic, atraumatic. Anicteric. NECK: Supple. No JVD. LUNGS: Clear bilaterally. No wheezing. HEART: S1, S2. No gallops or murmurs. ABDOMEN: Soft, nontender, nondistended. No rebound or guarding. EXTREMITIES: Left leg wound /VAC in place MUSCULOSKELETAL: No joint swelling. No decrease in range of motion. CENTRAL NERVOUS SYSTEM: Alert, oriented x 3, grossly nonfocal. PSYCHIATRIC: Cooperative, calm. PICC line clean Medications: Inpatient Meds: Medications reviewed. Labs: Lab Laboratory Tests Test 07/14/21 11:34 07/14/21 16:35 07/14/21 19:23 07/15/21 07:30 Glucose (Fingerstick) 68 mg/dL (70-99) 230 mg/dL (70-99) 250 mg/dL (70-99) 178 mg/dL (70-99) Micro RUN DATE: 07/06/21 [facility] LAB *LIVE* PAGE 1 RUN TIME: 0850 Specimen Inquiry PATIENT: ESPERANZA MARINELLI ACCT: [id number] LOC: [address] [place] [address] U: [id number] AGE/SX: 80/M ROOM: 552 RE06/29/[address]: KESHA TAYLOR MD : 1940 BED: 1 DIS: STATUS: ADM IN TLOC: -------- ---- SPEC #: [id number] CONNIE: 07/02/21 STATUS: RES REQ #: [id number] RECD: 07/03/[address]: KESHA TAYLOR MD SOURCE: ABSCESS ENTR: 07/03/[address]: CHARLIE LEVI MD [facility]: KYLER CRUZ MD, RAVEN C MD ORDERED: ANAER/AEROB/GS COMMENTS: LEFT LEG ULCER/ABSCESS SWAB Procedure Result -- GRAM STAIN Final Final GRAM POSITIVE COCCI:RARE SQUAMOUS EPI CELL:RARE PMN (WBCs):FEW Unless otherwise specified, Testing Performed by: [address] [address] For Inquires, the Physician may contact the Microbiology department at [phone] ANAEROBIC-AEROBIC CULTURE Preliminary Preliminary MIXED AEROBIC BRE INCLUDING; FEW [STAPHYLOCOCCUS AUREUS] on 07/04/21 at 0901 FEW [ENTEROCOCCUS FAECALIS] on 07/04/21 at 1038 FEW [BETA STREP GROUP B] on 07/04/21 at 1038 RARE [ZARIA TROPICALIS] on 07/05/21 at 1000 STAPHYLOCOCCUS AUREUS ENTEROCOCCUS FAECALIS ZARIA TROPICALIS BETA STREP GROUP B ANTIMICROBIAL SUSCEPTIBILITY Preliminary Comment Comment POS LYNN TYPE 38 STAPHYLOCOCCUS AUREUS ANTIBIOTIC RESULT INTERPRETATION AZITHROMYCIN >4 R CLINDAMYCIN <=0.25 R* CEFOXITIN SCREEN <=4 NEG CIPROFLOXACIN >2 R CEFTAROLINE <=0.5 S DAPTOMYCIN 1 S ERYTHROMYCIN >4 R GENTAMICIN <=4 S RUN DATE: 07/06/21 [facility] LAB *LIVE* PAGE 2 RUN TIME: 0850 Specimen Inquiry SPEC: [id number] PATIENT: ESPERANZA MARINELLI Landen [id number] (Continued) Procedure Result CONTINUED ON NEXT PAGE RUN DATE: 07/06/21 [facility] LAB *LIVE* PAGE 3 RUN TIME: 0850 Specimen Inquiry SPEC: [id number] PATIENT: ESPERANZA MARINELLI Landen [id number] (Continued) ---- -------- Procedure Result ANTIMICROBIAL SUSCEPTIBILITY Preliminary (continued) INDUCIBLE CLINDAMYCIN >4/0.5 POS LINEZOLID 2 S LEVOFLOXACIN <=1 S OXACILLIN 0.5 S PENICILLIN >2 Girma RIFAMPIN <=1 S TRIMETHOPRIM/SULFAMETHOXAZOLE <=0.5/9.5 S TETRACYCLINE <=4 S VANCOMYCIN 1 S Streptomycin Synergy Screen S Gentamicin Synergy Screen S POS LYNN TYPE 38 ENTEROCOCCUS FAECALIS ANTIBIOTIC RESULT INTERPRETATION AMPICILLIN <=2 S DAPTOMYCIN 1 S LINEZOLID 2 S PENICILLIN 2 S VANCOMYCIN 1 S Unless otherwise specified, Testing Performed by: [address] [address] For Inquires, the Physician may contact the Microbiology department at [phone] Objective: Assessment: Left lower extremity abscess Sept 24 S/P Excisional debridement of left leg wound including skin and subcutaneous tissue and Wound VAC placement to the left leg. Polymicrobial organisms Operative cultures STAPHYLOCOCCUS AUREUS ENTEROCOCCUS FAECALIS ZARIA TROPICALIS BETA STREP GROUP B 07/12 Debridment left leg to tendon for necrotic wound Vac placement Cult Zaria albicans Left lower extremity cellulitis improved Peripheral vascular disease with history of angioplasty Diabetes mellitus with peripheral neuropathy CHERYLE on CKD Tobacco dependence History of noncompliance History of previous toe amputation Leucopenia ? etiology Plan: Plan of Care Patient's discharge has been held due to insurance issues approving his antibiotics and antifungal medication Patient is not eligible to receive micafungin as outpatient Repeat intraoperative cultures from 07/12/2021 has Zaria albicans Continue daptomycin Micafungin /Zosyn When ready for transfer to rehab facility will change Zosyn to Invanz first dose here Prescription in chart Limited choices for treatment for C albicans intraoperative cultures Fluconazole is not an option per discussion with pharmacy due to drug drug interactions with clopidogrel, fluconazole will decrease the levels of clopidogrel Micafungin, patient is not accepted at rehab facility due to insurance issues Next option would be posaconazole,Case management to assist. Discussed with RN to have case management assist patient for discharge today if approved Continue local wound care Will monitor labs if patient is still here over the weekend Continue supportive care Follow-up ID clinic August 04, [phone] Taylor Discussed with nursing staff OMAR CRUZ MD Jul 15, 2021 10:34
[2021-07-15] MEDS: HEPARIN for SUB-Q USE 5,000 UNIT/ML VIAL. SQ SCH ×2 (10:52→21:07)
[2021-07-15] MEDS: INSULIN LISPRO 300 UNITS/3 ML VIAL. SQ SCH ×6 (10:53→20:57)
[2021-07-15 11:00] VITALS: BP 130/76
--- NOTE | 2021-07-15 12:31 | NUR ---
SW following. Discussed with RN, still pending corrected REV codes. SW will continue to follow.
[2021-07-15] MEDS: DAPTOmycin (GENERIC) IVPB 330 MG in IV NORMAL SALINE 50ML 50 ML IV SCH (13:00)
[2021-07-15] MEDS: FLUTICASONE 50MCG/NASAL SPRAY 16GM BOTTLE. NS SCH (13:04)
[2021-07-15] MEDS: IV NORMAL SALINE 1000ML BAG 1,000 ML IV SCH (13:05)
[2021-07-15 15:00] VITALS: BP 123/64
--- NOTE | 2021-07-15 15:17 | NUR ---
Wound Care: Wound care follow up, vac seal is good, no periwound maceration noted. Pt notified that wound care will f/u on Sunday for dressing change.
--- NOTE | 2021-07-15 16:09 | PDOC ---
PROGRESS NOTES Date of Service: DATE: 07/15/21 TIME: 16:08 Subjective Subjective no new problems Objective Objective Vital Signs Date Time Temp Pulse Resp B/P (MAP) Pulse Ox O2 Delivery O2 Flow Rate FiO2 07/15/21 15:00 98.0 60 123/64 (83) 93 Room Air 98.0 07/15/21 11:00 18 Intake and Output 07/15/21 07:00 Intake Total 720 ml Output Total 450 ml Balance 270 ml Intake Oral 720 ml Output Urine Total 450 ml # Voids 1 Physical Exam Abdomen: Soft, No tenderness Heart: Regular rate Extremities: Other (Wound VAC in place on the left lower leg with Aquacel Ag to the more superficial wounds proximal and distal to the deep wound.) General: Alert, Oriented X3 HEENT: Atraumatic Lungs: Normal air movement MUSCULOSKELETAL: No deformity, No swelling, Abnormal exam of left, Other (lt shoulder joint tenderness AC joint) Neck: No JVD Neuro: Normal speech Psych/Mental Status: Mental status NL Skin: Other (s/p debridement ,wound vac present now) COMMENT wound vac Assessment Assessment Assessment Left lower extremity abscess Left lower extremity cellulitis Left lower extremity non healing chronic wound Peripheral vascular disease with history of angioplasty Diabetes mellitus with peripheral neuropathy CKD Tobacco dependence History of noncompliance History of previous toe amputation Plan: spoke with RN and piter boss waiting for monitored bed to open at LTAC Debridment of Tendon+wound 07/12/21 Xray left shoulder old healed fracture. spoke with piter boss. LTAC screen,needing heart monitored . labs noted cr 1.4, cbc ok ,ck normal Needs cardiac monitoring. Picc line 07/05/21 s/p Debridement 07/02 . Continue wound VAC Needs PICC line+2 weeks of iv antibiotics Diabetes not controlled. Increase Lantus and Humalog. High blood sugar may be also causing increased frequency of micturition. Operative cultures STAPHYLOCOCCUS AUREUS ENTEROCOCCUS FAECALIS EFE TROPICALIS BETA STREP GROUP B On zosyn, dapto and micafungin for discharge needs 3-4 weeks of antibiotics, Comment Review of Relevant I have reviewed the following items jorge (where applicable) has been applied. Labs Laboratory Tests Test 07/14/21 16:35 07/14/21 19:23 07/15/21 07:30 07/15/21 11:30 Glucose (Fingerstick) 230 mg/dL (70-99) 250 mg/dL (70-99) 178 mg/dL (70-99) 216 mg/dL (70-99) Microbiology 07/12/21 Gram Stain - Final, Complete 07/12/21 Aerobic Culture - Final, Complete 06/29/21 Blood Culture - Final, Complete NO GROWTH AFTER 5 DAYS Vitals/I & O Vital Sign - Last 24 Hours 07/14/21 07/14/21 07/14/21 07/14/21 16:13 16:43 19:00 20:00 Temp 98.1 98.1 Pulse 70 Resp 18 17 16 B/P (MAP) 97/51 (66) Pulse Ox 99 O2 Delivery Room Air Room Air Room Air Room Air 07/14/21 07/14/21 07/15/21 07/15/21 21:00 23:22 03:20 07:00 Temp 97.6 97.8 98.0 97.6 97.8 98.0 Pulse 70 62 56 74 Resp 16 16 16 B/P (MAP) 97/51 133/66 (88) 141/63 (89) 139/79 (99) Pulse Ox 100 98 97 O2 Delivery Room Air Room Air Room Air 07/15/21 07/15/21 07/15/21 07/15/21 08:00 10:06 10:07 10:15 Pulse 74 74 Resp 18 B/P (MAP) 139/79 139/79 O2 Delivery Room Air Room Air 07/15/21 07/15/21 07/15/21 10:45 11:00 15:00 Temp 97.8 98.0 97.8 98.0 Pulse 62 60 Resp 17 18 B/P (MAP) 130/76 (94) 123/64 (83) Pulse Ox 99 93 O2 Delivery Room Air Room Air Room Air Intake and Output 07/14/21 07/14/21 07/15/21 15:00 23:00 07:00 Intake Total 480 ml 240 ml Output Total 450 ml Balance 480 ml 240 ml -450 ml Justifications for Admission Other Justification Nutrition Consultation Dietary Evaluation: Recommendations by RD: Dietary education by RD, Increase Calorie Intake, Protein supplementation Comments: mech soft, ADA/Cardiac DBL meats , no jones strawberry Glucerna tid debora bid REC mvi and vit c per wound protocal Expected Outcomes/Goals: to meet >75% est nutrition needs- goal ongoing Malnutrition Findings: Body Fat Depletion (Non Severe: Mod to Severe Weight Status: Underweight KESHA TAYLOR MD Jul 15, 2021 16:09
[2021-07-15 19:00] VITALS: BP 154/76
[2021-07-15] MEDS: INSULIN GLARGINE SYRINGE. SQ SCH (21:10)
[2021-07-15 23:00] VITALS: BP 147/59
[2021-07-16] MEDS: PIPERACILLIN/TAZOBACTAM 3.375 GM in IV NORMAL SALINE 50ML 50 ML IV SCH ×4 (00:07→18:46)
[2021-07-16 03:00] VITALS: BP 138/74
[2021-07-16 07:00] VITALS: BP 161/80
--- NOTE | 2021-07-16 07:43 | PDOC ---
Infectious Disease Note Subjective: Subjective Patient without complaints Vital Signs: Vital Signs Vital Signs Date Time Temp Pulse Resp B/P (MAP) Pulse Ox O2 Delivery O2 Flow Rate FiO2 07/16/21 03:00 98.1 67 16 138/74 (95) 97 Room Air 98.1 Physical Exam: PHYSICAL EXAM GENERAL: AXOX3 male lying in bed comfortably, in no acute distress. HEENT: Normocephalic, atraumatic. Anicteric. NECK: Supple. No JVD. LUNGS: Clear bilaterally. No wheezing. HEART: S1, S2. No gallops or murmurs. ABDOMEN: Soft, nontender, nondistended. No rebound or guarding. EXTREMITIES: Left leg wound /VAC in place MUSCULOSKELETAL: No joint swelling. No decrease in range of motion. CENTRAL NERVOUS SYSTEM: Alert, oriented x 3, grossly nonfocal. PSYCHIATRIC: Cooperative, calm. PICC line clean Medications: Inpatient Meds: Medications reviewed. Labs: Lab Laboratory Tests Test 07/15/21 11:30 07/15/21 16:49 07/15/21 20:31 Glucose (Fingerstick) 216 mg/dL (70-99) 93 mg/dL (70-99) 229 mg/dL (70-99) Micro RUN DATE: 07/06/21 [facility] LAB *LIVE* PAGE 1 RUN TIME: 0850 Specimen Inquiry PATIENT: CHANEL MARINELLIDDIE Landen ACCT: [id number] LOC: [address] [place] [address] U: [id number] AGE/SX: 80/M ROOM: 2 RE06/29/[address]: KESHA TAYLOR MD : 1940 BED: 1 DIS: STATUS: ADM IN TLOC: SPEC #: [id number] CONNIE: 07/02/21 STATUS: RES REQ #: [id number] RECD: 07/03/[address]: KESHA TAYLOR MD SOURCE: ABSCESS ENTR: 07/03/[address]: CHARLIE LEVI MD SPDESC: KYLER CRUZ MD, RAVEN C MD ORDERED: ANAER/AEROB/GS COMMENTS: LEFT LEG ULCER/ABSCESS SWAB Procedure Result GRAM STAIN Final Final GRAM POSITIVE COCCI:RARE SQUAMOUS EPI CELL:RARE PMN (WBCs):FEW Unless otherwise specified, Testing Performed by: [address] [address] For Inquires, the Physician may contact the Microbiology department at [phone] ANAEROBIC-AEROBIC CULTURE Preliminary Preliminary MIXED AEROBIC BRE INCLUDING; FEW [STAPHYLOCOCCUS AUREUS] on 07/04/21 at 0901 FEW [ENTEROCOCCUS FAECALIS] on 07/04/21 at 1038 FEW [BETA STREP GROUP B] on 07/04/21 at 1038 RARE [ZARIA TROPICALIS] on 07/05/21 at 1000 STAPHYLOCOCCUS AUREUS ENTEROCOCCUS FAECALIS ZARIA TROPICALIS BETA STREP GROUP B ANTIMICROBIAL SUSCEPTIBILITY Preliminary Comment Comment POS LYNN TYPE 38 STAPHYLOCOCCUS AUREUS ANTIBIOTIC RESULT INTERPRETATION AZITHROMYCIN >4 R CLINDAMYCIN <=0.25 R* CEFOXITIN SCREEN <=4 NEG CIPROFLOXACIN >2 R CEFTAROLINE <=0.5 S DAPTOMYCIN 1 S ERYTHROMYCIN >4 R GENTAMICIN <=4 S RUN DATE: 07/06/21 [facility] LAB *LIVE* PAGE 2 RUN TIME: 0850 Specimen Inquiry SPEC: [id number] PATIENT: MARINELLIESPERANZA RAO Landen [id number] (Continued) Procedure Result - CONTINUED ON NEXT PAGE RUN DATE: 07/06/21 [facility] LAB *LIVE* PAGE 3 RUN TIME: 0850 Specimen Inquiry SPEC: [id number] PATIENT: ESPERANZA MARINELLI Landen [id number] (Continued) Procedure Result ANTIMICROBIAL SUSCEPTIBILITY Preliminary (continued) INDUCIBLE CLINDAMYCIN >4/0.5 POS LINEZOLID 2 S LEVOFLOXACIN <=1 S OXACILLIN 0.5 S PENICILLIN >2 Girma RIFAMPIN <=1 S TRIMETHOPRIM/SULFAMETHOXAZOLE <=0.5/9.5 S TETRACYCLINE <=4 S VANCOMYCIN 1 S Streptomycin Synergy Screen S Gentamicin Synergy Screen S POS LYNN TYPE 38 ENTEROCOCCUS FAECALIS ANTIBIOTIC RESULT INTERPRETATION AMPICILLIN <=2 S DAPTOMYCIN 1 S LINEZOLID 2 S PENICILLIN 2 S VANCOMYCIN 1 S Unless otherwise specified, Testing Performed by: [address] [address] For Inquires, the Physician may contact the Microbiology department at [phone] Objective: Assessment: Left lower extremity abscess Sept 24 S/P Excisional debridement of left leg wound including skin and subcutaneous tissue and Wound VAC placement to the left leg. Polymicrobial organisms Operative cultures STAPHYLOCOCCUS AUREUS ENTEROCOCCUS FAECALIS ZARIA TROPICALIS BETA STREP GROUP B 10/5 Debridment left leg to tendon for necrotic wound Vac placement Cult Zaria albicans Left lower extremity cellulitis improved Peripheral vascular disease with history of angioplasty Diabetes mellitus with peripheral neuropathy CHERYLE on CKD Tobacco dependence History of noncompliance History of previous toe amputation Leucopenia ? etiology Plan: Plan of Care Patient's discharge has been held due to insurance issues approving his antibiotics and antifungal medication Patient is not eligible to receive micafungin as outpatient Repeat intraoperative cultures from 07/12/2021 has Zaria albicans Continue daptomycin Micafungin /Zosyn When ready for transfer to rehab facility will change Zosyn to Invanz first dose here cont dapto and invanz as outpt Prescription in chart Limited choices for treatment for C albicans intraoperative cultures Fluconazole is not an option per discussion with pharmacy due to drug drug interactions with clopidogrel, fluconazole will decrease the levels of clopidogrel Micafungin, patient is not accepted at rehab facility due to insurance issues Next option would be posaconazole,Case management to assist. Continue local wound care Will monitor labs if patient is still here over the weekend Continue supportive care Follow-up ID clinic August 04, 2021 phone [phone] D[address] with Dr[address] Taylor Discussed with nursing staff Pt will possibly be tx to LTAC per OMAR ROMANO MD Jul 16, 2021 07:43
[2021-07-16] MEDS: hydroCHLOROthiazide 12.5 MG CAPSULE PO SCH (08:23)
[2021-07-16] MEDS: LACTOBACILLUS RHAMNOSUS GG 1 CAPSULE. PO SCH ×2 (08:23→20:45)
[2021-07-16] MEDS: GABAPENTIN 300 MG CAPSULE. PO SCH ×2 (08:23→20:45)
[2021-07-16] MEDS: CLOPIDOGREL BISULFATE 75 MG TABLET PO SCH (08:23)
[2021-07-16] MEDS: ASPIRIN CHEWABLE 81 MG TABLET. PO SCH ×2 (08:23→20:45)
[2021-07-16] MEDS: MICAFUNGIN 100 MG in IV DEXTROSE 5% 100ML 100 ML IV SCH (08:27)
[2021-07-16] MEDS: FLUTICASONE 50MCG/NASAL SPRAY 16GM BOTTLE. NS SCH (08:31)
[2021-07-16] MEDS: TAMSULOSIN 0.4 MG CAP.ER.24H. PO SCH (08:32)
[2021-07-16] MEDS: LISINOPRIL 20 MG TABLET PO SCH ×2 (08:32→20:45)
--- NOTE | 2021-07-16 08:32 | PDOC ---
IM PROGRESS NOTES- Subjective Subjective No complaints of pain or dyspnea. Objective Vitals/I&O Vital Signs Date Time Temp Pulse Resp B/P (MAP) Pulse Ox O2 Delivery O2 Flow Rate FiO2 07/16/21 03:00 98.1 67 16 138/74 (95) 97 Room Air 98.1 I & O 07/15/21 07/15/21 07/16/21 15:00 23:00 07:00 Intake Total 480 ml 300 ml 0 ml Output Total 300 ml 950 ml Balance 480 ml 0 ml -950 ml Physical Exam Physical Exam General Appearance - alert and in no distress Chest - decreased breath sounds at bases Heart - S1 and S2 normal Abdomen - soft, non tender Neurological - alert and oriented Musculoskeletal - generalized weakness Extremities - no edema, left foot dressing with wound VAC. Labs Laboratory Tests Test 07/15/21 11:30 07/15/21 16:49 07/15/21 20:31 07/16/21 07:30 Glucose (Fingerstick) 216 mg/dL (70-99) H 93 mg/dL (70-99) 229 mg/dL (70-99) H 182 mg/dL (70-99) H Assessment Assessment Assessment Left lower extremity abscess Left lower extremity cellulitis Left lower extremity non healing chronic wound Peripheral vascular disease with history of angioplasty Diabetes mellitus with peripheral neuropathy CKD Tobacco dependence History of noncompliance History of previous toe amputation Plan: waiting for monitored bed to open at LTAC Debridment of Tendon+wound 07/12/21. LTAC screen,needing heart monitored . Needs cardiac monitoring. Picc line 07/05/21 s/p Debridement 07/02 . Continue wound VAC Needs PICC line+2 weeks of iv antibiotics Diabetes not controlled. Has occasional hypoglycemia. Continue Lantus and Humalog. Operative cultures STAPHYLOCOCCUS AUREUS ENTEROCOCCUS FAECALIS EFE TROPICALIS BETA STREP GROUP B On zosyn, dapto and micafungin. Check labs in a.m. Plan Plan Continue Zosyn Change vancomycin to daptomycin Vascular consulted, will need I&D Continue local wound care as directed Monitor labs and cultures Continue supportive care Thank you Dr. John for consulting infectious disease participate in this patient's care. We will follow along with you. Discussed with nursing staff Justifications for Admission Other Justification Nutrition Consultation Dietary Evaluation: Recommendations by RD: Dietary education by RD, Increase Calorie Intake, Protein supplementation Comments: mech soft, ADA/Cardiac DBL meats , no jones strawberry Glucerna tid debora bid REC mvi and vit c per wound protocal Expected Outcomes/Goals: to meet >75% est nutrition needs- goal ongoing Malnutrition Findings: Body Fat Depletion (Non Severe: Mod to Severe Weight Status: Underweight BAN SHEIKH MD Jul 16, 2021 08:32
[2021-07-16] MEDS: INSULIN LISPRO 300 UNITS/3 ML VIAL. SQ SCH ×6 (08:48→20:50)
[2021-07-16] MEDS: HEPARIN for SUB-Q USE 5,000 UNIT/ML VIAL. SQ SCH ×2 (08:49→20:47)
[2021-07-16] MEDS: silver sulfADIAZINE 1% CREAM 25GM TUBE. TP SCH ×2 (09:00→19:55)
[2021-07-16 11:00] VITALS: BP 129/70
[2021-07-16] MEDS: IV NORMAL SALINE 1000ML BAG 1,000 ML IV SCH (13:46)
[2021-07-16] MEDS: DAPTOmycin (GENERIC) IVPB 330 MG in IV NORMAL SALINE 50ML 50 ML IV SCH (13:47)
[2021-07-16 15:00] VITALS: BP 130/65
[2021-07-16 19:00] VITALS: BP 136/73
[2021-07-16] MEDS: INSULIN GLARGINE SYRINGE. SQ SCH (20:47)
[2021-07-16 23:00] VITALS: BP 146/79
[2021-07-17] MEDS: PIPERACILLIN/TAZOBACTAM 3.375 GM in IV NORMAL SALINE 50ML 50 ML IV SCH ×5 (00:17→23:34)
[2021-07-17 03:21] VITALS: BP 165/85
[2021-07-17 07:00] VITALS: BP 141/70
[2021-07-17] MEDS: INSULIN LISPRO 300 UNITS/3 ML VIAL. SQ SCH ×6 (07:30→21:27)
--- NOTE | 2021-07-17 08:21 | PDOC ---
IM PROGRESS NOTES- Subjective Subjective No complaints of pain or dyspnea. Objective Vitals/I&O Vital Signs Date Time Temp Pulse Resp B/P (MAP) Pulse Ox O2 Delivery O2 Flow Rate FiO2 07/17/21 07:00 98.5 58 14 141/70 (93) 99 Room Air 98.5 I & O 07/16/21 07/16/21 07/17/21 15:00 23:00 07:00 Intake Total 580 ml 290 ml 90 ml Output Total 250 ml 200 ml 300 ml Balance 330 ml 90 ml -210 ml Physical Exam Physical Exam General Appearance - alert and in no distress Chest - decreased breath sounds at bases Heart - S1 and S2 normal Abdomen - soft, non tender Neurological - alert and oriented Musculoskeletal - generalized weakness Extremities - no edema, left foot wound with wound VAC Labs Laboratory Tests Test 07/16/21 10:50 07/16/21 15:39 07/16/21 20:17 07/17/21 08:10 Glucose (Fingerstick) 144 mg/dL (70-99) H 165 mg/dL (70-99) H 243 mg/dL (70-99) H 117 mg/dL (70-99) H Assessment Assessment Assessment Left lower extremity abscess Left lower extremity cellulitis Left lower extremity non healing chronic wound Peripheral vascular disease with history of angioplasty Diabetes mellitus with peripheral neuropathy CKD Tobacco dependence History of noncompliance History of previous toe amputation Plan: waiting for monitored bed to open at LTAC Debridment of Tendon+wound 07/12/21. LTAC screen,needing heart monitored . Needs cardiac monitoring. Picc line 07/05/21 s/p Debridement 07/02 . Continue wound VAC Needs PICC line+2 weeks of iv antibiotics Diabetes not controlled. Has occasional hypoglycemia. Continue Lantus and Humalog. Operative cultures STAPHYLOCOCCUS AUREUS ENTEROCOCCUS FAECALIS EFE TROPICALIS BETA STREP GROUP B On zosyn, dapto and micafungin. Check labs in a.m. Plan Plan Continue Zosyn Change vancomycin to daptomycin Vascular consulted, will need I&D Continue local wound care as directed Monitor labs and cultures Continue supportive care Thank you Dr. John for consulting infectious disease participate in this patient's care. We will follow along with you. Discussed with nursing staff Justifications for Admission Other Justification Nutrition Consultation Dietary Evaluation: Recommendations by RD: Dietary education by RD, Increase Calorie Intake, Protein supplementation Comments: mech soft, ADA/Cardiac DBL meats , no jones strawberry Glucerna tid debora bid REC mvi and vit c per wound protocal Expected Outcomes/Goals: to meet >75% est nutrition needs- goal ongoing Malnutrition Findings: Body Fat Depletion (Non Severe: Mod to Severe Weight Status: Underweight BAN SHEIKH MD Jul 17, 2021 08:21
[2021-07-17] MEDS: hydroCHLOROthiazide 12.5 MG CAPSULE PO SCH (08:25)
[2021-07-17] MEDS: CLOPIDOGREL BISULFATE 75 MG TABLET PO SCH (08:26)
[2021-07-17] MEDS: LACTOBACILLUS RHAMNOSUS GG 1 CAPSULE. PO SCH ×2 (08:26→21:27)
[2021-07-17] MEDS: ASPIRIN CHEWABLE 81 MG TABLET. PO SCH ×2 (08:26→21:27)
[2021-07-17] MEDS: LISINOPRIL 20 MG TABLET PO SCH ×2 (08:27→21:28)
[2021-07-17] MEDS: TAMSULOSIN 0.4 MG CAP.ER.24H. PO SCH (08:27)
[2021-07-17] MEDS: GABAPENTIN 300 MG CAPSULE. PO SCH ×2 (08:27→21:27)
[2021-07-17] MEDS: FLUTICASONE 50MCG/NASAL SPRAY 16GM BOTTLE. NS SCH (08:30)
[2021-07-17] MEDS: silver sulfADIAZINE 1% CREAM 25GM TUBE. TP SCH ×2 (08:30→19:27)
[2021-07-17] MEDS: HEPARIN for SUB-Q USE 5,000 UNIT/ML VIAL. SQ SCH ×2 (08:41→21:25)
[2021-07-17] MEDS: MICAFUNGIN 100 MG in IV DEXTROSE 5% 100ML 100 ML IV SCH (08:44)
--- NOTE | 2021-07-17 08:52 | PDOC ---
Infectious Disease Note Subjective: Subjective Patient without complaints Vital Signs: Vital Signs Vital Signs Date Time Temp Pulse Resp B/P (MAP) Pulse Ox O2 Delivery O2 Flow Rate FiO2 07/17/21 08:27 58 141/70 07/17/21 07:00 98.5 14 99 Room Air 98.5 Physical Exam: PHYSICAL EXAM GENERAL: AXOX3 male lying in bed comfortably, in no acute distress. HEENT: Normocephalic, atraumatic. Anicteric. NECK: Supple. No JVD. LUNGS: Clear bilaterally. No wheezing. HEART: S1, S2. No gallops or murmurs. ABDOMEN: Soft, nontender, nondistended. No rebound or guarding. EXTREMITIES: Left leg wound /VAC in place MUSCULOSKELETAL: No joint swelling. No decrease in range of motion. CENTRAL NERVOUS SYSTEM: Alert, oriented x 3, grossly nonfocal. PSYCHIATRIC: Cooperative, calm. PICC line clean Medications: Inpatient Meds: Medications reviewed. Labs: Lab Laboratory Tests Test 07/16/21 10:50 07/16/21 15:39 07/16/21 20:17 07/17/21 08:10 Glucose (Fingerstick) 144 mg/dL (70-99) 165 mg/dL (70-99) 243 mg/dL (70-99) 117 mg/dL (70-99) Micro RUN DATE: 07/06/21 [facility] *LIVE* PAGE 1 RUN TIME: 0850 Specimen Inquiry PATIENT: ESPERANZA MARINELLI ACCT: [id number] LOC: [address] [place] [address] U: [id number] AGE/SX: 80/M ROOM: 552 RE06/29/[address]: KESHA TAYLOR MD : 1940 BED: 1 DIS: STATUS: ADM IN TLOC: SPEC #: [id number] CONNIE: 07/02/21 STATUS: RES REQ #: [id number] RECD: 07/03/[address]: KESHA TAYLOR MD SOURCE: ABSCESS ENTR: 07/03/[address]: CHARLIE LEVI MD SPDESC: KYLER CRUZ MD, RAVEN C MD ORDERED: ANAER/AEROB/ASHOK COMMENTS: LEFT LEG ULCER/ABSCESS SWAB Procedure Result GRAM STAIN Final Final GRAM POSITIVE COCCI:RARE SQUAMOUS EPI CELL:RARE PMN (WBCs):FEW Unless otherwise specified, Testing Performed by: [address] [address] For Inquires, the Physician may contact the Microbiology department at [phone] ANAEROBIC-AEROBIC CULTURE Preliminary Preliminary MIXED AEROBIC BRE INCLUDING; FEW [STAPHYLOCOCCUS AUREUS] on 07/04/21 at 0901 FEW [ENTEROCOCCUS FAECALIS] on 07/04/21 at 1038 FEW [BETA STREP GROUP B] on 07/04/21 at 1038 RARE [ZARIA TROPICALIS] on 07/05/21 at 1000 STAPHYLOCOCCUS AUREUS ENTEROCOCCUS FAECALIS ZARIA TROPICALIS BETA STREP GROUP B ANTIMICROBIAL SUSCEPTIBILITY Preliminary Comment Comment POS LYNN TYPE 38 STAPHYLOCOCCUS AUREUS ANTIBIOTIC RESULT INTERPRETATION AZITHROMYCIN >4 R CLINDAMYCIN <=0.25 R* CEFOXITIN SCREEN <=4 NEG CIPROFLOXACIN >2 R CEFTAROLINE <=0.5 S DAPTOMYCIN 1 S ERYTHROMYCIN >4 R GENTAMICIN <=4 S RUN DATE: 07/06/21 [facility] *LIVE* PAGE 2 RUN TIME: 0850 Specimen Inquiry SPEC: [id number] PATIENT: ESPERANZA MARINELLI Landen [id number] (Continued) Procedure Result CONTINUED ON NEXT PAGE RUN DATE: 07/06/21 [facility] *LIVE* PAGE 3 RUN TIME: 0850 Specimen Inquiry SPEC: [id number] PATIENT: MARINELLIESPERANZA W [id number] (Ronald bar) Procedure Result ANTIMICROBIAL SUSCEPTIBILITY Preliminary (continued) INDUCIBLE CLINDAMYCIN >4/0.5 POS LINEZOLID 2 S LEVOFLOXACIN <=1 S OXACILLIN 0.5 S PENICILLIN >2 Girma RIFAMPIN <=1 S TRIMETHOPRIM/SULFAMETHOXAZOLE <=0.5/9.5 S TETRACYCLINE <=4 S VANCOMYCIN 1 S Streptomycin Synergy Screen S Gentamicin Synergy Screen S POS LYNN TYPE 38 ENTEROCOCCUS FAECALIS ANTIBIOTIC RESULT INTERPRETATION AMPICILLIN <=2 S DAPTOMYCIN 1 S LINEZOLID 2 S PENICILLIN 2 S VANCOMYCIN 1 S Unless otherwise specified, Testing Performed by: [address] [address] For Inquires, the Physician may contact the Microbiology department at [phone] Objective: Assessment: Left lower extremity abscess Sept 24 S/P Excisional debridement of left leg wound including skin and subcutaneous tissue and Wound VAC placement to the left leg. Polymicrobial organisms Operative cultures STAPHYLOCOCCUS AUREUS ENTEROCOCCUS FAECALIS ZARIA TROPICALIS BETA STREP GROUP B 10/ Debridment left leg to tendon for necrotic wound Vac placement Cult Zaria albicans Left lower extremity cellulitis improved Peripheral vascular disease with history of angioplasty Diabetes mellitus with peripheral neuropathy CHERYLE on CKD Tobacco dependence History of noncompliance History of previous toe amputation Leucopenia ? etiology Plan: Plan of Care Patient's discharge has been held due to insurance issues approving his antibiotics and antifungal medication Repeat intraoperative cultures from 07/12/2021 has Zaria albicans Limited choices for treatment for C albicans intraoperative cultures Fluconazole is not an option due to drug drug interactions with clopidogrel, fluconazole will decrease the levels of clopidogrel...... Micafungin, patient is not accepted at rehab facility due to insurance issues Next option would be posaconazole,Case management to assist. Continue daptomycin Micafungin /Zosyn When ready for transfer to rehab facility will change Zosyn to Invanz first dose here cont dapto and invanz as outpt, micafungin as outpatient Prescription in chart Continue local wound care Follow-up ID clinic August 04, 2021 phone [phone] New update pt will possibly be tx to LT[facility] per RN early next week OMAR CRUZ MD Jul 17, 2021 08:52
[2021-07-17 11:00] VITALS: BP 135/65
[2021-07-17 12:36] LABS: BASO % 1 % (0-3); EOS # 0.1 x10^3/uL (0.0-0.7); EOS % 2 % (0-3); HEMATOCRIT 25.7 % (39.0-53.0); HEMOGLOBIN 8.3 g/dL (13.0-17.5); LYMPH # 1.6 x10^3/uL (1.0-4.8); LYMPH % 42 % (24-48); MEAN CORPUSCULAR HEMOGLOBIN 26 pg (25-35); MEAN CORPUSCULAR HGB CONC 32 g/dL (31-37); MEAN CORPUSCULAR VOLUME 79 fL (79-100); MONO # 0.4 x10^3/uL (0.0-1.1); MONO % 11 % (0-9); NEUT # 1.7 x10^3/uL (1.8-7.7); NEUT % 44 % (31-73); PLATELET COUNT 282 x10^3/uL (140-400); RED BLOOD COUNT 3.24 x10^6/uL (4.30-5.70); RED CELL DISTRIBUTION WIDTH 15.8 % (11.5-14.5); WHITE BLOOD COUNT 3.9 x10^3/uL (4.0-11.0)
[2021-07-17] MEDS: DAPTOmycin (GENERIC) IVPB 330 MG in IV NORMAL SALINE 50ML 50 ML IV SCH (12:49)
[2021-07-17 12:50] LABS: ALBUMIN 2.1 g/dL (3.4-5.0); ALBUMIN/GLOBULIN RATIO 0.4 (1.0-1.7); CALCIUM 8.7 mg/dL (8.5-10.1); CREATININE 1.5 mg/dL (0.7-1.3); GFR 54.6; POTASSIUM 4.3 mmol/L (3.5-5.1); TOTAL BILIRUBIN 0.2 mg/dL (0.2-1.0); TOTAL PROTEIN 7.3 g/dL (6.4-8.2)
[2021-07-17 15:00] VITALS: BP 139/70
[2021-07-17 19:00] VITALS: BP 113/61
[2021-07-17] MEDS: INSULIN GLARGINE SYRINGE. SQ SCH (21:25)
[2021-07-17] MEDS: IV NORMAL SALINE 1000ML BAG 1,000 ML IV SCH (21:29)
[2021-07-17] MEDS: HYDROcodone/APAP 5/325MG 1 TAB TABLET PO PRN (23:34)
[2021-07-18] VITALS (7 sets, daily range): BP systolic 123–164; BP diastolic 56–75
[2021-07-18] MEDS: PIPERACILLIN/TAZOBACTAM 3.375 GM in IV NORMAL SALINE 50ML 50 ML IV SCH ×4 (05:49→23:35)
--- NOTE | 2021-07-18 08:42 | PDOC ---
PROGRESS NOTES Date of Service: DATE: 07/18/21 TIME: 08:41 Subjective Subjective no new problems Objective Objective Vital Signs Date Time Temp Pulse Resp B/P (MAP) Pulse Ox O2 Delivery O2 Flow Rate FiO2 07/18/21 07:00 98.4 60 20 129/66 (87) 99 Room Air 98.4 Intake and Output 07/18/21 07:00 Intake Total 350 ml Output Total 900 ml Balance -550 ml Intake Oral 300 ml IV Total 50 ml Output Urine Total 900 ml # Voids 2 Physical Exam Abdomen: Soft, No tenderness Heart: Regular rate Extremities: Other (Wound VAC in place on the left lower leg with Aquacel Ag to the more superficial wounds proximal and distal to the deep wound.) General: Alert, Oriented X3 HEENT: Atraumatic Lungs: Normal air movement MUSCULOSKELETAL: No deformity, No swelling, Abnormal exam of left, Other (lt shoulder joint tenderness AC joint) Neck: No JVD Neuro: Normal speech Psych/Mental Status: Mental status NL Skin: Other (s/p debridement ,wound vac present now) COMMENT wound vac Assessment Assessment Assessment Left lower extremity abscess Left lower extremity cellulitis Left lower extremity non healing chronic wound Peripheral vascular disease with history of angioplasty Diabetes mellitus with peripheral neuropathy CKD Tobacco dependence History of noncompliance History of previous toe amputation Plan: waiting for monitored bed to open at LTAC Debridment of Tendon+wound 07/12/21. LTAC screen,needing heart monitored . Needs cardiac monitoring. Picc line 07/05/21 s/p Debridement 07/02 . Continue wound VAC Needs PICC line+2 weeks of iv antibiotics Diabetes not controlled. Has occasional hypoglycemia. Continue Lantus and Humalog. Operative cultures STAPHYLOCOCCUS AUREUS ENTEROCOCCUS FAECALIS EFE TROPICALIS BETA STREP GROUP B On zosyn, dapto and micafungin. labs noted , cr 1.5 ,ck normal ,cbc ok Comment Review of Relevant I have reviewed the following items jorge (where applicable) has been applied. Labs Laboratory Tests Test 07/17/21 12:16 07/17/21 12:37 07/17/21 17:56 07/17/21 21:20 White Blood Count 3.9 x10^3/uL (4.0-11.0) Red Blood Count 3.24 x10^6/uL (4.30-5.70) Hemoglobin 8.3 g/dL (13.0-17.5) Hematocrit 25.7 % (39.0-53.0) Mean Corpuscular Volume 79 fL (79-100) Mean Corpuscular Hemoglobin 26 pg (25-35) Mean Corpuscular Hemoglobin Concent 32 g/dL (31-37) Red Cell Distribution Width 15.8 % (11.5-14.5) Platelet Count 282 x10^3/uL (140-400) Neutrophils (%) (Auto) 44 % (31-73) Lymphocytes (%) (Auto) 42 % (24-48) Monocytes (%) (Auto) 11 % (0-9) Eosinophils (%) (Auto) 2 % (0-3) Basophils (%) (Auto) 1 % (0-3) Neutrophils # (Auto) 1.7 x10^3/uL (1.8-7.7) Lymphocytes # (Auto) 1.6 x10^3/uL (1.0-4.8) Monocytes # (Auto) 0.4 x10^3/uL (0.0-1.1) Eosinophils # (Auto) 0.1 x10^3/uL (0.0-0.7) Basophils # (Auto) 0.0 x10^3/uL (0.0-0.2) Sodium Level 135 mmol/L (136-145) Potassium Level 4.3 mmol/L (3.5-5.1) Chloride Level 104 mmol/L (98-107) Carbon Dioxide Level 24 mmol/L (21-32) Anion Gap 7 (6-14) Blood Urea Nitrogen 19 mg/dL (8-26) Creatinine 1.5 mg/dL (0.7-1.3) Estimated GFR (Cockcroft-Gault) 54.6 BUN/Creatinine Ratio 13 (6-20) Glucose Level 188 mg/dL (70-99) Calcium Level 8.7 mg/dL (8.5-10.1) Total Bilirubin 0.2 mg/dL (0.2-1.0) Aspartate Amino Transf (AST/SGOT) 21 U/L (15-37) Alanine Aminotransferase (ALT/SGPT) 22 U/L (16-63) Alkaline Phosphatase 48 U/L (46-116) Creatine Kinase 30 U/L (39-308) Total Protein 7.3 g/dL (6.4-8.2) Albumin 2.1 g/dL (3.4-5.0) Albumin/Globulin Ratio 0.4 (1.0-1.7) Glucose (Fingerstick) 251 mg/dL (70-99) 232 mg/dL (70-99) 217 mg/dL (70-99) Test 07/18/21 07:11 Glucose (Fingerstick) 181 mg/dL (70-99) Microbiology 07/12/21 Gram Stain - Final, Complete 07/12/21 Aerobic Culture - Final, Complete 06/29/21 Blood Culture - Final, Complete NO GROWTH AFTER 5 DAYS Vitals/I & O Vital Sign - Last 24 Hours 07/17/21 07/17/21 07/17/21 07/17/21 11:00 15:00 19:00 20:15 Temp 98.2 98.6 97.9 98.2 98.6 97.9 Pulse 57 68 76 Resp 16 16 20 B/P (MAP) 135/65 (88) 139/70 (93) 113/61 (78) Pulse Ox 100 100 99 O2 Delivery Room Air Room Air Room Air 07/17/21 07/17/21 07/17/21 07/18/21 21:28 23:30 23:34 00:19 Resp 16 17 B/P (MAP) 113/61 Pulse Ox 99 99 99 O2 Delivery Room Air Room Air 07/18/21 07/18/21 07/18/21 00:33 03:00 07:00 Temp 97.9 97.9 98.4 97.9 97.9 98.4 Pulse 64 61 60 Resp 16 16 20 B/P (MAP) 158/71 (100) 146/75 (98) 129/66 (87) Pulse Ox 99 99 99 O2 Delivery Room Air Room Air Room Air Intake and Output 07/17/21 07/17/21 07/18/21 15:00 23:00 07:00 Intake Total 120 ml 230 ml Output Total 250 ml 650 ml Balance -250 ml 120 ml -420 ml Justifications for Admission Other Justification Nutrition Consultation Dietary Evaluation: Recommendations by RD: Dietary education by RD, Increase Calorie Intake, Protein supplementation Comments: mech soft, ADA/Cardiac DBL meats , no jones strawberry Glucerna tid debora bid REC mvi and vit c per wound protocal Expected Outcomes/Goals: to meet >75% est nutrition needs- goal ongoing Malnutrition Findings: Body Fat Depletion (Non Severe: Mod to Severe Weight Status: Underweight KESHA TAYLOR MD Jul 18, 2021 08:42
--- NOTE | 2021-07-18 08:57 | PDOC ---
Infectious Disease Note Subjective Subjective Patient without complaints ROS ROS no n/v/d/sob Vital Sign Vital Signs Vital Signs Date Time Temp Pulse Resp B/P (MAP) Pulse Ox O2 Delivery O2 Flow Rate FiO2 07/18/21 07:00 98.4 60 20 129/66 (87) 99 Room Air 98.4 Physical Exam PHYSICAL EXAM GENERAL: AXOX3 male lying in bed comfortably, in no acute distress. HEENT: Normocephalic, atraumatic. Anicteric. NECK: Supple. No JVD. LUNGS: Clear bilaterally. No wheezing. HEART: S1, S2. No gallops or murmurs. ABDOMEN: Soft, nontender, nondistended. No rebound or guarding. EXTREMITIES: Left leg wound /VAC in place MUSCULOSKELETAL: No joint swelling. No decrease in range of motion. CENTRAL NERVOUS SYSTEM: Alert, oriented x 3, grossly nonfocal. PSYCHIATRIC: Cooperative, calm. PICC line clean Labs Lab Laboratory Tests Test 07/17/21 12:16 07/17/21 12:37 07/17/21 17:56 07/17/21 21:20 White Blood Count 3.9 x10^3/uL (4.0-11.0) Red Blood Count 3.24 x10^6/uL (4.30-5.70) Hemoglobin 8.3 g/dL (13.0-17.5) Hematocrit 25.7 % (39.0-53.0) Mean Corpuscular Volume 79 fL (79-100) Mean Corpuscular Hemoglobin 26 pg (25-35) Mean Corpuscular Hemoglobin Concent 32 g/dL (31-37) Red Cell Distribution Width 15.8 % (11.5-14.5) Platelet Count 282 x10^3/uL (140-400) Neutrophils (%) (Auto) 44 % (31-73) Lymphocytes (%) (Auto) 42 % (24-48) Monocytes (%) (Auto) 11 % (0-9) Eosinophils (%) (Auto) 2 % (0-3) Basophils (%) (Auto) 1 % (0-3) Neutrophils # (Auto) 1.7 x10^3/uL (1.8-7.7) Lymphocytes # (Auto) 1.6 x10^3/uL (1.0-4.8) Monocytes # (Auto) 0.4 x10^3/uL (0.0-1.1) Eosinophils # (Auto) 0.1 x10^3/uL (0.0-0.7) Basophils # (Auto) 0.0 x10^3/uL (0.0-0.2) Sodium Level 135 mmol/L (136-145) Potassium Level 4.3 mmol/L (3.5-5.1) Chloride Level 104 mmol/L (98-107) Carbon Dioxide Level 24 mmol/L (21-32) Anion Gap 7 (6-14) Blood Urea Nitrogen 19 mg/dL (8-26) Creatinine 1.5 mg/dL (0.7-1.3) Estimated GFR (Cockcroft-Gault) 54.6 BUN/Creatinine Ratio 13 (6-20) Glucose Level 188 mg/dL (70-99) Calcium Level 8.7 mg/dL (8.5-10.1) Total Bilirubin 0.2 mg/dL (0.2-1.0) Aspartate Amino Transf (AST/SGOT) 21 U/L (15-37) Alanine Aminotransferase (ALT/SGPT) 22 U/L (16-63) Alkaline Phosphatase 48 U/L (46-116) Creatine Kinase 30 U/L (39-308) Total Protein 7.3 g/dL (6.4-8.2) Albumin 2.1 g/dL (3.4-5.0) Albumin/Globulin Ratio 0.4 (1.0-1.7) Glucose (Fingerstick) 251 mg/dL (70-99) 232 mg/dL (70-99) 217 mg/dL (70-99) Test 07/18/21 07:11 Glucose (Fingerstick) 181 mg/dL (70-99) Micro Microbiology 07/12/21 Gram Stain - Final, Complete 07/12/21 Aerobic Culture - Final, Complete 06/29/21 Blood Culture - Final, Complete NO GROWTH AFTER 5 DAYS Objective Assessment Left lower extremity abscess Sept 24 S/P Excisional debridement of left leg wound including skin and subcutaneous tissue and Wound VAC placement to the left leg. Polymicrobial organisms Operative cultures STAPHYLOCOCCUS AUREUS ENTEROCOCCUS FAECALIS EFE TROPICALIS BETA STREP GROUP B 07/12 Debridment left leg to tendon for necrotic wound Vac placement Cult Efe albicans Left lower extremity cellulitis improved Peripheral vascular disease with history of angioplasty Diabetes mellitus with peripheral neuropathy CHERYLE on CKD Tobacco dependence History of noncompliance History of previous toe amputation Leucopenia ? etiology Plan Plan of Care Patient's discharge has been held due to insurance issues approving his antibiotics and antifungal medication Repeat intraoperative cultures from 07/12/2021 has Efe albicans Limited choices for treatment for C albicans intraoperative cultures Fluconazole is not an option due to drug drug interactions with clopidogrel, fluconazole will decrease the levels of clopidogrel...... Micafungin, patient is not accepted at rehab facility due to insurance issues Next option would be posaconazole,Case management to assist. Continue daptomycin Micafungin /Zosyn When ready for transfer to rehab facility will change Zosyn to Invanz first dose here cont dapto and invanz as outpt, micafungin as outpatient Prescription in chart Continue local wound care New update pt will [facility] early next week KYLER CRUZ MD Jul 18, 2021 08:57
[2021-07-18] MEDS: IV NORMAL SALINE 1000ML BAG 1,000 ML IV SCH (09:15)
[2021-07-18] MEDS: HYDROcodone/APAP 5/325MG 1 TAB TABLET PO PRN ×2 (10:24→16:22)
[2021-07-18] MEDS: FLUTICASONE 50MCG/NASAL SPRAY 16GM BOTTLE. NS SCH (10:24)
[2021-07-18] MEDS: LISINOPRIL 20 MG TABLET PO SCH ×2 (10:25→20:43)
[2021-07-18] MEDS: CLOPIDOGREL BISULFATE 75 MG TABLET PO SCH (10:25)
[2021-07-18] MEDS: ASPIRIN CHEWABLE 81 MG TABLET. PO SCH ×2 (10:25→20:42)
[2021-07-18] MEDS: TAMSULOSIN 0.4 MG CAP.ER.24H. PO SCH (10:25)
[2021-07-18] MEDS: MICAFUNGIN 100 MG in IV DEXTROSE 5% 100ML 100 ML IV SCH (10:26)
[2021-07-18] MEDS: LACTOBACILLUS RHAMNOSUS GG 1 CAPSULE. PO SCH ×2 (10:26→20:42)
[2021-07-18] MEDS: GABAPENTIN 300 MG CAPSULE. PO SCH ×2 (10:26→20:42)
[2021-07-18] MEDS: INSULIN LISPRO 300 UNITS/3 ML VIAL. SQ SCH ×5 (10:29→20:40)
[2021-07-18] MEDS: silver sulfADIAZINE 1% CREAM 25GM TUBE. TP SCH ×2 (10:30→20:43)
[2021-07-18] MEDS: HEPARIN for SUB-Q USE 5,000 UNIT/ML VIAL. SQ SCH ×2 (10:31→20:41)
--- NOTE | 2021-07-18 11:15 | NUR ---
SW following. Discussed with RN, awaiting REV codes to be fixed. Pt too expensive for SNF facilities and can't go to LTAC without REV codes being corrected. Fredy Farias ( director) aware. SW will continue to follow.
[2021-07-18] MEDS: DAPTOmycin (GENERIC) IVPB 330 MG in IV NORMAL SALINE 50ML 50 ML IV SCH (13:53)
--- NOTE | 2021-07-18 16:34 | NUR ---
Wound/Ostomy Care Wound Type/Assessment: Wound care follow up for vac dressing change. Pt declined pain meds prior to procedure d/t side effects, pt okay with proceeding. Vac turned off prior to assessment. Vac dressing removed, wound cleansed, pictured and measured, and reapplied Veraflo wound vac. Left lower leg wound is measuring with improvement. Wound bed has a significant amount of red granulation tissue along the edges and wound base, bone still palpable, more tendon exposed since surgery, but clean, smooth and appears viable, and muscle exposed, overall, the wound is improved since debridement. Treatment Recommendations/Plan: Ostomy ring to periwound, Veraflo black foam, -125 mmHg, settings decreased to 10 ml NS for 3 min dwell time every 3 hours, as Vascular is concerned with periwound maceration. Pt tolerated well, requesting pain meds at this time. Will inform RN. Education provided: WC POC, PU prevention Offloading surface/device: Rooke boot placed on left leg, float legs on pillow. Recommended Referrals/Tests: na Discharge Recommendations for dressings: recommend to leave with [facility] when discharged. Will f/u on Sunday for next vac change.
[2021-07-18] MEDS: INSULIN GLARGINE SYRINGE. SQ SCH (20:41)
[2021-07-19 02:58] VITALS: BP 124/82
[2021-07-19] MEDS: PIPERACILLIN/TAZOBACTAM 3.375 GM in IV NORMAL SALINE 50ML 50 ML IV SCH ×3 (05:42→17:28)
[2021-07-19 07:00] VITALS: BP 153/73
[2021-07-19] MEDS: TAMSULOSIN 0.4 MG CAP.ER.24H. PO SCH (08:46)
[2021-07-19] MEDS: CLOPIDOGREL BISULFATE 75 MG TABLET PO SCH (08:46)
[2021-07-19] MEDS: ASPIRIN CHEWABLE 81 MG TABLET. PO SCH ×2 (08:46→21:46)
[2021-07-19] MEDS: LACTOBACILLUS RHAMNOSUS GG 1 CAPSULE. PO SCH ×2 (08:46→21:46)
[2021-07-19] MEDS: GABAPENTIN 300 MG CAPSULE. PO SCH ×2 (08:46→21:46)
[2021-07-19] MEDS: FLUTICASONE 50MCG/NASAL SPRAY 16GM BOTTLE. NS SCH (08:47)
[2021-07-19] MEDS: LISINOPRIL 20 MG TABLET PO SCH ×2 (08:47→21:46)
[2021-07-19] MEDS: MICAFUNGIN 100 MG in IV DEXTROSE 5% 100ML 100 ML IV SCH (08:58)
[2021-07-19] MEDS: silver sulfADIAZINE 1% CREAM 25GM TUBE. TP SCH ×2 (09:00→21:00)
--- NOTE | 2021-07-19 09:14 | PDOC ---
PROGRESS NOTES Date of Service: DATE: 07/19/21 TIME: 09:12 Subjective Subjective worried not able to control urine Objective Objective Vital Signs Date Time Temp Pulse Resp B/P (MAP) Pulse Ox O2 Delivery O2 Flow Rate FiO2 07/19/21 07:00 97.5 61 17 153/73 (99) 99 Room Air 97.5 07/18/21 20:00 8.0 Intake and Output 07/19/21 07:00 Intake Total 600 ml Output Total 1400 ml Balance -800 ml Intake Oral 600 ml Output Urine Total 1400 ml # Bowel Movements 1 Physical Exam Abdomen: Soft, No tenderness Heart: Regular rate Extremities: Other (Wound VAC in place on the left lower leg with Aquacel Ag to the more superficial wounds proximal and distal to the deep wound.) General: Alert, Oriented X3 HEENT: Atraumatic Lungs: Normal air movement MUSCULOSKELETAL: No deformity, No swelling, Abnormal exam of left, Other (lt shoulder joint tenderness AC joint) Neck: No JVD Neuro: Normal speech Psych/Mental Status: Mental status NL Skin: Other (s/p debridement ,wound vac present now) COMMENT wound vac Assessment Assessment Assessment Left lower extremity abscess Left lower extremity cellulitis Left lower extremity non healing chronic wound Peripheral vascular disease with history of angioplasty Diabetes mellitus with peripheral neuropathy CKD Tobacco dependence History of noncompliance History of previous toe amputation Plan:bladder scan r/o retention waiting for monitored bed to open at LTAC s/p 2nd Debridment of Tendon+wound 07/12/21. LTAC screen,needing heart monitored . Needs cardiac monitoring. Picc line 07/05/21 s/p Debridement 07/02/21 . Continue wound VAC Needs PICC line+2 weeks of iv antibiotics Diabetes not controlled. Has occasional hypoglycemia. Continue Lantus and Humalog. Operative cultures STAPHYLOCOCCUS AUREUS ENTEROCOCCUS FAECALIS EFE TROPICALIS BETA STREP GROUP B On zosyn, dapto and micafungin. labs noted , cr 1.5 ,ck normal ,cbc ok Comment Review of Relevant I have reviewed the following items jorge (where applicable) has been applied. Labs Laboratory Tests Test 07/18/21 10:35 07/18/21 14:48 07/18/21 19:07 07/19/21 07:55 Glucose (Fingerstick) 205 mg/dL (70-99) 136 mg/dL (70-99) 375 mg/dL (70-99) 179 mg/dL (70-99) Microbiology 07/12/21 Gram Stain - Final, Complete 07/12/21 Aerobic Culture - Final, Complete 06/29/21 Blood Culture - Final, Complete NO GROWTH AFTER 5 DAYS Medications Current Medications Insulin Human Lispro (HumaLOG) 10 units TIDAC SQ Last administered on 07/18/21at 10:40; Start 07/18/21 at 11:30 Vitals/I & O Vital Sign - Last 24 Hours 07/18/21 07/18/21 07/18/21 07/18/21 10:24 10:24 10:25 10:54 Pulse 60 60 Resp 18 B/P (MAP) 129/66 129/66 Pulse Ox 99 99 O2 Delivery Room Air Room Air O2 Flow Rate 8.0 8.0 07/18/21 07/18/21 07/18/21 07/18/21 11:00 15:00 16:22 16:52 Temp 97.8 97.8 97.8 97.8 Pulse 57 59 Resp 20 20 18 16 B/P (MAP) 151/69 (96) 123/56 (78) Pulse Ox 98 94 98 98 O2 Delivery Room Air Room Air Room Air Room Air O2 Flow Rate 8.0 8.0 07/18/21 07/18/21 07/18/21 07/18/21 19:00 20:00 20:43 22:44 Temp 98.1 98.1 98.1 98.1 Pulse 62 62 65 Resp 16 16 B/P (MAP) 164/66 (98) 164/66 156/75 (102) Pulse Ox 100 97 O2 Delivery Room Air Room Air Room Air O2 Flow Rate 8.0 07/19/21 07/19/21 02:58 07:00 Temp 97.5 97.5 97.5 97.5 Pulse 55 61 Resp 16 17 B/P (MAP) 124/82 (96) 153/73 (99) Pulse Ox 100 99 O2 Delivery Room Air Room Air Intake and Output 07/18/21 07/18/21 07/19/21 15:00 23:00 07:00 Intake Total 600 ml Output Total 800 ml 600 ml Balance 600 ml -800 ml -600 ml Justifications for Admission Other Justification Nutrition Consultation Dietary Evaluation: Recommendations by RD: Dietary education by RD, Increase Calorie Intake, Protein supplementation Comments: mech soft, ADA/Cardiac DBL meats , no jones strawberry Glucerna tid debora bid REC mvi and vit c per wound protocal Expected Outcomes/Goals: to meet >75% est nutrition needs- goal ongoing Malnutrition Findings: Body Fat Depletion (Non Severe: Mod to Severe Weight Status: Underweight KESHA TAYLOR MD Jul 19, 2021 09:14
--- NOTE | 2021-07-19 09:17 | PDOC ---
Infectious Disease Note Subjective Subjective Patient without complaints ROS ROS No nausea vomiting diarrhea Vital Sign Vital Signs Vital Signs Date Time Temp Pulse Resp B/P (MAP) Pulse Ox O2 Delivery O2 Flow Rate FiO2 07/19/21 07:00 97.5 61 17 153/73 (99) 99 Room Air 97.5 07/18/21 20:00 8.0 Physical Exam PHYSICAL EXAM GENERAL: AXOX3 male lying in bed comfortably, in no acute distress. HEENT: Normocephalic, atraumatic. Anicteric. NECK: Supple. No JVD. LUNGS: Clear bilaterally. No wheezing. HEART: S1, S2. No gallops or murmurs. ABDOMEN: Soft, nontender, nondistended. No rebound or guarding. EXTREMITIES: Left leg wound /VAC in place MUSCULOSKELETAL: No joint swelling. No decrease in range of motion. CENTRAL NERVOUS SYSTEM: Alert, oriented x 3, grossly nonfocal. PSYCHIATRIC: Cooperative, calm. PICC line clean Labs Lab Laboratory Tests Test 07/18/21 10:35 07/18/21 14:48 07/18/21 19:07 07/19/21 07:55 Glucose (Fingerstick) 205 mg/dL (70-99) 136 mg/dL (70-99) 375 mg/dL (70-99) 179 mg/dL (70-99) Micro Microbiology 07/12/21 Gram Stain - Final, Complete 07/12/21 Aerobic Culture - Final, Complete 06/29/21 Blood Culture - Final, Complete NO GROWTH AFTER 5 DAYS Objective Assessment Left lower extremity abscess Sept 24 S/P Excisional debridement of left leg wound including skin and subcutaneous tissue and Wound VAC placement to the left leg. Polymicrobial organisms Operative cultures STAPHYLOCOCCUS AUREUS ENTEROCOCCUS FAECALIS EFE TROPICALIS BETA STREP GROUP B 07/12 Debridment left leg to tendon for necrotic wound Vac placement Cult Efe albicans Left lower extremity cellulitis improved Peripheral vascular disease with history of angioplasty Diabetes mellitus with peripheral neuropathy CHERYLE on CKD Tobacco dependence History of noncompliance History of previous toe amputation Leucopenia ? etiology Plan Plan of Care Patient's discharge has been held due to insurance issues approving his antibi otics and antifungal medication Repeat intraoperative cultures from 07/12/2021 has Efe albicans Limited choices for treatment for C albicans intraoperative cultures Fluconazole is not an option due to drug drug interactions with clopidogrel, fluconazole will decrease the levels of clopidogrel...... Micafungin, patient is not accepted at rehab facility due to insurance issues Next option would be posaconazole,Case management to assist. Continue daptomycin Micafungin /Zosyn When ready for transfer to rehab facility will change Zosyn to Invanz first dose here cont dapto and invanz as outpt, micafungin as outpatient Prescription in chart Continue local wound care Waiting for placement KYLER CRUZ MD Jul 19, 2021 09:17
[2021-07-19] MEDS: INSULIN LISPRO 300 UNITS/3 ML VIAL. SQ SCH ×6 (09:21→21:00)
[2021-07-19] MEDS: HEPARIN for SUB-Q USE 5,000 UNIT/ML VIAL. SQ SCH ×2 (09:23→21:00)
[2021-07-19] MEDS: IV NORMAL SALINE 1000ML BAG 1,000 ML IV SCH (09:28)
--- NOTE | 2021-07-19 10:19 | NUR ---
SW following. Discussed with RN, SW faxed updates to [facility] pending the REV codes being corrected. SW will continue to follow.
[2021-07-19 11:00] VITALS: BP 141/92
--- NOTE | 2021-07-19 13:00 | NUR ---
Bladder scanned patient, patient had 450mls in bladder. Patient was asked to try to void and patient was able to void 400 in urinal.
[2021-07-19] MEDS: DAPTOmycin (GENERIC) IVPB 330 MG in IV NORMAL SALINE 50ML 50 ML IV SCH (13:53)
[2021-07-19 15:00] VITALS: BP 113/62
[2021-07-19 19:00] VITALS: BP 135/66
[2021-07-19] MEDS: INSULIN GLARGINE SYRINGE. SQ SCH (21:52)
[2021-07-19 23:00] VITALS: BP 141/70
[2021-07-20] MEDS: PIPERACILLIN/TAZOBACTAM 3.375 GM in IV NORMAL SALINE 50ML 50 ML IV SCH ×5 (00:11→23:37)
[2021-07-20 03:44] VITALS: BP 132/72
[2021-07-20 07:00] VITALS: BP 159/75
[2021-07-20] MEDS: INSULIN LISPRO 300 UNITS/3 ML VIAL. SQ SCH ×6 (07:30→19:55)
[2021-07-20] MEDS: MICAFUNGIN 100 MG in IV DEXTROSE 5% 100ML 100 ML IV SCH (08:40)
[2021-07-20] MEDS: ASPIRIN CHEWABLE 81 MG TABLET. PO SCH ×2 (08:41→20:56)
[2021-07-20] MEDS: FLUTICASONE 50MCG/NASAL SPRAY 16GM BOTTLE. NS SCH (08:41)
[2021-07-20] MEDS: TAMSULOSIN 0.4 MG CAP.ER.24H. PO SCH (08:41)
[2021-07-20] MEDS: CLOPIDOGREL BISULFATE 75 MG TABLET PO SCH (08:41)
[2021-07-20] MEDS: GABAPENTIN 300 MG CAPSULE. PO SCH ×2 (08:41→20:56)
[2021-07-20] MEDS: LISINOPRIL 20 MG TABLET PO SCH ×2 (08:42→20:57)
[2021-07-20] MEDS: LACTOBACILLUS RHAMNOSUS GG 1 CAPSULE. PO SCH ×2 (08:42→20:56)
[2021-07-20] MEDS: HEPARIN for SUB-Q USE 5,000 UNIT/ML VIAL. SQ SCH ×2 (08:52→21:05)
[2021-07-20] MEDS: silver sulfADIAZINE 1% CREAM 25GM TUBE. TP SCH ×2 (08:53→19:51)
--- NOTE | 2021-07-20 09:37 | PDOC ---
Infectious Disease Note Subjective Subjective Patient without complaints ROS ROS No nausea vomiting diarrhea Vital Sign Vital Signs Vital Signs Date Time Temp Pulse Resp B/P (MAP) Pulse Ox O2 Delivery O2 Flow Rate FiO2 07/20/21 08:42 58 159/75 07/20/21 07:00 97.9 16 100 Room Air 97.9 07/20/21 03:44 8.0 Physical Exam PHYSICAL EXAM GENERAL: AXOX3 male lying in bed comfortably, in no acute distress. HEENT: Normocephalic, atraumatic. Anicteric. NECK: Supple. No JVD. LUNGS: Clear bilaterally. No wheezing. HEART: S1, S2. No gallops or murmurs. ABDOMEN: Soft, nontender, nondistended. No rebound or guarding. EXTREMITIES: Left leg wound /VAC in place MUSCULOSKELETAL: No joint swelling. No decrease in range of motion. CENTRAL NERVOUS SYSTEM: Alert, oriented x 3, grossly nonfocal. PSYCHIATRIC: Cooperative, calm. PICC line clean Labs Lab Laboratory Tests Test 07/19/21 12:14 07/19/21 17:02 07/19/21 19:26 07/20/21 07:41 Glucose (Fingerstick) 126 mg/dL (70-99) 117 mg/dL (70-99) 97 mg/dL (70-99) 97 mg/dL (70-99) Micro Microbiology 07/12/21 Gram Stain - Final, Complete 07/12/21 Aerobic Culture - Final, Complete 06/29/21 Blood Culture - Final, Complete NO GROWTH AFTER 5 DAYS Objective Assessment Left lower extremity abscess Sept 24 S/P Excisional debridement of left leg wound including skin and subcutaneous tissue and Wound VAC placement to the left leg. Polymicrobial organisms Operative cultures STAPHYLOCOCCUS AUREUS ENTEROCOCCUS FAECALIS EFE TROPICALIS BETA STREP GROUP B 07/12 Debridment left leg to tendon for necrotic wound Vac placement Cult Efe albicans Left lower extremity cellulitis improved Peripheral vascular disease with history of angioplasty Diabetes mellitus with peripheral neuropathy CHERYLE on CKD Tobacco dependence History of noncompliance History of previous toe amputation Leucopenia ? etiology Plan Plan of Care Patient's discharge has been held due to insurance issues approving his antibiotics and antifungal medication Repeat intraoperative cultures from 07/12/2021 has Efe albicans Limited choices for treatment for C albicans intraoperative cultures Fluconazole is not an option due to drug drug interactions with clopidogrel, fluconazole will decrease the levels of clopidogrel...... Micafungin, patient is not accepted at rehab facility due to insurance issues Next option would be posaconazole,Case management to assist. Continue daptomycin Micafungin /Zosyn When ready for transfer to rehab facility will change Zosyn to Invanz first dose here cont dapto and invanz as outpt, micafungin as outpatient Prescription in chart Continue local wound care Waiting for placement KYLER CRUZ MD Jul 20, 2021 09:37
[2021-07-20 11:00] VITALS: BP 146/68
--- NOTE | 2021-07-20 11:42 | PDOC ---
PROGRESS NOTES Date of Service: DATE: 07/20/21 TIME: 11:40 Subjective Subjective feels much better today Objective Objective Vital Signs Date Time Temp Pulse Resp B/P (MAP) Pulse Ox O2 Delivery O2 Flow Rate FiO2 07/20/21 08:42 58 159/75 07/20/21 08:05 Room Air 07/20/21 07:00 97.9 16 100 97.9 07/20/21 03:44 8.0 Intake and Output 07/20/21 07:00 Intake Total 940 ml Output Total 700 ml Balance 240 ml Intake Oral 840 ml IV Total 100 ml Output Urine Total 700 ml # Voids 1 # Bowel Movements 4 Physical Exam Abdomen: Soft, No tenderness Heart: Regular rate Extremities: Other (Wound VAC in place on the left lower leg with Aquacel Ag to the more superficial wounds proximal and distal to the deep wound.) General: Alert, Oriented X3 HEENT: Atraumatic Lungs: Normal air movement MUSCULOSKELETAL: No deformity, No swelling, Abnormal exam of left, Other (lt shoulder joint tenderness AC joint) Neck: No JVD Neuro: Normal speech Psych/Mental Status: Mental status NL Skin: Other (s/p debridement ,wound vac present now) COMMENT wound vac Assessment Assessment Assessment Left lower extremity abscess Left lower extremity cellulitis Left lower extremity non healing chronic wound Peripheral vascular disease with history of angioplasty Diabetes mellitus with peripheral neuropathy CKD Tobacco dependence History of noncompliance History of previous toe amputation Plan: spoke with ID ,needs [facility] iv antibiotics and plactic surgery ,skin graft after that. bladder scan over flow incontinence, able to void well now waiting for monitored bed to open at LTAC s/p 2nd Debridement of Tendon+wound 07/12/21. LTAC screen,needing heart monitored . Needs cardiac monitoring. Picc line 07/05/21 s/p Debridement 07/02/21 . Continue wound VAC Needs PICC line+2 weeks of iv antibiotics Diabetes not controlled. Has occasional hypoglycemia. Continue Lantus and Humalog. Operative cultures STAPHYLOCOCCUS AUREUS ENTEROCOCCUS FAECALIS EFE TROPICALIS BETA STREP GROUP B On zosyn, dapto and micafungin. labs noted , cr 1.5 ,ck normal ,cbc ok Comment Review of Relevant I have reviewed the following items jorge (where applicable) has been applied. Labs Laboratory Tests Test 07/19/21 12:14 07/19/21 17:02 07/19/21 19:26 07/20/21 07:41 Glucose (Fingerstick) 126 mg/dL (70-99) 117 mg/dL (70-99) 97 mg/dL (70-99) 97 mg/dL (70-99) Microbiology 07/12/21 Gram Stain - Final, Complete 07/12/21 Aerobic Culture - Final, Complete 06/29/21 Blood Culture - Final, Complete NO GROWTH AFTER 5 DAYS Vitals/I & O Vital Sign - Last 24 Hours 07/19/21 07/19/21 07/19/21 07/19/21 15:00 19:00 20:30 21:46 Temp 98.2 98.2 98.2 98.2 Pulse 62 63 63 Resp 17 18 B/P (MAP) 113/62 (79) 135/66 (89) 135/66 Pulse Ox 96 97 O2 Delivery Room Air Room Air Room Air O2 Flow Rate 8.0 07/19/21 07/20/21 07/20/21 07/20/21 23:00 03:44 07:00 08:05 Temp 98.1 98.1 97.9 98.1 98.1 97.9 Pulse 62 68 58 Resp 18 18 16 B/P (MAP) 141/70 (93) 132/72 (92) 159/75 (103) Pulse Ox 99 99 100 O2 Delivery Room Air Room Air Room Air Room Air O2 Flow Rate 8.0 8.0 07/20/21 07/20/21 08:41 08:42 Pulse 58 58 B/P (MAP) 159/75 159/75 Intake and Output 07/19/21 07/19/21 07/20/21 15:00 23:00 07:00 Intake Total 600 ml 240 ml 100 ml Output Total 450 ml 250 ml Balance 600 ml -210 ml -150 ml Justifications for Admission Other Justification Nutrition Consultation Dietary Evaluation: Recommendations by RD: Dietary education by RD, Increase Calorie Intake, Protein supplementation Comments: mech soft, ADA/Cardiac DBL meats , no jones strawberry Glucerna tid debora bid REC mvi and vit c per wound protocal Expected Outcomes/Goals: to meet >75% est nutrition needs- goal ongoing Malnutrition Findings: Body Fat Depletion (Non Severe: Mod to Severe Weight Status: Underweight KESHA TAYLOR MD Jul 20, 2021 11:42
--- NOTE | 2021-07-20 12:36 | NUR ---
SS following up with discharge planning. SS reviewed pt chart and discussed with pt RN. Pt is currently on room air. COVID19 negative. Pt on IV Micafungin, IV Daptomycin, and IV Zosyn. Wound care following. PT/OT recommended senior care unit. care home unit unable to give IV Micafungin due to cost. SS discussed with ID and was notified that pt has a drug interaction with Diflucan and is unable to be taken off Micafungin at this time. Referral to [facility], ; fax [phone], was made by FROYLAN but pt does not have REV codes at this time. Administration working on Rev Codes at this time. SS will continue to follow for discharge planning.
--- NOTE | 2021-07-20 13:49 | NUR ---
Wound/Ostomy Care Wound Type/Assessment: Wound care follow up for vac dressing change. Vac dressing removed, wound cleansed and assessed. skin prepped for wound vac placement and an ostomy ring used to octavio-wound, and reapplied Veraflo wound vac. The wound now has more granulation tissue and continues to improve. Patient's pain has also significantly improved, patient no longer needing pain medication for wound vac dressing change. Treatment Recommendations/Plan: Veraflo black foam, -125 mmHg, settings resumed at 10 ml NS for 3 min dwell time every 3 hours. Pt tolerated well. Education provided: WC POC, PU prevention Offloading surface/device: Rooke boot placed on left leg, floated legs on pillow. Recommended Referrals/Tests: na Discharge Recommendations for dressings: recommend to leave with [facility] when discharged. Will f/u on Sunday07/22/21 for next dressing change. Patient repositioned self in bed and bed lowered with call light in reach.
[2021-07-20] MEDS: DAPTOmycin (GENERIC) IVPB 330 MG in IV NORMAL SALINE 50ML 50 ML IV SCH (14:35)
[2021-07-20 15:00] VITALS: BP 154/64
[2021-07-20 19:00] VITALS: BP 114/70
[2021-07-20] MEDS: INSULIN GLARGINE SYRINGE. SQ SCH (21:03)
[2021-07-20 23:54] VITALS: BP 145/79
[2021-07-21 03:42] VITALS: BP 161/80
[2021-07-21] MEDS: PIPERACILLIN/TAZOBACTAM 3.375 GM in IV NORMAL SALINE 50ML 50 ML IV SCH ×3 (05:32→18:18)
[2021-07-21 07:00] VITALS: BP 155/76
[2021-07-21] MEDS: INSULIN LISPRO 300 UNITS/3 ML VIAL. SQ SCH ×6 (07:30→22:02)
[2021-07-21] MEDS: TAMSULOSIN 0.4 MG CAP.ER.24H. PO SCH (08:06)
[2021-07-21] MEDS: MULTIVITAMIN with MINERAL TABLET. PO SCH (08:07)
[2021-07-21] MEDS: LACTOBACILLUS RHAMNOSUS GG 1 CAPSULE. PO SCH ×2 (08:07→21:54)
[2021-07-21] MEDS: CLOPIDOGREL BISULFATE 75 MG TABLET PO SCH (08:07)
[2021-07-21] MEDS: ASCORBIC ACID 500 MG TABLET PO SCH (08:07)
[2021-07-21] MEDS: ASPIRIN CHEWABLE 81 MG TABLET. PO SCH (08:07)
[2021-07-21] MEDS: FLUTICASONE 50MCG/NASAL SPRAY 16GM BOTTLE. NS SCH (08:07)
[2021-07-21] MEDS: GABAPENTIN 300 MG CAPSULE. PO SCH ×2 (08:07→21:54)
[2021-07-21] MEDS: MICAFUNGIN 100 MG in IV DEXTROSE 5% 100ML 100 ML IV SCH (08:08)
[2021-07-21] MEDS: LISINOPRIL 20 MG TABLET PO SCH ×2 (08:11→21:54)
--- NOTE | 2021-07-21 08:16 | PDOC ---
Infectious Disease Note Subjective Subjective Patient without complaints ROS ROS No nausea vomiting diarrhea chest pain shortness of breath Vital Sign Vital Signs Vital Signs Date Time Temp Pulse Resp B/P (MAP) Pulse Ox O2 Delivery O2 Flow Rate FiO2 07/21/21 08:11 60 155/76 07/21/21 07:00 98.1 16 99 Room Air 98.1 Physical Exam PHYSICAL EXAM GENERAL: AXOX3 male lying in bed comfortably, in no acute distress. HEENT: Normocephalic, atraumatic. Anicteric. NECK: Supple. No JVD. LUNGS: Clear bilaterally. No wheezing. HEART: S1, S2. No gallops or murmurs. ABDOMEN: Soft, nontender, nondistended. No rebound or guarding. EXTREMITIES: Left leg wound /VAC in place MUSCULOSKELETAL: No joint swelling. No decrease in range of motion. CENTRAL NERVOUS SYSTEM: Alert, oriented x 3, grossly nonfocal. PSYCHIATRIC: Cooperative, calm. PICC line clean Labs Lab Laboratory Tests Test 07/20/21 11:49 07/20/21 17:08 07/20/21 19:27 07/21/21 08:01 Glucose (Fingerstick) 221 mg/dL (70-99) 251 mg/dL (70-99) 182 mg/dL (70-99) 136 mg/dL (70-99) Micro Microbiology 07/12/21 Gram Stain - Final, Complete 07/12/21 Aerobic Culture - Final, Complete 06/29/21 Blood Culture - Final, Complete NO GROWTH AFTER 5 DAYS Objective Assessment Left lower extremity abscess Sept 24 S/P Excisional debridement of left leg wound including skin and subcutaneous tissue and Wound VAC placement to the left leg. Polymicrobial organisms Operative cultures STAPHYLOCOCCUS AUREUS ENTEROCOCCUS FAECALIS EFE TROPICALIS BETA STREP GROUP B 07/12 Debridment left leg to tendon for necrotic wound Vac placement Cult Efe albicans Left lower extremity cellulitis improved Peripheral vascular disease with history of angioplasty Diabetes mellitus with peripheral neuropathy CHERYLE on CKD Tobacco dependence History of noncompliance History of previous toe amputation Leucopenia ? etiology Plan Plan of Care Patient's discharge has been held due to insurance issues approving his antibiotics and antifungal medication Repeat intraoperative cultures from 07/12/2021 has Efe albicans Limited choices for treatment for C albicans intraoperative cultures Fluconazole is not an option due to drug drug interactions with clopidogrel, fluconazole will decrease the levels of clopidogrel...... Micafungin, patient is not accepted at rehab facility due to insurance issues Next option would be posaconazole,Case management to assist. Continue daptomycin Micafungin /Zosyn cont dapto and invanz as outpt, micafungin as outpatient Prescription in chart Continue local wound care Waiting for placement KYLER CRUZ MD Jul 21, 2021 08:16
[2021-07-21] MEDS: silver sulfADIAZINE 1% CREAM 25GM TUBE. TP SCH ×2 (08:25→22:07)
[2021-07-21] MEDS: HEPARIN for SUB-Q USE 5,000 UNIT/ML VIAL. SQ SCH ×2 (08:25→22:03)
--- NOTE | 2021-07-21 09:22 | PDOC ---
PROGRESS NOTES Date of Service: DATE: 07/21/21 TIME: 09:19 Subjective Subjective no new problems Objective Objective Vital Signs Date Time Temp Pulse Resp B/P (MAP) Pulse Ox O2 Delivery O2 Flow Rate FiO2 07/21/21 08:11 60 155/76 07/21/21 07:00 98.1 16 99 Room Air 98.1 Intake and Output 07/21/21 07:00 Intake Total 1540 ml Output Total 250 ml Balance 1290 ml Intake Oral 240 ml IV Total 1300 ml Output Urine Total 250 ml # Voids 3 # Bowel Movements 3 Physical Exam Abdomen: Soft, No tenderness Heart: Regular rate Extremities: Other (Wound VAC in place on the left lower leg with Aquacel Ag to the more superficial wounds proximal and distal to the deep wound.) General: Alert, Oriented X3 HEENT: Atraumatic Lungs: Normal air movement MUSCULOSKELETAL: No deformity, No swelling, Abnormal exam of left, Other (lt shoulder joint tenderness AC joint) Neck: No JVD Neuro: Normal speech Psych/Mental Status: Mental status NL Skin: Other (s/p debridement ,wound vac present now) COMMENT wound vac Assessment Assessment Assessment Left lower extremity abscess Left lower extremity cellulitis Left lower extremity non healing chronic wound Peripheral vascular disease with history of angioplasty Diabetes mellitus with peripheral neuropathy CKD Tobacco dependence History of noncompliance History of previous toe amputation Plan:spoke with cardiology about interaction between plavix and antifungal , since pt had angioplasty left leg more than 4 weeks ago it is safe to stop plavix and give aspirin spoke with ID ,needs correction iv antibiotics and plactic surgery ,skin graft after that. bladder scan over flow incontinence, able to void well now waiting for monitored bed to open at LTAC s/p 2nd Debridement of Tendon+wound 07/12/21. LTAC screen,needing heart monitored . Needs cardiac monitoring. Picc line 07/05/21 s/p Debridement 07/02/21 . Continue wound VAC Needs PICC line+2 weeks of iv antibiotics Diabetes not controlled. Has occasional hypoglycemia. Continue Lantus and Humalog. Operative cultures STAPHYLOCOCCUS AUREUS ENTEROCOCCUS FAECALIS EFE TROPICALIS BETA STREP GROUP B On zosyn, dapto and micafungin. labs noted , cr 1.5 ,ck normal ,cbc ok Comment Review of Relevant I have reviewed the following items jorge (where applicable) has been applied. Labs Laboratory Tests Test 07/20/21 11:49 07/20/21 17:08 07/20/21 19:27 07/21/21 08:01 Glucose (Fingerstick) 221 mg/dL (70-99) 251 mg/dL (70-99) 182 mg/dL (70-99) 136 mg/dL (70-99) Microbiology 07/12/21 Gram Stain - Final, Complete 07/12/21 Aerobic Culture - Final, Complete 06/29/21 Blood Culture - Final, Complete NO GROWTH AFTER 5 DAYS Medications Current Medications Ascorbic Acid (Vitamin C) 500 mg DAILY PO Last administered on 07/21/21at 08:07; Start 07/21/21 at 09:00 Multivitamins (Thera M Plus) 1 tab DAILY PO Last administered on 07/21/21at 08:07; Start 07/21/21 at 09:00 Vitals/I & O Vital Sign - Last 24 Hours 07/20/21 07/20/21 07/20/21 07/20/21 11:00 15:00 19:00 19:10 Temp 97.7 97.7 98.1 97.7 97.7 98.1 Pulse 53 59 77 Resp 16 16 16 B/P (MAP) 146/68 (94) 154/64 (94) 114/70 (85) Pulse Ox 100 98 99 O2 Delivery Room Air Room Air Room Air Room Air 07/20/21 07/20/21 07/21/21 07/21/21 20:57 23:54 03:42 07:00 Temp 98.5 98.6 98.1 98.5 98.6 98.1 Pulse 77 68 56 60 Resp 16 16 16 B/P (MAP) 114/70 145/79 (101) 161/80 (107) 155/76 (102) Pulse Ox 100 99 99 O2 Delivery Room Air Room Air Room Air 07/21/21 07/21/21 08:11 08:11 Pulse 60 60 B/P (MAP) 155/76 155/76 Intake and Output 07/20/21 07/20/21 07/21/21 15:00 23:00 07:00 Intake Total 1200 ml 340 ml Output Total 250 ml Balance 1200 ml 90 ml Justifications for Admission Other Justification Nutrition Consultation Dietary Evaluation: Recommendations by RD: Dietary education by RD, Increase Calorie Intake, Protein supplementation Comments: mech soft, ADA/Cardiac DBL meats , yogurt with meals REC mvi and vit c per wound protocal Expected Outcomes/Goals: to meet >75% est nutrition needs- goal ongoing Malnutrition Findings: Body Fat Depletion (Non Severe: Mod to Severe Weight Status: Underweight KESHA TAYLOR MD Jul 21, 2021 09:22
--- NOTE | 2021-07-21 10:52 | NUR ---
SS following for discharge planning. SS reviewed pt chart and discussed with pt RN. Pt is currently on room air. COVID19 negative. Wound care following. Pt on IV Daptomycin, IV Micafungin, and IV Zosyn. Pt does not have REV codes for [facility] at this time. SS discussed with Dr. Henson and Dr. John this morning. [facility] unable to accept due to cost of Micafungin. SS was notified that pt is able to discontinue Plavix at this time and for that reason can be placed on Diflucan 200mg PO daily and IV Zosyn. SS contacted [facility], ; fax [phone], and discussed. [facility] agreeable to IV Zosyn and PO Diflucan. PICC line in place. SS phoned and faxed referral to [facility]. Potential discharge tomorrow pending insurance approval if no other issues with clinical acceptance. SS will continue to follow for discharge planning. Addendum: 07/21/21 at 1547 by STEFAN JAQUEZ Pt accepted at [facility] pending insurance authorization. Addendum: 10/14/21 at 1601 by STEFAN DENIA SS Insurance authorization received.
[2021-07-21 11:00] VITALS: BP 152/72
[2021-07-21] MEDS: DAPTOmycin (GENERIC) IVPB 330 MG in IV NORMAL SALINE 50ML 50 ML IV SCH (13:52)
--- NOTE | 2021-07-21 14:10 | PDOC ---
Provider Note Date of Service: DATE: 07/21/21 TIME: 14:05 Provider Note Spoke with ID+Cardiology. also spoke with disease case manager rn. d/c plavix, sincemore than 4 weeks PTCA left leg, change to ASA 325. d/c Micofungin,d/c Daptomycin start on Diflucan 200 mg po q daily for 4-6 weeks Zosyn 3,375 q 6 hours for 4-6 weeks pt can go to SNU , wound care Justifications for Admission Other Justification KESHA TAYLOR MD Jul 21, 2021 14:10
[2021-07-21 15:00] VITALS: BP 136/70
[2021-07-21] MEDS ORDERED: FLU VACC QUAD 21-22 (6MOS+) PF 0.5 ML SYRINGE. VAX IM ONE (17:15)
[2021-07-21 19:00] VITALS: BP 146/80
[2021-07-21] MEDS: INSULIN GLARGINE SYRINGE. SQ SCH (22:04)
[2021-07-21 23:45] VITALS: BP 135/73
[2021-07-22] MEDS: PIPERACILLIN/TAZOBACTAM 3.375 GM in IV NORMAL SALINE 50ML 50 ML IV SCH ×3 (00:11→12:23)
[2021-07-22 03:47] VITALS: BP 151/87
[2021-07-22 07:00] VITALS: BP 135/73
[2021-07-22 07:55] LABS: ALBUMIN 2.2 g/dL (3.4-5.0); ALBUMIN/GLOBULIN RATIO 0.4 (1.0-1.7); CREATININE 1.4 mg/dL (0.7-1.3); GFR 59.2; POTASSIUM 4.2 mmol/L (3.5-5.1); TOTAL BILIRUBIN 0.3 mg/dL (0.2-1.0); TOTAL PROTEIN 7.4 g/dL (6.4-8.2)
[2021-07-22] MEDS ORDERED: ASPIRIN ENTERIC COATED 325 MG TABLET.DR. PO SCH (08:00)
--- NOTE | 2021-07-22 08:26 | PDOC ---
Infectious Disease Note Subjective Subjective Patient without complaints ROS ROS No nausea vomiting diarrhea Vital Sign Vital Signs Vital Signs Date Time Temp Pulse Resp B/P (MAP) Pulse Ox O2 Delivery O2 Flow Rate FiO2 07/22/21 03:47 98.6 81 16 151/87 (108) 98 Room Air 98.6 Physical Exam PHYSICAL EXAM GENERAL: AXOX3 male lying in bed comfortably, in no acute distress. HEENT: Normocephalic, atraumatic. Anicteric. NECK: Supple. No JVD. LUNGS: Clear bilaterally. No wheezing. HEART: S1, S2. No gallops or murmurs. ABDOMEN: Soft, nontender, nondistended. No rebound or guarding. EXTREMITIES: Left leg wound /VAC in place MUSCULOSKELETAL: No joint swelling. No decrease in range of motion. CENTRAL NERVOUS SYSTEM: Alert, oriented x 3, grossly nonfocal. PSYCHIATRIC: Cooperative, calm. PICC line clean Labs Lab Laboratory Tests Test 07/21/21 11:48 07/21/21 16:28 07/21/21 19:20 07/22/21 06:17 Glucose (Fingerstick) 146 mg/dL (70-99) 91 mg/dL (70-99) 247 mg/dL (70-99) 180 mg/dL (70-99) Test 07/22/21 07:15 Sodium Level 138 mmol/L (136-145) Potassium Level 4.2 mmol/L (3.5-5.1) Chloride Level 104 mmol/L (98-107) Carbon Dioxide Level 24 mmol/L (21-32) Anion Gap 10 (6-14) Blood Urea Nitrogen 19 mg/dL (8-26) Creatinine 1.4 mg/dL (0.7-1.3) Estimated GFR (Cockcroft-Gault) 59.2 BUN/Creatinine Ratio 14 (6-20) Glucose Level 168 mg/dL (70-99) Calcium Level 9.0 mg/dL (8.5-10.1) Total Bilirubin 0.3 mg/dL (0.2-1.0) Aspartate Amino Transf (AST/SGOT) 20 U/L (15-37) Alanine Aminotransferase (ALT/SGPT) 21 U/L (16-63) Alkaline Phosphatase 48 U/L (46-116) Creatine Kinase 40 U/L (39-308) Total Protein 7.4 g/dL (6.4-8.2) Albumin 2.2 g/dL (3.4-5.0) Albumin/Globulin Ratio 0.4 (1.0-1.7) Micro Microbiology 07/12/21 Gram Stain - Final, Complete 07/12/21 Aerobic Culture - Final, Complete 06/29/21 Blood Culture - Final, Complete NO GROWTH AFTER 5 DAYS Objective Assessment Left lower extremity abscess Sept 24 S/P Excisional debridement of left leg wound including skin and subcutaneous tissue and Wound VAC placement to the left leg. Polymicrobial organisms Operative cultures STAPHYLOCOCCUS AUREUS ENTEROCOCCUS FAECALIS EFE TROPICALIS BETA STREP GROUP B 07/12 Debridment left leg to tendon for necrotic wound Vac placement Cult Efe albicans Left lower extremity cellulitis improved Peripheral vascular disease with history of angioplasty Diabetes mellitus with peripheral neuropathy CHERYLE on CKD Tobacco dependence History of noncompliance History of previous toe amputation Leucopenia ? etiology Plan Plan of Care Plavix has been discontinued Patient can now use Diflucan Can be discharged on Zosyn and Diflucan to have follow-up with us in 3 weeks d/w Dr John Continue local wound care Waiting for placement KYLER CRUZ MD Jul 22, 2021 08:26
[2021-07-22] MEDS ORDERED: FLUCONAZOLE 100 MG TABLET. PO SCH (09:00)
[2021-07-22] MEDS: silver sulfADIAZINE 1% CREAM 25GM TUBE. TP SCH (09:00)
[2021-07-22] MEDS: ASCORBIC ACID 500 MG TABLET PO SCH (09:12)
[2021-07-22] MEDS: MULTIVITAMIN with MINERAL TABLET. PO SCH (09:12)
[2021-07-22] MEDS: FLUTICASONE 50MCG/NASAL SPRAY 16GM BOTTLE. NS SCH (09:12)
[2021-07-22] MEDS: LACTOBACILLUS RHAMNOSUS GG 1 CAPSULE. PO SCH (09:12)
[2021-07-22] MEDS: GABAPENTIN 300 MG CAPSULE. PO SCH (09:13)
[2021-07-22] MEDS: LISINOPRIL 20 MG TABLET PO SCH (09:13)
[2021-07-22] MEDS: TAMSULOSIN 0.4 MG CAP.ER.24H. PO SCH (09:13)
--- NOTE | 2021-07-22 09:16 | PDOC ---
PROGRESS NOTES Date of Service: DATE: 07/22/21 TIME: 09:15 Subjective Subjective doing well Objective Objective Vital Signs Date Time Temp Pulse Resp B/P (MAP) Pulse Ox O2 Delivery O2 Flow Rate FiO2 07/22/21 09:13 61 135/73 07/22/21 07:00 98.4 17 96 Room Air 98.4 Intake and Output 07/22/21 07:00 Intake Total 100 ml Output Total 1 ml Balance 99 ml IV Total 100 ml Stool Total 1 ml # Voids 5 # Bowel Movements 1 Physical Exam Abdomen: Soft, No tenderness Heart: Regular rate Extremities: Other (Wound VAC in place on the left lower leg with Aquacel Ag to the more superficial wounds proximal and distal to the deep wound.) General: Alert, Oriented X3 HEENT: Atraumatic Lungs: Normal air movement MUSCULOSKELETAL: No deformity, No swelling, Abnormal exam of left, Other (lt shoulder joint tenderness AC joint) Neck: No JVD Neuro: Normal speech Psych/Mental Status: Mental status NL Skin: Other (s/p debridement ,wound vac present now) COMMENT wound vac Assessment Assessment Assessment Left lower extremity abscess Left lower extremity cellulitis Left lower extremity non healing chronic wound Peripheral vascular disease with history of angioplasty Diabetes mellitus with peripheral neuropathy CKD Tobacco dependence History of noncompliance History of previous toe amputation Plan: d/c to SNU today. spoke with cardiology about interaction between plavix and antifungal , since pt had angioplasty left leg more than 4 weeks ago it is safe to stop plavix and give aspirin spoke with ID ,needs shelter iv antibiotics and plactic surgery ,skin graft after that. bladder scan over flow incontinence, able to void well now waiting for monitored bed to open at LTAC s/p 2nd Debridement of Tendon+wound 07/12/21. LTAC screen,needing heart monitored . Needs cardiac monitoring. Picc line 07/05/21 s/p Debridement 07/02/21 . Continue wound VAC Needs PICC line+2 weeks of iv antibiotics Diabetes not controlled. Has occasional hypoglycemia. Continue Lantus and Humalog. Operative cultures STAPHYLOCOCCUS AUREUS ENTEROCOCCUS FAECALIS EFE TROPICALIS BETA STREP GROUP B On zosyn, dapto and micafungin. labs noted , cr 1.5 ,ck normal ,cbc ok Comment Review of Relevant I have reviewed the following items jorge (where applicable) has been applied. Labs Laboratory Tests Test 07/21/21 11:48 07/21/21 16:28 07/21/21 19:20 07/22/21 06:17 Glucose (Fingerstick) 146 mg/dL (70-99) 91 mg/dL (70-99) 247 mg/dL (70-99) 180 mg/dL (70-99) Test 07/22/21 07:15 Sodium Level 138 mmol/L (136-145) Potassium Level 4.2 mmol/L (3.5-5.1) Chloride Level 104 mmol/L (98-107) Carbon Dioxide Level 24 mmol/L (21-32) Anion Gap 10 (6-14) Blood Urea Nitrogen 19 mg/dL (8-26) Creatinine 1.4 mg/dL (0.7-1.3) Estimated GFR (Cockcroft-Gault) 59.2 BUN/Creatinine Ratio 14 (6-20) Glucose Level 168 mg/dL (70-99) Calcium Level 9.0 mg/dL (8.5-10.1) Total Bilirubin 0.3 mg/dL (0.2-1.0) Aspartate Amino Transf (AST/SGOT) 20 U/L (15-37) Alanine Aminotransferase (ALT/SGPT) 21 U/L (16-63) Alkaline Phosphatase 48 U/L (46-116) Creatine Kinase 40 U/L (39-308) Total Protein 7.4 g/dL (6.4-8.2) Albumin 2.2 g/dL (3.4-5.0) Albumin/Globulin Ratio 0.4 (1.0-1.7) Microbiology 07/12/21 Gram Stain - Final, Complete 07/12/21 Aerobic Culture - Final, Complete 06/29/21 Blood Culture - Final, Complete NO GROWTH AFTER 5 DAYS Medications Current Medications Aspirin (Ecotrin) 325 mg DAILYWBKFT PO Last administered on 07/22/21at 09:12; Start 07/22/21 at 08:00 Fluconazole (Diflucan) 200 mg DAILY PO ; Start 07/22/21 at 09:00 Influenza Virus Vaccine Quadrival (Flulaval Quad Syringe) 0.5 ml ONCE ONCE VAX IM Last administered on 07/21/21at 18:17; Start 07/21/21 at 17:15; Stop 07/21/21 at 17:16; Status DC Vitals/I & O Vital Sign - Last 24 Hours 07/21/21 07/21/21 07/21/21 07/21/21 11:00 15:00 19:00 20:10 Temp 98.1 98.0 98.2 98.1 98.0 98.2 Pulse 59 61 76 Resp 16 16 16 B/P (MAP) 152/72 (98) 136/70 (92) 146/80 (102) Pulse Ox 98 99 100 O2 Delivery Room Air Room Air Room Air Room Air 07/21/21 07/21/21 07/22/21 07/22/21 21:54 23:45 03:47 07:00 Temp 98.8 98.6 98.4 98.8 98.6 98.4 Pulse 76 66 81 61 Resp 16 16 17 B/P (MAP) 146/80 135/73 (93) 151/87 (108) 135/73 (93) Pulse Ox 98 98 96 O2 Delivery Room Air Room Air Room Air 07/22/21 07/22/21 09:13 09:13 Pulse 61 61 B/P (MAP) 135/73 135/73 Intake and Output 07/21/21 07/21/21 07/22/21 15:00 23:00 07:00 Intake Total 50 ml 50 ml Output Total 1 ml Balance 50 ml 49 ml Justifications for Admission Other Justification Nutrition Consultation Dietary Evaluation: Recommendations by RD: Dietary education by RD, Increase Calorie Intake, Protein supplementation Comments: mech soft, ADA/Cardiac DBL meats , yogurt with meals REC mvi and vit c per wound protocal Expected Outcomes/Goals: to meet >75% est nutrition needs- goal ongoing Malnutrition Findings: Body Fat Depletion (Non Severe: Mod to Severe Weight Status: Underweight KESHA TAYLOR MD Jul 22, 2021 09:15
[2021-07-22] MEDS ORDERED: FLUC100T7 PO (09:19)
[2021-07-22] MEDS ORDERED: PIPE3.377 IV (09:21)
[2021-07-22] MEDS ORDERED: ASPI325T8 PO (09:22)
[2021-07-22] MEDS: HEPARIN for SUB-Q USE 5,000 UNIT/ML VIAL. SQ SCH (09:24)
[2021-07-22] MEDS: INSULIN LISPRO 300 UNITS/3 ML VIAL. SQ SCH ×3 (09:25→11:30)
--- NOTE | 2021-07-22 09:25 | SNU/HH DC ---
DISCHARGE ORDERS DISCHARGE INFORMATION: DISCHARGE DATE: Jul 22, 2021 CONDITION ON DISCHARGE: Stable CODE STATUS: Code Status: Full SENIOR CARE: SNF STAY <30 DAYS: Yes HOSPICE: HOSPICE: No HOSPICE EVAL & TREAT: No POST DISCHARGE ORDERS: ACTIVITY ORDERS: Activity as tolerated WEIGHT BEARING STATUS: Full weight bearing DIET AFTER DISCHARGE: ADA WOUND/INCISION CARE: Other, see below CHECKS AFTER DISCHARGE: CHECKS AFTER DISCHARGE: Check blood press - daily, Check blood sugar, ac/hs, Check your Temp as needed FOLLOW-UP: PHYSICIAN FOLLOW-UP: vascular in 3 weeks ,ID in 2 weeks LAB ORDERS FOR FOLLOW-UP: cbc, cmp ,sed rate ,crp weekly Additional Instructions: wound vac TREATMENT/EQUIPMENT ORDERS: INFUSION EQUIPMENT NEEDED: PICC Line Physical Therapy For: Evalulation/Treatment DISCHARGE MEDICATIONS: Home Meds Active Scripts Aspirin (ASPIRIN) 325 Mg Tablet, 1 TAB PO DAILY for pvd, #90 TAB 3 Refills Prov:KESHA TAYLOR MD 07/22/21 Nntkmccxweir-Rqcq-Aownnyme,Iso (ZOSYN 3.375 GM PRE MIX-BAG) 3.375 Gm/50 Ml Froz.piggy, 3.375 GM IV Q6HRS for infection for 21 Days, EACH Prov:KESHA TAYLOR MD 07/22/21 Fluconazole (DIFLUCAN) 100 Mg Tablet, 100 MG PO DAILY for fungal infection for 21 Days, #21 TAB Prov:KESHA TAYLRO MD 07/22/21 Amlodipine Besylate (AMLODIPINE BESYLATE) 5 Mg Tablet, 5 MG PO DAILY for htn for 90 Days, #90 TAB Prov:KESHA TAYLOR MD 07/06/21 Hydrocodone Bit/Acetaminophen (HYDROCODONE-APAP 5-325 ) 1 Tab Tablet, 1 TAB PO PRN Q6HRS PRN for MODERATE PAIN 4-6 for 7 Days, TAB Prov:KESHA TAYLOR MD 07/06/21 Insulin Glargine,Hum.rec.anlog (LANTUS) 100 Unit/1 Ml Vial, 6 UNIT SQ QHS for dm for 30 Days, EACH Prov:KESHA TAYLOR MD 07/06/21 Insulin Lispro (Admelog) 100 Unit/1 Ml Vial, 6 UNITS SQ TIDAC for dm for 30 Days, EACH Prov:KESHA TAYLOR MD 9/29/21 Lisinopril (LISINOPRIL) 20 Mg Tablet, 1 TAB PO BID, #60 TAB 5 Refills Prov:TUNDE CAMARA MD 04/17/16 Hydrocodone Bit/Acetaminophen (HYDROCODONE-APAP 5-325 ) 1 Each Tablet, 1 TAB PO PRN Q4HRS PRN for MODERATE - SEVERE PAIN, #30 TAB 0 Refills Prov:TUNDE CAMARA MD 04/17/16 Reported Medications Hydrochlorothiazide (HYDROCHLOROTHIAZIDE TABLET) 12.5 Mg Tablet, 1 TAB PO TID, #90 TAB 3 Refills 06/01/16 Dulaglutide (Trulicity) 1.5 Mg/0.5 Ml Pen.injctr, 1.5 MG SQ 06/01/16 Sitagliptin Phosphate (JANUVIA) 100 Mg Tablet, 1 TAB PO TID, #90 TAB 3 Refills 06/01/16 Gabapentin (GABAPENTIN ) 300 Mg Capsule, 300 MG PO TID, CAP 04/12/16 Metformin Hcl (METFORMIN HCL) 1,000 Mg Tablet, 1 TAB PO BIDAC, #60 TAB 5 Refills 04/12/16 Aspirin (ASPIRIN) 81 Mg Tab.chew, 81 MG PO BID, TAB.CHEW 03/20/16 KESHA TAYLOR MD Jul 22, 2021 09:24
[2021-07-22 11:00] VITALS: BP 104/67
--- NOTE | 2021-07-22 11:03 | NUR ---
SW following. Discussed with RN, discharge orders faxed to [facility] for SNF. Transportation arranged for 1400. RN notified. No further SW needs.
[2021-07-22] MEDS ORDERED: ALTEPLASE 1MG SYRINGE. INT CAT ONE (13:00)
--- NOTE | 2021-07-22 13:10 | NUR ---
Wound Care Spoke with JOSE F Soto re: pt's discharge to [facility]. Instructed Brittany to remove wound vac foam, clean, measured and photograph wound, and cover with Xeroform gauze, ABD and Kerlix for transfer to facility, as wound care will not be finished in clinic until after pt's scheduled pickup.
--- NOTE | 2021-07-22 13:38 | PDOC ---
Provider Note Date of Service: DATE: 07/22/21 TIME: 13:33 Provider Note Provider Note Vascular S: Patient is without complaints excited to discharge today. On 06/02/2021 an angiogram with posterior tibial atherectomy was performed at . He is awake and alert, in no apparent distress. Sitting on edge of bed, active. Left leg wound VAC was removed. There is healthy granulation tissue along the borders of the wound with large area of extensor hallucis longus tendon exposure. There is no drainage or surrounding erythema. A/P: Continue wound VAC therapy and close follow-up at wound care center. He is planning for discharge today. He will follow up with us in 2 to 3 weeks with ABIs and office visit. He needs to continue his aspirin and Plavix with recent atherectomy. We will see him in follow-up. Justicifation of Admission Dx: Justifications for Admission: Justification of Admission Dx: Yes ALEKSEY NORTH Jul 22, 2021 13:38
--- NOTE | 2021-07-22 15:18 | NUR ---
Discharge Note: ESPERANZA MARINELLI W5 [facility] Discharge instructions and discharge home medications reviewed with Leonie KOHLER of [facility] All questions have been answered and understanding verbalized. The following instructions and handouts were given: PICC line UA in place for antibiotics, cathflo administered due to no blood return Wound care nurse consult Follow up with PCP in weeks Patient discharged to [facility] via wheelchair on room air at 1435.
--- NOTE | 2021-07-31 15:56 | PDOC ---
Provider Note Date of Service: DATE: 07/31/21 TIME: 15:55 Provider Note Discharge summary dictated.#[id number]. Justifications for Admission Other Justification KESHA TAYLOR MD Jul 31, 2021 15:56
--- NOTE | 2021-07-31 19:37 | DS ---
DATE OF DISCHARGE: 07/22/2021 REASONS FOR ADMISSION TO THE HOSPITAL: 1. Left leg necrotic ulcer. 2. Peripheral vascular disease. CONSULTATIONS: 1. JESSICA Hernández. 2. Dr. Chow, Vascular. 3. Plastic, Dr. Parker. PROCEDURES DONE: Surgery, debridement of the leg ulcer x2. COMPLICATIONS NOTED: None. HOSPITAL COURSE: The patient is a 80-year-old male with history of diabetes. He has peripheral vascular disease, had a bypass to the right leg in the past, he is a smoker, brittle diabetes and hypertension. He was admitted to the hospital for vascular disease, DKA, and a leg ulcer at a month ago. At that time, the patient was seen by Vascular, had angioplasty of the left leg done at , and he was on Plavix. The patient also did not improve over the course of a couple of weeks as outpatient. The wounds got worse with necrotic base and foul smelling. The patient was admitted to the hospital for IV antibiotics and wound care and wound culture shows Staph aureus, Enterococcus faecalis, beta Streptococcus group B, and Zaria tropicalis. The patient was taken to surgery on 07/02, had extensive excisional debridement of the left lung wound including skin and subcutaneous tissue. Wound VAC placed. The patient was seen by Infectious Disease, was treated with broad spectrum antibiotics, daptomycin, Zosyn and micafungin. The patient's wound was not getting any better after a couple of days and was taken to surgery again. A tendon was exposed. The patient was taken to surgery on 07/12, had a sharp excisional debridement to the level of the tendon, 15 x 3 x 0.5 cm, placement of wound VAC. The patient had arterial Doppler, which showed adequate blood flow. The patient was seen by Plastic Surgery. They did not think he needed any plastic at this point, would need to have good granulation tissue before any skin grafting could be placed and it was felt that the patient would need IV antibiotics because of tendon exposed close to the bone for at least 4-6 weeks and the patient will be discharged to retirement unit for wound care, wound VAC and IV antibiotics. The patient finished at least 4 weeks of Plavix after angioplasty was done. Discussed with Cardiology. Discussed treatment with aspirin. Has significant laboratory data, creatinine 1.4, COVID test negative, A1c 15. FINAL DIAGNOSES: 1. Left leg deep ulcer with abscess, had a surgical debridement x2. 2. Culture shows polymicrobial including Staphylococcus aureus, Enterococcus faecalis, beta Streptococcus group B, and Zaria tropicalis. 3. Peripheral vascular disease, had angioplasty of left leg done at 6 weeks ago. 4. Brittle diabetes, noncompliant. 5. Uncontrolled blood sugars. DISPOSITION: To retirement unit. DISCHARGE INSTRUCTIONS: The patient will continue Zosyn 3.375 q.6h. and fluconazole 100 mg daily. He will be evaluated by Wound Care Center, by Infectious Disease and by the [facility] physician. CHARLIE DR: Jewell TID: [id number] MTDD
== END 2021-07-22 14:35 | DRG 264 ==
LOC: 5 SOUTH 19:53
PROVIDERS: ADMIT Internal Medicine; ATTEND Internal Medicine
PROC: 0JBP0ZZ Excision of Left Lower Leg Subcutaneous Tissue and Fascia, Open Approach (ICD-10-PCS; principal; 2021-07-02 08:00)
PROC: 02HV33Z Insertion of Infusion Device into Superior Vena Cava, Percutaneous Approach (ICD-10-PCS; 2021-07-05)
PROC: B548ZZA Ultrasonography of Superior Vena Cava, Guidance (ICD-10-PCS; 2021-07-05)
PROC: 0LBT0ZZ Excision of Left Ankle Tendon, Open Approach (ICD-10-PCS; 2021-07-12)
DX: E11.52 Type 2 diabetes mellitus with diabetic peripheral angiopathy with gangrene (principal); N17.0 Acute kidney failure with tubular necrosis; E43 Unspecified severe protein-calorie malnutrition; L03.116 Cellulitis of left lower limb; I70.269 Atherosclerosis of native arteries of extremities with gangrene, unspecified extremity; L97.929 Non-pressure chronic ulcer of unspecified part of left lower leg with unspecified severity; L02.416 Cutaneous abscess of left lower limb; E11.22 Type 2 diabetes mellitus with diabetic chronic kidney disease; E11.42 Type 2 diabetes mellitus with diabetic polyneuropathy; E78.5 Hyperlipidemia, unspecified; R32 Unspecified urinary incontinence; F17.210 Nicotine dependence, cigarettes, uncomplicated; Z79.02 Long term (current) use of antithrombotics/antiplatelets; Z79.4 Long term (current) use of insulin; Z79.82 Long term (current) use of aspirin; Z83.3 Family history of diabetes mellitus; Z87.11 Personal history of peptic ulcer disease; Z89.429 Acquired absence of other toe(s), unspecified side; Z91.19 Patient's noncompliance with other medical treatment and regimen; Z98.62 Peripheral vascular angioplasty status; M19.90 Unspecified osteoarthritis, unspecified site; Z68.21 Body mass index [BMI] 21.0-21.9, adult; Z20.822 Contact with and (suspected) exposure to COVID-19; B95.2 Enterococcus as the cause of diseases classified elsewhere; B95.61 Methicillin susceptible Staphylococcus aureus infection as the cause of diseases classified elsewhere; B95.1 Streptococcus, group B, as the cause of diseases classified elsewhere
CPT/HCPCS: 36415; 36569; 71045; 73030; 73590; 80048; 80053; 80061; 80202; 81001; 82550; 82962; 83036; 84443; 85025; 85651; 87040; 87070; 87071; 87075; 87077; 87106; 87186; 87426; 90471; 90686; 93005; 93926; 93971; A4930; A6211; A6223; A6402; J0878; J1644; J1815; J2248; J2270; J2405; J2543; J2704; J2997; J3010; J3370; J3480; J3490; J7030; J7050; J7060; U0003; U0005; 97110-GP; 97116-GP; 97530-GO; 97535-GO; G0378